=== PATIENT | male | born 1970 | race Caucasian/White ===

== ENCOUNTER 2022-06-02 00:07 | Inpatient (IN) | payer OTHER ==
--- NOTE | 2022-06-02 00:23 | ED ---
Chest Pain HPI - General Chief Complaint: Shortness of Breath Stated Complaint: Shortness of Breath Time Seen by Provider: 06/02/22 00:22 Source: patient, EMS, RN notes reviewed, old records reviewed Mode of arrival: EMS Limitations: no limitations - History of Present Illness Initial Comments: This is a 51-year-old male to the emergency department for evaluation of chest pain. patient states symptoms ongoing for 3 weeks progressively worsening. No fevers cough or congestion. No travel history. MD Complaint: chest pain -: week(s) Onset: during rest Pain Location: substernal, left chest Pain Radiation: LUE Severity: moderate Severity scale (1-10): 4 Quality: aching, heaviness Consistency: constant Improves With: nothing Anginal Symptoms: dyspnea Other Symptoms: palpitations Treatments Prior to Arrival: none - Related Data Previous Rx's Medication Instructions Recorded Aspirin 81 mg PO DAILY #90 tab 12/22/21 Atorvastatin [Lipitor] 80 mg PO HS #90 tab 12/22/21 Furosemide [Lasix] 40 mg PO DAILY #90 tab 12/22/21 Nitroglycerin Sl Tabs [Nitrostat] 0.4 mg SUBLINGUAL Q5M PRN #100 tab 12/22/21 Ticagrelor [Brilinta] 90 mg PO BID #180 tab 12/22/21 carvediloL [Coreg] 3.125 mg PO BID-W/MEALS #180 tab 12/22/21 lisinopriL [Zestril] 10 mg PO DAILY #90 tab 12/22/21 Allergies Allergy/AdvReac Type Severity Reaction Status Date / Time coconut Allergy Itching Verified 12/19/21 14:35 Review of Systems ROS Statement: Those systems with pertinent positive or pertinent negative responses have been documented in the HPI. ROS Other: All systems not noted in ROS Statement are negative. EKG Findings - EKG Comments: EKG Findings:: EKG sinus 84 NC 168 QRS 90 QTC 432 Past Medical History Past Medical History: Hypertension History of Any Multi-Drug Resistant Organisms: None Reported Past Surgical History: No Surgical Hx Reported Past Anesthesia/Blood Transfusion Reactions: Unable to Obtain Smoking Status: Current every day smoker - Past Family History Father Additional Family Medical History / Comment(s): Father is . He was a [place] vet, exsposed to agent orange. Mother Family Medical History: Cancer Additional Family Medical History / Comment(s): Mother of bladder cancer. General Exam Limitations: no limitations General appearance: alert, in no apparent distress, anxious Head exam: Present: atraumatic, normocephalic, normal inspection Eye exam: Present: normal appearance, PERRL, EOMI. Absent: scleral icterus, conjunctival injection, periorbital swelling ENT exam: Present: normal exam, mucous membranes moist Neck exam: Present: normal inspection. Absent: tenderness, meningismus, lymphadenopathy Respiratory exam: Present: normal lung sounds bilaterally. Absent: respiratory distress, wheezes, rales, rhonchi, stridor Cardiovascular Exam: Present: regular rate, normal rhythm, normal heart sounds. Absent: systolic murmur, diastolic murmur, rubs, gallop, clicks GI/Abdominal exam: Present: soft, normal bowel sounds. Absent: distended, tenderness, guarding, rebound, rigid Extremities exam: Present: normal inspection, full ROM, normal capillary refill. Absent: tenderness, pedal edema, joint swelling, calf tenderness Back exam: Present: normal inspection Neurological exam: Present: alert, oriented X3, CN II-XII intact Psychiatric exam: Present: normal affect, normal mood Skin exam: Present: warm, dry, intact, normal color. Absent: rash Course Vital Signs 06/02/22 06/02/22 00:09 02:39 Temperature 97.5 F L Pulse Rate 84 75 Respiratory 20 20 Rate Blood Pressure 140/85 135/66 O2 Sat by Pulse 98 100 Oximetry - Reevaluation(s) Reevaluation #1: 06/02/22 02:40 medical record is reviewed Reevaluation #2: 06/02/22 03:37 Patient still with chest pain here in the ER Reevaluation #3: 06/02/22 03:37 Patient informed results questions answered - Consultations Consultation #1: Spoke with sound who agrees to admit this patient Chest Pain MDM - MDM 51 male presenting with chest pain today history of high blood pressure, mild troponin leak. Elevated d-dimer CT negative for PE. Patient be admitted for cardiac observation Disposition Clinical Impression: Chest pain Disposition: [facility]ITT[facility] Condition: Undetermined Is patient prescribed a controlled substance at d/c from ED?: No Referrals: None,Stated [Primary Care Provider] - 1-2 days Time of Disposition: 03:15
[2022-06-02 00:34] LABS: Basophils # (A) 0.1 k/uL (0-0.2); Basophils % (A) 1 %; Eosinophils # (A) 0.2 k/uL (0-0.7); Eosinophils % (A) 1 %; HCT 42.6 % (39.0-53.0); HGB 14.5 gm/dL (13.0-17.5); Lymphocytes # (A) 3.7 k/uL (1.0-4.8); Lymphocytes % (A) 30 %; MCH 30.9 pg (25.0-35.0); Monocytes # (A) 0.6 k/uL (0-1.0); Monocytes % (A) 5 %; Neutrophils # (A) 7.2 k/uL (1.3-7.7); Neutrophils % (A) 59 %; Platelet Count 314 k/uL (150-450); RBC 4.69 m/uL (4.30-5.90); RDW 13.5 % (11.5-15.5); WBC 12.2 k/uL (3.8-10.6)
[2022-06-02 00:46] LABS: ALT 26 U/L (4-49); AST 26 U/L (17-59); African American GFR (CKD) >90 (>60 ml/min/1.73 sqM); Albumin 4.4 g/dL (3.5-5.0); Alkaline Phosphatase 131 U/L (38-126); Anion Gap 16 mmol/L; Blood Urea Nitrogen 10 mg/dL (9-20); Calcium 8.7 mg/dL (8.4-10.2); Carbon Dioxide 14 mmol/L (22-30); Chloride 99 mmol/L (98-107); Glucose 110 mg/dL (74-99); Magnesium 2.1 mg/dL (1.6-2.3); Non-African American GFR(CKD) >90 (>60 ml/min/1.73 sqM); Phosphorus 3.9 mg/dL (2.5-4.5); Potassium 3.8 mmol/L (3.5-5.1); Sodium 129 mmol/L (137-145); Total Bilirubin 0.2 mg/dL (0.2-1.3); Total Protein 7.5 g/dL (6.3-8.2)
--- NOTE | 2022-06-02 00:57 | XR ---
EXAMINATION TYPE: XR chest 2V DATE OF EXAM: 06/02/2022 COMPARISON: 12/20/2021 HISTORY: Weakness TECHNIQUE: FINDINGS: Heart and mediastinum are normal. Lungs are clear. The diaphragm is normal. Bony thorax is intact. There are chest leads. IMPRESSION: Normal chest. No adverse change.
[2022-06-02 00:58] LABS: INR 0.9 (<1.2); Partial Thromboplastin Time 29.2 sec (22.0-30.0); Prothrombin Time 9.8 sec (9.0-12.0)
[2022-06-02] MEDS ORDERED: SODIUM CHLORIDE 0.9% 1,000 ML IV STA (01:27)
--- NOTE | 2022-06-02 02:23 | CT ---
EXAMINATION TYPE: CT angio chest DATE OF EXAM: 06/02/2022 COMPARISON: 12/19/2021 HISTORY: CHEST PAIN/ELEVATED D DIMER CT DLP: 335.4 mGycm Automated exposure control for dose reduction was used. CONTRAST: Performed with IV Contrast, patient injected with mL of Isovue 370. Images obtained from the thoracic inlet to the diaphragm with the IV contrast. There are Three-D post processed images. The lungs are clear of consolidation. No pulmonary mass. There is no mediastinal adenopathy. There ar e no hilar masses. Thoracic aorta is intact. No aneurysm. There is normal contrast opacification of the pulmonary arteries. No filling defect. The thoracic spi ne is intact. No compression fracture. Sternum is intact. The upper abdominal soft tissues are intact . IMPRESSION: No evidence of pulmonary embolism. Negative exam. No suspicious pulmonary mass.
[2022-06-02] MEDS ORDERED: MORPHINE SULFATE 4 MG/ML SYRINGE IV PRN (03:35)
[2022-06-02] MEDS ORDERED: ONDANSETRON 4 MG/2 ML VIAL IVP PRN (03:35)
[2022-06-02] MEDS ORDERED: NALOXONE 0.4 MG/ML 1 ML VIAL IV PRN (03:35)
--- NOTE | 2022-06-02 09:09 | P.CRDCN ---
History of Present Illness Consult date: 06/02/22 Chief complaint: Shortness of breath and chest discomfort History of present illness: The patient is a very pleasant 51-year-old gentleman with a past medical history significant for CAD and prior stenting of the OM in December 2021, cardiomyopathy w ith last ejection fraction about 35-40%, hypertension, dyslipidemia, presented to the hospital because he was experiencing symptoms of shortness of breath as well as chest discomfort. The patient describes exertional dyspnea for the last few weeks with no orthopnea or PND. No change in the weight. No lower eczema his edema. Also he has been experiencing intermittent episodes of discomfort in between the shoulder somewhat similar to what he had before he underwent stenting of the LCx. He presented for further evaluation. When he was seen and evaluated this morning he seems to be euvolemic on examination. He has no JVD and he has clear breathing sounds bilaterally and no lower extremities edema and no abdominal distention. Currently he is asymptomatic in terms of any discomfort in the chest or discomfort in between the shoulders. He underwent further investigation including d-dimer came in to be abnormal of the chest showed no PE. He underwent a chest x-ray showed no abnormalities. NT proBNP came in to be about 1500. He is on dual antiplatelet therapy along with high intensity statin along with beta james and JOSÉ inhibitor. He is in process of having an echocardiogram. He is known that weeks ago the patient fell and had injury on the left face. He is not quite sure if he lost his consciousness or no around that episode. Past Medical History Past Medical History: Hypertension History of Any Multi-Drug Resistant Organisms: None Reported Past Surgical History: Heart Catheterization With Stent Past Anesthesia/Blood Transfusion Reactions: Unable to Obtain Date of Last Stent Placement:: 12/21/2021 Past Psychological History: No Psychological Hx Reported Additional Psychological History / Comment(s): Pt resides with one lady roommate. He drives. Smoking Status: Current every day smoker Past Alcohol Use History: Daily Additional Past Alcohol Use History / Comment(s): Pt started smoking in 1998 and states he now smokes about 10 cigarettes/day. Pt states he drinks 2-3 25-ounce beers a day. Past Drug Use History: None Reported - Past Family History Father Additional Family Medical History / Comment(s): Father is . He was a [place] vet, exsposed to agent orange. Mother Family Medical History: Cancer Additional Family Medical History / Comment(s): Mother of bladder cancer. Medications and Allergies Home Medications Medication Instructions Recorded Confirmed Type Aspirin 81 mg PO DAILY #90 tab 12/22/21 Rx Atorvastatin [Lipitor] 80 mg PO HS #90 tab 12/22/21 Rx Furosemide [Lasix] 40 mg PO DAILY #90 tab 12/22/21 Rx Nitroglycerin Sl Tabs [Nitrostat] 0.4 mg SUBLINGUAL Q5M PRN #100 tab 12/22/21 Rx Ticagrelor [Brilinta] 90 mg PO BID #180 tab 12/22/21 Rx carvediloL [Coreg] 3.125 mg PO BID-W/MEALS #180 tab 12/22/21 Rx lisinopriL [Zestril] 10 mg PO DAILY #90 tab 12/22/21 Rx Allergies Allergy/AdvReac Type Severity Reaction Status Date / Time coconut Allergy Itching Verified 12/19/21 14:35 Physical Exam Vitals: Vital Signs Temp Pulse Pulse Resp BP BP Pulse Ox 06/02/22 07:00 97.8 F 80 18 134/72 95 06/02/22 05:11 97.7 F 76 18 156/76 97 06/02/22 03:56 75 18 113/58 98 06/02/22 02:39 75 20 135/66 100 06/02/22 00:09 97.5 F L 84 20 140/85 98 Intake and Output 06/01/22 06/02/22 06/02/22 22:59 06:59 14:59 Other: # Voids 1 0 Weight 74.843 kg - Constitutional General appearance: no acute distress - Respiratory Respiratory: bilateral: CTA - Cardiovascular Rhythm: regular Heart sounds: normal: S1, S2 Results 06/02/22 00:16 06/02/22 00:16 Cardiac Enzymes 06/02/22 06/02/22 Range/Units 00:16 00:16 AST 26 (17-59) U/L Troponin I 0.028 (0.000-0.034) ng/mL Coagulation 06/02/22 Range/Units 00:16 PT 9.8 (9.0-12.0) sec APTT 29.2 (22.0-30.0) sec CBC 06/02/22 Range/Units 00:16 WBC 12.2 H (3.8-10.6) k/uL RBC 4.69 (4.30-5.90) m/uL Hgb 14.5 (13.0-17.5) gm/dL Hct 42.6 (39.0-53.0) % Plt Count 314 (150-450) k/uL Comprehensive Metabolic Panel 06/02/22 Range/Units 00:16 Sodium 129 L (137-145) mmol/L Potassium 3.8 (3.5-5.1) mmol/L Chloride 99 (98-107) mmol/L Carbon Dioxide 14 L (22-30) mmol/L BUN 10 (9-20) mg/dL Creatinine 0.92 (0.66-1.25) mg/dL Glucose 110 H (74-99) mg/dL Calcium 8.7 (8.4-10.2) mg/dL AST 26 (17-59) U/L ALT 26 (4-49) U/L Alkaline Phosphatase 131 H (38-126) U/L Total Protein 7.5 (6.3-8.2) g/dL Albumin 4.4 (3.5-5.0) g/dL Current Medications Generic Name Dose Route Start Last Admin Trade Name Freq PRN Reason Stop Dose Admin Aspirin 81 mg 06/02/22 09:00 Aspirin 81 Mg PO DAILY [facility] Atorvastatin Calcium 80 mg 06/02/22 21:00 Atorvastatin 80 Mg Tab PO HS [facility] Carvedilol 3.125 mg 06/02/22 17:30 Carvedilol 3.125 Mg Tab PO BID-W/MEALS [facility] Furosemide 40 mg 06/02/22 09:00 Furosemide 40 Mg Tab PO DAILY [facility] Lisinopril 10 mg 06/02/22 09:00 Lisinopril 10 Mg Tab PO DAILY [facility] Morphine Sulfate 4 mg 06/02/22 03:35 Morphine Sulfate 4 Mg/Ml Syringe IV Q4HR PRN Severe Pain (Scale 7 to 10) Naloxone HCl 0.2 mg 06/02/22 03:35 Naloxone 0.4 Mg/Ml 1 Ml Vial IV Q2M PRN Opioid Reversal Ondansetron HCl 4 mg 06/02/22 03:35 Ondansetron 4 Mg/2 Ml Vial IVP Q8HR PRN Nausea And Vomiting Ticagrelor 90 mg 06/02/22 09:00 Ticagrelor 90 Mg Tab PO BID DAYSI Intake and Output 06/01/22 06/02/22 06/02/22 22:59 06:59 14:59 Other: # Voids 1 0 Weight 74.843 kg 06/02/22 00:16 06/02/22 00:16 Assessment and Plan Assessment: Assessment Chest discomfort/discomfort in between the shoulders Shortness of breath with exertion consistent with NYHA class II Coronary artery disease and prior vascularization of the LCx/OM Cardiomyopathy with last EF of 35% Status post fall, rule out syncope. Plan Rule out acute coronary syndrome. Follow-up with the serial cardiac enzymes He is not in overt heart failure at this point. He is euvolemic on examination Rule out cardiac arrhythmia/sustained VT as an etiology for his episode when he fell and had injury on the face Follow-up with the echocardiogram Follow-up with the patient
[2022-06-02] MEDS: ASPIRIN 81 MG PO SCH (09:34)
[2022-06-02] MEDS: FUROSEMIDE 40 MG TAB PO SCH (09:34)
[2022-06-02] MEDS: lisinopriL 10 MG TAB PO SCH (09:34)
[2022-06-02] MEDS: TICAGRELOR 90 MG TAB PO SCH ×2 (09:34→20:34)
--- NOTE | 2022-06-02 11:29 | P.HPIM ---
History of Present Illness H&P Date: 06/02/22 Patient is a 51-year-old male with PMH of CAD post stent of the OM in December 2021, systolic CHF with EF 35-40%, hypertension, dyslipidemia that presents the ED or worsening shortness of breath and scapular pain. Patient reports shortness of breath that is progressively getting worse since his stenting in December. Currently he is unable to walk 200 feet without stopping to catch his breath. He denies a ny orthopnea or lower extremity swelling. He reports scapular pain that has been ongoing over the past week that is worse with exertion, similar to what he had before he underwent stenting in December. Patient also reports that he fell twice. The first time was 2 weeks ago and he hit his head, did not seek medical attention. He fell yesterday, this time he did not hit his head. He is unsure whether he had a syncopal episode or not. He denies any headache, nausea or vomiting, fever or chills, diaphoresis, chest pain, palpitations, changes in urination or bowel habits. No changes in appetite or weight. He denies any dizziness, numbness/weakness/tingling of the extremities. In the ED, his vital signs are stable. CBC showed leukocytosis of 12.2. Coagulation panel was negative. D-dimer was 12.95. CMP showed sodium 129, bicarb of 14, glucose of 110, alkaline phosphatase of 131. Troponin was 0.028, 0.034, 0.035 with EKG showing sinus rhythm and T-wave abnormalities. BNP was 1430. Chest x-ray was negative. CTA chest negative for PE. Patient is admitted for chest pain, rule out acute coronary syndrome with cardiology consultation. Review of systems is performed and is negative except above. General: non toxic, no distress, appears at stated age Derm: warm, dry Head: atraumatic, normocephalic, ecchymosis over the left orbital region Eyes: EOMI, no lid lag, anicteric sclera Mouth: no lip lesion, mucus membranes moist Cardiovascular: S1S2 reg, no murmur, positive posterior tibial pulse bilateral, Lungs: Decreased breath sounds bilateral, no rhonchi, no rales , no accessory muscle use Abdominal: soft, nontender to palpation, no guarding, no appreciable organomegaly Ext: no gross muscle atrophy, no edema, no contractures Neuro: CN II-XI grossly intact, no focal neuro deficits Psych: Alert, oriented, appropriate affect #Shortness of breath #Scapular pain #Elevated troponin with history of CAD post stent in December 2021 #Possible syncopal episode #Elevated d-dimer #Hyponatremia #Metabolic acidosis Chronic conditions: Systolic CHF with EF 35-40%, hypertension, dyslipidemia, smoker Patient presents with exertional shortness of breath. Chest x-ray was negative. He has no lower extremity swelling. Troponins are slowly trending with EKG showing T-wave abnormalities. Cardiology has been consulted and recommended echocardiogram. Restart ASA, Lipitor, Coreg and Brilinta. Patient will be started on a heparin drip and would benefit from a cardiac cath. Contine Telemetry monitoring to rule out cardiac cause of syncope. Patient be placed on fall precautions. Patient with elevated d-dimer, CT chest is ruled out PE. Patient was sodium of 129 and bicarb of 14. Possibly related to dehydration. Received 1 L bolus in the ED. Patient encouraged hydration by mouth. Repeat BMP tomorrow morning. DVT prophylaxis: Heparin drip Discussed with: Patient Anticipated discharge: 1-[address]: Home A total of 35 minutes was spent on the care of this complex patient more than 50% of the time was spent in counseling and care coordination. Patient is unable to name a decision maker. He would like to be no code but okay with intubation, vasopressors and antiarrhythmics. Past Medical History Past Medical History: Hypertension History of Any Multi-Drug Resistant Organisms: None Reported Past Surgical History: Heart Catheterization With Stent Past Anesthesia/Blood Transfusion Reactions: Unable to Obtain Date of Last Stent Placement:: 12/21/2021 Past Psychological History: No Psychological Hx Reported Additional Psychological History / Comment(s): Pt resides with one lady roommate. He drives. Smoking Status: Current every day smoker Past Alcohol Use History: Daily Additional Past Alcohol Use History / Comment(s): Pt started smoking in 1998 and states he now smokes about 10 cigarettes/day. Pt states he drinks 2-3 25-ounce beers a day. Past Drug Use History: None Reported - Past Family History Father Additional Family Medical History / Comment(s): Father is . He was a [place] vet, exsposed to agent orange. Mother Family Medical History: Cancer Additional Family Medical History / Comment(s): Mother of bladder cancer. Medications and Allergies Home Medications Medication Instructions Recorded Confirmed Type Aspirin 81 mg PO DAILY #90 tab 12/22/21 Rx Atorvastatin [Lipitor] 80 mg PO HS #90 tab 12/22/21 Rx Furosemide [Lasix] 40 mg PO DAILY #90 tab 12/22/21 Rx Nitroglycerin Sl Tabs [Nitrostat] 0.4 mg SUBLINGUAL Q5M PRN #100 tab 12/22/21 Rx Ticagrelor [Brilinta] 90 mg PO BID #180 tab 12/22/21 Rx carvediloL [Coreg] 3.125 mg PO BID-W/MEALS #180 tab 12/22/21 Rx lisinopriL [Zestril] 10 mg PO DAILY #90 tab 12/22/21 Rx Allergies Allergy/AdvReac Type Severity Reaction Status Date / Time coconut Allergy Itching Verified 12/19/21 14:35 Physical Exam Vitals: Vital Signs Temp Pulse Pulse Resp BP BP Pulse Ox 06/02/22 07:00 97.8 F 80 18 134/72 95 06/02/22 05:11 97.7 F 76 18 156/76 97 06/02/22 03:56 75 18 113/58 98 06/02/22 02:39 75 20 135/66 100 06/02/22 00:09 97.5 F L 84 20 140/85 98 Intake and Output 06/01/22 06/02/22 06/02/22 22:59 06:59 14:59 Other: # Voids 1 0 Weight 74.843 kg Results CBC & Chem 7: 06/02/22 00:16 06/02/22 00:16 Labs: Abnormal Lab Results - Last 24 Hours (Table) 06/02/22 06/02/22 06/02/22 Range/Units 00:16 00:16 00:16 WBC 12.2 H (3.8-10.6) k/uL D-Dimer 12.95 H (<0.60) mg/L FEU Sodium 129 L (137-145) mmol/L Carbon Dioxide 14 L (22-30) mmol/L Glucose 110 H (74-99) mg/dL Alkaline Phosphatase 131 H (38-126) U/L Thrombosis Risk Factor Assmnt - Choose All That Apply Each Factor Represents 1 point: Age 41-60 years, Obesity (BMI >25) Thrombosis Risk Factor Assessment Total Risk Factor Score: 2 Thrombosis Risk Factor Assessment Level: Low Risk
[2022-06-02] MEDS: HEPARIN SOD,PORK IN 0.45% NACL 25,000 UNIT in 0.45% NACL 1 250ML.BAG IV SCH (11:30)
[2022-06-02] MEDS: SPIRONOLACTONE 25 MG TAB PO SCH (14:48)
[2022-06-02] MEDS: carvediloL 3.125 MG TAB PO SCH (18:12)
[2022-06-02] MEDS: ATORVASTATIN 80 MG TAB PO SCH (20:33)
--- NOTE | 2022-06-02 21:00 | US ---
EXAMINATION TYPE: US venous doppler duplex LE DATE OF EXAM: 06/02/2022 7:23 PM COMPARISON: NONE CLINICAL HISTORY: elevated ddim. Elevated d dimer. No hx of DVT. Patient is currently on heparin. Jose n in feet. SIDE PERFORMED: Bilateral TECHNIQUE: The lower extremity deep venous system is examined utilizing real time linear array sonog ethan with graded compression, doppler sonography and color-flow sonography. VESSELS IMAGED: Common Femoral Vein Deep Femoral Vein Greater Saphenous Vein * Femoral Vein Popliteal Vein Small Saphenous Vein * Proximal Calf Veins (* superficial vessels) Right Leg: No evidence of DVT. Duplicate popliteal vein noted. Left Leg: No evidence of DVT. Duplicate popliteal vein noted. IMPRESSION: No evidence of deep vein thrombosis in both legs.
[2022-06-03] MEDS: carvediloL 3.125 MG TAB PO SCH (06:30)
[2022-06-03 08:20] LABS: African American GFR (CKD) >90 (>60 ml/min/1.73 sqM); Anion Gap 7 mmol/L; Blood Urea Nitrogen 11 mg/dL (9-20); Calcium 8.7 mg/dL (8.4-10.2); Carbon Dioxide 23 mmol/L (22-30); Chloride 100 mmol/L (98-107); Glucose 99 mg/dL (74-99); Non-African American GFR(CKD) >90 (>60 ml/min/1.73 sqM); Potassium 4.5 mmol/L (3.5-5.1); Sodium 130 mmol/L (137-145)
--- NOTE | 2022-06-03 08:20 | P.PN ---
Subjective Progress Note Date: 06/03/22 Principal diagnosis: Acute coronary syndrome The patient is a very pleasant 51-year-old gentleman with a past medical history significant for CAD and prior stenting of the OM in December 2021, cardiomyopathy with last ejection fraction about 35-40%, hypertension, dyslipidemia, presented to the hospital because he was experiencing symptoms of shortness of breath as well as chest discomfort. The patient describes exertional dyspnea for the last few weeks with no orthopnea or PND. No change in the weight. No lower eczema his edema. Also he has been experiencing intermittent episodes of discomfort in between the shoulder somewhat similar to what he had before he underwent [place] nting of the LCx. He presented for further evaluation. When he was seen and evaluated this morning he seems to be euvolemic on examination. He has no JVD and he has clear breathing sounds bilaterally and no lower extremities edema and no abdominal distention. Currently he is asymptomatic in terms of any discomfort in the chest or discomfort in between the shoulders. He underwent further investigation including d-dimer came in to be abnormal of the chest showed no PE. He underwent a chest x-ray showed no abnormalities. NT proBNP came in to be about 1500. He is on dual antiplatelet therapy along with high intensity statin along with beta james and JOSÉ inhibitor. He is in process of having an echocardiogram. He is known that weeks ago the patient fell and had injury on the left face. He is not quite sure if he lost his consciousness or no around that episode. June [id number] The patient was seen and examined this morning. He continues to be symptomatic in terms of chest discomfort with exertion. He did go to the bathroom and developed chest discomfort better when he was resting. He remains euvolemic on examination. The pressure continues to be elevated. I'm going to increase the dose of carvedilol to 6.25 mg by mouth twice a day. Continue dual antiplatelet therapy along with high intensity statin. An echo was performed and revealed impaired LV function was EF around 30% with overall global hypokinesia. I recommended proceeding with coronary angiogram tomorrow morning. Objective - Vital Signs Vital signs: Vital Signs Temp 98.1 F 06/03/22 02:34 Pulse 67 06/03/22 02:34 Resp 17 06/03/22 02:34 BP 147/77 06/03/22 02:34 Pulse Ox 98 06/03/22 02:34 FiO2 Intake & Output 06/02/22 06/03/22 06/03/22 18:59 06:59 18:59 Intake Total 540.173 Balance 540.173 Intake: Intake, IV Titration 60.173 Amount Heparin Sod,Pork in 0.45% 60.173 NaCl 25,000 unit In 0.45 % NaCl 1 250ml.bag @ 12 UNITS/KG/HR 8.981 mls/hr IV .Q24H DAYSI Rx#: [id number] Oral 480 Other: # Voids 2 1 - Constitutional General appearance: Present: no acute distress - Respiratory Respiratory: bilateral: CTA - Cardiovascular Rhythm: regular Heart sounds: normal: S1, S2 - Labs CBC & Chem 7: 06/02/22 00:16 06/02/22 00:16 Labs: Abnormal Lab Results - Last 24 Hours (Table) 06/02/22 06/02/22 06/03/22 Range/Units 09:36 17:00 00:48 APTT 37.0 H 49.0 H (22.0-30.0) sec Troponin I 0.035 H* (0.000-0.034) ng/mL Assessment and Plan Assessment: Assessment Acute coronary syndrome Shortness of breath with exertion consistent with NYHA class II Coronary artery disease and prior vascularization of the LCx/OM Cardiomyopathy with last EF of 35% Status post fall, rule out syncope. Plan Continue IV heparin Proceed was coronary angiogram tomorrow by Dr. Painter Increase the dose of carvedilol Follow-up with the patient Evaluated the patient for possible AICD for primary prevention if the EF did not recover
[2022-06-03] MEDS: ASPIRIN 81 MG PO SCH (08:43)
[2022-06-03] MEDS: lisinopriL 10 MG TAB PO SCH (08:43)
[2022-06-03] MEDS: FUROSEMIDE 40 MG TAB PO SCH (08:43)
[2022-06-03] MEDS: SPIRONOLACTONE 25 MG TAB PO SCH (08:43)
[2022-06-03] MEDS: TICAGRELOR 90 MG TAB PO SCH ×2 (08:43→20:45)
--- NOTE | 2022-06-03 11:20 | P.PN ---
Subjective Progress Note Date: 06/03/22 Patient is a 51-year-old male with PMH of CAD post stent of the OM in December 2021, systolic CHF with EF 35-40%, hypertension, dyslipidemia that presents the ED or worsening shortness of breath and scapular pain. Patient reports shortness of breath that is progressively getting worse since his stenting in December. Currently he is unable to walk 200 feet without stopping to catch his breath. He denies any orthopnea or lower extremity swelling. He reports scapular pain that has been ongoing over the past week that is worse with exertion, similar to what he had before he underwent stenting in December. Patient also reports that he fell twice. The first time was 2 weeks ago and he hit his head, did not seek medical attention. He fell yesterday, this time he did not hit his head. He is unsure whether he had a syncopal episode or not. He denies any headache, nausea or vomiting, fever or chills, diaphoresis, chest pain, palpitations, changes in urination or bowel habits. No changes in appetite or weight. He denies any dizziness, numbness/weakness/tingling of the extremities. In the ED, his vital signs are stable. CBC showed leukocytosis of 12.2. Coagulation panel was negative. D-dimer was 12.95. CMP showed sodium 129, bicarb of 14, glucose of 110, alkaline phosphatase of 131. Troponin was 0.028, 0.034, 0.035 with EKG showing sinus rhythm and T-wave abnormalities. BNP was 1430. Chest x-ray was negative. CTA chest negative for PE. Patient is admitted for chest pain, rule out acute coronary syndrome with cardiology consultation. Patient was seen and examined. No acute events overnight. He reports continue scapular pain. He reports pain in his bilateral lower extremities worsening with exertion. General: non toxic, no distress, appears at stated age Derm: warm, dry Head: atraumatic, normocephalic, ecchymosis over the left orbital region Eyes: EOMI, no lid lag, anicteric sclera Mouth: no lip lesion, mucus membranes moist Cardiovascular: S1S2 reg, no murmur, positive posterior tibial pulse bilateral, Lungs: Decreased breath sounds bilateral, no rhonchi, no rales , no accessory muscle use Ext: no gross muscle atrophy, no edema, no contractures Neuro: no focal neuro deficits Psych: Alert, oriented, appropriate affect #Systolic CHF with EF of 30% #Scapular pain #Elevated troponin with history of CAD post stent in December 2021 #Possible syncopal episode #Elevated d-dimer #Hyponatremia Chronic conditions: Systolic CHF with EF 35-40%, hypertension, dyslipidemia, smoker Patient presents with exertional shortness of breath. Chest x-ray was negative. He has no lower extremity swelling. Echocardiogram shows EF 30% with global hypokinesis. Continue Coreg, Lasix, Lisinopril and Aldactone. Patient would benefit from AICD. Cardiology on board. Troponins are slowly trending up with EKG showing T-wave abnormalities. Restart ASA, Lipitor, Coreg and Brilinta. Telemetry montoring. Patient will be started on a heparin drip with plans for cardiac cath tomorrow. Continue Telemetry monitoring to rule out cardiac cause of syncope. Patient be placed on fall precautions. Patient with elevated d-dimer, CT chest is ruled out PE. Venous duplex negative for DVT. Follow up arterial duplex of the lower extremities. Patient was sodium of 130. Possibly related to dehydration. Received 1 L bolus in the ED. Patient encouraged hydration by mouth. Repeat BMP tomorrow morning. DVT prophylaxis: Heparin drip Discussed with: Patient Anticipated discharge: 1-2 days Objective - Vital Signs Vital signs: Vital Signs Temp 98.1 F 06/03/22 02:34 Pulse 67 06/03/22 02:34 Resp 17 06/03/22 02:34 BP 147/77 06/03/22 02:34 Pulse Ox 98 06/03/22 02:34 FiO2 Intake & Output 06/02/22 06/03/22 06/03/22 18:59 06:59 18:59 Intake Total 540.173 Balance 540.173 Intake: Intake, IV Titration 60.173 Amount Heparin Sod,Pork in 0.45% 60.173 NaCl 25,000 unit In 0.45 % NaCl 1 250ml.bag @ 12 UNITS/KG/HR 8.981 mls/hr IV .Q24H DAYSI Rx#: [id number] Oral 480 Other: Voiding Method Toilet # Voids 2 1 - Labs CBC & Chem 7: 06/02/22 00:16 06/03/22 07:27 Labs: Abnormal Lab Results - Last 24 Hours (Table) 1006/03/22 06/03/22 Range/Units 17:00 00:48 07:27 APTT 37.0 H 49.0 H (22.0-30.0) sec Sodium 130 L (137-145) mmol/L 06/03/22 Range/Units 07:27 APTT 50.6 H (22.0-30.0) sec Sodium (137-145) mmol/L
[2022-06-03] MEDS: HEPARIN SOD,PORK IN 0.45% NACL 25,000 UNIT in 0.45% NACL 1 250ML.BAG IV SCH (12:13)
[2022-06-03] MEDS: carvediloL 6.25 MG TAB PO SCH (16:58)
[2022-06-03] MEDS: ATORVASTATIN 80 MG TAB PO SCH (20:45)
[2022-06-04] MEDS: carvediloL 6.25 MG TAB PO SCH ×2 (06:35→17:29)
[2022-06-04] MEDS ORDERED: ALPRAZolam 0.25 MG TAB PO PRN (07:00)
[2022-06-04] MEDS ORDERED: NITROGLYCERIN SL TABS 0.4 MG TAB SUBLINGUAL PRN (07:00)
[2022-06-04] MEDS ORDERED: ALPRAZolam 0.5 MG TAB PO PRN (07:00)
[2022-06-04] MEDS: FUROSEMIDE 40 MG TAB PO SCH (08:10)
[2022-06-04] MEDS: ASPIRIN 81 MG PO SCH (08:10)
[2022-06-04] MEDS: SPIRONOLACTONE 25 MG TAB PO SCH (08:10)
[2022-06-04] MEDS: lisinopriL 10 MG TAB PO SCH (08:10)
[2022-06-04] MEDS: SODIUM CHLORIDE 0.9% 1,000 ML in EMPTY BAG 1 BAG IV SCH ×2 (08:10→20:09)
[2022-06-04] MEDS: TICAGRELOR 90 MG TAB PO SCH ×2 (09:34→20:36)
--- NOTE | 2022-06-04 10:13 | CA ---
Transthoracic Echo Report Name: Bernardo Dennis Age: 51 Gender: M : 1970 Exam Date: 06/02/2022 12:34 Exam Location: [facility] Ht (in): 66 Wt (lb): 165 Ordering Physician: Jhonny Pulido MD Attending/Referring Phys: Eligibility Manager Stephanie Hoyt RDCS Procedure CPT: Indications: CP Cardiac Hx: Technical Quality: Technically difficult study Contrast 1: Lumason Total Dose (mL): 4 Contrast 2: Total Dose (mL): MEASUREMENTS (Male / Female) Normal Values 2D ECHO LV Diastolic Diameter PLAX 5.7 cm 4.2 - 5.9 / 3.9 - 5.3 cm LV Systolic Diameter PLAX 5.0 cm IVS Diastolic Thickness 1.3 cm 0.6 - 1.0 / 0.6 - 0.9 cm LVPW Diastolic Thickness 1.3 cm 0.6 - 1.0 / 0.6 - 0.9 cm LV Relative Wall Thickness 0.5 FINDINGS Left Ventricle Limited study, moderately reduced global left ventricular systolic function. Left ventricular ejection fraction is estimated at 30 %. Right Ventricle Right Atrium Left Atrium Mitral Valve Aortic Valve Tricuspid Valve Pulmonic Valve Pericardium No pericardial effusion. Aorta CONCLUSIONS Limited echocardiogram for ejection fraction and wall motion Impaired LV function was EF between 30-35%. Overall generalized hypokinesia Previewed by: Dr. Saurabh Zacarias MD (Electronically Signed) Final Date: 03 June 2022 08:06
[2022-06-04] MEDS ORDERED: VERAPAMIL 2.5 MG/ML 2 ML AMP ONE (12:38)
[2022-06-04] MEDS ORDERED: HEPARIN SODIUM 1,000 UN/ML (10ML VL) ONE (12:38)
[2022-06-04] MEDS: HEPARIN SOD,PORK IN 0.45% NACL 25,000 UNIT in 0.45% NACL 1 250ML.BAG IV SCH (12:39)
[2022-06-04] MEDS: MIDAZOLAM 2 MG/2 ML VIAL IV ONE ×2 (12:45→12:50)
[2022-06-04] MEDS ORDERED: fentaNYL (PF) 50 MCG/1 ML VIAL IV ONE (12:45)
[2022-06-04] MEDS ORDERED: LIDOCAINE 1% INJ 10MG/ML (30 ML VIAL-PF) SQ ONE (12:46)
[2022-06-04] MEDS ORDERED: IV FLUID CONTINUATION 1,000 ML IV ONE (12:49)
[2022-06-04] MEDS ORDERED: VERAPAMIL SYRINGE (5 MG/10 ML) INTRAARTER ONE (12:51)
[2022-06-04] MEDS ORDERED: HEPARIN SODIUM 1,000 UN/ML (10ML VL) IV ONE (12:56)
[2022-06-04] MEDS ORDERED: IOPAMIDOL-370 125ML BTL INJ ONE (13:25)
[2022-06-04] MEDS ORDERED: IOPAMIDOL-370 100ML BTL INJ ONE (13:43)
--- NOTE | 2022-06-04 13:58 | P.CARDCATH ---
Description of Procedure: PROCEDURES PERFORMED: Left heart catheterization, bilateral coronary angiography, IVUS left main INDICATION: Non-STEMI, chest pain with exertion HISTORY: Patient is pleasant 51-year-old male with history of CAD status post PCI of a OM3 12/21/2021 who has been having increasing dyspnea as well as chest pain with exertion. He additionally has had syncopal episodes. He was found to have minimally elevated troponins and therefore recommendation was for heart catheterization. There was some difficulty from the right radial approach with a short aorta and therefore left radial approach was recommended. CONSENT:I have discussed the risks, benefits and alternative therapies for the above-mentioned procedure and for both sedation/analgesia as well as necessary blood product administration, if indicated, as they pertain to this patient. The patient has indicated understanding and acceptance of the risks and procedures discussed. PROCEDURE: After the risks, benefits and alternatives of the above mentioned procedure explained in detail with the patient, informed consent was obtained. Patient was taken to the catheterization lab and prepped and draped in usual fashion. 1% lidocaine was used to anesthetize the left radial artery. A 6- [place] Islander sheath was placed in the left radial artery using modified Seldinger technique. Left coronary angiography was performed with a 5-[place] JL 3.5 catheter and right coronary angiography was performed with a 5-[place] Islander JR4 catheter in various views. There was ventricular sedation noted with engagement with a 5-[place] Islander FL 3.5 catheter. A 5-[place] Islander FR4 catheter was inserted into the left ventricle and pressure measurements were obtained. Given ventricularization and concern of left main stenosis, decision was made to perform IVUS given iFR/FFR not working. Therefore heparin was given and the left main was engaged with a FL 3 guide. A 0.014 BMW wire was advanced in the distal circumflex. IVUS of the left main was performed and was abnormal at 5.3mm2. The left radial sheath was removed and a TR band was placed with hemostasis achieved. The patient tolerated the procedure well. Patient was transported back to the post catheterization holding area in stable condition. Conscious Sedation: Patient was monitored under the direct supervision of vision of myself for conscious sedation using Versed and fentanyl for a total duration of 58 minutes HEMODYNAMICS: Aorta: 105/55 LV: 103/1, LVEDP 5 SELECTIVE CORONARY ARTERIOGRAPHY: LEFT MAIN: The left main is a large caliber vessel which bifurcates into the LAD and circumflex. There is 50-55% proximal left main stenosis. IVUS minimal luminal area of 5.3mm2. LEFT ANTERIOR DESCENDING CORONARY ARTERY: LAD is a large caliber vessel which stops short of the apex. There are mild luminal irregularities proximal LAD 20- 30% stenosis. LEFT CIRCUMFLEX CORONARY ARTERY: Left circumflex is a large caliber vessel with mild luminal irregularities of the circumflex proper. The circumflex gives off a PDA is the dominant vessel. OM1 is proximal and small caliber. 1 to as a inferior branch which is subtotally occluded and is very small caliber. 13 has a proximal stent with a 90% stenosis proximal to the stent and otherwise mild luminal irregularities. The superior portion of OM 3 is occluded from prior films. RIGHT CORONARY ARTERY: The right coronary artery is a small caliber vessel which gives off an acute marginal branch and has a mid 70% stenosis. FINAL IMPRESSION: 1. CAD as described above with 50-55% left main stenosis with minimal luminal area 5.3mm2, mild 20-30% LAD stenosis, mild luminal irregularities of a dominant circumflex, OM3 90% stenosis. 2. Low normal left sided filling pressures PLAN: 1. Aggressive risk factor modification per most recent ACC/AHA guidelines. 2. Evaluate for CABG.
--- NOTE | 2022-06-04 14:12 | P.PN ---
Subjective Progress Note Date: 06/04/22 Patient is a 51-year-old male with PMH of CAD post stent of the OM in December 2021, systolic CHF with EF 35-40%, hypertension, dyslipidemia that presents the ED or worsening shortness of breath and scapular pain. Patient reports shortness of breath that is progressively getting worse since his stenting in December. Currently he is unable to walk 200 feet without stopping to catch his breath. He denies any orthopnea or lower extremity swelling. He reports scapular pain that has been ongoing over the past week that is worse with exertion, similar to what he had before he underwent stenting in December. Patient also reports that he fell twice. The first time was 2 weeks ago and he hit his head, did not seek medical attention. He fell yesterday, this time he did not hit his head. He is unsure whether he had a syncopal episode or not. He denies any headache, nausea or vomiting, fever or chills, diaphoresis, chest pain, palpitations, changes in urination or bowel habits. No changes in appetite or weight. He denies any dizziness, numbness/weakness/tingling of the extremities. In the ED, his vital signs are stable. CBC showed leukocytosis of 12.2. Coagulation panel was negative. D-dimer was 12.95. CMP showed sodium 129, bicarb of 14, glucose of 110, alkaline phosphatase of 131. Troponin was 0.028, 0.034, 0.035 with EKG showing sinus rhythm and T-wave abnormalities. BNP was 1430. Chest x-ray was negative. CTA chest negative for PE. Patient is admitted for chest pain, rule out acute coronary syndrome with cardiology consultation. Patient was seen and examined. No acute events overnight. He reports continue scapular pain. He reports pain in his bilateral lower extremities worsening with exertion. General: non toxic, no distress, appears at stated age Derm: warm, dry Head: atraumatic, normocephalic, ecchymosis over the left orbital region Eyes: EOMI, no lid lag, anicteric sclera Mouth: no lip lesion, mucus membranes moist Cardiovascular: S1S2 reg, no murmur, positive posterior tibial pulse bilateral, Lungs: Decreased breath sounds bilateral, no rhonchi, no rales , no accessory muscle use Ext: no gross muscle atrophy, no edema, no contractures Neuro: no focal neuro deficits Psych: Alert, oriented, appropriate affect #Systolic CHF with EF of 30-35% #Scapular pain #Elevated troponin with history of CAD post stent in December 2021 #Possible syncopal episode #Elevated d-dimer #Hyponatremia Chronic conditions: Hypertension, dyslipidemia, smoker Patient presents with exertional shortness of breath. Chest x-ray was negative. He has no lower extremity swelling. Echocardiogram shows EF 30% with global hypokinesis. Continue Coreg, Lasix, Lisinopril and Aldactone. Patient would benefit from AICD. Cardiology on board. Troponins are slowly trending up with EKG showing T-wave abnormalities. Restart ASA, Lipitor, Coreg and Brilinta. Telemetry montoring. Patient currently on a heparin drip. Cardiac cath shows 50-55% left main, 20-30% LAD, 90% OM3 stenosis. Cardiothoracic surgery consulted for possible CABG. Continue Telemetry monitoring to rule out cardiac cause of syncope. Patient be placed on fall precautions. Patient with elevated d-dimer, CT chest is ruled out PE. Venous duplex negative for DVT. Follow up arterial duplex of the lower extremities. Patient was sodium of 130. Possibly related to dehydration. Received 1 L bolus in the ED. Patient encouraged hydration by mouth. DVT prophylaxis: Heparin drip Discussed with: Patient Anticipated discharge: Depending on clinical course. Objective - Vital Signs Vital signs: Vital Signs Temp 98.1 F 06/04/22 07:10 Pulse 62 06/04/22 08:00 Resp 18 06/04/22 08:00 BP 159/76 06/04/22 07:10 Pulse Ox 98 06/04/22 07:10 FiO2 Intake & Output 06/03/22 06/04/22 06/04/22 18:59 06:59 18:59 Intake Total 668.779 190.7 600 Balance 668.779 190.7 600 Intake: IV 600 Intake, IV Titration 188.779 190.7 Amount Heparin Sod,Pork in 0.45% 188.779 190.7 NaCl 25,000 unit In 0.45 % NaCl 1 250ml.bag @ 12 UNITS/KG/HR 8.981 mls/hr IV .Q24H DAYSI Rx#: [id number] Oral 480 Other: Voiding Method Toilet Toilet Toilet # Voids 1 1 - Labs CBC & Chem 7: 06/02/22 00:16 06/03/22 07:27 Labs: Abnormal Lab Results - Last 24 Hours (Table) 06/04/22 Range/Units 05:31 APTT 47.4 H (22.0-30.0) sec
--- NOTE | 2022-06-04 16:21 | P.GSCN ---
History of Present Illness Consult date: 06/04/22 Reason for Consult: CAD, recommendations for CABG Requesting physician: Saúl Mock History of present illness: This is a 51-year-old gentleman who does not follow with a primary care physician on an outpatient basis. He has a previous medical history of coronary artery disease with PCI in December 2021, hypertension, hyperlipidemia, cardiomyopathy, syncopal episode 2, current tobacco dependence, current daily EtOH use. Apparently this gentleman was admitted in December of this year with complaints of chest pain. His workup included heart catheterization where a drug-eluting stent was placed to the obtuse marginal branch of the circumflex coronary artery. He was placed on dual antiplatelet therapy. In addition he had a transthoracic echocardiogram completed demonstrating reduced left ventricular systolic function with EF 30-35%, mild concentric left ventricular hypertrophy,mild mitral regurgitation, and poorly visualized aortic valve with inability to rule out bicuspid aortic valve. Prior to discharge the patient had an episode of dizziness and diaphoresis. He was worked up by neurology with brain CT which was negative for any acute process, carotid Dopplers which were normal, and complete resolution of symptom. He was discharged and was instructed to follow-up with Dr. Mock in the office, however he failed to do so. He has been back to work as a cook. He continues to smoke and drink 6 beers per day. Over the last couple of weeks he states he has been increasingly tired, admits to mild pain between his shoulder blades with activity, and increased shortness of breath for the last couple of months. He also endorses 2 syncopal episodes in the last couple of weeks, the second being this past Saturday which prompted his visit to [facility] emergency room. In the emergency room an EKG was completed demonstrating sinus rhythm with T-wave abnormalities in the inferior and lateral leads. Chest x-ray revealed no acute process. Initial troponin was negative. CTA of the chest was completed showing no evidence of pulmonary embolism or any acute thoracic process. He was admitted for evaluation and treatment with consultation placed to cardiology. He underwent a limited echocardiogram which demonstrated decreased left ventricular systolic function with EF 30-35% with generalized hypokinesia. ProBNP was 1430. Today he had a heart catheterization which showed 50-55% left main stenosis with minimal luminal area 5.3 mm, mild 20-30% LAD stenosis, mild luminal irregularities of the dominant circumflex coronary artery, OM3 stenosis 90%, with acute marginal branch of the right coronary artery with 70% stenosis. Due to these findings, consultation was placed to cardiothoracic surgery for surgical revascularization recommendations. Review of Systems review of systems was completed and was negative except as noted - Constitutional Reports daytime sleepiness, Reports fatigue - Cardiovascular Reports chest pain, Reports lightheadedness, Reports shortness of breath, Reports syncope Past Medical History Past Medical History: Coronary Artery Disease (CAD), Heart Failure, Hyperlipidemia, Hypertension, Syncope History of Any Multi-Drug Resistant Organisms: None Reported Past Surgical History: Heart Catheterization With Stent, Orthopedic Surgery Additional Past Surgical History / Comment(s): hip surgery x2 Past Anesthesia/Blood Transfusion Reactions: No Reported Reaction Date of Last Stent Placement:: 12/21/2021 Past Psychological History: No Psychological Hx Reported Additional Psychological History / Comment(s): Pt resides with one lady roommate. He drives. Smoking Status: Current every day smoker Past Alcohol Use History: Daily Additional Past Alcohol Use History / Comment(s): Drinks 6 pk of beer daily Past Drug Use History: None Reported Additional History: smokes 1/2-1 pack of cigarettes daily x 22 years - Past Family History Father Additional Family Medical History / Comment(s): Father is . He was a [place] vet, exsposed to agent orange. Mother Family Medical History: Cancer Additional Family Medical History / Comment(s): Mother of bladder cancer. Medications and Allergies Home Medications Medication Instructions Recorded Confirmed Type Aspirin 81 mg PO DAILY #90 tab 12/22/21 06/02/22 Rx Ticagrelor [Brilinta] 90 mg PO BID #180 tab 12/22/21 06/02/22 Rx carvediloL [Coreg] 3.125 mg PO BID-W/MEALS #180 tab 12/22/21 06/02/22 Rx lisinopriL [Zestril] 10 mg PO DAILY #90 tab 12/22/21 06/02/22 Rx Nitroglycerin Sl Tabs [Nitrostat] 0.4 mg SL Q5M PRN 06/02/22 06/02/22 History Spironolactone [Aldactone] 25 mg PO DAILY 06/02/22 06/02/22 History Allergies Allergy/AdvReac Type Severity Reaction Status Date / Time coconut Allergy Itching Verified 06/11/22 06:27 Surgical - Exam Vital Signs Temp Pulse Resp BP Pulse Ox 97.5 F L 84 20 140/85 98 06/02/22 00:09 06/02/22 00:09 06/02/22 00:09 06/02/22 00:09 06/02/22 00:09 CONSTITUTIONAL: Awake and alert, appears comfortable, cooperative, well- developed, well-nourished, no pain, no acute distress EYES: Pupils equal, round, reactive to light, normal ocular movement ENT: Moist mucous membranes without oral lesions present; bruising present to left forehead/eye area NECK: No masses, no bruits, trachea midline RESPIRATORY: Lungs sounds diminished to auscultation bilaterally. Respirations even, nonlabored. Currently on room air with oxygen saturation 98%. Strong cough. CARDIOVASCULAR: S1, S2 present. Regular rate and rhythm. Palpable peripheral pulses bilaterally. No edema present. No calf pain or tenderness noted. No significant lower extremity varicosities noted. T band in place to left radial artery GASTROINTESTINAL: Abdomen soft, nontender, nondistended without masses or organomegaly noted. There is no rebound or guarding present. Active bowel sounds present 4 quadrants. GENITOURINARY: Deferred INTEGUMENTARY: Skin is warm and dry NEUROLOGIC: Cranial nerves II through XII intact, normal coordination, no obvious motor or sensory deficits, speech is normal MUSKULOSKELETAL: Able to move all extremities, strength equal bilaterally, normal posture PSYCHIATRIC: Alert and oriented to person place and time Results - Labs 06/14/22 05:31 06/14/22 05:31 Abnormal Lab Results - Last 24 Hours (Table) 06/04/22 Range/Units 05:31 APTT 47.4 H (22.0-30.0) sec - Imaging Chest x-ray: report reviewed, image reviewed CT scan - chest: report reviewed, image reviewed EKG: image reviewed Additional studies: heart catheterization results reviewed Assessment and Plan Assessment: 1. Coronary artery disease with PCI in December 2021, current heart cath reporting LM 50-55%, IVUS 5.3 mm2, OM3 90%, AM 70% 2. Cardiomyopathy, EF 30-35% 3. Hypertension 4. Hyperlipidemia, treated, cholesterol 208, LDL 136 5. Syncopal episode 2 6. Current tobacco dependence 7. Current daily EtOH use, 6 pack beer daily Plan: The patient was seen and examined at the bedside. Chart/diagnostics were reviewed. The case was discussed in detail with Dr. Hastings. The usual perioperative course of open heart surgery was discussed in detail with the patient, risks and benefits were reviewed, all questions were answered. The patient adamantly states that he cannot be off work for any significant amount of time as he will be homeless. He is very concerned with the driving restric tions after surgery as he states he does not have a ride and needs to be up to drive himself to and from work. He was counseled regarding complete smoking cessation and reduction or cessation of EtOH use. Dr. Hastings is willing to offer the patient open heart surgery next Saturday if the patient consents. Will discuss Brilinta management with cardiology as continuation of antiplatelet increases his risk of intraoperative and postoperative bleeding. We will order preoperative testing, once completed will calculate STS risk score and discuss with the patient. Continue to maximize medical therapy with aspirin, statin, beta james therapy. Medical management of other comorbidities per primary care, cardiology. Thank you Dr. Mock for this consult. More recommendations to follow. I have personally seen and examined the patient, performed the documentation and the assessment and plan as written. Number of minutes spent on the visit: 30. Allison Urrutia, NAIC The patient is a 51 year old male who presented to the hospital with chest pain. Workup revealed multi-vessel coronary artery disease. A coronary artery bypass was recommended. The risks, benefits, and alternatives to the procedure were discussed with the patient. All of his questions were answered. He is currently on Brilinta. Plan for CABG on 06/11/2022. I have personally seen and examined the patient, reviewed the documentation and the assessment and plan as written. 45 minutes spent on the visit. Romero Hastings M.D.
[2022-06-04] MEDS: ATORVASTATIN 80 MG TAB PO SCH (20:36)
[2022-06-05] MEDS: carvediloL 6.25 MG TAB PO SCH ×2 (06:39→17:36)
[2022-06-05] MEDS ORDERED: HEPARIN SODIUM,PORCINE 2,500 UNIT in SODIUM CHLORIDE 0.9% 250 ML IRRIGATION PRN (07:00)
[2022-06-05] MEDS ORDERED: HEPARIN SODIUM,PORCINE 10,000 UNIT in SODIUM CHLORIDE 0.9% 1,000 ML IRRIGATION PRN (07:00)
[2022-06-05 07:32] LABS: Basophils # (A) 0.1 k/uL (0-0.2); Basophils % (A) 1 %; Eosinophils # (A) 0.2 k/uL (0-0.7); Eosinophils % (A) 1 %; HCT 40.9 % (39.0-53.0); HGB 13.8 gm/dL (13.0-17.5); Lymphocytes % (A) 18 %; MCH 31.6 pg (25.0-35.0); MCHC 33.7 g/dL (31.0-37.0); MCV 93.8 fL (80.0-100.0); Mean Platelet Volume 6.9; Monocytes # (A) 0.7 k/uL (0-1.0); Monocytes % (A) 7 %; Neutrophils # (A) 8.2 k/uL (1.3-7.7); Neutrophils % (A) 72 %; Platelet Count 335 k/uL (150-450); RBC 4.36 m/uL (4.30-5.90); RDW 13.1 % (11.5-15.5); WBC 11.3 k/uL (3.8-10.6)
[2022-06-05 07:43] LABS: ALT 30 U/L (4-49); AST 28 U/L (17-59); African American GFR (CKD) >90 (>60 ml/min/1.73 sqM); Albumin 4.2 g/dL (3.5-5.0); Albumin/Globulin Ratio 1.4; Alkaline Phosphatase 134 U/L (38-126); Anion Gap 11 mmol/L; Blood Urea Nitrogen 18 mg/dL (9-20); Calcium 8.9 mg/dL (8.4-10.2); Carbon Dioxide 23 mmol/L (22-30); Chloride 98 mmol/L (98-107); Globulin 2.9 g/dL; Glucose 104 mg/dL (74-99); Non-African American GFR(CKD) 83 (>60 ml/min/1.73 sqM); Sodium 132 mmol/L (137-145); Total Bilirubin 0.4 mg/dL (0.2-1.3); Total Protein 7.1 g/dL (6.3-8.2)
[2022-06-05] MEDS: lisinopriL 10 MG TAB PO SCH (08:04)
[2022-06-05] MEDS: FUROSEMIDE 40 MG TAB PO SCH (08:04)
[2022-06-05] MEDS: THIAMINE 100 MG TAB PO SCH (08:04)
[2022-06-05] MEDS: SPIRONOLACTONE 25 MG TAB PO SCH (08:04)
[2022-06-05] MEDS: ASPIRIN 81 MG PO SCH (08:04)
[2022-06-05] MEDS: TICAGRELOR 90 MG TAB PO SCH ×2 (08:05→19:30)
[2022-06-05] MEDS: FOLIC ACID 1 MG TAB PO SCH (08:05)
--- NOTE | 2022-06-05 08:23 | P.PN ---
Subjective Progress Note Date: 06/05/22 Principal diagnosis: Coronary artery disease with PCI in December 2021, cardiomyopathy, hypertension, hyperlipidemia, syncopal episode 2, current tobacco dependence, severe COPD, current daily EtOH use, PAD The patient was seen and examined this morning at the bedside sitting up dri nking his coffee in no acute distress. He is a bit emotional. Again discussed open heart surgery, this morning the patient seems a bit more agreeable and states he doesn't want to and if this is what needs to be done then he's willing to consent. Preoperative testing was ordered yesterday, to be completed today. The patient denies any chest pain at this point, does state he has some shortness of breath but he states that his chronic. He was again counseled regarding smoking and EtOH cessation. He is currently on room air with oxygen saturation in the high 90s, only able to achieve 750 mL on his incentive spirometry. States he has been ambulatory in his room without difficulty. 5 m walk test was completed, 4.32 seconds, 4.97 seconds, 5.34 seconds. Objective - Vital Signs Vital signs: Vital Signs Temp 98.1 F 06/05/22 06:38 Pulse 69 06/05/22 06:38 Resp 16 06/05/22 06:38 BP 143/80 06/05/22 06:38 Pulse Ox 98 06/05/22 06:38 FiO2 Intake & Output 06/04/22 06/05/22 06/05/22 18:59 06:59 18:59 Intake Total 600 Balance 600 Intake: IV 600 Other: Voiding Method Toilet Toilet # Voids 3 2 - Exam CONSTITUTIONAL: Appears comfortable, cooperative, no acute distress, very emotional RESPIRATORY: Lungs sounds very diminished bilaterally. Respirations even, nonlabored. Currently on room air with oxygen saturation 98%. Able to achieve 750 mL on incentive spirometry. Strong cough. CARDIOVASCULAR: S1, S2 present. Regular rate and rhythm, sinus rhythm on telemetry. Palpable peripheral pulses bilaterally. No edema present. No calf pain or tenderness noted. GASTROINTESTINAL: Abdomen soft, nontender, nondistended. Active bowel sounds present 4 quadrants. Tolerating diet. GENITOURINARY: Continues to void INTEGUMENTARY: Skin is warm and dry. T band still in place to left wrist, com pletely deflated NEUROLOGIC: Cranial nerves II through XII intact MUSKULOSKELETAL: Able to move all extremities, strength equal bilaterally, gait normal PSYCHIATRIC: Alert and oriented to person place and time, appropriate affect, intact judgment and insight - Allied health notes Allied health notes reviewed: nursing - Labs CBC & Chem 7: 06/05/22 07:02 06/05/22 07:02 Labs: Abnormal Lab Results - Last 24 Hours (Table) 06/05/22 06/05/22 Range/Units 07:02 07:02 WBC 11.3 H (3.8-10.6) k/uL Neutrophils # 8.2 H (1.3-7.7) k/uL Sodium 132 L (137-145) mmol/L Glucose 104 H (74-99) mg/dL Alkaline Phosphatase 134 H (38-126) U/L - Imaging and Cardiology Vein mapping and MICHELLE results reviewed Assessment and Plan Assessment: 1. Coronary artery disease with PCI in December 2021, current heart cath reporting LM 50-55%, IVUS 5.3 mm2, OM3 90%, AM 70% 2. Cardiomyopathy, EF 30-35% 3. Hypertension 4. Hyperlipidemia, treated, cholesterol 208, LDL 136 5. PAD, MICHELLE on the right 0.55, MICHELLE on the left 0.47 6. Syncopal episode 2 7. Current tobacco dependence 8. Current daily EtOH use, 6 pack beer daily 9. Severe COPD, preoperative FEV1 45% of predicted, 1.64 L Plan: 1. Continue aspirin, statin, beta james therapy. Need to hold Brilinta for surgery, discussed with cardiology, okay to hold for 5 days preoperative 2. Pulmonology consult for preoperative recommendations 3. Encourage incentive spirometry use 4. Continue preoperative testing. Will calculate STS risk score and discuss with the patient 5. Smoking cessation counseling and education discussed with the patient 6. Reduction/cessation of EtOH use discussed with the patient. Thiamine/folic acid were ordered, if patient stays inpatient should be put on a CIWA scale 7. Pending any red flags from preoperative testing our plan will be for myocardial revascularization with left internal mammary artery, endoscopic vein harvest, ligation of left atrial appendage next 06/11/[address] Hastings 8. Medical management of other comorbidities per primary care, cardiology 9. More recommendations to follow
[2022-06-05] MEDS ORDERED: LORazepam 1 MG TAB PO PRN (10:01)
[2022-06-05] MEDS ORDERED: LORazepam 0.5 MG TAB PO PRN (10:01)
--- NOTE | 2022-06-05 11:33 | P.PN ---
Subjective Progress Note Date: 06/05/22 Pt has no new complaints today. Denies chest pain. Is amenable to getting heart surgery. Gen: awake, alert HEENT: normocephalic, atraumatic, good hearing acuity, moist mucous membranes Resp: good air exchange, breathing comfortably with no accessory muscle use, clear to auscultation bilaterally CVS: good distal perfusion x 4, regular rate and rhythm without murmurs GI: soft, NTTP, ND : no SPT, no CVAT, dougherty catheter not present MSK: no pitting edema, no clubbing Neuro: non-focal, moving all extremities Psych: cooperative, euthymic mood Assessment/plan: #Systolic CHF with EF of 30-35% #Scapular pain #Elevated troponin with history of CAD post stent in December 2021 #Possible syncopal episode #Elevated d-dimer #Hyponatremia Chronic conditions: Hypertension, dyslipidemia, smoker Patient presents with exertional shortness of breath. Chest x-ray was negative. He has no lower extremity swelling. Echocardiogram shows EF 30% with global hypokinesis. Continue Coreg, Lasix, Lisinopril and Aldactone. Patient would benefit from AICD. Cardiology on board. Troponins are slowly trending up with EKG showing T-wave abnormalities. Restart ASA, Lipitor, Coreg and Brilinta. Telemetry montoring. Patient currently on a heparin drip. Cardiac cath shows 50-55% left main, 20-30% LAD, 90% OM3 stenosis. Cardiothoracic surgery consulted for CABG, scheduled on 06/11. Continue Telemetry monitoring to rule out cardiac cause of syncope. Patient be placed on fall precautions. Patient with elevated d-dimer, CT chest is ruled out PE. Venous duplex negative for DVT. Follow up arterial duplex of the lower extremities. Patient was sodium of 130. Possibly related to dehydration. Received 1 L bolus in the ED. Patient encouraged hydration by mouth. DVT prophylaxis: Heparin drip Discussed with: Patient Anticipated discharge: Depending on clinical course. Objective - Vital Signs Vital signs: Vital Signs Temp 98.1 F 06/05/22 06:38 Pulse 69 06/05/22 08:00 Resp 16 06/05/22 08:00 BP 143/80 06/05/22 06:38 Pulse Ox 98 06/05/22 06:38 FiO2 Intake & Output 06/04/22 06/05/22 06/05/22 18:59 06:59 18:59 Intake Total 600 118 Balance 600 118 Intake: IV 600 Oral 118 Other: Voiding Method Toilet Toilet Toilet # Voids 3 2 - Labs CBC & Chem 7: 06/05/22 07:02 06/05/22 07:02 Labs: Abnormal Lab Results - Last 24 Hours (Table) 06/05/22 06/05/22 Range/Units 07:02 07:02 WBC 11.3 H (3.8-10.6) k/uL Neutrophils # 8.2 H (1.3-7.7) k/uL Sodium 132 L (137-145) mmol/L Glucose 104 H (74-99) mg/dL Alkaline Phosphatase 134 H (38-126) U/L
[2022-06-05] MEDS: HEPARIN SODIUM,PORCINE/PF 5,000 UNIT/0.5 ML SYRINGE SQ SCH ×2 (11:51→21:03)
[2022-06-05] MEDS: MULTIVITAMINS, THERA 1 EACH TAB PO SCH (11:51)
--- NOTE | 2022-06-05 12:18 | P.PN ---
Subjective This is a 51 year old male with a past medical history of hypertension, nicotine dependence, daily alcohol use, coronary artery disease with NSTEMI in 12/2021 S/p PCI proximal OM3, ischemic cardiomyopathy, dyslipidemia. He follows with Dr. Mock. We're consulted for chest pain. Patient presented to the hospital on 06/02/2022 with symptoms of shortness of breath and chest pain. Patient continued to have chest discomfort and recommend cardiac catheterization. Echocardiogram revealed EF 3035 percent. Patient underwent cardiac catheterization with Dr. Mock on 06/04/2022 which revealed coronary artery disease with 50-55% left main stenosis with minimal luminal area 5.3mm2, mild 20-30% LAD stenosis, mild luminal irregularities of a dominant circumflex, OM3 90% stenosis, normal left sided filling pressures. CT surgery was consulted for CABG evaluation. Patient seen and examined at bedside, sitting up on the edge of the bed, no acute distress. Patient is emotional with his diagnosis. He is unsure if he wants to undergo CABG. He would like to discuss further with his family. He denies any chest pain or shortness of breath. His vital signs are stable. Meds: Aspirin 81 mg daily, atorvastatin 80 mg nightly, carvedilol 6.25 mg twice a day, Lasix 40 mg daily, lisinopril 10 mg daily, spironolactone 25 mg daily, Brilinta 90 mg twice a day Labs: Sodium 132, potassium 5.0, BUN 18, serum creatinine 1.0, WBC 11.3, hemoglobin 13.8, platelets 335 GENERAL: in no acute distress. NECK: Supple without JVD LUNGS: Breath sounds diminished to auscultation bilaterally. Respiration equal and unlabored. No wheezes, rales or rhonchi. HEART: Regular rate and rhythm without murmurs, rubs or gallops. S1 and S2 heard. EXTREMITIES: Normal range of motion, no edema. No clubbing or cyanosis. Peripheral pulses intact. Right radial cath site clean dry 2+ pulses, no hematoma ASSESSMENT Chest pain, shortness of breath Status post cardiac catheterization on 06/04/2022 with left main 5055% stenosis, OM3 90% stenosis and acute marginal artery 70% Coronary artery disease s/p prior PCI to OM3 in 12/2021 Hypertension Dyslipidemia Ischemic cardiomyopathy EF 3035 percent Chronic tobacco use Daily alcohol use PLAN Discussed risks and benefits of surgery with the patient, he would like to further discuss with family CT surgery following Continue aspirin, statin, beta james, ACEI and spironolactone at this time Continue Brilinta at this time, discussed with Dr. Smith and Dr. Mock if patient agreeable to CABG, ok to hold Brilinta 5 days prior to surgery but recommend monitoring in the hospital until surgery Further recommendations based on clinical course Nurse Practitioner note has been reviewed, I agree with a documented findings and plan of care. Patient was seen and examined. Objective - Vital Signs Vital signs: Vital Signs Temp 98.1 F 06/05/22 06:38 Pulse 69 06/05/22 08:00 Resp 16 06/05/22 08:00 BP 143/80 06/05/22 06:38 Pulse Ox 98 06/05/22 06:38 FiO2 Intake & Output 06/04/22 06/05/22 06/05/22 18:59 06:59 18:59 Intake Total 600 118 Balance 600 118 Intake: IV 600 Oral 118 Other: Voiding Method Toilet Toilet Toilet # Voids 3 2 - Labs CBC & Chem 7: 06/05/22 07:02 06/05/22 07:02 Labs: Abnormal Lab Results - Last 24 Hours (Table) 06/05/22 06/05/22 Range/Units 07:02 07:02 WBC 11.3 H (3.8-10.6) k/uL Neutrophils # 8.2 H (1.3-7.7) k/uL Sodium 132 L (137-145) mmol/L Glucose 104 H (74-99) mg/dL Alkaline Phosphatase 134 H (38-126) U/L
--- NOTE | 2022-06-05 14:04 | P.CNPUL ---
History of Present Illness Consult date: 06/05/22 Reason for consult: dyspnea Chief complaint: preop pulm evaluation History of present illness: I was asked to evaluate this patient for a preoperative pulmonary clearance for coronary artery bypass surgery. The patient is known to have CAD and the patient has undergone PCI back in December 2021 and the patient has history of cardiomyopathy, hypertension hyperlipidemia and is a chronic smoker and alcohol drinker. The patient presented back in December 2021 with chest pain and the patient underwent cardiac catheterization and a drug-eluting stent was placed in the obtuse marginal branch of the circumflex coronary artery. Subsequently, the patient was discharged home on the was antiplatelet therapy. Echocardiogram showed reduced LV function with an ejection fraction of 30-35% and the patient had mild concentric LVH, mild mitral regurgitation. The patient was discharged home and over the past couple of weeks, he started having she is pain between his shoulder blades and increased shortness of breath. He had 2 episodes of syncope and for that reason he came back to the emergency department. CT angiogram of the chest was done and it showed no evidence of any pulmonary embolism. He was admitted and his echocardiogram demonstrated again elevated dysfunction with an ejection fraction of 30-35% and global hypokinesis. His proBNP level was 1430. His cardiac catheterization showed 50-55% left main stenosis with minimal luminal area of 5.3 mm mild 5-30% LAD stenosis and mild luminal irregularities involving the dominant circumflex artery, 90% restenosis an acute marginal branch of the right coronary artery showing 70% stenosis. Based on that, it was recommended for this patient to undergo bypass surgery. As mentioned, is a chronic smoker. Bedside spirometry was done and the patient was found to have an FEV1 of 1.64 which is 45% of predicted with some limited reversibility postbronchodilator and across bronchodilation FEV1 of 54% of predicted. He is currently on room air oxygen and his pulse ox is in order of 98%. His labs from today showing white cell count of 11.3 with hemoglobin 13.8 and a platelet count of around 35. Normal renal function with a creatinine of 1.04 and a sodium level of 132. The potassium level is at 5.0. Review of Systems Constitutional: Reports fatigue, Reports weakness Eyes: denies as per HPI, denies blurred vision, denies bulging eye, denies decreased vision, denies diplopia, denies discharge, denies dry eye, denies irritation, denies itching, denies pain, denies photophobia, denies loss of peripheral vision, denies loss of vision, denies tunnel vision/blind spots Ears: deny: decreased hearing, ear discharge, earache, tinnitus Ears, nose, mouth and throat: Reports as per HPI Breasts: absent: as per HPI, gynecomastia Cardiovascular: Reports chest pain, Reports decreased exercise tolerance, Reports dyspnea on exertion Respiratory: Reports dyspnea Gastrointestinal: Reports as per HPI Genitourinary: Reports as per HPI Musculoskeletal: Reports as per HPI Musculoskeletal: absent: ankle pain, ankle stiffness, ankle swelling Integumentary: Reports as per HPI Neurological: Reports as per HPI, Reports syncope Psychiatric: Reports as per HPI Endocrine: Reports as per HPI Hematologic/Lymphatic: Reports as per HPI Allergic/Immunologic: Reports as per HPI Past Medical History Past Medical History: Coronary Artery Disease (CAD), Heart Failure, COPD, Hyperlipidemia, Hypertension, Syncope History of Any Multi-Drug Resistant Organisms: None Reported Past Surgical History: Heart Catheterization With Stent, Orthopedic Surgery Additional Past Surgical History / Comment(s): hip surgery x2 Past Anesthesia/Blood Transfusion Reactions: No Reported Reaction Date of Last Stent Placement:: 12/21/2021 Past Psychological History: No Psychological Hx Reported Additional Psychological History / Comment(s): Pt resides with one lady roommate. He drives. Smoking Status: Current every day smoker Past Alcohol Use History: Daily Additional Past Alcohol Use History / Comment(s): Drinks 6 pk of beer daily Past Drug Use History: None Reported - Past Family History Father Additional Family Medical History / Comment(s): Father is . He was a [place] vet, exsposed to agent orange. Mother Family Medical History: Cancer Additional Family Medical History / Comment(s): Mother of bladder cancer. Medications and Allergies Home Medications Medication Instructions Recorded Confirmed Type Aspirin 81 mg PO DAILY #90 tab 12/22/21 06/02/22 Rx Ticagrelor [Brilinta] 90 mg PO BID #180 tab 12/22/21 06/02/22 Rx carvediloL [Coreg] 3.125 mg PO BID-W/MEALS #180 tab 12/22/21 06/02/22 Rx lisinopriL [Zestril] 10 mg PO DAILY #90 tab 12/22/21 06/02/22 Rx Nitroglycerin Sl Tabs [Nitrostat] 0.4 mg SL Q5M PRN 06/02/22 06/02/22 History Spironolactone [Aldactone] 25 mg PO DAILY 06/02/22 06/02/22 History Allergies Allergy/AdvReac Type Severity Reaction Status Date / Time coconut Allergy Itching Verified 06/02/22 13:04 Physical Exam Vitals: Vital Signs Temp Pulse Resp BP Pulse Ox 06/05/22 08:00 69 16 06/05/22 06:38 98.1 F 69 16 143/80 98 06/05/22 02:38 98.0 F 66 18 132/75 98 06/04/22 18:56 98.0 F 81 16 100/63 96 06/04/22 16:25 18 105/66 95 06/04/22 16:17 91 17 106/64 95 06/04/22 14:40 94 17 101/66 96 06/04/22 14:10 98.0 F 17 131/70 95 06/04/22 14:00 18 06/04/22 13:55 98.0 F 69 18 153/91 Intake and Output 06/04/22 06/05/22 06/05/22 22:59 06:59 14:59 Intake Total 118 Balance 118 Intake: Oral 118 Other: Voiding Method Toilet Toilet Toilet # Voids 1 2 CONSTITUTIONAL: Awake and alert, appears comfortable, cooperative, well- developed, well-nourished, no pain, no acute distress EYES: Pupils equal, round, reactive to light, normal ocular movement ENT: Moist mucous membranes without oral lesions present; bruising present to left forehead/eye area NECK: No masses, no bruits, trachea midline RESPIRATORY: Lungs sounds diminished to auscultation bilaterally. Respirations even, nonlabored. Currently on room air with oxygen saturation 98%. Strong cough. CARDIOVASCULAR: S1, S2 present. Regular rate and rhythm. Palpable peripheral pulses bilaterally. No edema present. No calf pain or tenderness noted. No significant lower extremity varicosities noted. T band in place to left radial artery GASTROINTESTINAL: Abdomen soft, nontender, nondistended without masses or organomegaly noted. There is no rebound or guarding present. Active bowel sounds present 4 quadrants. GENITOURINARY: Deferred INTEGUMENTARY: Skin is warm and dry NEUROLOGIC: Cranial nerves II through XII intact, normal coordination, no obvious motor or sensory deficits, speech is normal MUSKULOSKELETAL: Able to move all extremities, strength equal bilaterally, normal posture PSYCHIATRIC: Alert and oriented to person place and time Results - Laboratory Findings CBC and BMP: 06/05/22 07:02 06/05/22 07:02 PT/INR, D-dimer PT 9.8 sec (9.0-12.0) 06/02/22 00:16 INR 0.9 (<1.2) 06/02/22 00:16 D-Dimer 12.95 mg/L FEU (<0.60) H 06/02/22 00:16 Abnormal lab findings: Abnormal Labs 06/02/22 06/02/22 06/02/22 00:16 00:16 00:16 WBC 12.2 H Neutrophils # APTT D-Dimer 12.95 H Sodium 129 L Carbon Dioxide 14 L Glucose 110 H Alkaline Phosphatase 131 H Troponin I 06/02/22 06/02/22 06/03/22 09:36 17:00 00:48 WBC Neutrophils # APTT 37.0 H 49.0 H D-Dimer Sodium Carbon Dioxide Glucose Alkaline Phosphatase Troponin I 0.035 H* 06/03/22 06/03/22 06/04/22 07:27 07:27 05:31 WBC Neutrophils # APTT 50.6 H 47.4 H D-Dimer Sodium 130 L Carbon Dioxide Glucose Alkaline Phosphatase Troponin I 06/05/22 06/05/22 07:02 07:02 WBC 11.3 H Neutrophils # 8.2 H APTT D-Dimer Sodium 132 L Carbon Dioxide Glucose 104 H Alkaline Phosphatase 134 H Troponin I - Diagnostic Findings Chest x-ray: image reviewed CT scan - chest: image reviewed Assessment and Plan Plan: Symptomatic multivessel coronary artery disease. The patient was having angina, shortness of breath and 2 episodes of syncope on outpatient basis. The patient is being considered for coronary artery bypass surgery. The patient is post PCI back in December 2021 and his cardiac cardiac catheterization revealed left main lesion in the order of 50-55%, OM3 of 90% and acute marginal artery of 70% Ejection fraction of 30-35% COPD mild to moderate in severity with an FEV1 post-bronchodilation of 54% of predicted. He is a chronic smoker CHF with an ejection fraction of 3035%, ischemic cardiomyopathy Hypertension Hyperlipidemia, Smoker drinker almost six pack beer on a daily basis. Plan We'll give the patient Symbicort to be used as a maintenance 2 puffs twice a day in addition to albuterol rescue inhaler. He already has an incentive spirometer. He is using it regularly and is pulling more than 2000 and his incentive spirometer. I think the plan is to discharge this patient home to be readmitted again for outpatient coronary artery bypass surgery as the patient is currently taking normal platelet therapy including Plavix/Brillinta. Smoking cessation counseling. Alcohol cessation counseling. Cardiac medication per cardiology. No pulmonary contraindications for surgery. His COPD is not in acute exacerbation for now. He should be able to do well postop. CT angiogram shows no acute abnormalities. Chest x-rays also within normal limits. STS risk score to be calculated by the cardiothoracic team.
[2022-06-05 15:05] LABS: Appearance,Urine Clear (Clear); Bilirubin,Urine Negative (Negative); Blood,Urine Negative (Negative); Color,Urine Yellow; Glucose,Urine (UA) Negative (Negative); Ketones,Urine Negative (Negative); Leukocyte Esterase,Urine Negative (Negative); Nitrite,Urine Negative (Negative); Protein,Urine Negative (Negative); Specific Gravity,Urine 1.009 (1.001-1.035); Urobilinogen,Urine <2.0 mg/dL (<2.0)
[2022-06-05 15:30] LABS: Chol/HDL Ratio 4.05 Ratio; LDL Cholesterol,Calculated 102.6 mg/dL (0.0-131.0)
--- NOTE | 2022-06-05 16:55 | CA ---
Transthoracic Echo Report Name: Bernardo Dennis Age: 51 Gender: M : 1970 Exam Date: 06/05/2022 09:35 Exam Location: [facility] Ht (in): 66 Wt (lb): 156 Ordering Physician: Allison Urrutia Attending/Referring Phys: [id number], [employer] Stephanie Hoyt RDCS Procedure CPT: Indications: assess valves;?bicuspid AV Cardiac Hx: Technical Quality: Fair Contrast 1: Total Dose (mL): Contrast 2: Total Dose (mL): MEASUREMENTS (Male / Female) Normal Values 2D ECHO LV Diastolic Diameter PLAX 4.9 cm 4.2 - 5.9 / 3.9 - 5.3 cm LV Systolic Diameter PLAX 3.7 cm IVS Diastolic Thickness 1.5 cm 0.6 - 1.0 / 0.6 - 0.9 cm LVPW Diastolic Thickness 1.4 cm 0.6 - 1.0 / 0.6 - 0.9 cm LV Relative Wall Thickness 0.6 LVOT Diameter 2.2 cm M-MODE Aortic Root Diameter MM 3.0 cm LA Systolic Diameter MM 3.5 cm LA Ao Ratio MM 1.2 AV Cusp Separation MM 1.7 cm DOPPLER AV Peak Velocity 217.8 cm/s AV Peak Gradient 19.0 mmHg AV Mean Velocity 135.5 cm/s AV Mean Gradient 8.9 mmHg AV Velocity Time Integral 31.9 cm AI Peak Velocity 450.0 cm/s AI Peak Gradient 81.0 mmHg AI Pressure Half Time 496.4 ms LVOT Peak Velocity 157.7 cm/s LVOT Peak Gradient 9.9 mmHg LVOT Velocity Time Integral 22.4 cm LVOT Stroke Volume 88.7 cm??? LVOT Stroke Volume Index 49.3 ml/m??? LVOT Cardiac Index 3689.9 cm???/min???m??? AV Area Cont Eq vti 2.8 cm??? AV Area Cont Eq pk 2.9 cm??? MV Peak Velocity 138.0 cm/s MV Peak Gradient 7.6 mmHg MV Mean Velocity 66.1 cm/s MV Mean Gradient 2.1 mmHg MV Velocity Time Integral 24.6 cm MV Area PHT 2.6 cm??? Mitral E Point Velocity 50.1 cm/s Mitral A Point Velocity 113.3 cm/s Mitral E to A Ratio 0.4 MV Deceleration Time 289.2 ms FINDINGS Left Ventricle Moderately increased left ventricular wall thickness. No obvious regional wall motion abnormalities. Left ventricular ejection fraction is estimated at 55 %. Right Ventricle Normal right ventricular size and function. Right ventricular systolic pressure within normal limits. Right Atrium Normal right atrial size. Left Atrium Normal left atrial size. Mitral Valve Structurally normal mitral valve. Mild mitral annular calcification. Mitral valve thickened. Trace mitral regurgitation. Aortic Valve Trileaflet aortic valve. Aortic valve sclerosis. Mild aortic stenosis with a peak gradient of 19 mmHg and a mean gradient of 9 mmHg. Mild aortic regurgitation. Eccentric aortic regurgitation jet directed at the mitral valve. Tricuspid Valve Structurally normal tricuspid valve. Mild tricuspid regurgitation. Pulmonic Valve Trace pulmonic regurgitation. Pericardium No pericardial effusion. Aorta Normal size aortic root and proximal ascending aorta. CONCLUSIONS Normal LV systolic function Mild aortic stenosis and mild aortic regurgitation Previewed by: Dr. Timothy Smith MD (Electronically Signed) Final Date: 05 June 2022 16:55
[2022-06-05 17:46] LABS: Hepatitis A Antibody IgM Nonreactive (Nonreactive); Hepatitis B Core IgM Nonreactive (Nonreactive); Hepatitis B Surface Antigen Nonreactive (Nonreactive); Hepatitis C IgG Antibody Nonreactive (Nonreactive)
[2022-06-05] MEDS: SYMBICORT 160-4.5 MCG INHALER INHALATION SCH (19:58)
[2022-06-05] MEDS: ATORVASTATIN 80 MG TAB PO SCH (21:03)
[2022-06-06] MEDS: carvediloL 6.25 MG TAB PO SCH ×2 (06:34→18:21)
[2022-06-06] MEDS ORDERED: MD COMMUNICATION TO PHARMACY 1 EACH MISC PO PRN (06:52)
[2022-06-06] MEDS: SYMBICORT 160-4.5 MCG INHALER INHALATION SCH ×2 (07:04→20:28)
[2022-06-06] MEDS: THIAMINE 100 MG TAB PO SCH (08:01)
[2022-06-06] MEDS: lisinopriL 10 MG TAB PO SCH (08:01)
[2022-06-06] MEDS: ASPIRIN 81 MG PO SCH (08:01)
[2022-06-06] MEDS: FUROSEMIDE 40 MG TAB PO SCH (08:01)
[2022-06-06] MEDS: SPIRONOLACTONE 25 MG TAB PO SCH (08:01)
[2022-06-06] MEDS: FOLIC ACID 1 MG TAB PO SCH (08:01)
[2022-06-06] MEDS: MULTIVITAMINS, THERA 1 EACH TAB PO SCH (08:01)
[2022-06-06] MEDS: HEPARIN SODIUM,PORCINE/PF 5,000 UNIT/0.5 ML SYRINGE SQ SCH ×2 (08:02→19:52)
[2022-06-06] MEDS ORDERED: ACETAMINOPHEN TAB 325 MG TAB PO PRN (08:41)
--- NOTE | 2022-06-06 08:41 | P.PN ---
Subjective This is a 51 year old male with a past medical history of hypertension, nicotine dependence, daily alcohol use, coronary artery disease with NSTEMI in 12/2021 S/p PCI proximal OM3, ischemic cardiomyopathy, dyslipidemia. He follows with Dr. Mock. We're consulted for chest pain. Patient presented to the hospital on 06/02/2022 with symptoms of shortness of breath and chest pain. Patient continued to have chest discomfort and recommend cardiac catheterization. Echocardiogram revealed EF 3035 percent. Patient underwent cardiac catheterization with Dr. Mock on 06/04/2022 which revealed coronary artery disease with 50-55% left main stenosis with minimal luminal area 5.3mm2, mild 20-30% LAD stenosis, mild luminal irregularities of a dominant circumflex, OM3 90% stenosis, normal left sided filling pressures. CT surgery was consulted for CABG evaluation. 06/06 Patient seen and examined at bedside, no acute distress. Patient has agreed to go through with CABG surgery. He does have some social issues at home in terms of paying bills and transportation, social work has been consulted. He denies any chest pain or shortness of breath. He is hypertensive this morning BP 166/77 prior to morning medications. Limited Echo revealed EF 55%, no obvious regional wall motion abnormalities trace mitral regurgitation, mild aortic stenosis with a peak gradient of 19 mmHg, mean gradient of 9 mmHg, mild aortic regurgitation Meds: Aspirin 81 mg daily, atorvastatin 80 mg nightly, carvedilol 6.25 mg twice a day, Lasix 40 mg daily, lisinopril 10 mg daily, spironolactone 25 mg daily, Brilinta is on hold GENERAL: in no acute distress. NECK: Supple without JVD LUNGS: Breath sounds diminished to auscultation bilaterally. Respiration equal and unlabored. No wheezes, rales or rhonchi. HEART: Regular rate and rhythm without murmurs, rubs or gallops. S1 and S2 heard. EXTREMITIES: Normal range of motion, no edema. No clubbing or cyanosis. Peripheral pulses intact. Right radial cath site clean dry 2+ pulses, no hematoma ASSESSMENT Chest pain, shortness of breath Status post cardiac catheterization on 06/04/2022 with left main 5055% stenosis, OM3 90% stenosis and acute marginal artery 70% Coronary artery disease s/p prior PCI to OM3 in 12/2021 Hypertension Dyslipidemia Ischemic cardiomyopathy EF 3035 percent Chronic tobacco use Daily alcohol use PLAN Patient is in agreement to CABG surgery this morning CT surgery following Hold Brilinta, discussed with Dr. Smith and Dr. Mock with patient agreeable to CABG, ok to hold Brilinta 5 days prior to surgery but recommend monitoring in the hospital until surgery Continue aspirin, statin, beta james, ACEI and spironolactone at this time Patient is tentatively scheduled for CABG on 06/11/2022 Further recommendations based on clinical course Nurse Practitioner note has been reviewed, I agree with a documented findings and plan of care. Patient was seen and examined. Objective - Vital Signs Vital signs: Vital Signs Temp 98.3 F 06/06/22 06:33 Pulse 70 06/06/22 06:33 Resp 18 06/06/22 06:33 BP 166/77 06/06/22 06:33 Pulse Ox 100 06/06/22 06:33 FiO2 Intake & Output 06/05/22 06/06/22 06/06/22 18:59 06:59 18:59 Intake Total 118 1000 Output Total 200 Balance -82 1000 Intake: Oral 118 1000 Output: Urine 200 Other: Voiding Method Toilet Toilet # Voids 1 - Labs CBC & Chem 7: 06/05/22 07:02 06/05/22 07:02 Labs: Microbiology - Last 24 Hours (Table) 06/05/22 12:17 Nasal Screen MRSA/MSSA - Preliminary Nasal Swab
--- NOTE | 2022-06-06 08:41 | P.PN ---
Subjective Progress Note Date: 06/06/22 Principal diagnosis: Coronary artery disease with PCI in December 2021, cardiomyopathy, hypertension, hyperlipidemia, syncopal episode 2, current tobacco dependence, severe COPD, current daily EtOH use, PAD The patient was seen and examined this morning at the bedside sitting up in no acute distress. Denies current chest pain, does state he has some shortness of breath but he states that his chronic. Remains in sinus rhythm, blood pressure been hypertensive. He is currently on room air with oxygen saturation in the high 90s, able to achieve 1000 mL on his incentive spirometry. He continues to be counseled regarding smoking and EtOH cessation. States he has been ambulato ry in his room without difficulty. He understands the need to stay inpatient until surgery, is still quite worried regarding his ability to pay bills due to hospitalization, social work was consulted yesterday. Objective - Vital Signs Vital signs: Vital Signs Temp 98.3 F 06/06/22 06:33 Pulse 70 06/06/22 08:00 Resp 18 06/06/22 08:00 BP 166/77 06/06/22 06:33 Pulse Ox 100 06/06/22 06:33 FiO2 Intake & Output 06/05/22 06/06/22 06/06/22 18:59 06:59 18:59 Intake Total 118 1000 Output Total 200 Balance -82 1000 Intake: Oral 118 1000 Output: Urine 200 Other: Voiding Method Toilet Toilet Toilet # Voids 1 - Exam CONSTITUTIONAL: Appears comfortable, cooperative, no acute distress RESPIRATORY: Lungs sounds very diminished bilaterally. Respirations even, nonlabored. Currently on room air with oxygen saturation 100%. Able to achieve 1000 mL on incentive spirometry. Strong dry cough. CARDIOVASCULAR: S1, S2 present. Regular rate and rhythm, sinus rhythm on telemetry. Palpable peripheral pulses bilaterally. No edema present. No calf pain or tenderness noted. GASTROINTESTINAL: Abdomen soft, nontender, nondistended. Active bowel sounds present 4 quadrants. Tolerating diet. GENITOURINARY: Continues to void INTEGUMENTARY: Skin is warm and dry NEUROLOGIC: Cranial nerves II through XII intact MUSKULOSKELETAL: Able to move all extremities, strength equal bilaterally, gait normal PSYCHIATRIC: Alert and oriented to person place and time, appropriate affect, intact judgment and insight - Labs CBC & Chem 7: 06/05/22 07:02 06/05/22 07:02 Labs: Microbiology - Last 24 Hours (Table) 06/05/22 12:17 Nasal Screen MRSA/MSSA - Preliminary Nasal Swab Assessment and Plan Assessment: 1. Coronary artery disease with PCI in December 2021, current heart cath reporting LM 50-55%, IVUS 5.3 mm2, OM3 90%, AM 70% 2. Cardiomyopathy, EF 30-35% 3. Hypertension 4. Hyperlipidemia, treated, cholesterol 208, LDL 136 5. PAD, MICHELLE on the right 0.55, MICHELLE on the left 0.47 6. Syncopal episode 2 7. Current tobacco dependence 8. Current daily EtOH use, 6 pack beer daily 9. Severe COPD, preoperative FEV1 45% of predicted, 1.64 L Plan: 1. Continue aspirin, statin, beta james therapy. Need to hold Brilinta for surgery, discussed with cardiology, okay to hold for 5 days preoperative 2. Pulmonology consult for preoperative recommendations 3. Encourage incentive spirometry use 4. Smoking cessation counseling and education continually reinforced with the patient 5. Reduction/cessation of EtOH use discussed with the patient. Thiamine/folic acid were ordered, WA protocol, monitor for withdrawal symptoms 6. Our plan is for myocardial revascularization with left internal mammary artery, endoscopic vein harvest, ligation of left atrial appendage next 06/11/[address] Hastings 7. Discussed CODE STATUS with patient, needs to be full code for surgery and he is agreeable, order changed in the computer 8. Medical management of other comorbidities per primary care, cardiology 9. More recommendations to follow
--- NOTE | 2022-06-06 08:43 | US ---
EXAMINATION TYPE: US vein mapping BILAT DATE OF EXAM: 06/04/2022 6:14 PM COMPARISON: NONE CLINICAL HISTORY: preop cabg. preop cabg SIDE PERFORMED: Bilateral TECHNIQUE: Lower extremity saphenous vein is examined and measured utilizing real time linear array sonography. DUPLEX FINDINGS: Greater Saphenous: Color flow seen Measurements in mm: Right Greater Saphenous: Groin: 4.9 x 3.3 mm High Thigh: 2.6 x 2.0 mm Mid Thigh: 2.8 x 2.0 mm Above Knee: 2.5 x 1.6 mm Knee: 3.0 x 2.1 mm Below Knee: 2.8 x 1.9 mm Mid Calf: 2.7 x 1.9 mm At Ankle: 3.0 x 2.6 mm Left Greater Saphenous: Groin: 6.9 x 5.0 mm High Thigh: 5.6 x 3.7 mm Mid Thigh: 4.4 x 3.2 mm Above Knee: 4.5 x 3.3 mm Knee: 4.4 x 3.4 mm Below Knee: 2.4 x 2.4 mm Mid Calf: 2.7 x 2.1 mm At Ankle: 3.0 x 2.5 mm IMPRESSION: 1. Bilateral GSV measurements listed above. 2. Performing surgeon to determine viability as conduit.
--- NOTE | 2022-06-06 08:44 | US ---
EXAMINATION TYPE: Pre-Operative Non-Invasive Evaluation of the hand for Potential Radial Artery [place], Measurements only DATE OF EXAM: 06/06/2022 7:22 AM CLINICAL HISTORY: preop cabg. Pre-OP SIDE PERFORMED: Bilateral TECHNIQUE: Radial artery is measured utilizing real time linear array sonography. Dominant hand: Right Duplex Findings: Radial Artery: Color flow seen Measurements in mm, transverse view: Right Radial: Proximal: 4.0 x 3.8 mm Mid: 2.4 x 2.5 mm Distal: 2.7 x 3.0 mm Left Radial: Proximal: 3.3 x 3.8 mm Mid: 3.2 x 3.0 mm Distal: 2.8 x 2.9 mm IMPRESSION: 1. Bilateral Radial artery measurements listed above. 2. Performing surgeon to determine viability as conduit. CAROLINAD
--- NOTE | 2022-06-06 08:47 | US ---
EXAMINATION TYPE: US arterial LE multi level DATE OF EXAM: 06/02/2022 8:40 PM CLINICAL HISTORY: pain in legs. Pain in bilateral legs and feet, patient states it is worse on the le ft. Current smoker. Hx hypertension, hyperlipidemia, CAD, Myocardial infarction, rest pain. Cardiac s tent placed in December of 2021. Left brachial pressure deferred due to IV. Limitations of left calf and l eft thigh pressures due to movement. Doppler Waveforms: Right: Biphasic to monophasic Left: Biphasic to monophasic Pulse Volume Recording: Pressure Gradients: Ankle-Brachial Indices: Right: 0.55 Left: 0.47 Toe Brachial Indices: Right: Unable to perform due to equipment issue. Doppler waveform shown. Left: Unable to perform due to equipment issue. Doppler waveform shown. *Exam very limited. IMPRESSION: Suboptimal but abnormal study. At least moderate peripheral arterial disease bilaterally . Further workup and follow-up advised.
--- NOTE | 2022-06-06 11:26 | P.PN ---
Subjective Progress Note Date: 06/06/22 Pt has no new complaints today. Denies chest pain. Is amenable to getting heart surgery, scheduled on 06/11 Gen: awake, alert HEENT: normocephalic, atraumatic, good hearing acuity, moist mucous membranes Resp: good air exchange, breathing comfortably with no accessory muscle use, clear to auscultation bilaterally CVS: good distal perfusion x 4, regular rate and rhythm without murmurs GI: soft, NTTP, ND : no SPT, no CVAT, dougherty catheter not present MSK: no pitting edema, no clubbing Neuro: non-focal, moving all extremities Psych: cooperative, euthymic mood Assessment/plan: #Systolic CHF with EF of 30-35% #Scapular pain #Elevated troponin with history of CAD post stent in December 2021 #Possible syncopal episode #Elevated d-dimer #Hyponatremia Chronic conditions: Hypertension, dyslipidemia, smoker Patient presents with exertional shortness of breath. Chest x-ray was negative. He has no lower extremity swelling. Echocardiogram shows EF 30% with global hypokinesis. Continue Coreg, Lasix, Lisinopril and Aldactone. Patient would benefit from AICD. Cardiology on board. Troponins are slowly trending up with EKG showing T-wave abnormalities. Restart ASA, Lipitor, Coreg and Brilinta. Telemetry montoring. Patient currently on a heparin drip. Cardiac cath shows 50-55% left main, 20-30% LAD, 90% OM3 stenosis. Cardiothoracic surgery consulted for CABG, scheduled on 06/11. Continue Telemetry monitoring to rule out cardiac cause of syncope. Patient be placed on fall precautions. Patient with elevated d-dimer, CT chest is ruled out PE. Venous duplex negative for DVT. Follow up arterial duplex of the lower extremities. Patient was sodium of 130. Possibly related to dehydration. Received 1 L bolus in the ED. Patient encouraged hydration by mouth. DVT prophylaxis: Heparin drip Discussed with: Patient Anticipated discharge: Depending on clinical course. Objective - Vital Signs Vital signs: Vital Signs Temp 98.3 F 06/06/22 06:33 Pulse 70 06/06/22 08:00 Resp 18 06/06/22 08:00 BP 166/77 06/06/22 06:33 Pulse Ox 100 06/06/22 06:33 FiO2 Intake & Output 11/08/2606/06/22 06/06/22 18:59 06:59 18:59 Intake Total 118 1000 Output Total 200 Balance -82 1000 Intake: Oral 118 1000 Output: Urine 200 Other: Voiding Method Toilet Toilet Toilet # Voids 1 - Labs CBC & Chem 7: 06/05/22 07:02 06/05/22 07:02 Labs: Microbiology - Last 24 Hours (Table) 06/05/22 12:17 Nasal Screen MRSA/MSSA - Preliminary Nasal Swab
--- NOTE | 2022-06-06 12:43 | P.PN ---
Subjective Progress Note Date: 06/06/22 I was asked to evaluate this patient for a preoperative pulmonary clearance for coronary artery bypass surgery. The patient is known to have CAD and the patient has undergone PCI back in December 2021 and the patient has history of cardiomyopathy, hypertension hyperlipidemia and is a chronic smoker and alcohol drinker. The patient presented back in December 2021 with chest pain and the patient underwent cardiac catheterization and a drug-eluting stent was placed in the obtuse marginal branch of the circumflex coronary artery. Subsequently, the patient was discharged home on the was antiplatelet therapy. Echocardiogram showed reduced LV function with an ejection fraction of 30-35% and the patient had mild concentric LVH, mild mitral regurgitation. The patient was discharged home and over the past couple of weeks, he started having she is pain between his shoulder blades and increased shortness of breath. He had 2 episodes of syncope and for that reason he came back to the emergency department. CT angiogram of the chest was done and it showed no evidence of any pulmonary embolism. He was admitted and his echocardiogram demonstrated again elevated dysfunction with an ejection fraction of 30-35% and global hypokinesis. His proBNP level was 1430. His cardiac catheterization showed 50-55% left main stenosis with minimal luminal area of 5.3 mm mild 5-30% LAD stenosis and mild luminal irregularities involving the dominant circumflex artery, 90% restenosis an acute marginal branch of the right coronary artery showing 70% stenosis. Based on that, it was recommended for this patient to undergo bypass surgery. As mentioned, is a chronic smoker. Bedside spirometry was done and the patient was found to have an FEV1 of 1.64 which is 45% of predicted with some limited reversibility postbronchodilator and across bronchodilation FEV1 of 54% of predicted. He is currently on room air oxygen and his pulse ox is in order of 98%. His labs from today showing white cell count of 11.3 with hemoglobin 13.8 and a platelet count of around 35. Normal renal function with a creatinine of 1.04 and a sodium level of 132. The potassium level is at 5.0 2021, the patient is free of any chest pain. He was taken off the bed into and he decided to stay in the hospital in preparation for cardiac surgery. He has no specific complaints. Hemodynamically stable. No other issues otherwise. Using the incentive spirometer. Pulling more than 2000 on his I-S. Objective - Vital Signs Vital signs: Vital Signs Temp 98.3 F 06/06/22 06:33 Pulse 70 06/06/22 08:00 Resp 18 06/06/22 08:00 BP 166/77 06/06/22 06:33 Pulse Ox 100 06/06/22 06:33 FiO2 Intake & Output 06/05/22 06/06/22 06/06/22 18:59 06:59 18:59 Intake Total 118 1000 Output Total 200 Balance -82 1000 Intake: Oral 118 1000 Output: Urine 200 Other: Voiding Method Toilet Toilet Toilet # Voids 1 - Exam CONSTITUTIONAL: Awake and alert, appears comfortable, cooperative, well- developed, well-nourished, no pain, no acute distress EYES: Pupils equal, round, reactive to light, normal ocular movement ENT: Moist mucous membranes without oral lesions present; bruising present to left forehead/eye area NECK: No masses, no bruits, trachea midline RESPIRATORY: Lungs sounds diminished to auscultation bilaterally. Respirations even, nonlabored. Currently on room air with oxygen saturation 98%. Strong cough. CARDIOVASCULAR: S1, S2 present. Regular rate and rhythm. Palpable peripheral pulses bilaterally. No edema present. No calf pain or tenderness noted. No significant lower extremity varicosities noted. T band in place to left radial artery GASTROINTESTINAL: Abdomen soft, nontender, nondistended without masses or organomegaly noted. There is no rebound or guarding present. Active bowel sounds present 4 quadrants. GENITOURINARY: Deferred INTEGUMENTARY: Skin is warm and dry NEUROLOGIC: Cranial nerves II through XII intact, normal coordination, no obvious motor or sensory deficits, speech is normal MUSKULOSKELETAL: Able to move all extremities, strength equal bilaterally, normal posture PSYCHIATRIC: Alert and oriented to person place and time - Labs CBC & Chem 7: 06/05/22 07:02 06/05/22 07:02 Labs: Microbiology - Last 24 Hours (Table) 06/05/22 12:17 Nasal Screen MRSA/MSSA - Preliminary Nasal Swab Assessment and Plan Plan: Symptomatic multivessel coronary artery disease. The patient was having angina, shortness of breath and 2 episodes of syncope on outpatient basis. The patient is being considered for coronary artery bypass surgery. The patient is post PCI back in December 2021 and his cardiac cardiac catheterization revealed left main lesion in the order of 50-55%, OM3 of 90% and acute marginal artery of 70% Ejection fraction of 30-35% COPD mild to moderate in severity with an FEV1 post-bronchodilation of 54% of predicted. He is a chronic smoker CHF with an ejection fraction of 3035%, ischemic cardiomyopathy Hypertension Hyperlipidemia, Smoker drinker almost six pack beer on a daily basis. Plan Patient is currently taken off the Brillinta and the patient is awaiting surgery to be done on Saturday and this will involvement coronary artery bypass surgery. Continue Symbicort to be used as a maintenance 2 puffs twice a day in addition to albuterol rescue inhaler. He already has an incentive spirometer. He is using it regularly and is pulling more than 2000 and his incentive spirometer. . CT angiogram shows no acute abnormalities. Chest x-rays also within normal limits. STS risk score to be calculated by the cardiothoracic team.
[2022-06-06 14:29] LABS: HCT 50.1 % (39.6-50.0); HGB 16.9 g/dL (13.0-17.0); MCHC 33.7 g/dL (32.0-37.0); MCV 91.8 fL (80.0-97.0); Mean Platelet Volume 9.3 fL (9.5-12.2); NRBC Per 100 WBC 0 /100 WBCS (0.0-0.0); Platelet Count 245 X 10*3/uL (140-440); RBC 5.46 X 10*6/uL (4.40-5.60); RDW 13.8 % (11.5-14.5); WBC 7.24 X 10*3/uL (4.50-10.00)
[2022-06-06 14:53] LABS: African American GFR (CKD) 96.3 (60.0-200.0); BUN/Creat Ratio 14.95 Ratio (12.00-20.00); Blood Urea Nitrogen 15.4 mg/dL (9.0-27.0); Calcium 9.2 mg/dL (8.7-10.3); Carbon Dioxide 20.3 mmol/L (20.0-27.5); Non-African American GFR(CKD) 83.1 (60.0-200.0); Potassium 4.3 mmol/L (3.5-5.5)
[2022-06-06] MEDS: SODIUM CHLORIDE 0.9% 1,000 ML in EMPTY BAG 1 BAG IV SCH ×2 (19:48→19:49)
[2022-06-06] MEDS: ATORVASTATIN 80 MG TAB PO SCH (19:52)
[2022-06-07] MEDS: SODIUM CHLORIDE 0.9% 1,000 ML in EMPTY BAG 1 BAG IV SCH (04:52)
[2022-06-07] MEDS: carvediloL 6.25 MG TAB PO SCH ×2 (06:15→16:47)
[2022-06-07] MEDS: SYMBICORT 160-4.5 MCG INHALER INHALATION SCH ×2 (07:38→19:24)
--- NOTE | 2022-06-07 08:53 | P.PN ---
Subjective Progress Note Date: 06/07/22 Principal diagnosis: Coronary artery disease with PCI in December 2021, cardiomyopathy, hypertension, hyperlipidemia, syncopal episode 2, current tobacco dependence, severe COPD, current daily EtOH use, PAD The patient was seen and examined this morning at the bedside sitting up in no acute distress. Denies current chest pain, denies any increased shortness of breath. Remains in sinus rhythm, blood pressure been hypertensive. He is currently on room air with oxygen saturation in the high 90s, able to achieve just over 1000 mL on his incentive spirometry. He continues to be counseled regarding smoking and EtOH cessation. States he has been ambulatory in his room without difficulty, he took a shower yesterday. He understands the need to stay inpatient until surgery, is still quite worried regarding his ability to pay bills due to hospitalization, social work was consulted. Repeat full echo demonstrated normal left ventricular function with EF 55%, no regional wall motion abnormalities, trace MR, mild with peak/mean gradient 19/9 mmHg, mild AI, and mild TR. STS risk for mortality was calculated at 2% and this was discussed with patient. Objective - Vital Signs Vital signs: Vital Signs Temp 98.9 F 06/07/22 06:12 Pulse 62 06/07/22 06:12 Resp 18 06/07/22 06:12 BP 161/77 06/07/22 06:12 Pulse Ox 98 06/07/22 06:12 FiO2 21 06/06/22 20:28 Intake & Output 06/06/22 06/07/22 06/07/22 18:59 06:59 18:59 Intake Total 480 500 Balance 480 500 Intake: Oral 480 500 Other: Voiding Method Toilet Toilet # Voids 2 - Exam CONSTITUTIONAL: Appears comfortable, cooperative, no acute distress RESPIRATORY: Lungs sounds very diminished bilaterally. Respirations even, nonlabored. Currently on room air with oxygen saturation 100%. Able to achieve 1100 mL on incentive spirometry. Strong dry cough. CARDIOVASCULAR: S1, S2 present. Regular rate and rhythm, sinus rhythm on telemetry. Palpable peripheral pulses bilaterally. No edema present. No calf pain or tenderness noted. GASTROINTESTINAL: Abdomen soft, nontender, nondistended. Active bowel sounds present 4 quadrants. Tolerating diet. GENITOURINARY: Continues to void INTEGUMENTARY: Skin is warm and dry NEUROLOGIC: Cranial nerves II through XII intact MUSKULOSKELETAL: Able to move all extremities, strength equal bilaterally, gait normal PSYCHIATRIC: Alert and oriented to person place and time, appropriate affect, intact judgment and insight - Labs CBC & Chem 7: 06/06/22 08:45 06/06/22 08:45 Labs: Abnormal Lab Results - Last 24 Hours (Table) 06/06/22 06/06/22 Range/Units 08:45 08:45 Hct 50.1 H (39.6-50.0) % MPV 9.3 L (9.5-12.2) fL Sodium 129 L (135-145) mmol/L Chloride 95 L (96-109) mmol/L Glucose 255 H (70-110) mg/dL Microbiology - Last 24 Hours (Table) 06/05/22 12:17 Nasal Screen MRSA/MSSA - Final Nasal Swab Assessment and Plan Assessment: 1. Coronary artery disease with PCI in December 2021, current heart cath reporting LM 50-55%, IVUS 5.3 mm2, OM3 90%, AM 70% 2. Cardiomyopathy, EF 30-35%, repeat full echo demonstrates EF 55% 3. Hypertension 4. Hyperlipidemia, treated, cholesterol 167, LDL 103 5. PAD, MICHELLE on the right 0.55, MICHELLE on the left 0.47 6. Syncopal episode 2 7. Current tobacco dependence 8. Current daily EtOH use, 6 pack beer daily, no signs of withdrawal 9. Severe COPD, preoperative FEV1 45% of predicted, 1.64 L Plan: 1. Continue aspirin, statin, beta james therapy. Continue to hold Brilinta for surgery 2. Pulmonology consult for preoperative recommendations 3. Encourage incentive spirometry use 4. Smoking cessation counseling and education continually reinforced with the patient 5. Reduction/cessation of EtOH use discussed with the patient. Thiamine/folic acid were ordered, WA protocol, monitor for withdrawal symptoms 6. Our plan is for myocardial revascularization with left internal mammary artery, endoscopic vein harvest, ligation of left atrial appendage next 06/11/[address] Hastings 7. Medical management of other comorbidities per primary care, cardiology 8. More recommendations to follow
--- NOTE | 2022-06-07 08:59 | P.PN ---
Subjective This is a 51 year old male with a past medical history of hypertension, nicotine dependence, daily alcohol use, coronary artery disease with NSTEMI in 12/2021 S/p PCI proximal OM3, ischemic cardiomyopathy, dyslipidemia. He follows with Dr. Mock. We're consulted for chest pain. Patient presented to the hospital on 06/02/2022 with symptoms of shortness of breath and chest pain. Patient continued to have chest discomfort and recommend cardiac catheterization. Echocardiogram revealed EF 3035 percent. Patient underwent cardiac catheterization with Dr. Mock on 06/04/2022 which revealed coronary artery disease with 50-55% left main stenosis with minimal luminal area 5.3mm2, mild 20-30% LAD stenosis, mild luminal irregularities of a dominant circumflex, OM3 90% stenosis, normal left sided filling pressures. CT surgery was consulted for CABG evaluation. 06/07 Patient seen and examined at bedside, no acute distress. Patient has agreed to go through with CABG surgery. He denies any chest pain or shortness of breath. BP 136/72 HR 62 afebrile. 98% on room air. His maintaining sinus rhythm HR 60s- 70s, PVCs noted. Limited Echo revealed EF 55%, no obvious regional wall motion abnormalities trace mitral regurgitation, mild aortic stenosis with a peak gradient of 19 mmHg, mean gradient of 9 mmHg, mild aortic regurgitation Meds: Aspirin 81 mg daily, atorvastatin 80 mg nightly, carvedilol 6.25 mg twice a day, Lasix 40 mg daily, lisinopril 10 mg daily, spironolactone 25 mg daily, Brilinta is on hold GENERAL: in no acute distress. NECK: Supple without JVD LUNGS: Breath sounds diminished to auscultation bilaterally. Respiration equal and unlabored. No wheezes, rales or rhonchi. HEART: Regular rate and rhythm without murmurs, rubs or gallops. S1 and S2 heard. EXTREMITIES: Normal range of motion, no edema. No clubbing or cyanosis. Peripheral pulses intact. Right radial cath site clean dry 2+ pulses, no hematoma ASSESSMENT Chest pain, shortness of breath Status post cardiac catheterization on 06/04/2022 with left main 5055% stenosis, OM3 90% stenosis and acute marginal artery 70% Coronary artery disease s/p prior PCI to OM3 in 12/2021 Hypertension Dyslipidemia Ischemic cardiomyopathy EF 3035 percent Chronic tobacco use Daily alcohol use PLAN Patient is in agreement to CABG surgery this morning CT surgery following Hold Brilinta, discussed with Dr. Smith and Dr. Mock with patient agreeable to CABG, ok to hold Brilinta 5 days prior to surgery but recommend monitoring in the hospital until surgery Continue aspirin, statin, beta james, ACEI and spironolactone at this time Encourage incentive spirometry use Patient is tentatively scheduled for CABG on 06/11/2022 Further recommendations based on clinical course Nurse Practitioner note has been reviewed, I agree with a documented findings and plan of care. Patient was seen and examined. Objective - Vital Signs Vital signs: Vital Signs Temp 98.9 F 06/07/22 06:12 Pulse 62 06/07/22 06:12 Resp 18 06/07/22 06:12 BP 161/77 06/07/22 06:12 Pulse Ox 98 06/07/22 06:12 FiO2 21 06/06/22 20:28 Intake & Output 06/06/22 06/07/22 06/07/22 18:59 06:59 18:59 Intake Total 480 500 Balance 480 500 Intake: Oral 480 500 Other: Voiding Method Toilet Toilet # Voids 2 - Labs CBC & Chem 7: 06/06/22 08:45 06/06/22 08:45 Labs: Abnormal Lab Results - Last 24 Hours (Table) 06/06/22 06/06/22 Range/Units 08:45 08:45 Hct 50.1 H (39.6-50.0) % MPV 9.3 L (9.5-12.2) fL Sodium 129 L (135-145) mmol/L Chloride 95 L (96-109) mmol/L Glucose 255 H (70-110) mg/dL Microbiology - Last 24 Hours (Table) 06/05/22 12:17 Nasal Screen MRSA/MSSA - Final Nasal Swab
[2022-06-07] MEDS: ASPIRIN 81 MG PO SCH (09:43)
[2022-06-07] MEDS: HEPARIN SODIUM,PORCINE/PF 5,000 UNIT/0.5 ML SYRINGE SQ SCH ×2 (09:43→20:40)
[2022-06-07] MEDS: lisinopriL 10 MG TAB PO SCH (09:43)
[2022-06-07] MEDS: SPIRONOLACTONE 25 MG TAB PO SCH (09:43)
[2022-06-07] MEDS: MULTIVITAMINS, THERA 1 EACH TAB PO SCH (09:43)
[2022-06-07] MEDS: FUROSEMIDE 40 MG TAB PO SCH (09:43)
[2022-06-07] MEDS: FOLIC ACID 1 MG TAB PO SCH (09:43)
[2022-06-07] MEDS: THIAMINE 100 MG TAB PO SCH (09:43)
--- NOTE | 2022-06-07 10:53 | P.PN ---
Subjective Progress Note Date: 06/07/22 Pt has no new complaints today. Denies chest pain. Is amenable to getting heart surgery, scheduled on 06/11 Gen: awake, alert HEENT: normocephalic, atraumatic, good hearing acuity, moist mucous membranes Resp: good air exchange, breathing comfortably with no accessory muscle use, clear to auscultation bilaterally CVS: good distal perfusion x 4, regular rate and rhythm without murmurs GI: soft, NTTP, ND : no SPT, no CVAT, dougherty catheter not present MSK: no pitting edema, no clubbing Neuro: non-focal, moving all extremities Psych: cooperative, euthymic mood Assessment/plan: #Systolic CHF with EF of 30-35% #Scapular pain #Elevated troponin with history of CAD post stent in December 2021 #Possible syncopal episode #Elevated d-dimer #Hyponatremia Chronic conditions: Hypertension, dyslipidemia, smoker Patient presents with exertional shortness of breath. Chest x-ray was negative. He has no lower extremity swelling. Echocardiogram shows EF 30% with global hypokinesis. Continue Coreg, Lasix, Lisinopril and Aldactone. Patient would benefit from AICD. Cardiology on board. Troponins are slowly trending up with EKG showing T-wave abnormalities. Restart ASA, Lipitor, Coreg and Brilinta. Telemetry montoring. Patient currently on a heparin drip. Cardiac cath shows 50-55% left main, 20-30% LAD, 90% OM3 stenosis. Cardiothoracic surgery consulted for CABG, scheduled on 06/11. Continue Telemetry monitoring to rule out cardiac cause of syncope. Patient be placed on fall precautions. Patient with elevated d-dimer, CT chest is ruled out PE. Venous duplex negative for DVT. Follow up arterial duplex of the lower extremities. Patient was sodium of 130. Possibly related to dehydration. Received 1 L bolus in the ED. Patient encouraged hydration by mouth. DVT prophylaxis: Heparin drip Discussed with: Patient Anticipated discharge: Depending on clinical course. Objective - Vital Signs Vital signs: Vital Signs Temp 98.1 F 06/07/22 08:03 Pulse 62 06/07/22 08:03 Resp 16 06/07/22 08:03 BP 136/72 06/07/22 08:03 Pulse Ox 98 06/07/22 08:03 FiO2 21 06/06/22 20:28 Intake & Output 06/06/22 06/07/22 06/07/22 18:59 06:59 18:59 Intake Total 480 500 480 Balance 480 500 480 Intake: Oral 480 500 480 Other: Voiding Method Toilet Toilet # Voids 2 - Labs CBC & Chem 7: 06/06/22 08:45 06/06/22 08:45 Labs: Abnormal Lab Results - Last 24 Hours (Table) 06/06/22 06/06/22 Range/Units 08:45 08:45 Hct 50.1 H (39.6-50.0) % MPV 9.3 L (9.5-12.2) fL Sodium 129 L (135-145) mmol/L Chloride 95 L (96-109) mmol/L Glucose 255 H (70-110) mg/dL Microbiology - Last 24 Hours (Table) 06/05/22 12:17 Nasal Screen MRSA/MSSA - Final Nasal Swab
--- NOTE | 2022-06-07 14:22 | P.PN ---
Subjective Progress Note Date: 06/07/22 Principal diagnosis: Chest pain. I was asked to evaluate this patient for a preoperative pulmonary clearance for coronary artery bypass surgery. The patient is known to have CAD and the patient has undergone PCI back in December 2021 and the patient has history of cardiomyopathy, hypertension hyperlipidemia and is a chronic smoker and alcohol drinker. The patient presented back in December 2021 with chest pain and the patient underwent cardiac catheterization and a drug-eluting stent was placed in the obtuse marginal branch of the circumflex coronary artery. Subsequently, the pat ient was discharged home on the was antiplatelet therapy. Echocardiogram showed reduced LV function with an ejection fraction of 30-35% and the patient had mild concentric LVH, mild mitral regurgitation. The patient was discharged home and over the past couple of weeks, he started having she is pain between his shoulder blades and increased shortness of breath. He had 2 episodes of syncope and for that reason he came back to the emergency department. CT angiogram of the chest was done and it showed no evidence of any pulmonary embolism. He was admitted and his echocardiogram demonstrated again elevated dysfunction with an ejection fraction of 30-35% and global hypokinesis. His proBNP level was 1430. His cardiac catheterization showed 50-55% left main stenosis with minimal luminal area of 5.3 mm mild 5-30% LAD stenosis and mild luminal irregularities involving the dominant circumflex artery, 90% restenosis an acute marginal branch of the right coronary artery showing 70% stenosis. Based on that, it was recommended for this patient to undergo bypass surgery. As mentioned, is a chronic smoker. Bedside spirometry was done and the patient was found to have an FEV1 of 1.64 which is 45% of predicted with some limited reversibility postbronchodilator and across bronchodilation FEV1 of 54% of predicted. He is currently on room air oxygen and his pulse ox is in order of 98%. His labs from today showing white cell count of 11.3 with hemoglobin 13.8 and a platelet count of around 35. Normal renal function with a creatinine of 1.04 and a sodium level of 132. The potassium level is at 5.0 2021, the patient is free of any chest pain. He was taken off the bed int o and he decided to stay in the hospital in preparation for cardiac surgery. He has no specific complaints. Hemodynamically stable. No other issues otherwise. Using the incentive spirometer. Pulling more than 2000 on his I-S. Progress note dated 06/07/2022. The patient is seen in room 616. The patient is to have open heart surgery on June 11. The patient's on room air. He's not receiving any IV fluids. He was eating his breakfast. He denies any shortness of breath, diffic ulty breathing, coughing, wheezing, or phlegm production. No new labs today. Objective - Vital Signs Vital signs: Vital Signs Temp 98.7 F 06/07/22 13:35 Pulse 69 06/07/22 13:35 Resp 16 06/07/22 13:35 BP 125/71 06/07/22 13:35 Pulse Ox 98 06/07/22 13:35 FiO2 21 06/06/22 20:28 Intake & Output 06/06/22 06/07/22 06/07/22 18:59 06:59 18:59 Intake Total 480 500 480 Balance 480 500 480 Intake: Oral 480 500 480 Other: Voiding Method Toilet Toilet # Voids 2 - Exam No acute distress, oriented 3. Currently on room air. HEENT examination is grossly unremarkable. Neck supple. Full range of motion. No adenopathy thyromegaly or neck vein distention. Cardiovascular examination reveals regular rhythm rate. S1-S2 normal. No S3 or S4. No discernible murmur noted. Heart rate 69 bpm. Lungs reveal clear breath sounds. Breath sounds are equal bilaterally. No adventitious lung sounds including wheezes rhonchi or crackles. Abdomen soft bowel sounds are heard. No masses or tenderness. Extremities are intact. No cyanosis clubbing or edema. Skin is without rash or lesion. Neurologic examination is brief but nonfocal. - Labs CBC & Chem 7: 06/06/22 08:45 06/06/22 08:45 Labs: Abnormal Lab Results - Last 24 Hours (Table) 06/06/22 06/06/22 Range/Units 08:45 08:45 Hct 50.1 H (39.6-50.0) % MPV 9.3 L (9.5-12.2) fL Sodium 129 L (135-145) mmol/L Chloride 95 L (96-109) mmol/L Glucose 255 H (70-110) mg/dL Microbiology - Last 24 Hours (Table) 06/05/22 12:17 Nasal Screen MRSA/MSSA - Final Nasal Swab Assessment and Plan Assessment: Symptomatic multivessel coronary disease, with an anticipated bypass surgery on June 11. Moderate COPD, with an FEV1 that's 54% of predicted. History of chronic tobacco use. CHF, with an ejection fraction of 30-35%. History of hypertension. History of hyperlipidemia. Plan: Plan dated 06/07/2022. The patient is not receiving any IV fluids or supplemental oxygen. The plan is to do surgery on June 11. No additional recommendations are made. Labs, x- rays, and medications are reviewed. The patient's FEV1 percent is 54. He has moderately severe disease. We will continue to follow and make recommendations along the way. Time with Patient: Less than 30
[2022-06-07] MEDS: ATORVASTATIN 80 MG TAB PO SCH (20:40)
[2022-06-08] MEDS: carvediloL 6.25 MG TAB PO SCH ×2 (06:01→17:20)
[2022-06-08] MEDS: SYMBICORT 160-4.5 MCG INHALER INHALATION SCH ×2 (07:45→20:32)
[2022-06-08] MEDS: HEPARIN SODIUM,PORCINE/PF 5,000 UNIT/0.5 ML SYRINGE SQ SCH ×2 (08:22→20:47)
--- NOTE | 2022-06-08 09:02 | P.PN ---
Subjective Progress Note Date: 06/08/22 Principal diagnosis: Coronary artery disease with PCI in December 2021, cardiomyopathy, hypertension, hyperlipidemia, syncopal episode 2, current ongoing chronic tobacco dependence, severe COPD, current daily EtOH use, and PAD. Patient was seen and examined in follow-up today 06/08/2022 at his bedside on the cardiac observation unit. Currently he is sitting up to the bedside edge, denies any complaints of pain or shortness of breath at this time. He reports he has been up ambulating in the hallway without any difficulty. Oxygen saturations are 98% on room air and he is achieving 1500 mL on his incentive spirometry with encouragement. Reinforced preoperative teaching for myocardial revascularization surgery. Continue to discuss the importance of smoking and EtOH cessation. The patient is scheduled for myocardial revascularization surgery with left internal mammary artery, endoscopic vein harvest, possible left radial artery endoscopic harvest and ligation of left atrial appendage for next 06/11/[address] Romero Hastings. Objective - Vital Signs Vital signs: Vital Signs Temp 98.4 F 06/08/22 07:03 Pulse 69 06/08/22 07:03 Resp 16 06/08/22 07:03 BP 114/64 06/08/22 07:03 Pulse Ox 100 06/08/22 07:03 FiO2 21 06/06/22 20:28 Intake & Output 06/07/22 06/08/22 06/08/22 18:59 06:59 18:59 Intake Total 960 500 Balance 960 500 Intake: Oral 960 500 Other: Voiding Method Toilet # Voids 4 - Exam CONSTITUTIONAL: Appears comfortable, cooperative, no acute distress. RESPIRATORY: Lungs sounds diminished throughout bilaterally. Respirations are symmetrical and nonlabored. Currently on room air with oxygen saturation 98%. Able to achieve 1500 mL on incentive spirometry. Strong dry cough. CARDIOVASCULAR: S1, S2 present. Regular rate and rhythm, sinus rhythm on telemetry. Palpable peripheral pulses bilaterally. No edema present. No calf pain or tenderness noted. GASTROINTESTINAL: Abdomen soft, nontender, nondistended. Active bowel sounds present 4 quadrants. Tolerating diet. GENITOURINARY: Continues to void. INTEGUMENTARY: Skin is warm and dry. No clubbing or cyanosis is present. NEUROLOGIC: Cranial nerves II through XII intact. No focal deficits. MUSKULOSKELETAL: Able to move all extremities, strength equal bilaterally, gait normal. PSYCHIATRIC: Alert and oriented to person place and time, appropriate affect, intact judgment and insight. - Allied health notes Allied health notes reviewed: nursing - Labs CBC & Chem 7: 06/06/22 08:45 06/06/22 08:45 Assessment and Plan Assessment: 1. Coronary artery disease with PCI in December 2021, current heart cath reporting LM 50-55%, IVUS 5.3 mm2, OM3 90%, AM 70% 2. Cardiomyopathy, EF 30-35%, repeat full echo demonstrates EF 55% 3. Hypertension 4. Hyperlipidemia, treated, cholesterol 167, LDL 103 5. PAD, MICHELLE on the right 0.55, MICHELLE on the left 0.47 6. Syncopal episode 2 7. Current tobacco dependence 8. Current daily EtOH use, 6 pack beer daily, no signs of withdrawal 9. Severe COPD, preoperative FEV1 45% of predicted, 1.64 L Plan: 1. Continue aspirin, statin, and beta james. Continue to hold Brilinta for myocardial revascularization surgery. 2. Patient's preoperative FEV1 showed a predicted value of 54%. Pulmonology/critical care recommendations noted and appreciated. 3. Encourage incentive spirometry use 10 times every hour while awake. 4. Smoking cessation counseling and education continually reinforced with the patient. 5. Reduction/cessation of EtOH use discussed with the patient. Continue Thiamine/folic acid, CIWA protocol, monitor for withdrawal symptoms. 6. Patient is scheduled for myocardial revascularization with left internal mammary artery, endoscopic vein harvest, possible left radial artery endoscopic harvesting, ligation of left atrial appendage next 06/11/[address] Romero Hastings 7. Medical management of other comorbidities per primary care, cardiology. 8. An STS risk score has been calculated discussed with the patient. 9. More recommendations to follow based on patient's clinical course. Time with Patient: Greater than 30
--- NOTE | 2022-06-08 09:18 | P.PN ---
Subjective This is a 51 year old male with a past medical history of hypertension, nicotine dependence, daily alcohol use, coronary artery disease with NSTEMI in 12/2021 S/p PCI proximal OM3, ischemic cardiomyopathy, dyslipidemia. He follows with Dr. Mock. We're consulted for chest pain. Patient presented to the hospital on 06/02/2022 with symptoms of shortness of breath and chest pain. Patient continued to have chest discomfort and recommend cardiac catheterization. Echocardiogram revealed EF 3035 percent. Patient underwent cardiac catheterization with Dr. Mock on 06/04/2022 which revealed coronary artery disease with 50-55% left main stenosis with minimal luminal area 5.3mm2, mild 20-30% LAD stenosis, mild luminal irregularities of a dominant circumflex, OM3 90% stenosis, normal left sided filling pressures. CT surgery was consulted for CABG evaluation. 06/08 Patient seen and examined at bedside, no acute distress. Patient has agreed to go through with CABG surgery. He denies any chest pain or shortness of breath. He is ambulating the rooms with no difficulty, in better spirits this morning. BP 134/77, heart rate 69, afebrile, saturations 100% on room air. His maintaining sinus rhythm HR 60s-70s, occasional PVCs noted. Limited Echo revealed EF 55%, no obvious regional wall motion abnormalities trace mitral regurgitation, mild aortic stenosis with a peak gradient of 19 mmHg, mean gradient of 9 mmHg, mild aortic regurgitation Meds: Aspirin 81 mg daily, atorvastatin 80 mg nightly, carvedilol 6.25 mg twice a day, Lasix 40 mg daily, lisinopril 10 mg daily, spironolactone 25 mg daily GENERAL: in no acute distress. NECK: Supple without JVD LUNGS: Breath sounds clear to auscultation bilaterally. Respiration equal and unlabored. No wheezes, rales or rhonchi. HEART: Regular rate and rhythm without murmurs, rubs or gallops. S1 and S2 heard. EXTREMITIES: Normal range of motion, no edema. No clubbing or cyanosis. Pe ripheral pulses intact. Right radial cath site clean dry 2+ pulses, no hematoma ASSESSMENT Chest pain, shortness of breath Status post cardiac catheterization on 06/04/2022 with left main 5055% st enosis, OM3 90% stenosis and acute marginal artery 70% Coronary artery disease s/p prior PCI to OM3 in 12/2021 Hypertension Dyslipidemia Ischemic cardiomyopathy EF 3035 percent Chronic tobacco use Daily alcohol use PLAN CT surgery following Brilinta continues to be on hold, discussed with Dr. Smith and Dr. Mock with patient agreeable to CABG, ok to hold Brilinta 5 days prior to surgery but r ecommend monitoring in the hospital until surgery Continue aspirin, statin, beta james, ACEI and spironolactone at this time Encourage incentive spirometry use Patient is tentatively scheduled for CABG on 06/11/2022 We will continue to follow patient and make recommendations accordingly Nurse Practitioner note has been reviewed, I agree with a documented findings and plan of care. Patient was seen and examined. Objective - Vital Signs Vital signs: Vital Signs Temp 98.4 F 06/08/22 07:03 Pulse 69 06/08/22 07:03 Resp 16 06/08/22 07:03 BP 114/64 06/08/22 07:03 Pulse Ox 100 06/08/22 07:03 FiO2 21 06/06/22 20:28 Intake & Output 06/07/22 06/08/22 06/08/22 18:59 06:59 18:59 Intake Total 960 500 300 Balance 960 500 300 Intake: Oral 960 500 300 Other: Voiding Method Toilet # Voids 4 - Labs CBC & Chem 7: 06/06/22 08:45 06/06/22 08:45
[2022-06-08] MEDS: ASPIRIN 81 MG PO SCH (10:38)
[2022-06-08] MEDS: FOLIC ACID 1 MG TAB PO SCH (10:39)
[2022-06-08] MEDS: FUROSEMIDE 40 MG TAB PO SCH (10:40)
[2022-06-08] MEDS: lisinopriL 10 MG TAB PO SCH (10:41)
[2022-06-08] MEDS: MULTIVITAMINS, THERA 1 EACH TAB PO SCH (10:41)
[2022-06-08] MEDS: SPIRONOLACTONE 25 MG TAB PO SCH (10:43)
[2022-06-08] MEDS: THIAMINE 100 MG TAB PO SCH (10:43)
--- NOTE | 2022-06-08 10:45 | P.PN ---
Subjective Progress Note Date: 06/08/22 Pt has no new complaints today. Denies chest pain. Is amenable to getting heart surgery, scheduled on 06/11 Gen: awake, alert HEENT: normocephalic, atraumatic, good hearing acuity, moist mucous membranes Resp: good air exchange, breathing comfortably with no accessory muscle use, clear to auscultation bilaterally CVS: good distal perfusion x 4, regular rate and rhythm without murmurs GI: soft, NTTP, ND : no SPT, no CVAT, dougherty catheter not present MSK: no pitting edema, no clubbing Neuro: non-focal, moving all extremities Psych: cooperative, euthymic mood Assessment/plan: #Systolic CHF with EF of 30-35% #Scapular pain #Elevated troponin with history of CAD post stent in December 2021 #Possible syncopal episode #Elevated d-dimer #Hyponatremia Chronic conditions: Hypertension, dyslipidemia, smoker Patient presents with exertional shortness of breath. Chest x-ray was negative. He has no lower extremity swelling. Echocardiogram shows EF 30% with global hypokinesis. Continue Coreg, Lasix, Lisinopril and Aldactone. Patient would benefit from AICD. Cardiology on board. Troponins are slowly trending up with EKG showing T-wave abnormalities. Restart ASA, Lipitor, Coreg and Brilinta. Telemetry montoring. Patient currently on a heparin drip. Cardiac cath shows 50-55% left main, 20-30% LAD, 90% OM3 stenosis. Cardiothoracic surgery consulted for CABG, scheduled on 06/11. Continue Telemetry monitoring to rule out cardiac cause of syncope. Patient be placed on fall precautions. Patient with elevated d-dimer, CT chest is ruled out PE. Venous duplex negative for DVT. Follow up arterial duplex of the lower extremities. Patient was sodium of 130. Possibly related to dehydration. Received 1 L bolus in the ED. Patient encouraged hydration by mouth. DVT prophylaxis: Heparin drip Discussed with: Patient Anticipated discharge: Depending on clinical course. Objective - Vital Signs Vital signs: Vital Signs Temp 98.4 F 06/08/22 07:03 Pulse 67 06/08/22 10:35 Resp 16 06/08/22 07:03 BP 146/80 06/08/22 10:35 Pulse Ox 100 06/08/22 07:03 FiO2 21 06/06/22 20:28 Intake & Output 06/07/22 06/08/22 06/08/22 18:59 06:59 18:59 Intake Total 960 500 300 Balance 960 500 300 Intake: Oral 960 500 300 Other: Voiding Method Toilet # Voids 4 - Labs CBC & Chem 7: 06/06/22 08:45 06/06/22 08:45
--- NOTE | 2022-06-08 12:25 | P.PN ---
Subjective Progress Note Date: 06/08/22 Principal diagnosis: Chest pain. I was asked to evaluate this patient for a preoperative pulmonary clearance for coronary artery bypass surgery. The patient is known to have CAD and the patient has undergone PCI back in December 2021 and the patient has history of cardiomyopathy, hypertension hyperlipidemia and is a chronic smoker and alcohol drinker. The patient presented back in December 2021 with chest pain and the patient underwent cardiac catheterization and a drug-eluting stent was placed in the obtuse marginal branch of the circumflex coronary artery. Subsequently, the pat ient was discharged home on the was antiplatelet therapy. Echocardiogram showed reduced LV function with an ejection fraction of 30-35% and the patient had mild concentric LVH, mild mitral regurgitation. The patient was discharged home and over the past couple of weeks, he started having she is pain between his shoulder blades and increased shortness of breath. He had 2 episodes of syncope and for that reason he came back to the emergency department. CT angiogram of the chest was done and it showed no evidence of any pulmonary embolism. He was admitted and his echocardiogram demonstrated again elevated dysfunction with an ejection fraction of 30-35% and global hypokinesis. His proBNP level was 1430. His cardiac catheterization showed 50-55% left main stenosis with minimal luminal area of 5.3 mm mild 5-30% LAD stenosis and mild luminal irregularities involving the dominant circumflex artery, 90% restenosis an acute marginal branch of the right coronary artery showing 70% stenosis. Based on that, it was recommended for this patient to undergo bypass surgery. As mentioned, is a chronic smoker. Bedside spirometry was done and the patient was found to have an FEV1 of 1.64 which is 45% of predicted with some limited reversibility postbronchodilator and across bronchodilation FEV1 of 54% of predicted. He is currently on room air oxygen and his pulse ox is in order of 98%. His labs from today showing white cell count of 11.3 with hemoglobin 13.8 and a platelet count of around 35. Normal renal function with a creatinine of 1.04 and a sodium level of 132. The potassium level is at 5.0 2021, the patient is free of any chest pain. He was taken off the bed int o and he decided to stay in the hospital in preparation for cardiac surgery. He has no specific complaints. Hemodynamically stable. No other issues otherwise. Using the incentive spirometer. Pulling more than 2000 on his I-S. Progress note dated 06/07/2022. The patient is seen in room 616. The patient is to have open heart surgery on June 11. The patient's on room air. He's not receiving any IV fluids. He was eating his breakfast. He denies any shortness of breath, diffic ulty breathing, coughing, wheezing, or phlegm production. No new labs today. Progress note dated 06/08/2022. 51-year-old male seen in room 616. The patient is having open heart surgery, on June 11. Currently, the patient has no complaints. He denies any chest pain or chest discomfort. Denies any palpitations or fluttering in the chest. He also denies any shortness of breath, cough, wheezing, or phlegm production. He is currently on room air. He's not receiving any IV fluids. No new laboratory data today. Objective - Vital Signs Vital signs: Vital Signs Temp 97.6 F 06/08/22 12:05 Pulse 70 06/08/22 12:05 Resp 16 06/08/22 12:05 BP 177/66 06/08/22 12:05 Pulse Ox 100 06/08/22 12:05 FiO2 21 06/06/22 20:28 Intake & Output 06/07/22 06/08/22 06/08/22 18:59 06:59 18:59 Intake Total 960 500 300 Balance 960 500 300 Intake: Oral 960 500 300 Other: Voiding Method Toilet # Voids 4 - Exam No acute distress, oriented 3. Currently on room air. Saturations are 100%. HEENT examination is grossly unremarkable. Neck supple. Full range of motion. No adenopathy thyromegaly or neck vein dis tention. Cardiovascular examination reveals regular rhythm rate. S1-S2 normal. No S3 or S4. No discernible murmur noted. Heart rate 70 bpm. Lungs reveal clear breath sounds. Breath sounds are equal bilaterally. No adventitious lung sounds including wheezes rhonchi or crackles. Abdomen soft bowel sounds are heard. No masses or tenderness. Extremities are intact. No cyanosis clubbing or edema. Skin is without rash or lesion. Neurologic examination is brief but nonfocal. - Labs CBC & Chem 7: 06/06/22 08:45 06/06/22 08:45 Assessment and Plan Assessment: Symptomatic multivessel coronary disease, with an anticipated bypass surgery on June 11. Moderate COPD, with an FEV1 that's 54% of predicted. History of chronic tobacco use. CHF, with an ejection fraction of 30-35%. History of hypertension. History of hyperlipidemia. Plan: Plan dated 06/07/2022. The patient is not receiving any IV fluids or supplemental oxygen. The plan is to do surgery on June 11. No additional recommendations are made. Labs, x- rays, and medications are reviewed. The patient's FEV1 percent is 54. He has moderately severe disease. We will continue to follow and make recommendations along the way. Plan dated 06/08/2022. Currently, the patient's resting comfortably. He has no complaints, either related to the cardiac: The pulmonary system. The patient's on room air. He has not had any recent labs. He is not receiving any IV fluids. Surgery is apparently planned for June 11. We will continue to follow and make recommendations along the way. Prognosis is thought to be generally good. Time with Patient: Less than 30
[2022-06-08] MEDS: ATORVASTATIN 80 MG TAB PO SCH (20:47)
[2022-06-09] MEDS: FUROSEMIDE 40 MG TAB PO SCH (09:32)
[2022-06-09] MEDS: lisinopriL 10 MG TAB PO SCH (09:32)
[2022-06-09] MEDS: ASPIRIN 81 MG PO SCH (09:32)
[2022-06-09] MEDS: SPIRONOLACTONE 25 MG TAB PO SCH (09:32)
[2022-06-09] MEDS: THIAMINE 100 MG TAB PO SCH (09:32)
[2022-06-09] MEDS: FOLIC ACID 1 MG TAB PO SCH (09:32)
[2022-06-09] MEDS: MULTIVITAMINS, THERA 1 EACH TAB PO SCH (09:32)
[2022-06-09] MEDS: SYMBICORT 160-4.5 MCG INHALER INHALATION SCH ×2 (09:34→19:41)
[2022-06-09] MEDS: HEPARIN SODIUM,PORCINE/PF 5,000 UNIT/0.5 ML SYRINGE SQ SCH ×2 (09:35→20:27)
--- NOTE | 2022-06-09 10:40 | P.PN ---
Subjective Progress Note Date: 06/09/22 Principal diagnosis: Coronary artery disease with PCI in December 2021, cardiomyopathy, hypertension, hyperlipidemia, syncopal episode 2, current ongoing chronic tobacco dependence, severe COPD, current daily EtOH use, and PAD. The patient was seen and examined in follow-up today 06/09/2022 at his bedside on the cardiac observation unit 6 N. He is sitting up to the bedside edge, eating his breakfast, is awake, alert, oriented 3 and is in no acute apparent distress. Denies any complaints of shortness of breath at this time or any chest pain/chest pressure, although he reports he had a short episode of chest pressure yesterday after coming back from a walk in the hallway and it resolved with rest after a few minutes. Oxygen saturations are 99% on room air and he is achieving 2000 mL on his incentive spirometry with encouragement. He is scheduled for myocardial revascularization surgery on 06/11/2022 to be performed by Dr. Hastings with left internal mammary artery, endoscopic vein harvest, possible left radial endoscopic harvest, ligation of left atrial appen dage and intraoperative transesophageal echocardiogram. Preoperative teaching for the surgery has been reinforced with the patient. Objective - Vital Signs Vital signs: Vital Signs Temp 98 F 06/09/22 08:00 Pulse 67 06/09/22 08:00 Resp 18 06/09/22 08:00 BP 164/74 06/09/22 08:00 Pulse Ox 100 06/09/22 08:00 FiO2 21 06/08/22 20:33 Intake & Output 06/08/22 06/09/22 06/09/22 18:59 06:59 18:59 Intake Total 300 240 Balance 300 240 Intake: Oral 300 240 Other: Voiding Method Toilet # Voids 3 0 - Exam CONSTITUTIONAL: Appears comfortable, cooperative, no acute distress. RESPIRATORY: Lungs sounds diminished throughout bilaterally. Respirations are symmetrical and nonlabored. Currently on room air with oxygen saturation 99%. Able to achieve 2000 mL on incentive spirometry. Strong dry cough. CARDIOVASCULAR: S1, S2 present. Regular rate and rhythm, sinus rhythm on telemetry. Palpable peripheral pulses bilaterally. No edema present. No calf pain or tenderness noted. GASTROINTESTINAL: Abdomen soft, nontender, nondistended. Active bowel sounds present 4 quadrants. Tolerating diet. GENITOURINARY: Continues to void. INTEGUMENTARY: Skin is warm and dry. No clubbing or cyanosis is present. NEUROLOGIC: Cranial nerves II through XII intact. No focal deficits. MUSKULOSKELETAL: Able to move all extremities, strength equal bilaterally, gait normal. PSYCHIATRIC: Alert and oriented to person place and time, appropriate affect, intact judgment and insight. - Allied health notes Allied health notes reviewed: nursing - Labs CBC & Chem 7: 06/06/22 08:45 06/06/22 08:45 Assessment and Plan Assessment: 1. Coronary artery disease with PCI in December 2021, current heart cath reporting LM 50-55%, IVUS 5.3 mm2, OM3 90%, AM 70% 2. Cardiomyopathy, EF 30-35%, repeat full echo demonstrates EF 55% 3. Hypertension 4. Hyperlipidemia, treated, cholesterol 167, LDL 103 5. PAD, MICHELLE on the right 0.55, MICHELLE on the left 0.47 6. Syncopal episode 2 7. Current tobacco dependence 8. Current daily EtOH use, 6 pack beer daily, no signs of withdrawal 9. Severe COPD, preoperative FEV1 45% of predicted, 1.64 L Plan: 1. Continue aspirin, statin, and beta james. Continue to hold Brilinta for myocardial revascularization surgery. 2. Patient's preoperative FEV1 showed a predicted value of 45%. Pulmonology/critical care recommendations noted and appreciated. 3. Encourage incentive spirometry use 10 times every hour while awake. 4. Smoking cessation counseling and education continually reinforced with the patient. 5. Reduction/cessation of EtOH use discussed with the patient. Continue Thiamine/folic acid, CIWA protocol, monitor for withdrawal symptoms. 6. Patient is scheduled for myocardial revascularization with left internal ma mmary artery, endoscopic vein harvest, possible left radial artery endoscopic harvesting, ligation of left atrial appendage next 06/11/[address] Romero Hastings 7. Medical management of other comorbidities per primary care, cardiology. 8. An STS risk score has been calculated discussed with the patient. 9. He will be nothing by mouth after midnight on 06/11/2022 in preparation for his myocardial revascularization surgery. 10. More recommendations to follow based on patient's clinical course. Time with Patient: Greater than 30
[2022-06-09] MEDS: carvediloL 6.25 MG TAB PO SCH ×2 (10:49→17:24)
--- NOTE | 2022-06-09 11:07 | P.PN ---
Subjective Progress Note Date: 06/09/22 This is a 51 year old male with a past medical history of hypertension, nicotine dependence, daily alcohol use, coronary artery disease with NSTEMI in 12/2021 S/p PCI proximal OM3, ischemic cardiomyopathy, dyslipidemia. He follows with Dr. Mock. We're consulted for chest pain. Patient presented to the hospital on 06/02/2022 with symptoms of shortness of breath and chest pain. Patient continued to have chest discomfort and recommend cardiac catheterization. Echocardiogram revealed EF 3035 percent. Patient underwent cardiac catheterization with Dr. Mock on 06/04/2022 which revealed coronary artery disease with 50-55% left main stenosis with minimal luminal area 5.3mm2, mild 20-30% LAD stenosis, mild luminal irregularities of a dominant circumflex, OM3 90% stenosis, normal left sided filling pressures. CT surgery was consulted for CABG evaluation. Limited echocardiogram revealed EF of 55%, no obvious regional wall motion abnormalities, trace MR, mild left ear with a peak gradient of 19 mmHg and a mean gradient of 9 mmHg and mild aortic regurgitation. 06/09/2022 Patient was seen and examined sitting up at the side of the bed. He just returned from a walk around the unit. He denies any shortness of breath but does seem to be a bit winded to me. He is scheduled to undergo coronary artery bypass grafting surgery on June 11. Blood pressure has been elevated. He is currently on aspirin 81 mg daily, atorvastatin 80 mg daily at bedtime, carvedilol 6.25 mg by mouth twice a day, a 640 mg daily, Aldactone 25 mg daily and lisinopril 10 mg by mouth daily. He is maintaining sinus mechanism with heart rate in the 60s to 70s with occasional PVCs. He denies any chest discomfort, palpitations, dizziness or lightheadedness. Objective - Vital Signs Vital signs: Vital Signs Temp 98 F 06/09/22 08:00 Pulse 67 06/09/22 08:00 Resp 18 06/09/22 08:00 BP 164/74 06/09/22 08:00 Pulse Ox 100 06/09/22 08:00 FiO2 21 06/08/22 20:33 Intake & Output 06/08/22 06/09/22 06/09/22 18:59 06:59 18:59 Intake Total 300 240 Balance 300 240 Intake: Oral 300 240 Other: Voiding Method Toilet # Voids 3 0 - Exam GENERAL: in no acute distress. NECK: Supple without JVD LUNGS: Breath sounds clear to auscultation bilaterally. Respiration equal and unlabored. No wheezes, rales or rhonchi. HEART: Regular rate and rhythm without murmurs, rubs or gallops. S1 and S2 heard. EXTREMITIES: Normal range of motion, no edema. No clubbing or cyanosis. Peripheral pulses intact. Right radial cath site clean dry 2+ pulses, no h ematoma - Labs CBC & Chem 7: 06/06/22 08:45 06/06/22 08:45 Assessment and Plan Assessment: Chest pain, shortness of breath Status post cardiac catheterization on 06/04/2022 with left main 5055% stenosis, OM3 90% stenosis and acute marginal artery 70% scheduled to undergo CABG on Saturday Coronary artery disease s/p prior PCI to OM3 in 12/2021 Hypertension Dyslipidemia Ischemic cardiomyopathy EF 3035 percent Chronic tobacco use Daily alcohol use Plan: CT surgery following Brilinta continues to be on hold, monitoring in the hospital until surgery We will increase lisinopril for better blood pressure control Encourage incentive spirometry use and ambulation Patient is tentatively scheduled for CABG on 06/11/2022 We will continue to follow patient and make recommendations accordingly [employer] note has been reviewed, I agree with a documented findings and plan of care. Patient was seen and examined.
--- NOTE | 2022-06-09 12:41 | PN ---
PROGRESS NOTE DATE OF SERVICE: 06/09/2022 This is a Pulmonary/Critical Care Progress Note SUBJECTIVE: A 51-year-old male, seen in room 616. The patient is going to have bypass surgery on June 11. He is on room air. No IV fluids. He has been walking up and down the hallway. OBJECTIVE: VITAL SIGNS: Current vital signs are stable and include blood pressure 120/70, heart rate of 79, respiratory rate of 18, temperature is 98.6, and saturations on room air 96%. GENERAL: Appears in no acute distress. No respiratory distress. No audible wheezing. No chest pain. HEENT: Grossly unremarkable. NECK: Supple. CARDIOVASCULAR: Reveals regular rhythm and rate. S1, S2 normal. No S3, S4, or murmur. LUNGS: Reveal mostly clear breath sounds. Minimal scattered rhonchi. No wheezes or crackles. Breath sounds equal. ABDOMEN: Soft. Bowel sounds are heard. EXTREMITIES. Intact. No cyanosis, clubbing, or edema. SKIN: Without rash. NEUROLOGIC: Brief, but nonfocal. Labs, x-rays, medications, could not be reviewed. ASSESSMENT: 1. Coronary artery disease with anticipated bypass grafting on June 11. 2. History of chronic obstructive pulmonary disease from previous tobacco use. PLAN: The patient appears to be doing relatively well. We will continue to follow. Bypass surgery planned on June 11. Prognosis is thought to be generally good. MMODL / IJN: [id number] /
[2022-06-09] MEDS: ATORVASTATIN 80 MG TAB PO SCH (20:27)
[2022-06-09] MEDS ORDERED: lisinopriL 10 MG TAB PO SCH (21:00)
[2022-06-10] MEDS: carvediloL 6.25 MG TAB PO SCH ×2 (06:45→18:14)
[2022-06-10] MEDS: SYMBICORT 160-4.5 MCG INHALER INHALATION SCH ×2 (06:58→19:01)
[2022-06-10] MEDS ORDERED: MD COMMUNICATION TO PHARMACY 1 EACH MISC PO ONE ×4 (07:30)
--- NOTE | 2022-06-10 08:04 | P.PN ---
Subjective Progress Note Date: 06/10/22 Principal diagnosis: Coronary artery disease with PCI in December 2021, ischemic cardiomyopathy with an ejection fraction of 30-35%, hypertension, hyperlipidemia, syncopal episode 2, current ongoing chronic tobacco dependence, severe COPD with a preoperative FEV1 showing a predictive value of 45%, current daily EtOH use, and PAD. The patient was seen and examined this morning 06/10/2022 at his bedside on the cardiac observation unit. Denies any complaints of pain or shortness of breath at this time, although he is a little teary-eyed this morning as he is nervous about the surgery tomorrow morning. His questions were answered and preoperative teaching has been reinforced with the patient. He reports he has been up ambulating in the hallway already this morning and denies any further complaints of chest pain/chest pressure or shortness of breath. He remains hemodynamically stable and is currently on no inotropic or pressor support. Oxygen saturation are 97% on room air and he is achieving 2500 mL on his incentive spirometry with encouragement. Remote telemetry showing normal sinus rhythm heart rate 64 BPM. He will be nothing by mouth after midnight. He kera nues on aspirin, statin and beta james for maximized medical therapy. Objective - Vital Signs Vital signs: Vital Signs Temp 98.4 F 06/10/22 06:47 Pulse 69 06/10/22 06:47 Resp 19 06/10/22 06:47 BP 133/74 06/10/22 06:47 Pulse Ox 97 06/10/22 06:47 FiO2 21 06/08/22 20:33 Intake & Output 06/09/22 06/10/22 06/10/22 19:59 06:59 18:59 Intake Total Balance Intake: Oral Other: Voiding Method # Voids - Exam CONSTITUTIONAL: Appears comfortable, cooperative, no acute distress. RESPIRATORY: Lungs sounds diminished throughout bilaterally. Respirations are symmetrical and nonlabored. Currently on room air with oxygen saturation 97%. Able to achieve 2500 mL on incentive spirometry. Strong dry cough. CARDIOVASCULAR: S1, S2 present. Regular rate and rhythm, sinus rhythm on telemetry with a heart rate of 64 BPM. Palpable peripheral pulses bilaterally. No edema present. No calf pain or tenderness noted. GASTROINTESTINAL: Abdomen soft, nontender, nondistended. Active bowel sounds present 4 quadrants. Tolerating diet. GENITOURINARY: Continues to void. INTEGUMENTARY: Skin is warm and dry. No clubbing or cyanosis is present. NEUROLOGIC: Cranial nerves II through XII intact. No focal deficits. MUSKULOSKELETAL: Able to move all extremities, strength equal bilaterally, gait normal. PSYCHIATRIC: Alert and oriented to person place and time, appropriate affect, intact judgment and insight. - Allied health notes Allied health notes reviewed: nursing - Labs CBC & Chem 7: 06/06/22 08:45 06/06/22 08:45 Assessment and Plan Assessment: 1. Coronary artery disease with PCI in December 2021, current heart cath reporting LM 50-55%, IVUS 5.3 mm2, OM3 90%, AM 70% 2. Cardiomyopathy, EF 30-35%, repeat full echo demonstrates EF 55% 3. Hypertension 4. Hyperlipidemia, treated, cholesterol 167, LDL 103 5. PAD, MICHELLE on the right 0.55, MICHELLE on the left 0.47 6. Syncopal episode 2 7. Current tobacco dependence 8. Current daily EtOH use, 6 pack beer daily, no signs of withdrawal 9. Severe COPD, preoperative FEV1 45% of predicted, 1.64 L Plan: 1. Continue aspirin, statin, and beta james. Continue to hold Brilinta for myocardial revascularization surgery. 2. Patient's preoperative FEV1 showed a predicted value of 45%. Pulmo nology/critical care recommendations noted and appreciated. 3. Encourage incentive spirometry use 10 times every hour while awake. 4. Smoking cessation counseling and education continually reinforced with the patient. 5. Reduction/cessation of EtOH use discussed with the patient. Continue Thiami ne/folic acid, CIWA protocol, monitor for withdrawal symptoms. 6. Patient is scheduled for myocardial revascularization with left internal mammary artery, endoscopic vein harvest, possible left radial artery endoscopic harvesting, ligation of left atrial appendage next 06/11/[address] Angel Hastings 7. Medical management of other comorbidities per primary care, cardiology. 8. An STS risk score has been calculated discussed with the patient. 9. He will be nothing by mouth after midnight 06/11/2022 in preparation for his myocardial revascularization surgery. 10. Preoperative shower this evening and tomorrow morning before surgery. 11. Preoperative teaching reinforced with the patient. 12. More recommendations to follow based on patient's clinical course. Time with Patient: Greater than 30
[2022-06-10 08:19] LABS: INR 0.9 (<1.2); Partial Thromboplastin Time 29.5 sec (22.0-30.0); Prothrombin Time 10.1 sec (9.0-12.0)
[2022-06-10] MEDS: THIAMINE 100 MG TAB PO SCH (09:31)
[2022-06-10] MEDS: MUPIROCIN 2% OINT 22 GM TUBE NASAL SCH ×2 (09:31→20:17)
[2022-06-10] MEDS: FUROSEMIDE 40 MG TAB PO SCH (09:31)
[2022-06-10] MEDS: SPIRONOLACTONE 25 MG TAB PO SCH (09:31)
[2022-06-10] MEDS: MULTIVITAMINS, THERA 1 EACH TAB PO SCH (09:31)
[2022-06-10] MEDS: ASPIRIN 81 MG PO SCH (09:31)
[2022-06-10] MEDS: FOLIC ACID 1 MG TAB PO SCH (09:31)
[2022-06-10] MEDS: HEPARIN SODIUM,PORCINE/PF 5,000 UNIT/0.5 ML SYRINGE SQ SCH ×2 (09:32→20:17)
--- NOTE | 2022-06-10 10:51 | P.PN ---
Subjective Progress Note Date: 06/10/22 This is a 51 year old male with a past medical history of hypertension, nicotine dependence, daily alcohol use, coronary artery disease with NSTEMI in 12/2021 S/p PCI proximal OM3, ischemic cardiomyopathy, dyslipidemia. He follows with Dr. Mock. We're consulted for chest pain. Patient presented to the hospital on 06/02/2022 with symptoms of shortness of breath and chest pain. Patient continued to have chest discomfort and recommend cardiac catheterization. Echocardiogram revealed EF 3035 percent. Patient underwent cardiac catheterization with Dr. Mock on 06/04/2022 which revealed coronary artery disease with 50-55% left main stenosis with minimal luminal area 5.3mm2, mild 20-30% LAD stenosis, mild luminal irregularities of a dominant circumflex, OM3 90% stenosis, normal left sided filling pressures. CT surgery was consulted for CABG evaluation. Limited echocardiogram revealed EF of 55%, no obvious regional wall motion abnormalities, trace MR, mild left ear with a peak gradient of 19 mmHg and a mean gradient of 9 mmHg and mild aortic regurgitation. 06/09/2022 Patient was seen and examined sitting up at the side of the bed. He just returned from a walk around the unit. He denies any shortness of breath but does seem to be a bit winded to me. He is scheduled to undergo coronary artery bypass grafting surgery on June 11. Blood pressure has been elevated. He is currently on aspirin 81 mg daily, atorvastatin 80 mg daily at bedtime, carvedilol 6.25 mg by mouth twice a day, a 640 mg daily, Aldactone 25 mg daily and lisinopril 10 mg by mouth daily. He is maintaining sinus mechanism with heart rate in the 60s to 70s with occasional PVCs. He denies any chest discomfort, palpitations, dizziness or lightheadedness. 06/10/2022 Patient was seen and examined sitting up side of the bed. He is overall feeling well. He denies any shortness of breath or chest discomfort. His ambulating without difficulties. Blood pressure is better controlled however his JOSÉ inhibitor has some placed on hold by CT surgery preoperatively. He is scheduled to undergo coronary artery bypass grafting surgery tomorrow. Objective - Vital Signs Vital signs: Vital Signs Temp 98.4 F 06/10/22 06:47 Pulse 69 06/10/22 06:47 Resp 19 06/10/22 06:47 BP 133/74 06/10/22 06:47 Pulse Ox 97 06/10/22 06:47 FiO2 21 06/08/22 20:33 Intake & Output 06/09/22 06/10/22 06/10/22 19:59 06:59 18:59 Intake Total Balance Intake: Oral Other: Voiding Method # Voids - Exam GENERAL: in no acute distress. NECK: Supple without JVD LUNGS: Breath sounds clear to auscultation bilaterally. Respiration equal and unlabored. No wheezes, rales or rhonchi. HEART: Regular rate and rhythm without murmurs, rubs or gallops. S1 and S2 heard. EXTREMITIES: Normal range of motion, no edema. No clubbing or cyanosis. Peripheral pulses intact. - Labs CBC & Chem 7: 06/06/22 08:45 06/06/22 08:45 Assessment and Plan Assessment: Chest pain, shortness of breath Status post cardiac catheterization on 06/04/2022 with left main 5055% stenosis, OM3 90% stenosis and acute marginal artery 70% scheduled to undergo CABG on Saturday Coronary artery disease s/p prior PCI to OM3 in 12/2021 Hypertension Dyslipidemia Ischemic cardiomyopathy EF 3035 percent Chronic tobacco use Daily alcohol use Plan: CT surgery following Brilinta continues to be on hold, monitoring in the hospital until surgery Monitor blood pressure with further recommendations to be made based on the trend Encourage incentive spirometry use and ambulation Patient is scheduled for CABG on 06/11/2022 We will continue to follow patient and make recommendations accordingly [employer] note has been reviewed, I agree with a documented findings and plan of care. Patient was seen and examined.
[2022-06-10 11:17] LABS: Basophils # (A) 0.11 X 10*3/uL (0.00-0.10); Basophils % (A) 0.9 %; Eosinophils # (A) 0.08 X 10*3/uL (0.04-0.35); Eosinophils % (A) 0.7 %; HCT 40.8 % (39.6-50.0); HGB 13.3 g/dL (13.0-17.0); Immature Grans, Automated 0.5 %; Lymphocytes # (A) 3.17 X 10*3/uL (0.90-5.00); Lymphocytes % (A) 26.9 %; MCH 29.9 pg (27.0-32.0); MCHC 32.6 g/dL (32.0-37.0); MCV 91.7 fL (80.0-97.0); Mean Platelet Volume 9.5 fL (9.5-12.2); Monocytes # (A) 1.15 X 10*3/uL (0.20-1.00); Monocytes % (A) 9.8 %; NRBC Per 100 WBC 0 /100 WBCS (0.0-0.0); Neutrophils # (A) 7.21 X 10*3/uL (1.80-7.70); Neutrophils % (A) 61.2 %; Platelet Count 412 X 10*3/uL (140-440); RBC 4.45 X 10*6/uL (4.40-5.60); RDW 13.5 % (11.5-14.5); WBC 11.78 X 10*3/uL (4.50-10.00)
--- NOTE | 2022-06-10 11:23 | P.PN ---
Subjective Progress Note Date: 06/10/22 Pt has no new complaints today. Denies chest pain. Is amenable to getting heart surgery, scheduled on 06/11 Gen: awake, alert HEENT: normocephalic, atraumatic, good hearing acuity, moist mucous membranes Resp: good air exchange, breathing comfortably with no accessory muscle use, clear to auscultation bilaterally CVS: good distal perfusion x 4, regular rate and rhythm without murmurs GI: soft, NTTP, ND : no SPT, no CVAT, dougherty catheter not present MSK: no pitting edema, no clubbing Neuro: non-focal, moving all extremities Psych: cooperative, euthymic mood Assessment/plan: #Systolic CHF with EF of 30-35% #Scapular pain #Elevated troponin with history of CAD post stent in December 2021 #Possible syncopal episode #Elevated d-dimer #Hyponatremia Chronic conditions: Hypertension, dyslipidemia, smoker Patient presents with exertional shortness of breath. Chest x-ray was negative. He has no lower extremity swelling. Echocardiogram shows EF 30% with global hypokinesis. Continue Coreg, Lasix, Lisinopril and Aldactone. Patient would benefit from AICD. Cardiology on board. Troponins are slowly trending up with EKG showing T-wave abnormalities. Restart ASA, Lipitor, Coreg and Brilinta. Telemetry montoring. Patient currently on a heparin drip. Cardiac cath shows 50-55% left main, 20-30% LAD, 90% OM3 stenosis. Cardiothoracic surgery consulted for CABG, scheduled on 06/11. Continue Telemetry monitoring to rule out cardiac cause of syncope. Patient be placed on fall precautions. Patient with elevated d-dimer, CT chest is ruled out PE. Venous duplex negative for DVT. Follow up arterial duplex of the lower extremities. Patient was sodium of 130. Possibly related to dehydration. Received 1 L bolus in the ED. Patient encouraged hydration by mouth. DVT prophylaxis: Heparin drip Discussed with: Patient Anticipated discharge: Depending on clinical course. Objective - Vital Signs Vital signs: Vital Signs Temp 98.4 F 06/10/22 06:47 Pulse 69 06/10/22 06:47 Resp 19 06/10/22 06:47 BP 133/74 06/10/22 06:47 Pulse Ox 97 06/10/22 06:47 FiO2 21 11/04/22 20:33 Intake & Output 06/09/22 06/10/22 06/10/22 19:59 06:59 18:59 Intake Total Balance Intake: Oral Other: Voiding Method # Voids - Labs CBC & Chem 7: 06/10/22 07:52 06/06/22 08:45 Labs: Abnormal Lab Results - Last 24 Hours (Table) 06/10/22 Range/Units 07:52 WBC 11.78 H (4.50-10.00) X 10*3/uL Immature Gran # 0.06 H (0.00-0.04) X 10*3/uL Monocytes # 1.15 H (0.20-1.00) X 10*3/uL Basophils # 0.11 H (0.00-0.10) X 10*3/uL
--- NOTE | 2022-06-10 11:34 | P.PN ---
Subjective Progress Note Date: 06/10/22 Principal diagnosis: Chest pain. I was asked to evaluate this patient for a preoperative pulmonary clearance for coronary artery bypass surgery. The patient is known to have CAD and the patient has undergone PCI back in December 2021 and the patient has history of cardiomyopathy, hypertension hyperlipidemia and is a chronic smoker and alcohol drinker. The patient presented back in December 2021 with chest pain and the patient underwent cardiac catheterization and a drug-eluting stent was placed in the obtuse marginal branch of the circumflex coronary artery. Subsequently, the pat ient was discharged home on the was antiplatelet therapy. Echocardiogram showed reduced LV function with an ejection fraction of 30-35% and the patient had mild concentric LVH, mild mitral regurgitation. The patient was discharged home and over the past couple of weeks, he started having she is pain between his shoulder blades and increased shortness of breath. He had 2 episodes of syncope and for that reason he came back to the emergency department. CT angiogram of the chest was done and it showed no evidence of any pulmonary embolism. He was admitted and his echocardiogram demonstrated again elevated dysfunction with an ejection fraction of 30-35% and global hypokinesis. His proBNP level was 1430. His cardiac catheterization showed 50-55% left main stenosis with minimal luminal area of 5.3 mm mild 5-30% LAD stenosis and mild luminal irregularities involving the dominant circumflex artery, 90% restenosis an acute marginal branch of the right coronary artery showing 70% stenosis. Based on that, it was recommended for this patient to undergo bypass surgery. As mentioned, is a chronic smoker. Bedside spirometry was done and the patient was found to have an FEV1 of 1.64 which is 45% of predicted with some limited reversibility postbronchodilator and across bronchodilation FEV1 of 54% of predicted. He is currently on room air oxygen and his pulse ox is in order of 98%. His labs from today showing white cell count of 11.3 with hemoglobin 13.8 and a platelet count of around 35. Normal renal function with a creatinine of 1.04 and a sodium level of 132. The potassium level is at 5.0 2021, the patient is free of any chest pain. He was taken off the bed int o and he decided to stay in the hospital in preparation for cardiac surgery. He has no specific complaints. Hemodynamically stable. No other issues otherwise. Using the incentive spirometer. Pulling more than 2000 on his I-S. Progress note dated 06/07/2022. The patient is seen in room 616. The patient is to have open heart surgery on June 11. The patient's on room air. He's not receiving any IV fluids. He was eating his breakfast. He denies any shortness of breath, diffic ulty breathing, coughing, wheezing, or phlegm production. No new labs today. Progress note dated 06/08/2022. 51-year-old male seen in room 616. The patient is having open heart surgery, on June 11. Currently, the patient has no complaints. He denies any chest pain or chest discomfort. Denies any palpitations or fluttering in the chest. He also denies any shortness of breath, cough, wheezing, or phlegm production. He is currently on room air. He's not receiving any IV fluids. No new laboratory data today. Progress note dated 06/10/2022. The patient is scheduled to have open heart surgery tomorrow. He is resting comfortably in room 616. The patient is not receiving any IV fluids, or supplemental oxygen. His FEV1 is 1.64 L which is 45% of predicted. White count 11.8, hemoglobin 13.3, hematocrit 40.8, and platelet count normal. PT, INR, and PTT are normal. Sodium 129, potassium 4.3, chlorides 95, CO2 20, BUN 15 and creatinine 1. The rest of the labs look pretty normal. No chest x-ray as yet. Objective - Vital Signs Vital signs: Vital Signs Temp 98.4 F 06/10/22 06:47 Pulse 69 06/10/22 06:47 Resp 19 06/10/22 06:47 BP 133/74 06/10/22 06:47 Pulse Ox 97 06/10/22 06:47 FiO2 21 06/08/22 20:33 Intake & Output 06/09/22 06/10/22 06/10/22 19:59 06:59 18:59 Intake Total Balance Intake: Oral Other: Voiding Method # Voids - Exam No acute distress, oriented 3. Currently on room air. Saturations are 98 %. HEENT examination is grossly unremarkable. Neck supple. Full range of motion. No adenopathy thyromegaly or neck vein distention. Cardiovascular examination reveals regular rhythm rate. S1-S2 normal. No S3 or S4. No discernible murmur noted. Heart rate 69 bpm. Lungs reveal clear breath sounds. Breath sounds are equal bilaterally. No adventitious lung sounds including wheezes rhonchi or crackles. Abdomen soft bowel sounds are heard. No masses or tenderness. Extremities are intact. No cyanosis clubbing or edema. Skin is without rash or lesion. Neurologic examination is brief but nonfocal. - Labs CBC & Chem 7: 06/10/22 07:52 06/06/22 08:45 Labs: Abnormal Lab Results - Last 24 Hours (Table) 06/10/22 Range/Units 07:52 WBC 11.78 H (4.50-10.00) X 10*3/uL Immature Gran # 0.06 H (0.00-0.04) X 10*3/uL Monocytes # 1.15 H (0.20-1.00) X 10*3/uL Basophils # 0.11 H (0.00-0.10) X 10*3/uL Assessment and Plan Assessment: Symptomatic multivessel coronary disease, with an anticipated bypass surgery on June 11. Moderate COPD, with an FEV1 that's 54% of predicted, post-bronchodialator. History of chronic tobacco use. CHF, with an ejection fraction of 30-35%. History of hypertension. History of hyperlipidemia. Plan: Plan dated 06/07/2022. The patient is not receiving any IV fluids or supplemental oxygen. The plan is to do surgery on June 11. No additional recommendations are made. Labs, x- rays, and medications are reviewed. The patient's FEV1 percent is 54. He has moderately severe disease. We will continue to follow and make recommendations along the way. Plan dated 06/08/2022. Currently, the patient's resting comfortably. He has no complaints, either related to the cardiac: The pulmonary system. The patient's on room air. He has not had any recent labs. He is not receiving any IV fluids. Surgery is apparently planned for June 11. We will continue to follow and make recommendations along the way. Prognosis is thought to be generally good. Plan dated 06/10/2022. I did explain to the patient again, what our role will be in the process, including getting him off the ventilator as soon as possible, and then following him, during his hospitalization, to make sure his lungs remain healthy. In that regard, recommend deep breathing, coughing, clearing of secretions. Also, we didn't find him about the importance of incentive spirometry. Labs, x-rays, medications are reviewed. Time with Patient: Less than 30
[2022-06-10 11:49] LABS: African American GFR (CKD) 113.4 (60.0-200.0); Albumin 4.5 g/dL (3.8-4.9); Albumin/Globulin Ratio 1.55 (1.60-3.17); Anion Gap 10.7 mmol/L (10.00-18.00); BUN/Creat Ratio 18.56 Ratio (12.00-20.00); Blood Urea Nitrogen 16.7 mg/dL (9.0-27.0); Calcium 9.8 mg/dL (8.7-10.3); Carbon Dioxide 23.3 mmol/L (20.0-27.5); Globulin 2.9 g/dL (1.6-3.3); Non-African American GFR(CKD) 97.9 (60.0-200.0); Total Bilirubin 0.3 mg/dL (0.30-1.20); Total Protein 7.4 g/dL (6.2-8.2)
[2022-06-10] MEDS ORDERED: LACTATED RINGERS 1,000 ML IV SCH (19:47)
[2022-06-10] MEDS: ATORVASTATIN 80 MG TAB PO SCH (20:16)
[2022-06-11] MEDS ORDERED: PROTAMINE SULFATE 250 MG in EMPTY BAG 1 BAG IV ONE (05:00)
[2022-06-11] MEDS ORDERED: MAGNESIUM SULFATE 16.24 MEQ in EMPTY SYRINGE 1 SYR IV ONE (05:00)
[2022-06-11] MEDS ORDERED: NITROGLYCERIN-D5W PMX 50 MG in DEXTROSE/WATER 1 250ML.BAG IV SCH ×2 (05:00→16:03)
[2022-06-11] MEDS ORDERED: MANNITOL 25% 12.5 GM/50 ML VIAL IV ONE ×2 (05:00)
[2022-06-11] MEDS ORDERED: ASPIRIN 325 MG TAB PO ONE (05:00)
[2022-06-11] MEDS ORDERED: ATORVASTATIN 10 MG TAB PO ONE (05:00)
[2022-06-11] MEDS ORDERED: ALBUMIN HUMAN 5% 500 ML in EMPTY BAG 1 BAG IVPB ONE ×6 (05:00)
[2022-06-11] MEDS ORDERED: CHLORHEXIDINE GLUCONATE 15 ML CUP MUCOUS MEM ONE (05:00)
[2022-06-11] MEDS ORDERED: METOPROLOL TARTRATE 12.5 MG TAB PO ONE (05:00)
[2022-06-11] MEDS ORDERED: DILTIAZEM 125 MG in SODIUM CHLORIDE 0.9% 100 ML IV SCH (05:00)
[2022-06-11] MEDS ORDERED: PHENYLEPHRINE 40 MG in SODIUM CHLORIDE 0.9% 250 ML IV ONE (05:00)
[2022-06-11] MEDS ORDERED: NITROGLYCERIN-D5W PMX 25 MG/250 ML BTL IV ONE (05:00)
[2022-06-11] MEDS ORDERED: SODIUM BICARB 8.4% 50 ML SYR (1 MEQ/ML) IV ONE (05:00)
[2022-06-11] MEDS ORDERED: MIDAZOLAM 2 MG/2 ML VIAL IV PRN (05:00)
[2022-06-11] MEDS ORDERED: CALCIUM CHLORIDE 100 MG/ML 10 ML SYRINGE IVP ONE (05:00)
[2022-06-11] MEDS ORDERED: CLEVIDIPINE BUTYRATE 25 MG in EMPTY BAG 1 BAG IV SCH ×2 (05:00→16:03)
[2022-06-11] MEDS ORDERED: NOREPINEPHRINE 4 MG in SODIUM CHLORIDE 0.9% 250 ML IV SCH (05:00)
[2022-06-11] MEDS ORDERED: PROTAMINE SULFATE 10 MG/ML 25 ML VIAL IV ONE ×2 (05:00→08:20)
[2022-06-11] MEDS ORDERED: TRANEXAMIC ACID 2,000 MG in SODIUM CHLORIDE 0.9% 80 ML IV ONE (05:00)
[2022-06-11] MEDS ORDERED: HEPARIN SODIUM 1,000 UN/ML (10ML VL) IV ONE (05:00)
[2022-06-11] MEDS ORDERED: ALBUMIN HUMAN 25% 50 ML in EMPTY BAG 1 BAG IVPB ONE (05:00)
[2022-06-11 05:51] LABS: Glucose,Whole Blood 103 mg/dL (70-110)
[2022-06-11] MEDS ORDERED: INSULIN REGULAR 100 UNIT in SODIUM CHLORIDE 0.9% 100 ML IV SCH ×2 (06:00→16:15)
[2022-06-11] MEDS ORDERED: ELECTROLYTE-A SOLUTION 1,000 ML with POTASSIUM CHLORIDE 40 MEQ, MAGNESIUM SULFATE 16 ME... IV SCH ×5 (06:00)
[2022-06-11] MEDS ORDERED: ELECTROLYTE-A SOLUTION 1,000 ML with POTASSIUM CHLORIDE 100 MEQ, MAGNESIUM SULFATE 16 M... IV SCH ×5 (06:00)
[2022-06-11] MEDS ORDERED: PHENYLEPHRINE 10 MG/ML VIAL IV ONE (06:00)
[2022-06-11] MEDS ORDERED: ELECTROLYTE-R (PH 7.4) 1,000 ML IV.SOLN IV ONE (08:20)
[2022-06-11] MEDS ORDERED: TRANEXAMIC ACID IN NACL,ISO-OS 1,000 MG/100 ML BAG ONE (08:20)
[2022-06-11] MEDS ORDERED: METOPROLOL TARTRATE 5 MG/5 ML VIAL IVP ONE (08:20)
[2022-06-11] MEDS ORDERED: SUCCINYLCHOLINE CHLORIDE 200 MG/10 ML VIAL IV ONE (08:20)
[2022-06-11] MEDS ORDERED: CALCIUM CHLORIDE 100 MG/ML 10 ML SYRINGE ONE (08:20)
[2022-06-11] MEDS ORDERED: MAGNESIUM SULFATE 4 MEQ/ML 10ML VIAL ONE (08:20)
[2022-06-11] MEDS ORDERED: MIDAZOLAM HCL 10 MG/10 ML VIAL ONE (08:20)
[2022-06-11] MEDS ORDERED: VECURONIUM 10 MG VIAL IV ONE (08:20)
[2022-06-11] MEDS ORDERED: ONDANSETRON 4 MG/2 ML VIAL ONE (08:20)
[2022-06-11] MEDS ORDERED: fentaNYL (PF) 50 MCG/ML 50 ML VIAL ONE (08:20)
[2022-06-11] MEDS ORDERED: PHENYLEPHRINE-0.9% NACL SYG 1,000 MCG/10 ML SYRINGE ONE (08:20)
[2022-06-11] MEDS ORDERED: PROPOFOL 10 MG/ML 20 ML VIAL IV ONE (08:20)
[2022-06-11] MEDS ORDERED: LIDOCAINE 2% SYG (PF) 100 MG/5 ML ONE (08:20)
[2022-06-11] MEDS ORDERED: ePHEDrine 50 MG/ML 1 ML VIAL ONE (08:20)
[2022-06-11] MEDS ORDERED: SODIUM CHLORIDE 0.9% IRRIG 1,000 ML BTL IRRIGATION ONE (08:20)
[2022-06-11 09:52] LABS: ABG Base Excess -0.3 mmol/L; ABG Glucose Whole Blood 92 mg/dL (75-99); ABG HCO3 24 mmol/L (21-25); ABG Hematocrit 35 % (34.0-46.0); ABG Ionized Calcium 4.7 mg/dL (4.5-5.3); ABG Oxygen Saturation 99.9 % (94-97); ABG PCO2 39 mmHg (35-45); ABG PH 7.41 (7.35-7.45); ABG Potassium Whole Blood 5.4 mmol/L (3.4-4.5); ABG TCO2 26 mmol/L (19-24)
[2022-06-11] MEDS: HEPARIN SODIUM,PORCINE 5,000 UNIT in SODIUM CHLORIDE 0.9% 500 ML 500 ML IV ONE ×2 (10:37→10:46)
[2022-06-11] MEDS: PAPAVERINE 360 MG in SODIUM CHLORIDE 0.9% 90 ML IV ONE ×2 (10:37→10:46)
[2022-06-11] MEDS: ceFAZolin 1,000 MG in SODIUM CHLORIDE 0.9% IRRIGATIO 1,000 ML IRRIGATION ONE ×2 (10:47→14:40)
[2022-06-11 11:19] LABS: ABG Base Excess 0.2 mmol/L; ABG Glucose Whole Blood 112 mg/dL (75-99); ABG HCO3 24 mmol/L (21-25); ABG Hematocrit 34 % (34.0-46.0); ABG Ionized Calcium 4.6 mg/dL (4.5-5.3); ABG Lactic Acid Whole Blood 1.5 mmol/L (0.5-1.6); ABG PCO2 35 mmHg (35-45); ABG PH 7.44 (7.35-7.45); ABG Potassium Whole Blood 4.8 mmol/L (3.4-4.5); ABG Sodium Whole Blood 132 mmol/L (135-146); ABG TCO2 25 mmol/L (19-24)
[2022-06-11 12:01] LABS: ABG Base Excess -2.1 mmol/L; ABG Glucose Whole Blood 110 mg/dL (75-99); ABG HCO3 23 mmol/L (21-25); ABG Hematocrit 25 % (34.0-46.0); ABG PCO2 38 mmHg (35-45); ABG PH 7.39 (7.35-7.45); ABG Potassium Whole Blood 4.5 mmol/L (3.4-4.5); ABG Sodium Whole Blood 128 mmol/L (135-146); ABG TCO2 24 mmol/L (19-24)
[2022-06-11 12:37] LABS: ABG Base Excess -0.1 mmol/L; ABG Glucose Whole Blood 116 mg/dL (75-99); ABG HCO3 25 mmol/L (21-25); ABG Hematocrit 26 % (34.0-46.0); ABG Ionized Calcium 4.2 mg/dL (4.5-5.3); ABG Lactic Acid Whole Blood 1.6 mmol/L (0.5-1.6); ABG Oxygen Saturation 99.9 % (94-97); ABG PCO2 39 mmHg (35-45); ABG PO2 301 mmHg (83-108); ABG Potassium Whole Blood 5.6 mmol/L (3.4-4.5); ABG Sodium Whole Blood 130 mmol/L (135-146); ABG TCO2 26 mmol/L (19-24)
[2022-06-11 13:04] LABS: ABG Base Excess -0.1 mmol/L; ABG Glucose Whole Blood 117 mg/dL (75-99); ABG HCO3 25 mmol/L (21-25); ABG Hematocrit 26 % (34.0-46.0); ABG Ionized Calcium 4.3 mg/dL (4.5-5.3); ABG Lactic Acid Whole Blood 1.6 mmol/L (0.5-1.6); ABG Oxygen Saturation 99.7 % (94-97); ABG PCO2 40 mmHg (35-45); ABG PO2 282 mmHg (83-108); ABG Potassium Whole Blood 5.8 mmol/L (3.4-4.5); ABG Sodium Whole Blood 132 mmol/L (135-146); ABG TCO2 26 mmol/L (19-24)
[2022-06-11 13:42] LABS: ABG Base Excess -1.3 mmol/L; ABG Glucose Whole Blood 128 mg/dL (75-99); ABG HCO3 24 mmol/L (21-25); ABG Hematocrit 26 % (34.0-46.0); ABG Ionized Calcium 4.3 mg/dL (4.5-5.3); ABG Oxygen Saturation 99.8 % (94-97); ABG PCO2 43 mmHg (35-45); ABG PH 7.36 (7.35-7.45); ABG PO2 347 mmHg (83-108); ABG Potassium Whole Blood 5.5 mmol/L (3.4-4.5); ABG Sodium Whole Blood 133 mmol/L (135-146); ABG TCO2 26 mmol/L (19-24)
[2022-06-11 14:01] LABS: ABG Base Excess -2.6 mmol/L; ABG Glucose Whole Blood 138 mg/dL (75-99); ABG HCO3 23 mmol/L (21-25); ABG Ionized Calcium 4.3 mg/dL (4.5-5.3); ABG Oxygen Saturation 99.8 % (94-97); ABG PCO2 46 mmHg (35-45); ABG PH 7.32 (7.35-7.45); ABG PO2 327 mmHg (83-108); ABG Potassium Whole Blood 5.5 mmol/L (3.4-4.5); ABG Sodium Whole Blood 133 mmol/L (135-146); ABG TCO2 25 mmol/L (19-24)
[2022-06-11 15:04] LABS: ABG Base Excess -1.8 mmol/L; ABG Glucose Whole Blood 103 mg/dL (75-99); ABG HCO3 23 mmol/L (21-25); ABG Hematocrit 26 % (34.0-46.0); ABG Ionized Calcium 4.5 mg/dL (4.5-5.3); ABG Lactic Acid Whole Blood 1.9 mmol/L (0.5-1.6); ABG Oxygen Saturation 99.9 % (94-97); ABG PCO2 38 mmHg (35-45); ABG PH 7.39 (7.35-7.45); ABG Potassium Whole Blood 4.7 mmol/L (3.4-4.5); ABG Sodium Whole Blood 134 mmol/L (135-146); ABG TCO2 24 mmol/L (19-24)
[2022-06-11] MEDS: FOLIC ACID 1 MG TAB PO SCH (15:04)
[2022-06-11] MEDS: carvediloL 6.25 MG TAB PO SCH (15:04)
[2022-06-11] MEDS: SYMBICORT 160-4.5 MCG INHALER INHALATION SCH (15:04)
[2022-06-11] MEDS: ASPIRIN 81 MG PO SCH (15:04)
[2022-06-11] MEDS: HEPARIN SODIUM,PORCINE/PF 5,000 UNIT/0.5 ML SYRINGE SQ SCH ×3 (15:05→23:52)
[2022-06-11] MEDS: MULTIVITAMINS, THERA 1 EACH TAB PO SCH (15:05)
[2022-06-11] MEDS: THIAMINE 100 MG TAB PO SCH (15:05)
[2022-06-11] MEDS: SPIRONOLACTONE 25 MG TAB PO SCH (15:05)
[2022-06-11] MEDS: MUPIROCIN 2% OINT 22 GM TUBE NASAL SCH ×2 (15:05→21:02)
[2022-06-11] MEDS: FUROSEMIDE 40 MG TAB PO SCH (15:05)
[2022-06-11 15:18] LABS: ABG Lactic Acid Whole Blood 1.4 mmol/L (0.5-1.6); ABG PO2 >420 mmHg (83-108); ABG Sodium Whole Blood 132 mmol/L (135-146)
[2022-06-11 15:19] LABS: ABG PO2 >420 mmHg (83-108)
[2022-06-11 15:19] LABS: ABG PO2 >420 mmHg (83-108)
[2022-06-11 15:20] LABS: ABG Lactic Acid Whole Blood 1.5 mmol/L (0.5-1.6)
[2022-06-11 15:21] LABS: ABG Lactic Acid Whole Blood 2.1 mmol/L (0.5-1.6)
[2022-06-11 15:22] LABS: ABG Hematocrit 24 % (34.0-46.0); ABG Lactic Acid Whole Blood 2.9 mmol/L (0.5-1.6)
[2022-06-11 15:23] LABS: ABG PO2 >420 mmHg (83-108)
[2022-06-11] MEDS ORDERED: Potassium Replacement Protocol 1 EACH MISC MISCELLANE PRN (16:03)
[2022-06-11] MEDS ORDERED: IPRATROPIUM-ALBUTEROL 3 ML NEB INHALATION PRN (16:03)
[2022-06-11] MEDS ORDERED: ONDANSETRON 4 MG/2 ML VIAL IVP PRN (16:03)
[2022-06-11] MEDS ORDERED: AMIODARONE 360 MG in DEXTROSE 5% IN WATER 200 ML IV PRN ×2 (16:03)
[2022-06-11] MEDS ORDERED: CALCIUM GLUCONATE IN NACL 2 GM in SALINE 1 100ML.BAG IVPB PRN (16:03)
[2022-06-11] MEDS ORDERED: Phosphorus Replacement Protoco 1 EACH MISC MISCELLANE PRN (16:03)
[2022-06-11] MEDS ORDERED: AMIODARONE 450 MG in DEXTROSE 5% IN WATER 250 ML IV PRN ×2 (16:03)
[2022-06-11] MEDS ORDERED: Magnesium Replacement Protocol 1 EACH MISC MISCELLANE PRN (16:03)
[2022-06-11] MEDS ORDERED: ALBUMIN HUMAN 5% 250 ML in EMPTY BAG 1 BAG IVPB PRN (16:03)
[2022-06-11] MEDS ORDERED: METOCLOPRAMIDE 5 MG/ML 2 ML VIAL IVP PRN (16:03)
[2022-06-11] MEDS ORDERED: DEXMEDETOMIDINE/0.9% NACL(PMX) 400 MCG in EMPTY BAG 1 BAG IV SCH (16:03)
[2022-06-11] MEDS ORDERED: DEXTROSE 5% IN WATER 100 ML with AMIODARONE 150 MG IV PRN (16:03)
[2022-06-11] MEDS ORDERED: DEXTROSE 50% SYRINGE 50 ML IVP PRN ×2 (16:03)
[2022-06-11 16:14] LABS: Glucose,Whole Blood 107 mg/dL (70-110)
[2022-06-11] MEDS: LACTATED RINGERS 1,000 ML IV SCH (16:26)
[2022-06-11 16:35] LABS: Basophils % (A) 1 %; Eosinophils # (A) 0.1 k/uL (0-0.7); Eosinophils % (A) 1 %; HCT 26.5 % (39.0-53.0); Lymphocytes # (A) 1.4 k/uL (1.0-4.8); Lymphocytes % (A) 15 %; MCH 30.7 pg (25.0-35.0); MCHC 33.2 g/dL (31.0-37.0); MCV 92.6 fL (80.0-100.0); Mean Platelet Volume 8.1; Monocytes # (A) 0.5 k/uL (0-1.0); Monocytes % (A) 5 %; Neutrophils # (A) 7.2 k/uL (1.3-7.7); Neutrophils % (A) 78 %; Platelet Count 177 k/uL (150-450); RBC 2.87 m/uL (4.30-5.90); RDW 13.2 % (11.5-15.5); WBC 9.2 k/uL (3.8-10.6)
--- NOTE | 2022-06-11 16:35 | P.PN ---
Subjective Progress Note Date: 06/11/22 Patient is a 51-year-old male with PMH of CAD post stent of the OM in December 2021, systolic CHF with EF 35-40%, hypertension, dyslipidemia that presents the ED or worsening shortness of breath and scapular pain. Patient reports shortness of breath that is progressively getting worse since his stenting in December. Currently he is unable to walk 200 feet without stopping to catch his breath. He denies any orthopnea or lower extremity swelling. He reports scapular pain that has been ongoing over the past week that is worse with exertion, similar to what he had before he underwent stenting in December. Patient also reports that he fell twice. The first time was 2 weeks ago and he hit his head, did not seek medical attention. He fell yesterday, this time he did not hit his head. He is unsure whether he had a syncopal episode or not. He denies any headache, nausea or vomiting, fever or chills, diaphoresis, chest pain, palpitations, changes in urination or bowel habits. No changes in appetite or weight. He denies any dizziness, numbness/weakness/tingling of the extremities. In the ED, his vital signs are stable. CBC showed leukocytosis of 12.2. Coagulation panel was negative. D-dimer was 12.95. CMP showed sodium 129, bicarb of 14, glucose of 110, alkaline phosphatase of 131. Troponin was 0.028, 0.034, 0.035 with EKG showing sinus rhythm and T-wave abnormalities. BNP was 1430. Chest x-ray was negative. CTA chest negative for PE. Patient is admitted for chest pain, rule out acute coronary syndrome with cardiology consultation. Troponins were slowly trending up with EKG showing T-wave abnormalities. Patient was placed on a heparin drip. Cardiac cath showed 50-55% left main, 20-30% LAD, 90% OM3 stenosis. Cardiothoracic surgery consulted for CABG. Plans were arranged for CABG on 06/11/2022. Patient was seen and examined post CABG. Currently on Nitroglycerin drip. Intubated. General: Intubated Derm: warm, dry Head: atraumatic, normocephalic Eyes: no lid lag, anicteric sclera Mouth: no lip lesion, mucus membranes moist Cardiovascular: S1S2 reg, no murmur, mediastinal chest tube intact Lungs: No accessory muscle use, right and left chest tube intact Ext: no gross muscle atrophy, no edema, no contractures Neuro: Unable to determine Psych: Unable to determine #Systolic CHF with EF of 30-35% #Scapular pain #Elevated troponin with history of CAD post stent in December 2021 #Possible syncopal episode #Elevated D-dimer #PAD #Hyponatremia Chronic conditions: Hypertension, dyslipidemia, smoker Patient presents with exertional shortness of breath. Chest x-ray was negative. He has no lower extremity swelling. Echocardiogram shows EF 30% with global hypokinesis. Continue Coreg, Lasix, Lisinopril and Aldactone. Patient would benefit from AICD. Cardiology on board. Troponins are slowly trending up with EKG showing T-wave abnormalities. Restart ASA, Lipitor, Coreg and Brilinta. Telemetry montoring. Cardiac cath shows 50-55% left main, 20-30% LAD, 90% OM3 stenosis. Plans for CABG today. Continue Telemetry monitoring to rule out cardiac cause of syncope. Patient be placed on fall precautions. Patient with elevated d-dimer, CT chest is ruled out PE. Venous duplex negative for DVT. Moderate PAD on arterial duplex. Patient needs Vascular surgery outpatient. Patient was sodium of 128. Possibly related to dehydration. Objective - Vital Signs Vital signs: Vital Signs Temp 98.3 F 06/11/22 06:39 Pulse 74 06/11/22 06:39 Resp 16 06/11/22 02:20 BP 153/76 06/11/22 05:57 Pulse Ox 100 06/11/22 02:20 FiO2 21 06/08/22 20:33 Intake & Output 06/10/22 06/11/22 06/11/22 18:59 06:59 18:59 Intake Total 960 Output Total 0 Balance 960 Intake: Oral 960 Output: Emesis 0 Other: Voiding Method Toilet # Voids 2 - Labs CBC & Chem 7: 06/10/22 07:52 06/10/22 07:52 Labs: Abnormal Lab Results - Last 24 Hours (Table) 06/10/22 06/10/22 06/10/22 Range/Units 07:52 07:52 07:52 WBC 11.78 H (4.50-10.00) X 10*3/uL Immature Gran # 0.06 H (0.00-0.04) X 10*3/uL Monocytes # 1.15 H (0.20-1.00) X 10*3/uL Basophils # 0.11 H (0.00-0.10) X 10*3/uL Sodium 128 L (135-145) mmol/L Chloride 94 L (96-109) mmol/L Alkaline Phosphatase 140 H (41-126) U/L Albumin/Globulin Ratio 1.55 L (1.60-3.17) g/dL Crossmatch See Detail
--- NOTE | 2022-06-11 16:37 | XR ---
EXAMINATION TYPE: XR chest 1V portable DATE OF EXAM: 06/11/2022 CLINICAL HISTORY: Difficulty breathing progress study. Post open cardiac service TECHNIQUE: Single AP portable upright view of the chest is obtained. COMPARISON: Chest x-ray and CT chest from June 02, 2022 FINDINGS: New overlying sternal wires along with mediastinal clips and left atrial appendage clip ar e present. There is new right Internal jugular [place]-Howard catheter terminates at the level of the pulm onary outflow tract. Endotracheal tube terminates at superior aortic knob level. Nasogastric tube pro jects below diaphragm. There are 2 mediastinal drainage catheters and left-sided chest tube noted. Cardiomegaly with mild central vascular congestion and left-sided linear atelectasis and/or edema. Ri ght lung remains clear. No pneumothorax seen bilaterally. Osseous structures are intact. IMPRESSION: 1. There are new Tubes and lines that are satisfactory in position as detailed above. 2. There is is cardiomegaly with central vascular congestion and left mid lung scattered linear atele ctasis noted. No left-sided pneumothorax with chest tube in place.
[2022-06-11 16:41] LABS: HGB 8.8 gm/dL (13.0-17.5)
[2022-06-11 16:44] LABS: INR 1.1 (<1.2); Partial Thromboplastin Time 39.9 sec (22.0-30.0); Prothrombin Time 11.8 sec (9.0-12.0)
[2022-06-11 16:48] LABS: ABG Base Excess -0.7 mmol/L; ABG HCO3 25 mmol/L (21-25); ABG PCO2 42 mmHg (35-45); ABG PH 7.38 (7.35-7.45); ABG PO2 277 mmHg (83-108); ABG TCO2 26 mmol/L (19-24)
[2022-06-11 16:49] LABS: Allen Test Performed? no
[2022-06-11 16:54] LABS: ALT 21 U/L (4-49); AST 46 U/L (17-59); African American GFR (CKD) >90 (>60 ml/min/1.73 sqM); Albumin 2.5 g/dL (3.5-5.0); Alkaline Phosphatase 56 U/L (38-126); Anion Gap 2 mmol/L; Blood Urea Nitrogen 14 mg/dL (9-20); Calcium 7.6 mg/dL (8.4-10.2); Carbon Dioxide 22 mmol/L (22-30); Chloride 108 mmol/L (98-107); Glucose 94 mg/dL (74-99); Magnesium 2.5 mg/dL (1.6-2.3); Non-African American GFR(CKD) >90 (>60 ml/min/1.73 sqM); Potassium 4.9 mmol/L (3.5-5.1); Sodium 132 mmol/L (137-145); Total Bilirubin 0.6 mg/dL (0.2-1.3); Total Protein 4.1 g/dL (6.3-8.2)
[2022-06-11 17:12] LABS: Glucose,Whole Blood 125 mg/dL (70-110)
[2022-06-11] MEDS: ACETAMINOPHEN IV (For NPO) 1,000 MG in EMPTY BAG 1 BAG IVPB SCH ×2 (18:06→23:52)
[2022-06-11 18:15] LABS: Glucose,Whole Blood 135 mg/dL (70-110)
[2022-06-11 18:27] LABS: Basophils % (A) 0 %; Eosinophils # (A) 0.1 k/uL (0-0.7); Eosinophils % (A) 1 %; HCT 28.2 % (39.0-53.0); HGB 9.6 gm/dL (13.0-17.5); Lymphocytes # (A) 1.4 k/uL (1.0-4.8); Lymphocytes % (A) 12 %; MCH 31.8 pg (25.0-35.0); MCHC 34.1 g/dL (31.0-37.0); MCV 93.2 fL (80.0-100.0); Mean Platelet Volume 7.2; Monocytes # (A) 0.5 k/uL (0-1.0); Monocytes % (A) 4 %; Neutrophils # (A) 9.4 k/uL (1.3-7.7); Neutrophils % (A) 82 %; Platelet Count 194 k/uL (150-450); RBC 3.03 m/uL (4.30-5.90); RDW 12.9 % (11.5-15.5); WBC 11.4 k/uL (3.8-10.6)
[2022-06-11 19:12] LABS: Glucose,Whole Blood 136 mg/dL (70-110)
[2022-06-11] MEDS: IPRATROPIUM-ALBUTEROL 3 ML NEB INHALATION SCH ×2 (19:41→19:42)
[2022-06-11 19:52] LABS: Glucose,Whole Blood 134 mg/dL (70-110)
[2022-06-11 20:44] LABS: Glucose,Whole Blood 131 mg/dL (70-110)
[2022-06-11 20:46] LABS: ABG Base Excess -0.7 mmol/L; ABG HCO3 24 mmol/L (21-25); ABG Oxygen Saturation 99.9 % (94-97); ABG PCO2 41 mmHg (35-45); ABG PH 7.38 (7.35-7.45); ABG PO2 196 mmHg (83-108); ABG TCO2 26 mmol/L (19-24)
[2022-06-11 20:49] LABS: Allen Test Performed? No
[2022-06-11 20:54] LABS: Basophils # (A) 0.1 k/uL (0-0.2); Basophils % (A) 1 %; Eosinophils % (A) 0 %; HCT 27.3 % (39.0-53.0); HGB 9.3 gm/dL (13.0-17.5); Lymphocytes # (A) 1.1 k/uL (1.0-4.8); Lymphocytes % (A) 11 %; MCH 31.9 pg (25.0-35.0); MCHC 34.2 g/dL (31.0-37.0); MCV 93.2 fL (80.0-100.0); Mean Platelet Volume 8.5; Monocytes # (A) 0.5 k/uL (0-1.0); Monocytes % (A) 5 %; Neutrophils % (A) 83 %; Platelet Count 194 k/uL (150-450); RBC 2.93 m/uL (4.30-5.90); RDW 12.8 % (11.5-15.5); WBC 10.8 k/uL (3.8-10.6)
[2022-06-11 21:48] LABS: Glucose,Whole Blood 122 mg/dL (70-110)
[2022-06-11 23:02] LABS: Glucose,Whole Blood 119 mg/dL (70-110)
[2022-06-11] MEDS: KETOROLAC 15 MG/ML 1 ML VIAL IVP SCH (23:51)
[2022-06-12] LABS: Glucose,Whole Blood 121 mg/dL (70-110)
[2022-06-12 00:57] LABS: Glucose,Whole Blood 117 mg/dL (70-110)
[2022-06-12 01:48] LABS: Glucose,Whole Blood 115 mg/dL (70-110)
[2022-06-12] MEDS ORDERED: HYDROcodone/APAP 5-325MG 1 EACH TAB PO PRN (02:51)
[2022-06-12 02:55] LABS: Glucose,Whole Blood 112 mg/dL (70-110)
[2022-06-12 04:00] LABS: Glucose,Whole Blood 110 mg/dL (70-110)
[2022-06-12] MEDS: HYDROcodone/APAP 5-325MG 1 EACH TAB PO PRN ×4 (04:01→20:16)
[2022-06-12 04:52] LABS: Basophils % (A) 0 %; Eosinophils % (A) 0 %; HCT 26.5 % (39.0-53.0); HGB 8.9 gm/dL (13.0-17.5); Lymphocytes # (A) 1.3 k/uL (1.0-4.8); Lymphocytes % (A) 15 %; MCH 31.6 pg (25.0-35.0); MCHC 33.7 g/dL (31.0-37.0); MCV 93.7 fL (80.0-100.0); Mean Platelet Volume 8.4; Monocytes # (A) 0.4 k/uL (0-1.0); Monocytes % (A) 4 %; Neutrophils % (A) 80 %; Platelet Count 189 k/uL (150-450); RBC 2.82 m/uL (4.30-5.90); RDW 12.8 % (11.5-15.5); WBC 8.8 k/uL (3.8-10.6)
[2022-06-12 05:16] LABS: Ionized Calcium 4.9 mg/dL (4.5-5.3)
[2022-06-12 05:28] LABS: ALT 22 U/L (4-49); AST 57 U/L (17-59); African American GFR (CKD) >90 (>60 ml/min/1.73 sqM); Albumin 2.7 g/dL (3.5-5.0); Alkaline Phosphatase 62 U/L (38-126); Anion Gap 2 mmol/L; Blood Urea Nitrogen 13 mg/dL (9-20); Calcium 7.6 mg/dL (8.4-10.2); Carbon Dioxide 25 mmol/L (22-30); Chloride 106 mmol/L (98-107); Glucose 105 mg/dL (74-99); Magnesium 2.2 mg/dL (1.6-2.3); Non-African American GFR(CKD) >90 (>60 ml/min/1.73 sqM); Potassium 4.9 mmol/L (3.5-5.1); Sodium 133 mmol/L (137-145); Total Bilirubin 0.4 mg/dL (0.2-1.3); Total Protein 4.5 g/dL (6.3-8.2)
[2022-06-12 06:12] LABS: Glucose,Whole Blood 115 mg/dL (70-110)
[2022-06-12] MEDS: KETOROLAC 15 MG/ML 1 ML VIAL IVP SCH ×4 (06:16→23:59)
[2022-06-12 06:53] LABS: Glucose,Whole Blood 110 mg/dL (70-110)
--- NOTE | 2022-06-12 07:50 | XR ---
EXAMINATION TYPE: XR chest 1V portable DATE OF EXAM: 06/12/2022 COMPARISON: 06/11/2020 HISTORY: Postop TECHNIQUE: Single frontal view of the chest is obtained. FINDINGS: Bilateral infiltrate and pleural effusion diffuse interstitial pattern. ET and NG tube hav e been removed. Mediastinal drain and chest tubes remain. No sizable pneumothorax. Heart remains enla rged. IMPRESSION: 1. Diffuse pleural-parenchymal changes correlate for CHF. 2. Postsurgical changes
[2022-06-12] MEDS: IPRATROPIUM-ALBUTEROL 3 ML NEB INHALATION SCH ×4 (08:16→20:22)
[2022-06-12] MEDS: ASPIRIN 325 MG TAB PO SCH (08:23)
[2022-06-12] MEDS: CLOPIDOGREL 75 MG TAB PO SCH (08:23)
[2022-06-12] MEDS: PANTOPRAZOLE 40 MG/10 ML VIAL IVP SCH (08:24)
[2022-06-12] MEDS: ATORVASTATIN 40 MG TAB PO SCH (08:24)
[2022-06-12] MEDS: HEPARIN SODIUM,PORCINE/PF 5,000 UNIT/0.5 ML SYRINGE SQ SCH ×3 (08:24→23:59)
[2022-06-12] MEDS: MUPIROCIN 2% OINT 22 GM TUBE NASAL SCH ×2 (08:25→20:20)
[2022-06-12 08:43] LABS: Glucose,Whole Blood 110 mg/dL (70-110)
--- NOTE | 2022-06-12 08:47 | P.PN ---
Subjective HISTORY OF PRESENTING ILLNESS Progress Note Date: 06/10/22 This is a 51 year old male with a past medical history of hypertension, nicotine dependence, daily alcohol use, coronary artery disease with NSTEMI in 12/2021 S/p PCI proximal OM3, ischemic cardiomyopathy, dyslipidemia. He follows with Dr. Mock. We're consulted for chest pain. Patient presented to the hospital on 06/02/2022 with symptoms of shortness of breath and chest pain. Pat ient continued to have chest discomfort and recommend cardiac catheterization. Echocardiogram revealed EF 3035 percent. Patient underwent cardiac catheterization with Dr. Mock on 06/04/2022 which revealed coronary artery disease with 50-55% left main stenosis with minimal luminal area 5.3mm2, mild 20-30% LAD stenosis, mild luminal irregularities of a dominant circumflex, OM3 90% stenosis, normal left sided filling pressures. CT surgery was consulted for CABG evaluation. Limited echocardiogram revealed EF of 55%, no obvious regional wall motion abnormalities, trace MR, mild left ear with a peak gradient of 19 mmHg and a mean gradient of 9 mmHg and mild aortic regurgitation. 06/09/2022 Patient was seen and examined sitting up at the side of the bed. He just returned from a walk around the unit. He denies any shortness of breath but does seem to be a bit winded to me. He is scheduled to undergo coronary artery bypass grafting surgery on June 11. Blood pressure has been elevated. He is currently on aspirin 81 mg daily, atorvastatin 80 mg daily at bedtime, carvedilol 6.25 mg by mouth twice a day, a 640 mg daily, Aldactone 25 mg daily and lisinopril 10 mg by mouth daily. He is maintaining sinus mechanism with heart rate in the 60s to 70s with occasional PVCs. He denies any chest discomfort, palpitations, dizziness or lightheadedness. 06/10/2022 Patient was seen and examined sitting up side of the bed. He is overall feeling well. He denies any shortness of breath or chest discomfort. His ambulating without difficulties. Blood pressure is better controlled however his JOSÉ inhibitor has some placed on hold by CT surgery preoperatively. He is scheduled to undergo coronary artery bypass grafting surgery tomorrow. 06/11 Patient seen and examined. Patient underwent bypass yesterday and has been doing well. Off of any pressors. Still has chest tubes in place. Admits to mild discomfort around the incision however no chest pain or pressure. No sh ortness of breath. PHYSICAL EXAMINATION Vital signs reviewed. CONSTITUTIONAL: No apparent distress. HEENT: Head is normocephalic. Pupils are equal, round. Sclerae anicteric. Mucous membranes of the mouth are moist. No JVD. No carotid bruit. CHEST EXAMINATION: Lungs are clear to auscultation. No chest wall tenderness is noted on palpation or with deep breathing. HEART EXAMINATION: Regular rate and rhythm. S1, S2 heard. No murmurs, gallops or rub. ABDOMEN: Soft, nontender. Positive bowel sounds. EXTREMITIES: 2+ peripheral pulses, no lower extremity edema and no calf tenderness. NEUROLOGIC EXAMINATION: Patient is awake, alert and oriented x3. Assessment CAD s/p CABG 06/11 Coronary artery disease s/p prior PCI to OM3 in 12/2021 Hypertension Dyslipidemia Ischemic cardiomyopathy EF 3035 percent Chronic tobacco use Daily alcohol use Chest pain, shortness of breath Plan: Appears to be recovering well from surgery. Continue aspirin, Plavix, metoprolol. Attempt to add heart failure regimen if blood pressure allows. Continue supportive care. Further recommendations to follow. Objective - Vital Signs Vital signs: Vital Signs Temp 99.5 F 06/11/22 19:00 Pulse 90 06/12/22 06:30 Resp 16 06/12/22 07:00 BP 109/50 06/11/22 23:00 Pulse Ox 99 06/12/22 07:00 FiO2 100 06/11/22 20:00 Intake & Output 06/11/22 06/12/22 06/12/22 18:59 06:59 18:59 Intake Total 819.655 7952.434 59 Output Total 4205 1206 95 Balance -3789.899 941.434 -36 Weight 74.843 kg 79.1 kg Intake: IV 102 1239 59 ACETAMINOPHEN IV (For NPO 100 ) 1,000 mg In Empty Bag 1 bag @ 400 mls/hr IVPB Q6HR [facility] Rx#:[id number] Albumin Human 5% 250 ml 250 In Empty Bag 1 bag @ 250 mls/hr IVPB Q1HR PRN Rx#: [id number] CO/CI 190 Lactated Ringers 1,000 ml 350 @ 20 mls/hr IV .Q24H [facility] Rx#:[id number] Pressure bags 99 9 ceFAZolin 2 gm In Sodium 250 50 Chloride 0.9% 50 ml @ 100 mls/hr IVPB Q8H [facility] Rx#: [id number] Intake, IV Titration 313.101 128.434 Amount ACETAMINOPHEN IV (For NPO 100 ) 1,000 mg In Empty Bag 1 bag @ 400 mls/hr IVPB Q6HR [facility] Rx#:[id number] Clevidipine Butyrate 25 10.667 13.101 mg In Empty Bag 1 bag @ 1 MG/HR 2 mls/hr IV .Q24H [facility] Rx#:[id number] Dexmedetomidine/0.9% NaCl 3.368 37.639 (Pmx) 400 mcg In Empty Bag 1 bag @ Titrate IV . Q0M [facility] Rx#:[id number] Insulin Regular 100 unit 9.578 In Sodium Chloride 0.9% 100 ml @ Per Protocol IV .Q0M [facility] Rx#:[id number] Lactated Ringers 1,000 ml 100 50 @ 20 mls/hr IV .Q24H [facility] Rx#:[id number] Nitroglycerin-D5w Pmx 50 3.0 1.5 mg In Dextrose/Water 1 250ml.bag @ 5 MCG/MIN 1.5 mls/hr IV .Q24H [facility] Rx#: [id number] ceFAZolin 2 gm In Sodium 50 Chloride 0.9% 50 ml @ 100 mls/hr IVPB Q8H [facility] Rx#: [id number] propofoL 1,000 mg In 46.066 16.616 Empty Bag 1 bag @ Titrate IV .Q0M [facility] Rx#: [id number] Oral 780 Output: Chest Tube Drainage 195 366 70 Lt pleural 75 86 0 Mediastinal 120 280 70 Urine 2010 840 25 Estimated Blood Loss 1999 Other: Voiding Method Indwelling Catheter Indwelling Catheter ABP, PAP, CO, CI - Last Documented Arterial Blood Pressure 128/36 Pulmonary Artery Pressure 21/2 Cardiac Output 6.2 Cardiac Index 3.4 - Labs CBC & Chem 7: 06/12/22 04:35 06/12/22 04:35 Labs: Abnormal Lab Results - Last 24 Hours (Table) 06/10/22 06/11/22 06/11/22 Range/Units 07:52 09:57 11:23 WBC (3.8-10.6) k/uL RBC (4.30-5.90) m/uL Hgb (13.0-17.5) gm/dL Hct (39.0-53.0) % Neutrophils # (1.3-7.7) k/uL APTT (22.0-30.0) sec ABG pH (7.35-7.45) ABG pCO2 (35-45) mmHg ABG pO2 >420 H >420 H (83-108) mmHg ABG Total CO2 26 H 25 H (19-24) mmol/L ABG O2 Saturation 99.9 H 100.0 H (94-97) % ABG Hematocrit (34.0-46.0) % ABG Sodium 132 L 132 L (135-146) mmol/L ABG Potassium 5.4 H 4.8 H (3.4-4.5) mmol/L ABG Ionized Calcium (4.5-5.3) mg/dL ABG Glucose 112 H (75-99) mg/dL ABG Lactic Acid (0.5-1.6) mmol/L Hemoglobin 11.5 L 11.2 L (13.0-17.5) gm/dL Sodium (137-145) mmol/L Chloride (98-107) mmol/L Glucose (74-99) mg/dL POC Glucose (mg/dL) (70-110) mg/dL Calcium (8.4-10.2) mg/dL Magnesium (1.6-2.3) mg/dL Total Protein (6.3-8.2) g/dL Albumin (3.5-5.0) g/dL Arterial Blood Potassium 5.4 H 4.8 H (3.4-4.5) mmol/L Arterial Blood Glucose 112 H (75-99) mg/dL Crossmatch See Detail 06/11/22 06/11/22 06/11/22 Range/Units 12:00 12:36 13:03 WBC (3.8-10.6) k/uL RBC (4.30-5.90) m/uL Hgb (13.0-17.5) gm/dL Hct (39.0-53.0) % Neutrophils # (1.3-7.7) k/uL APTT (22.0-30.0) sec ABG pH (7.35-7.45) ABG pCO2 (35-45) mmHg ABG pO2 >420 H 301 H 282 H (83-108) mmHg ABG Total CO2 26 H 26 H (19-24) mmol/L ABG O2 Saturation 100.0 H 99.9 H 99.7 H (94-97) % ABG Hematocrit 25 L 26 L 26 L (34.0-46.0) % ABG Sodium 128 L 130 L 132 L (135-146) mmol/L ABG Potassium 5.6 H 5.8 H (3.4-4.5) mmol/L ABG Ionized Calcium 4.0 L 4.2 L 4.3 L (4.5-5.3) mg/dL ABG Glucose 110 H 116 H 117 H (75-99) mg/dL ABG Lactic Acid (0.5-1.6) mmol/L Hemoglobin 8.2 L 8.5 L 8.5 L (13.0-17.5) gm/dL Sodium (137-145) mmol/L Chloride (98-107) mmol/L Glucose (74-99) mg/dL POC Glucose (mg/dL) (70-110) mg/dL Calcium (8.4-10.2) mg/dL Magnesium (1.6-2.3) mg/dL Total Protein (6.3-8.2) g/dL Albumin (3.5-5.0) g/dL Arterial Blood Potassium 5.6 H 5.8 H (3.4-4.5) mmol/L Arterial Blood Glucose 110 H 116 H 117 H (75-99) mg/dL Crossmatch 06/11/22 06/11/22 06/11/22 Range/Units 14:01 15:03 16:14 WBC (3.8-10.6) k/uL RBC 2.87 L (4.30-5.90) m/uL Hgb 8.8 L D (13.0-17.5) gm/dL Hct 26.5 L (39.0-53.0) % Neutrophils # (1.3-7.7) k/uL APTT (22.0-30.0) sec ABG pH 7.32 L (7.35-7.45) ABG pCO2 46 H (35-45) mmHg ABG pO2 327 H >420 H (83-108) mmHg ABG Total CO2 25 H (19-24) mmol/L ABG O2 Saturation 99.8 H 99.9 H (94-97) % ABG Hematocrit 24 L 26 L (34.0-46.0) % ABG Sodium 133 L 134 L (135-146) mmol/L ABG Potassium 5.5 H 4.7 H (3.4-4.5) mmol/L ABG Ionized Calcium 4.3 L (4.5-5.3) mg/dL ABG Glucose 138 H 103 H (75-99) mg/dL ABG Lactic Acid 2.9 H* 1.9 H (0.5-1.6) mmol/L Hemoglobin 7.8 L 8.5 L (13.0-17.5) gm/dL Sodium (137-145) mmol/L Chloride (98-107) mmol/L Glucose (74-99) mg/dL POC Glucose (mg/dL) (70-110) mg/dL Calcium (8.4-10.2) mg/dL Magnesium (1.6-2.3) mg/dL Total Protein (6.3-8.2) g/dL Albumin (3.5-5.0) g/dL Arterial Blood Potassium 5.5 H 4.7 H (3.4-4.5) mmol/L Arterial Blood Glucose 138 H 103 H (75-99) mg/dL Crossmatch 06/11/22 06/11/22 06/11/22 Range/Units 16:14 16:14 16:47 WBC (3.8-10.6) k/uL RBC (4.30-5.90) m/uL Hgb (13.0-17.5) gm/dL Hct (39.0-53.0) % Neutrophils # (1.3-7.7) k/uL APTT 39.9 H (22.0-30.0) sec ABG pH (7.35-7.45) ABG pCO2 (35-45) mmHg ABG pO2 277 H (83-108) mmHg ABG Total CO2 26 H (19-24) mmol/L ABG O2 Saturation 100.0 H (94-97) % ABG Hematocrit (34.0-46.0) % ABG Sodium (135-146) mmol/L ABG Potassium (3.4-4.5) mmol/L ABG Ionized Calcium (4.5-5.3) mg/dL ABG Glucose (75-99) mg/dL ABG Lactic Acid (0.5-1.6) mmol/L Hemoglobin (13.0-17.5) gm/dL Sodium 132 L (137-145) mmol/L Chloride 108 H (98-107) mmol/L Glucose (74-99) mg/dL POC Glucose (mg/dL) (70-110) mg/dL Calcium 7.6 L (8.4-10.2) mg/dL Magnesium 2.5 H (1.6-2.3) mg/dL Total Protein 4.1 L (6.3-8.2) g/dL Albumin 2.5 L (3.5-5.0) g/dL Arterial Blood Potassium (3.4-4.5) mmol/L Arterial Blood Glucose (75-99) mg/dL Crossmatch 06/11/22 06/11/22 06/11/22 Range/Units 17:09 18:12 18:15 WBC 11.4 H (3.8-10.6) k/uL RBC 3.03 L (4.30-5.90) m/uL Hgb 9.6 L (13.0-17.5) gm/dL Hct 28.2 L (39.0-53.0) % Neutrophils # 9.4 H (1.3-7.7) k/uL APTT (22.0-30.0) sec ABG pH (7.35-7.45) ABG pCO2 (35-45) mmHg ABG pO2 (83-108) mmHg ABG Total CO2 (19-24) mmol/L ABG O2 Saturation (94-97) % ABG Hematocrit (34.0-46.0) % ABG Sodium (135-146) mmol/L ABG Potassium (3.4-4.5) mmol/L ABG Ionized Calcium (4.5-5.3) mg/dL ABG Glucose (75-99) mg/dL ABG Lactic Acid (0.5-1.6) mmol/L Hemoglobin (13.0-17.5) gm/dL Sodium (137-145) mmol/L Chloride (98-107) mmol/L Glucose (74-99) mg/dL POC Glucose (mg/dL) 125 H 135 H (70-110) mg/dL Calcium (8.4-10.2) mg/dL Magnesium (1.6-2.3) mg/dL Total Protein (6.3-8.2) g/dL Albumin (3.5-5.0) g/dL Arterial Blood Potassium (3.4-4.5) mmol/L Arterial Blood Glucose (75-99) mg/dL Crossmatch 06/11/22 06/11/22 06/11/22 Range/Units 19:11 19:50 20:43 WBC (3.8-10.6) k/uL RBC (4.30-5.90) m/uL Hgb (13.0-17.5) gm/dL Hct (39.0-53.0) % Neutrophils # (1.3-7.7) k/uL APTT (22.0-30.0) sec ABG pH (7.35-7.45) ABG pCO2 (35-45) mmHg ABG pO2 (83-108) mmHg ABG Total CO2 (19-24) mmol/L ABG O2 Saturation (94-97) % ABG Hematocrit (34.0-46.0) % ABG Sodium (135-146) mmol/L ABG Potassium (3.4-4.5) mmol/L ABG Ionized Calcium (4.5-5.3) mg/dL ABG Glucose (75-99) mg/dL ABG Lactic Acid (0.5-1.6) mmol/L Hemoglobin (13.0-17.5) gm/dL Sodium (137-145) mmol/L Chloride (98-107) mmol/L Glucose (74-99) mg/dL POC Glucose (mg/dL) 136 H 134 H 131 H (70-110) mg/dL Calcium (8.4-10.2) mg/dL Magnesium (1.6-2.3) mg/dL Total Protein (6.3-8.2) g/dL Albumin (3.5-5.0) g/dL Arterial Blood Potassium (3.4-4.5) mmol/L Arterial Blood Glucose (75-99) mg/dL Crossmatch 06/11/22 06/11/2206/11/22 Range/Units 20:44 20:45 21:46 WBC 10.8 H (3.8-10.6) k/uL RBC 2.93 L (4.30-5.90) m/uL Hgb 9.3 L (13.0-17.5) gm/dL Hct 27.3 L (39.0-53.0) % Neutrophils # 9.0 H (1.3-7.7) k/uL APTT (22.0-30.0) sec ABG pH (7.35-7.45) ABG pCO2 (35-45) mmHg ABG pO2 196 H (83-108) mmHg ABG Total CO2 26 H (19-24) mmol/L ABG O2 Saturation 99.9 H (94-97) % ABG Hematocrit (34.0-46.0) % ABG Sodium (135-146) mmol/L ABG Potassium (3.4-4.5) mmol/L ABG Ionized Calcium (4.5-5.3) mg/dL ABG Glucose (75-99) mg/dL ABG Lactic Acid (0.5-1.6) mmol/L Hemoglobin (13.0-17.5) gm/dL Sodium (137-145) mmol/L Chloride (98-107) mmol/L Glucose (74-99) mg/dL POC Glucose (mg/dL) 122 H (70-110) mg/dL Calcium (8.4-10.2) mg/dL Magnesium (1.6-2.3) mg/dL Total Protein (6.3-8.2) g/dL Albumin (3.5-5.0) g/dL Arterial Blood Potassium (3.4-4.5) mmol/L Arterial Blood Glucose (75-99) mg/dL Crossmatch 06/11/22 06/11/22 06/12/22 Range/Units 23:00 23:59 00:55 WBC (3.8-10.6) k/uL RBC (4.30-5.90) m/uL Hgb (13.0-17.5) gm/dL Hct (39.0-53.0) % Neutrophils # (1.3-7.7) k/uL APTT (22.0-30.0) sec ABG pH (7.35-7.45) ABG pCO2 (35-45) mmHg ABG pO2 (83-108) mmHg ABG Total CO2 (19-24) mmol/L ABG O2 Saturation (94-97) % ABG Hematocrit (34.0-46.0) % ABG Sodium (135-146) mmol/L ABG Potassium (3.4-4.5) mmol/L ABG Ionized Calcium (4.5-5.3) mg/dL ABG Glucose (75-99) mg/dL ABG Lactic Acid (0.5-1.6) mmol/L Hemoglobin (13.0-17.5) gm/dL Sodium (137-145) mmol/L Chloride (98-107) mmol/L Glucose (74-99) mg/dL POC Glucose (mg/dL) 119 H 121 H 117 H (70-110) mg/dL Calcium (8.4-10.2) mg/dL Magnesium (1.6-2.3) mg/dL Total Protein (6.3-8.2) g/dL Albumin (3.5-5.0) g/dL Arterial Blood Potassium (3.4-4.5) mmol/L Arterial Blood Glucose (75-99) mg/dL Crossmatch 06/12/22 06/12/22 06/12/22 Range/Units 01:46 02:54 04:35 WBC (3.8-10.6) k/uL RBC 2.82 L (4.30-5.90) m/uL Hgb 8.9 L (13.0-17.5) gm/dL Hct 26.5 L (39.0-53.0) % Neutrophils # (1.3-7.7) k/uL APTT (22.0-30.0) sec ABG pH (7.35-7.45) ABG pCO2 (35-45) mmHg ABG pO2 (83-108) mmHg ABG Total CO2 (19-24) mmol/L ABG O2 Saturation (94-97) % ABG Hematocrit (34.0-46.0) % ABG Sodium (135-146) mmol/L ABG Potassium (3.4-4.5) mmol/L ABG Ionized Calcium (4.5-5.3) mg/dL ABG Glucose (75-99) mg/dL ABG Lactic Acid (0.5-1.6) mmol/L Hemoglobin (13.0-17.5) gm/dL Sodium (137-145) mmol/L Chloride (98-107) mmol/L Glucose (74-99) mg/dL POC Glucose (mg/dL) 115 H 112 H (70-110) mg/dL Calcium (8.4-10.2) mg/dL Magnesium (1.6-2.3) mg/dL Total Protein (6.3-8.2) g/dL Albumin (3.5-5.0) g/dL Arterial Blood Potassium (3.4-4.5) mmol/L Arterial Blood Glucose (75-99) mg/dL Crossmatch 06/12/22 06/12/22 Range/Units 04:35 06:11 WBC (3.8-10.6) k/uL RBC (4.30-5.90) m/uL Hgb (13.0-17.5) gm/dL Hct (39.0-53.0) % Neutrophils # (1.3-7.7) k/uL APTT (22.0-30.0) sec ABG pH (7.35-7.45) ABG pCO2 (35-45) mmHg ABG pO2 (83-108) mmHg ABG Total CO2 (19-24) mmol/L ABG O2 Saturation (94-97) % ABG Hematocrit (34.0-46.0) % ABG Sodium (135-146) mmol/L ABG Potassium (3.4-4.5) mmol/L ABG Ionized Calcium (4.5-5.3) mg/dL ABG Glucose (75-99) mg/dL ABG Lactic Acid (0.5-1.6) mmol/L Hemoglobin (13.0-17.5) gm/dL Sodium 133 L (137-145) mmol/L Chloride (98-107) mmol/L Glucose 105 H (74-99) mg/dL POC Glucose (mg/dL) 115 H (70-110) mg/dL Calcium 7.6 L (8.4-10.2) mg/dL Magnesium (1.6-2.3) mg/dL Total Protein 4.5 L (6.3-8.2) g/dL Albumin 2.7 L (3.5-5.0) g/dL Arterial Blood Potassium (3.4-4.5) mmol/L Arterial Blood Glucose (75-99) mg/dL Crossmatch
--- NOTE | 2022-06-12 08:58 | P.PN ---
Subjective Progress Note Date: 06/12/22 Principal diagnosis: Coronary artery disease with PCI in December 2021, ischemic cardiomyopathy with an ejection fraction of 30-35%, hypertension, hyperlipidemia, syncopal episode 2, current ongoing chronic tobacco dependence, severe COPD with a preoperative FEV1 showing a predictive value of 45%, current daily EtOH use, and peripheral arterial disease with ABIs to his right lower extremity 0.55 and to his left lower extremity 0.47. POD #1 coronary artery bypass grafting 3 with left internal mammary artery to the diagonal coronary artery, a reverse greater saphenous vein graft to the obtuse marginal coronary artery and a reverse greater saphenous vein graft to the posterior descending coronary artery. Endoscopic vein harvest of the right lower extremity. Ligation of the left atrial appendage using a 35 mm Atriclip and an intraoperative transesophageal echocardiogram performed by anesthesia. Postoperative acute blood loss anemia, expected given hemodilution and card iopulmonary bypass. The patient was seen and examined in follow-up today 06/12/2022 at his bedside in the intensive care unit. Currently sitting up to the bedside chair, as awake, alert, oriented 3 and is in no acute apparent distress. He was successfully extubated at 8:54 PM last evening, is currently on 2 L nasal cannula with oxygen saturations 95%. He is achieving 1000 mL on his incentive spirometry with encouragement. He remains hemodynamically stable and is currently on no inotropic pressor support. Right IJ Cordis and [place]-Howard catheter remain in place with current hemodynamic showing a cardiac output of 6.2, cardiac index 3.4, PA pressures 23 over 3 and a CVP of 2 mmHg. Currently rates his pain 1-2 out of 10 on the pain scale with just sitting there and with taking a deep breath or coughing he rates his pain 6 out of 10 on the pain scale 2 his chest tube insertion sites. Denies any complaints of shortness of breath at this time. Mediastinal and left pleural chest tubes remain in place to low continuous wall suction -20 cm H2O. No air leak is present. Draining thin serosanguineous drainage with mediastinal chest tubes draining 151 L output in the last 8 hours and 470 mL output since surgery, left pleural chest tube drained 65 mL output in the last 8 hours and 170 mL output since surgery. Bedside telemetry showing normal sinus rhythm heart rate 97 BPM. Laboratory results this morning show a WBC count of 8.8, hemoglobin 8.9, hematocrit 26.5, platelets 189, sodium 133, potassium 4.9, chloride 106, CO2 25, BUN 31, creatinine 0.91, glucose 105, calcium 7.6, ionized calcium 4.9 and magnesium 2.2. Objective - Vital Signs Vital signs: Vital Signs Temp 99.5 F 06/11/22 19:00 Pulse 90 06/12/22 06:30 Resp 16 06/12/22 07:00 BP 109/50 06/11/22 23:00 Pulse Ox 99 06/12/22 07:00 FiO2 100 06/11/22 20:00 Intake & Output 06/11/22 06/12/22 06/12/22 18:59 06:59 18:59 Intake Total 281.213 3921.434 59 Output Total 4205 1206 95 Balance -3789.899 941.434 -36 Weight 74.843 kg 79.1 kg Intake: IV 102 1239 59 ACETAMINOPHEN IV (For NPO 100 ) 1,000 mg In Empty Bag 1 bag @ 400 mls/hr IVPB Q6HR [facility] Rx#:[id number] Albumin Human 5% 250 ml 250 In Empty Bag 1 bag @ 250 mls/hr IVPB Q1HR PRN Rx#: [id number] CO/CI 190 Lactated Ringers 1,000 ml 350 @ 20 mls/hr IV .Q24H [facility] Rx#:[id number] Pressure bags 99 9 ceFAZolin 2 gm In Sodium 250 50 Chloride 0.9% 50 ml @ 100 mls/hr IVPB Q8H [facility] Rx#: [id number] Intake, IV Titration 313.101 128.434 Amount ACETAMINOPHEN IV (For NPO 100 ) 1,000 mg In Empty Bag 1 bag @ 400 mls/hr IVPB Q6HR [facility] Rx#:[id number] Clevidipine Butyrate 25 10.667 13.101 mg In Empty Bag 1 bag @ 1 MG/HR 2 mls/hr IV .Q24H [facility] Rx#:[id number] Dexmedetomidine/0.9% NaCl 3.368 37.639 (Pmx) 400 mcg In Empty Bag 1 bag @ Titrate IV . Q0M [facility] Rx#:[id number] Insulin Regular 100 unit 9.578 In Sodium Chloride 0.9% 100 ml @ Per Protocol IV .Q0M [facility] Rx#:[id number] Lactated Ringers 1,000 ml 100 50 @ 20 mls/hr IV .Q24H [facility] Rx#:[id number] Nitroglycerin-D5w Pmx 50 3.0 1.5 mg In Dextrose/Water 1 250ml.bag @ 5 MCG/MIN 1.5 mls/hr IV .Q24H [facility] Rx#: [id number] ceFAZolin 2 gm In Sodium 50 Chloride 0.9% 50 ml @ 100 mls/hr IVPB Q8H [facility] Rx#: [id number] propofoL 1,000 mg In 46.066 16.616 Empty Bag 1 bag @ Titrate IV .Q0M [facility] Rx#: [id number] Oral 780 Output: Chest Tube Drainage 195 366 70 Lt pleural 75 86 0 Mediastinal 120 280 70 Urine 2010 840 25 Estimated Blood Loss 1999 Other: Voiding Method Indwelling Catheter Indwelling Catheter ABP, PAP, CO, CI - Last Documented Arterial Blood Pressure 128/36 Pulmonary Artery Pressure 21/2 Cardiac Output 6.2 Cardiac Index 3.4 - Exam CONSTITUTIONAL: Sitting up to the bedside chair in the intensive care unit, appears comfortable, cooperative, no apparent acute distress. HEENT: Neck is supple, no JVD, no lymphadenopathy. Right IJ Cordis and [place]- Howard catheter in place and functioning. RESPIRATORY: Lungs sounds essentially clear throughout, diminished to his bilateral bases. Respirations are symmetrical and nonlabored. Currently on 2 L nasal cannula with oxygen saturations 95%. Able to achieve 1000 mL on his incentive spirometry. Strong cough. CARDIOVASCULAR: Regular rhythm and rate. S1 and S2 present, negative for S3, gallop or murmur. Sternum is stable. Palpable peripheral pulses bilaterally. No calf pain or tenderness noted. Heart hugger in place with patient demonstrating appropriate use. Knee-high MARIAN hose and sequential compression devices in place to his bilateral lower extremities. GASTROINTESTINAL: Abdomen soft, nontender, nondistended. Hypoactive bowel sounds present 4 quadrants. Tolerating diet. Passing flatus. No guarding or rigidity. GENITOURINARY: Luz present draining clear, yellow urine. Urine output 550 mL in the last 8 hours. INTEGUMENTARY: Skin is warm and dry with no evidence of clubbing or cyanosis. Midline sternal incision clean dry and well approximated, covered with dry intact dressing. Right lower extremity EVH sites well approximated without redness or drainage. NEUROLOGIC: Cranial nerves II through XII intact. No focal deficits. MUSKULOSKELETAL: Able to move all extremities, strength equal bilaterally, generalized weakness. PSYCHIATRIC: Alert and oriented to person place and time, appropriate affect, intact judgment and insight. INVASIVE LINES AND TUBES: Mediastinal/left pleural chest tubes present and connected to low continuous wall suction, no air leaks present. Mediastinal tube with 150 mL of thin serosanguineous drainage overnight, 470 mL output since surgery. Left pleural chest tube with 65 mL of thin serosanguineous drainage overnight, 170 mL output in the last 24 hours. Atrial and ventricular epicardial pacemaker wires present, connected to generator, VVI backup rate 50 bpm. Right internal jugular [place]/Cordis, right radial arterial line present. Last CO 6.2, CI 3.4, PA 23 over 3 and CVP 2 mmHg. - Allied health notes Allied health notes reviewed: nursing - Labs CBC & Chem 7: 06/12/22 04:35 06/12/22 04:35 Labs: Abnormal Lab Results - Last 24 Hours (Table) 06/10/22 06/11/22 06/11/22 Range/Units 07:52 09:57 11:23 WBC (3.8-10.6) k/uL RBC (4.30-5.90) m/uL Hgb (13.0-17.5) gm/dL Hct (39.0-53.0) % Neutrophils # (1.3-7.7) k/uL APTT (22.0-30.0) sec ABG pH (7.35-7.45) ABG pCO2 (35-45) mmHg ABG pO2 >420 H >420 H (83-108) mmHg ABG Total CO2 26 H 25 H (19-24) mmol/L ABG O2 Saturation 99.9 H 100.0 H (94-97) % ABG Hematocrit (34.0-46.0) % ABG Sodium 132 L 132 L (135-146) mmol/L ABG Potassium 5.4 H 4.8 H (3.4-4.5) mmol/L ABG Ionized Calcium (4.5-5.3) mg/dL ABG Glucose 112 H (75-99) mg/dL ABG Lactic Acid (0.5-1.6) mmol/L Hemoglobin 11.5 L 11.2 L (13.0-17.5) gm/dL Sodium (137-145) mmol/L Chloride (98-107) mmol/L Glucose (74-99) mg/dL POC Glucose (mg/dL) (70-110) mg/dL Calcium (8.4-10.2) mg/dL Magnesium (1.6-2.3) mg/dL Total Protein (6.3-8.2) g/dL Albumin (3.5-5.0) g/dL Arterial Blood Potassium 5.4 H 4.8 H (3.4-4.5) mmol/L Arterial Blood Glucose 112 H (75-99) mg/dL Crossmatch See Detail 06/11/22 06/11/22 06/11/22 Range/Units 12:00 12:36 13:03 WBC (3.8-10.6) k/uL RBC (4.30-5.90) m/uL Hgb (13.0-17.5) gm/dL Hct (39.0-53.0) % Neutrophils # (1.3-7.7) k/uL APTT (22.0-30.0) sec ABG pH (7.35-7.45) ABG pCO2 (35-45) mmHg ABG pO2 >420 H 301 H 282 H (83-108) mmHg ABG Total CO2 26 H 26 H (19-24) mmol/L ABG O2 Saturation 100.0 H 99.9 H 99.7 H (94-97) % ABG Hematocrit 25 L 26 L 26 L (34.0-46.0) % ABG Sodium 128 L 130 L 132 L (135-146) mmol/L ABG Potassium 5.6 H 5.8 H (3.4-4.5) mmol/L ABG Ionized Calcium 4.0 L 4.2 L 4.3 L (4.5-5.3) mg/dL ABG Glucose 110 H 116 H 117 H (75-99) mg/dL ABG Lactic Acid (0.5-1.6) mmol/L Hemoglobin 8.2 L 8.5 L 8.5 L (13.0-17.5) gm/dL Sodium (137-145) mmol/L Chloride (98-107) mmol/L Glucose (74-99) mg/dL POC Glucose (mg/dL) (70-110) mg/dL Calcium (8.4-10.2) mg/dL Magnesium (1.6-2.3) mg/dL Total Protein (6.3-8.2) g/dL Albumin (3.5-5.0) g/dL Arterial Blood Potassium 5.6 H 5.8 H (3.4-4.5) mmol/L Arterial Blood Glucose 110 H 116 H 117 H (75-99) mg/dL Crossmatch 06/11/22 06/11/22 06/11/22 Range/Units 14:01 15:03 16:14 WBC (3.8-10.6) k/uL RBC 2.87 L (4.30-5.90) m/uL Hgb 8.8 L D (13.0-17.5) gm/dL Hct 26.5 L (39.0-53.0) % Neutrophils # (1.3-7.7) k/uL APTT (22.0-30.0) sec ABG pH 7.32 L (7.35-7.45) ABG pCO2 46 H (35-45) mmHg ABG pO2 327 H >420 H (83-108) mmHg ABG Total CO2 25 H (19-24) mmol/L ABG O2 Saturation 99.8 H 99.9 H (94-97) % ABG Hematocrit 24 L 26 L (34.0-46.0) % ABG Sodium 133 L 134 L (135-146) mmol/L ABG Potassium 5.5 H 4.7 H (3.4-4.5) mmol/L ABG Ionized Calcium 4.3 L (4.5-5.3) mg/dL ABG Glucose 138 H 103 H (75-99) mg/dL ABG Lactic Acid 2.9 H* 1.9 H (0.5-1.6) mmol/L Hemoglobin 7.8 L 8.5 L (13.0-17.5) gm/dL Sodium (137-145) mmol/L Chloride (98-107) mmol/L Glucose (74-99) mg/dL POC Glucose (mg/dL) (70-110) mg/dL Calcium (8.4-10.2) mg/dL Magnesium (1.6-2.3) mg/dL Total Protein (6.3-8.2) g/dL Albumin (3.5-5.0) g/dL Arterial Blood Potassium 5.5 H 4.7 H (3.4-4.5) mmol/L Arterial Blood Glucose 138 H 103 H (75-99) mg/dL Crossmatch 06/11/22 06/11/22 06/11/22 Range/Units 16:14 16:14 16:47 WBC (3.8-10.6) k/uL RBC (4.30-5.90) m/uL Hgb (13.0-17.5) gm/dL Hct (39.0-53.0) % Neutrophils # (1.3-7.7) k/uL APTT 39.9 H (22.0-30.0) sec ABG pH (7.35-7.45) ABG pCO2 (35-45) mmHg ABG pO2 277 H (83-108) mmHg ABG Total CO2 26 H (19-24) mmol/L ABG O2 Saturation 100.0 H (94-97) % ABG Hematocrit (34.0-46.0) % ABG Sodium (135-146) mmol/L ABG Potassium (3.4-4.5) mmol/L ABG Ionized Calcium (4.5-5.3) mg/dL ABG Glucose (75-99) mg/dL ABG Lactic Acid (0.5-1.6) mmol/L Hemoglobin (13.0-17.5) gm/dL Sodium 132 L (137-145) mmol/L Chloride 108 H (98-107) mmol/L Glucose (74-99) mg/dL POC Glucose (mg/dL) (70-110) mg/dL Calcium 7.6 L (8.4-10.2) mg/dL Magnesium 2.5 H (1.6-2.3) mg/dL Total Protein 4.1 L (6.3-8.2) g/dL Albumin 2.5 L (3.5-5.0) g/dL Arterial Blood Potassium (3.4-4.5) mmol/L Arterial Blood Glucose (75-99) mg/dL Crossmatch 06/11/22 06/11/22 06/11/22 Range/Units 17:09 18:12 18:15 WBC 11.4 H (3.8-10.6) k/uL RBC 3.03 L (4.30-5.90) m/uL Hgb 9.6 L (13.0-17.5) gm/dL Hct 28.2 L (39.0-53.0) % Neutrophils # 9.4 H (1.3-7.7) k/uL APTT (22.0-30.0) sec ABG pH (7.35-7.45) ABG pCO2 (35-45) mmHg ABG pO2 (83-108) mmHg ABG Total CO2 (19-24) mmol/L ABG O2 Saturation (94-97) % ABG Hematocrit (34.0-46.0) % ABG Sodium (135-146) mmol/L ABG Potassium (3.4-4.5) mmol/L ABG Ionized Calcium (4.5-5.3) mg/dL ABG Glucose (75-99) mg/dL ABG Lactic Acid (0.5-1.6) mmol/L Hemoglobin (13.0-17.5) gm/dL Sodium (137-145) mmol/L Chloride (98-107) mmol/L Glucose (74-99) mg/dL POC Glucose (mg/dL) 125 H 135 H (70-110) mg/dL Calcium (8.4-10.2) mg/dL Magnesium (1.6-2.3) mg/dL Total Protein (6.3-8.2) g/dL Albumin (3.5-5.0) g/dL Arterial Blood Potassium (3.4-4.5) mmol/L Arterial Blood Glucose (75-99) mg/dL Crossmatch 06/11/22 06/11/22 06/11/22 Range/Units 19:11 19:50 20:43 WBC (3.8-10.6) k/uL RBC (4.30-5.90) m/uL Hgb (13.0-17.5) gm/dL Hct (39.0-53.0) % Neutrophils # (1.3-7.7) k/uL APTT (22.0-30.0) sec ABG pH (7.35-7.45) ABG pCO2 (35-45) mmHg ABG pO2 (83-108) mmHg ABG Total CO2 (19-24) mmol/L ABG O2 Saturation (94-97) % ABG Hematocrit (34.0-46.0) % ABG Sodium (135-146) mmol/L ABG Potassium (3.4-4.5) mmol/L ABG Ionized Calcium (4.5-5.3) mg/dL ABG Glucose (75-99) mg/dL ABG Lactic Acid (0.5-1.6) mmol/L Hemoglobin (13.0-17.5) gm/dL Sodium (137-145) mmol/L Chloride (98-107) mmol/L Glucose (74-99) mg/dL POC Glucose (mg/dL) 136 H 134 H 131 H (70-110) mg/dL Calcium (8.4-10.2) mg/dL Magnesium (1.6-2.3) mg/dL Total Protein (6.3-8.2) g/dL Albumin (3.5-5.0) g/dL Arterial Blood Potassium (3.4-4.5) mmol/L Arterial Blood Glucose (75-99) mg/dL Crossmatch 06/11/22 06/11/22 06/11/22 Range/Units 20:44 20:45 21:46 WBC 10.8 H (3.8-10.6) k/uL RBC 2.93 L (4.30-5.90) m/uL Hgb 9.3 L (13.0-17.5) gm/dL Hct 27.3 L (39.0-53.0) % Neutrophils # 9.0 H (1.3-7.7) k/uL APTT (22.0-30.0) sec ABG pH (7.35-7.45) ABG pCO2 (35-45) mmHg ABG pO2 196 H (83-108) mmHg ABG Total CO2 26 H (19-24) mmol/L ABG O2 Saturation 99.9 H (94-97) % ABG Hematocrit (34.0-46.0) % ABG Sodium (135-146) mmol/L ABG Potassium (3.4-4.5) mmol/L ABG Ionized Calcium (4.5-5.3) mg/dL ABG Glucose (75-99) mg/dL ABG Lactic Acid (0.5-1.6) mmol/L Hemoglobin (13.0-17.5) gm/dL Sodium (137-145) mmol/L Chloride (98-107) mmol/L Glucose (74-99) mg/dL POC Glucose (mg/dL) 122 H (70-110) mg/dL Calcium (8.4-10.2) mg/dL Magnesium (1.6-2.3) mg/dL Total Protein (6.3-8.2) g/dL Albumin (3.5-5.0) g/dL Arterial Blood Potassium (3.4-4.5) mmol/L Arterial Blood Glucose (75-99) mg/dL Crossmatch 06/11/22 06/11/22 06/12/22 Range/Units 23:00 23:59 00:55 WBC (3.8-10.6) k/uL RBC (4.30-5.90) m/uL Hgb (13.0-17.5) gm/dL Hct (39.0-53.0) % Neutrophils # (1.3-7.7) k/uL APTT (22.0-30.0) sec ABG pH (7.35-7.45) ABG pCO2 (35-45) mmHg ABG pO2 (83-108) mmHg ABG Total CO2 (19-24) mmol/L ABG O2 Saturation (94-97) % ABG Hematocrit (34.0-46.0) % ABG Sodium (135-146) mmol/L ABG Potassium (3.4-4.5) mmol/L ABG Ionized Calcium (4.5-5.3) mg/dL ABG Glucose (75-99) mg/dL ABG Lactic Acid (0.5-1.6) mmol/L Hemoglobin (13.0-17.5) gm/dL Sodium (137-145) mmol/L Chloride (98-107) mmol/L Glucose (74-99) mg/dL POC Glucose (mg/dL) 119 H 121 H 117 H (70-110) mg/dL Calcium (8.4-10.2) mg/dL Magnesium (1.6-2.3) mg/dL Total Protein (6.3-8.2) g/dL Albumin (3.5-5.0) g/dL Arterial Blood Potassium (3.4-4.5) mmol/L Arterial Blood Glucose (75-99) mg/dL Crossmatch 06/12/22 06/12/22 06/12/22 Range/Units 01:46 02:54 04:35 WBC (3.8-10.6) k/uL RBC 2.82 L (4.30-5.90) m/uL Hgb 8.9 L (13.0-17.5) gm/dL Hct 26.5 L (39.0-53.0) % Neutrophils # (1.3-7.7) k/uL APTT (22.0-30.0) sec ABG pH (7.35-7.45) ABG pCO2 (35-45) mmHg ABG pO2 (83-108) mmHg ABG Total CO2 (19-24) mmol/L ABG O2 Saturation (94-97) % ABG Hematocrit (34.0-46.0) % ABG Sodium (135-146) mmol/L ABG Potassium (3.4-4.5) mmol/L ABG Ionized Calcium (4.5-5.3) mg/dL ABG Glucose (75-99) mg/dL ABG Lactic Acid (0.5-1.6) mmol/L Hemoglobin (13.0-17.5) gm/dL Sodium (137-145) mmol/L Chloride (98-107) mmol/L Glucose (74-99) mg/dL POC Glucose (mg/dL) 115 H 112 H (70-110) mg/dL Calcium (8.4-10.2) mg/dL Magnesium (1.6-2.3) mg/dL Total Protein (6.3-8.2) g/dL Albumin (3.5-5.0) g/dL Arterial Blood Potassium (3.4-4.5) mmol/L Arterial Blood Glucose (75-99) mg/dL Crossmatch 06/12/22 06/12/22 Range/Units 04:35 06:11 WBC (3.8-10.6) k/uL RBC (4.30-5.90) m/uL Hgb (13.0-17.5) gm/dL Hct (39.0-53.0) % Neutrophils # (1.3-7.7) k/uL APTT (22.0-30.0) sec ABG pH (7.35-7.45) ABG pCO2 (35-45) mmHg ABG pO2 (83-108) mmHg ABG Total CO2 (19-24) mmol/L ABG O2 Saturation (94-97) % ABG Hematocrit (34.0-46.0) % ABG Sodium (135-146) mmol/L ABG Potassium (3.4-4.5) mmol/L ABG Ionized Calcium (4.5-5.3) mg/dL ABG Glucose (75-99) mg/dL ABG Lactic Acid (0.5-1.6) mmol/L Hemoglobin (13.0-17.5) gm/dL Sodium 133 L (137-145) mmol/L Chloride (98-107) mmol/L Glucose 105 H (74-99) mg/dL POC Glucose (mg/dL) 115 H (70-110) mg/dL Calcium 7.6 L (8.4-10.2) mg/dL Magnesium (1.6-2.3) mg/dL Total Protein 4.5 L (6.3-8.2) g/dL Albumin 2.7 L (3.5-5.0) g/dL Arterial Blood Potassium (3.4-4.5) mmol/L Arterial Blood Glucose (75-99) mg/dL Crossmatch - Imaging and Cardiology Chest x-ray: report reviewed, image reviewed Assessment and Plan Assessment: 1. Coronary artery disease with PCI in December 2021, current heart cath reporting LM 50-55%, IVUS 5.3 mm2, OM3 90%, AM 70%, status post three-vessel coronary artery bypass grafting surgery 2. Cardiomyopathy, EF 30-35%, repeat full echo demonstrates EF 55% 3. Hypertension 4. Hyperlipidemia, treated, cholesterol 167, LDL 103 5. PAD, MICHELLE on the right 0.55, MICHELLE on the left 0.47 6. Syncopal episode 2 7. Current tobacco dependence 8. Current daily EtOH use, 6 pack beer daily, no signs of withdrawal 9. Severe COPD, preoperative FEV1 45% of predicted, 1.64 L Plan: 1. Continue to maximize medical therapy with aspirin, statin, Plavix, and beta james. Will increase metoprolol tartrate 25 mg by mouth twice a day. 2. Wean O2 as tolerated. Encourage incentive spirometry use 10 times every hour while awake. Bronchodilators per pulmonology/critical care medicine. 3. Increase activity, ambulate as tolerated. PT/OT/cardiac rehab consulted. 4. Will monitor daily labs and chest x-rays. Electrolyte replacement per protocol. 5. GI/DVT prophylaxis. 6. Insulin management per internal medicine, patient is a nondiabetic with a preoperative hemoglobin A1c of 6.0%. 7. Pain control with current medication regimen. Toradol has been ordered for additional pain control. 8. Discontinue [place]. Connect Cordis to continuous CVP monitoring. 9. Continue mediastinal and left pleural chest tubes for another [address] to low continuous wall suction -20 cm H2O. 10. Continue Luz catheter for another 24 hours for strict accurate intake and output. Daily weights 11. Continue CIWA, continue to monitor signs for alcohol withdrawal. 12. Discontinue nitroglycerin drip. 13. Keep atrial and ventricular epicardial pacemaker wires in place and connected to bedside backup pacemaker generator on a VVI 50. 14. The importance of risk modification including smoking cessation abdomen reinforced with the patient. 15. More recommendations to follow based on patient's clinical course.
[2022-06-12] MEDS ORDERED: METOPROLOL TARTRATE 12.5 MG TAB PO SCH (09:00)
[2022-06-12] MEDS ORDERED: METOPROLOL TARTRATE 25 MG TAB PO SCH (09:00)
[2022-06-12] MEDS ORDERED: bisacodyL 10 MG SUPP RECTAL PRN (09:00)
[2022-06-12] MEDS ORDERED: MAGNESIUM HYDROXIDE 2,400 MG/10 ML CUP PO PRN (09:00)
[2022-06-12] MEDS: THIAMINE 100 MG TAB PO SCH (09:29)
[2022-06-12] MEDS: FOLIC ACID 1 MG TAB PO SCH (09:29)
[2022-06-12] MEDS: MULTIVITAMINS, THERA 1 EACH TAB PO SCH (09:29)
--- NOTE | 2022-06-12 10:30 | OP ---
OPERATIVE REPORT PREOPERATIVE DIAGNOSIS: Coronary artery disease. POSTOPERATIVE DIAGNOSIS: Coronary artery disease. PROCEDURES PERFORMED: 1. Coronary artery bypass grafting x3 vessels (left internal mammary artery to diagonal artery, saphenous vein graft to obtuse marginal artery 1, saphenous vein graft to posterior descending artery). 2. Endoscopic harvest, right greater saphenous vein. 3. Ligation of left atrial appendage using 35 mm Atriclip. 4. Epiaortic ultrasound. 5. Transesophageal echocardiogram. ASSISTANTS: 1. SHUN Brennan. 2. ROXY Acuna. ANESTHESIA: General. SPECIMEN: None. COMPLICATION: None. INDICATIONS FOR PROCEDURE: The patient is a 51-year-old male with a past medical history significant for coronary artery disease, status post coronary artery stent, congestive heart failure, hyperlipidemia, hypertension, syncope, and current daily alcohol and tobacco use, who originally presented in December of this year with chest pain. Cardiac catheterization was performed and a drug-eluting stent was placed in the obtuse marginal artery branch of the circumflex artery. He was placed on dual antiplatelet therapy. Unfortunately, he continues to smoke and drink daily. For the past several weeks, he has reported worsening fatigue and pain between the shoulder blades along with shortness of breath. He presented to the emergency department last week after a syncopal episode, where he was found to have an abnormal EKG. Cardiac catheterization revealed multivessel coronary artery disease including a left main coronary artery lesion. His ejection fraction at that time was about 30%. A coronary artery bypass was recommended. The risks, benefits, and alternatives of the procedure were discussed with the patient. All of his questions were answered. Consent was obtained. FINDINGS: The left internal mammary artery was a good conduit with brisk flow. The saphenous vein was a good conduit. Of note, the left radial artery was used as his cardiac catheterization access site. The LAD was diminutive and I did not feel it was a good target for bypass. The diagonal artery measured 1.3 mm. It contained diffuse disease. The OM1 was small in diameter and measured 1.3 mm. The posterior descending artery measured 1.5 mm and was the terminal branch of the circumflex artery. DESCRIPTION OF PROCEDURE: The patient was taken to the operating room and placed supine on the operating table. After the induction of general anesthesia, he was prepped and draped in the usual sterile fashion. Preoperative transesophageal echocardiogram confirmed an ejection fraction of about 30% with hypokinesis involving the inferior and septal regions. There was mild aortic insufficiency and mild mitral regurgitation. A median sternotomy was performed. The left internal mammary artery was harvested in the standard fashion taking care to clip all branches. Intravenous heparin was administered. The vessel was transected distally revealing brisk flow. Simultaneously, greater saphenous vein was harvested from the right lower extremity using endoscopic technique. All branches were tied. Both the mammary artery and saphenous vein were good conduits. A pericardial cradle was created. The ascending aorta was palpated. It felt somewhat thickened, but there was no obvious calcific plaque. An epiaortic ultrasound was then performed on the ascending aorta. Again, no calcific plaque was identified, but there was circumferential atheromatous disease. Of note, CT scan of the chest was performed and reviewed prior to surgery, which confirmed no significant calcific disease on the ascending aorta itself. An arterial cannula was placed in the distal ascending aorta. A venous cannula was placed through the right atrial appendage directed into the IVC. Both antegrade and retrograde catheters were placed as well. The patient was then placed on cardiopulmonary bypass with good decompression of the heart. The aortic cross-clamp was applied. Cold blood potassium cardioplegia was delivered in both antegrade and retrograde fashion to achieve arrest of the heart. Of note, cardioplegia was delivered every 15 to 20 minutes while the patient remained under crossclamp. I began by identifying the left atrial appendage. A 35-mm AtriClip was placed across its base to ensure ligation. Next, attention was turned to the inferior wall. The posterior descending artery was identified and dissected free. This appeared to be the terminal branch of the circumflex artery. A small arteriotomy was created. This vessel accepted a 1.0 mm probe. Using saphenous vein in reverse fashion, an end-to-side anastomosis was created. This was performed using a running 7-0 Prolene suture. The graft was hemostatic and had great flow. Next, attention was turned to the lateral wall. The patient had multiple obtuse marginal artery branches, but all were small. The OM1 was small in diameter, but I felt it was amenable for bypass. The OM2 and OM3 were not bypassable. A small arteriotomy was created in the OM 1. This vessel accepted a 1.0 mm probe. Using saphenous vein in a reverse fashion, an end-to-side anastomosis was created. This was performed using a running 7-0 Prolene suture. The graft was hemostatic and had great flow. Finally, attention was turned to the anterior wall. Both the diagonal artery and left anterior descending were identified. The LAD was extremely small in diameter and did not appear to reach the apex of the heart. The diagonal artery was a much better and dominant target and appeared to backfill the LAD. For this reason, I chose to bypass the diagonal artery. A small arteriotomy was created in the diagonal artery. It accepted a 1.0 mm probe. Using the left internal mammary artery, an end-to- side anastomosis was created. This was performed using a running 8-0 Prolene suture. The graft was hemostatic. The mammary pedicle was then tacked down to the anterior surface of the heart. Attention was then turned to the proximal anastomoses. These were both performed in an end-to- side fashion using running 6-0 Prolene suture. Of note, there was atheromatous disease noted at the proximal anastomotic site of the obtuse marginal artery graft. This was reinforced and tacked down using a running 5-0 Prolene suture. 1 L of warm blood was delivered in retrograde fashion. Both lidocaine and magnesium were administered as well. The aortic crossclamp was removed. The vein graft was de-aired in the standard fashion. Distal anastomoses were inspected and appeared to be hemostatic. Temporary atrial and ventricular pacing wires were placed and brought through the skin. The patient was then weaned off cardiopulmonary bypass. He without difficulty. Followup transesophageal echocardiogram confirmed improvement in the left ventricular ejection fraction, especially in the inferior and septal regions. There was no change in valvular pathology. Protamine was administered. There were no adverse reactions. The remaining cannulas were removed. The mediastinum was copiously irrigated with warm saline solution. Again, all surgical sites were inspected and appeared to be hemostatic. Soft tissues were reapproximated over the ascending aorta as well as over the apex of the heart. Chest tubes were placed in both the left pleural space and the mediastinum. These were both secured to the skin using sutures. Due to the patient's lifestyle, I elected to reapproximate the sternum using a combination of [place] cables and titanium plates. In total, 3 [place] cables, two X plates, and a V plate were utilized. A combination of 16 mm, 14 mm, and 12 mm screws were used as well. At the completion of closure, the sternum was well aligned. The remainder of the wound was closed in layers. A sterile dressing was applied. The patient appeared to tolerate the procedure well. There were no immediate complications. He returned to the ICU in critical, but stable condition. He did not receive any intraoperative blood products. SEGUNDO / AILYN: [id number] / MTDD
[2022-06-12 10:43] VITALS: BMI 28.1
[2022-06-12 11:38] LABS: Glucose,Whole Blood 121 mg/dL (70-110)
--- NOTE | 2022-06-12 11:39 | P.PN ---
Subjective Progress Note Date: 06/12/22 Patient is a 51-year-old male with PMH of CAD post stent of the OM in December 2021, systolic CHF with EF 35-40%, hypertension, dyslipidemia that presents the ED or worsening shortness of breath and scapular pain. Patient reports shortness of breath that is progressively getting worse since his stenting in December. Currently he is unable to walk 200 feet without stopping to catch his breath. He denies any orthopnea or lower extremity swelling. He reports scapular pain that has been ongoing over the past week that is worse with exertion, similar to what he had before he underwent stenting in December. Patient also reports that he fell twice. The first time was 2 weeks ago and he hit his head, did not seek medical attention. He fell yesterday, this time he did not hit his head. He is unsure whether he had a syncopal episode or not. He denies any headache, nausea or vomiting, fever or chills, diaphoresis, chest pain, palpitations, changes in urination or bowel habits. No changes in appetite or weight. He denies any dizziness, numbness/weakness/tingling of the extremities. In the ED, his vital signs are stable. CBC showed leukocytosis of 12.2. Coagulation panel was negative. D-dimer was 12.95. CMP showed sodium 129, bicarb of 14, glucose of 110, alkaline phosphatase of 131. Troponin was 0.028, 0.034, 0.035 with EKG showing sinus rhythm and T-wave abnormalities. BNP was 1430. Chest x-ray was negative. CTA chest negative for PE. Patient is admitted for chest pain, rule out acute coronary syndrome with cardiology consultation. Troponins were slowly trending up with EKG showing T-wave abnormalities. Patient was placed on a heparin drip. Cardiac cath showed 50-55% left main, 20-30% LAD, 90% OM3 stenosis. Cardiothoracic surgery consulted for CABG. Plans were arranged for CABG on 06/11/2022. Patient was seen and examined. POD 1 after CABG. CABG x 3 L. internal mammary to diagonal, saphenous to obtuse marginal, saphenous to posterior descending. Extubated last night successfully. He reports generalized chest pain at the site of incision. Nitroglycerin drip discontinued. General: No acute distress Derm: warm, dry Head: atraumatic, normocephalic Eyes: no lid lag, anicteric sclera Mouth: no lip lesion, mucus membranes moist Cardiovascular: S1S2 reg, no murmur, mediastinal chest tube intact Lungs: Clear to auscultation bilaterally. No accessory muscle use, right and left chest tube intact Ext: no gross muscle atrophy, no edema, no contractures Neuro: no focal deficits Psych: alert and oriented x 3 #Acute blood loss anemia #Elevated troponin with history of CAD post stent in December 2021 #Systolic CHF with EF of 30-35% #Possible syncopal episode #Elevated D-dimer #PAD #Hyponatremia Chronic conditions: Hypertension, dyslipidemia, smoker Hemoglobin 8.9. Expected result of surgery. Transfuse if Hg < 7. Daily CBC. Troponins are slowly trending up with EKG showing T-wave abnormalities. Continue ASA, Lipitor, Coreg and Brilinta. Telemetry montoring. Cardiac cath shows 50-55% left main, 20-30% LAD, 90% OM3 stenosis. s/p CABG x 3 L. internal mammary to diagonal, saphenous to obtuse marginal, saphenous to posterior descending on 06/11. Patient presents with exertional shortness of breath. Chest x-ray was negative. He has no lower extremity swelling. Echocardiogram shows EF 30% with global hypokinesis. Continue Coreg, Lasix, Lisinopril and Aldactone. Patient would benefit from AICD. Cardiology on board. Continue Telemetry monitoring to rule out cardiac cause of syncope. Patient be placed on fall precautions. Patient with elevated d-dimer, CT chest is ruled out PE. Venous duplex negative for DVT. Moderate PAD on arterial duplex. Patient needs Vascular surgery outpatient. Patient was sodium of 133. Possibly related to dehydration. Objective - Vital Signs Vital signs: Vital Signs Temp 99.0 F 06/12/22 08:00 Pulse 80 06/12/22 11:00 Resp 19 06/12/22 11:00 BP 109/50 06/11/22 23:00 Pulse Ox 99 06/12/22 11:00 FiO2 100 06/11/22 20:00 Intake & Output 06/11/22 06/12/22 06/12/22 18:59 06:59 18:59 Intake Total 426.211 7321.434 310 Output Total 4205 1206 310 Balance -3789.899 941.434 0 Weight 74.843 kg 79.1 kg 79.1 kg Intake: IV 102 1239 190 ACETAMINOPHEN IV (For NPO 100 ) 1,000 mg In Empty Bag 1 bag @ 400 mls/hr IVPB Q6HR [facility] Rx#:[id number] Albumin Human 5% 250 ml 250 In Empty Bag 1 bag @ 250 mls/hr IVPB Q1HR PRN Rx#: [id number] CO/CI 190 Lactated Ringers 1,000 ml 350 60 @ 20 mls/hr IV .Q24H [facility] Rx#:[id number] Pressure bags 99 30 ceFAZolin 2 gm In Sodium 250 100 Chloride 0.9% 50 ml @ 100 mls/hr IVPB Q8H [facility] Rx#: [id number] Intake, IV Titration 313.101 128.434 Amount ACETAMINOPHEN IV (For NPO 100 ) 1,000 mg In Empty Bag 1 bag @ 400 mls/hr IVPB Q6HR [facility] Rx#:[id number] Clevidipine Butyrate 25 10.667 13.101 mg In Empty Bag 1 bag @ 1 MG/HR 2 mls/hr IV .Q24H [facility] Rx#:[id number] Dexmedetomidine/0.9% NaCl 3.368 37.639 (Pmx) 400 mcg In Empty Bag 1 bag @ Titrate IV . Q0M [facility] Rx#:[id number] Insulin Regular 100 unit 9.578 In Sodium Chloride 0.9% 100 ml @ Per Protocol IV .Q0M [facility] Rx#:[id number] Lactated Ringers 1,000 ml 100 50 @ 20 mls/hr IV .Q24H [facility] Rx#:[id number] Nitroglycerin-D5w Pmx 50 3.0 1.5 mg In Dextrose/Water 1 250ml.bag @ 5 MCG/MIN 1.5 mls/hr IV .Q24H [facility] Rx#: [id number] ceFAZolin 2 gm In Sodium 50 Chloride 0.9% 50 ml @ 100 mls/hr IVPB Q8H [facility] Rx#: [id number] propofoL 1,000 mg In 46.066 16.616 Empty Bag 1 bag @ Titrate IV .Q0M [facility] Rx#: [id number] Oral 780 120 Output: Chest Tube Drainage 195 366 190 Lt pleural 75 86 50 Mediastinal 120 280 140 Urine 2010 840 120 Estimated Blood Loss 1999 Other: Voiding Method Indwelling Catheter Indwelling Catheter ABP, PAP, CO, CI - Last Documented Arterial Blood Pressure 105/41 Pulmonary Artery Pressure 23/7 Cardiac Output 6.2 Cardiac Index 3.4 - Labs CBC & Chem 7: 06/12/22 04:35 06/12/22 04:35 Labs: Abnormal Lab Results - Last 24 Hours (Table) 06/10/22 06/11/22 06/11/22 Range/Units 07:52 09:57 11:23 WBC (3.8-10.6) k/uL RBC (4.30-5.90) m/uL Hgb (13.0-17.5) gm/dL Hct (39.0-53.0) % Neutrophils # (1.3-7.7) k/uL APTT (22.0-30.0) sec ABG pH (7.35-7.45) ABG pCO2 (35-45) mmHg ABG pO2 >420 H >420 H (83-108) mmHg ABG Total CO2 26 H 25 H (19-24) mmol/L ABG O2 Saturation 99.9 H 100.0 H (94-97) % ABG Hematocrit (34.0-46.0) % ABG Sodium 132 L 132 L (135-146) mmol/L ABG Potassium 5.4 H 4.8 H (3.4-4.5) mmol/L ABG Ionized Calcium (4.5-5.3) mg/dL ABG Glucose 112 H (75-99) mg/dL ABG Lactic Acid (0.5-1.6) mmol/L Hemoglobin 11.5 L 11.2 L (13.0-17.5) gm/dL Sodium (137-145) mmol/L Chloride (98-107) mmol/L Glucose (74-99) mg/dL POC Glucose (mg/dL) (70-110) mg/dL Calcium (8.4-10.2) mg/dL Magnesium (1.6-2.3) mg/dL Total Protein (6.3-8.2) g/dL Albumin (3.5-5.0) g/dL Arterial Blood Potassium 5.4 H 4.8 H (3.4-4.5) mmol/L Arterial Blood Glucose 112 H (75-99) mg/dL Crossmatch See Detail 06/11/22 06/11/22 06/11/22 Range/Units 12:00 12:36 13:03 WBC (3.8-10.6) k/uL RBC (4.30-5.90) m/uL Hgb (13.0-17.5) gm/dL Hct (39.0-53.0) % Neutrophils # (1.3-7.7) k/uL APTT (22.0-30.0) sec ABG pH (7.35-7.45) ABG pCO2 (35-45) mmHg ABG pO2 >420 H 301 H 282 H (83-108) mmHg ABG Total CO2 26 H 26 H (19-24) mmol/L ABG O2 Saturation 100.0 H 99.9 H 99.7 H (94-97) % ABG Hematocrit 25 L 26 L 26 L (34.0-46.0) % ABG Sodium 128 L 130 L 132 L (135-146) mmol/L ABG Potassium 5.6 H 5.8 H (3.4-4.5) mmol/L ABG Ionized Calcium 4.0 L 4.2 L 4.3 L (4.5-5.3) mg/dL ABG Glucose 110 H 116 H 117 H (75-99) mg/dL ABG Lactic Acid (0.5-1.6) mmol/L Hemoglobin 8.2 L 8.5 L 8.5 L (13.0-17.5) gm/dL Sodium (137-145) mmol/L Chloride (98-107) mmol/L Glucose (74-99) mg/dL POC Glucose (mg/dL) (70-110) mg/dL Calcium (8.4-10.2) mg/dL Magnesium (1.6-2.3) mg/dL Total Protein (6.3-8.2) g/dL Albumin (3.5-5.0) g/dL Arterial Blood Potassium 5.6 H 5.8 H (3.4-4.5) mmol/L Arterial Blood Glucose 110 H 116 H 117 H (75-99) mg/dL Crossmatch 06/11/22 06/11/22 06/11/22 Range/Units 14:01 15:03 16:14 WBC (3.8-10.6) k/uL RBC 2.87 L (4.30-5.90) m/uL Hgb 8.8 L D (13.0-17.5) gm/dL Hct 26.5 L (39.0-53.0) % Neutrophils # (1.3-7.7) k/uL APTT (22.0-30.0) sec ABG pH 7.32 L (7.35-7.45) ABG pCO2 46 H (35-45) mmHg ABG pO2 327 H >420 H (83-108) mmHg ABG Total CO2 25 H (19-24) mmol/L ABG O2 Saturation 99.8 H 99.9 H (94-97) % ABG Hematocrit 24 L 26 L (34.0-46.0) % ABG Sodium 133 L 134 L (135-146) mmol/L ABG Potassium 5.5 H 4.7 H (3.4-4.5) mmol/L ABG Ionized Calcium 4.3 L (4.5-5.3) mg/dL ABG Glucose 138 H 103 H (75-99) mg/dL ABG Lactic Acid 2.9 H* 1.9 H (0.5-1.6) mmol/L Hemoglobin 7.8 L 8.5 L (13.0-17.5) gm/dL Sodium (137-145) mmol/L Chloride (98-107) mmol/L Glucose (74-99) mg/dL POC Glucose (mg/dL) (70-110) mg/dL Calcium (8.4-10.2) mg/dL Magnesium (1.6-2.3) mg/dL Total Protein (6.3-8.2) g/dL Albumin (3.5-5.0) g/dL Arterial Blood Potassium 5.5 H 4.7 H (3.4-4.5) mmol/L Arterial Blood Glucose 138 H 103 H (75-99) mg/dL Crossmatch 06/11/22 06/11/22 06/11/22 Range/Units 16:14 16:14 16:47 WBC (3.8-10.6) k/uL RBC (4.30-5.90) m/uL Hgb (13.0-17.5) gm/dL Hct (39.0-53.0) % Neutrophils # (1.3-7.7) k/uL APTT 39.9 H (22.0-30.0) sec ABG pH (7.35-7.45) ABG pCO2 (35-45) mmHg ABG pO2 277 H (83-108) mmHg ABG Total CO2 26 H (19-24) mmol/L ABG O2 Saturation 100.0 H (94-97) % ABG Hematocrit (34.0-46.0) % ABG Sodium (135-146) mmol/L ABG Potassium (3.4-4.5) mmol/L ABG Ionized Calcium (4.5-5.3) mg/dL ABG Glucose (75-99) mg/dL ABG Lactic Acid (0.5-1.6) mmol/L Hemoglobin (13.0-17.5) gm/dL Sodium 132 L (137-145) mmol/L Chloride 108 H (98-107) mmol/L Glucose (74-99) mg/dL POC Glucose (mg/dL) (70-110) mg/dL Calcium 7.6 L (8.4-10.2) mg/dL Magnesium 2.5 H (1.6-2.3) mg/dL Total Protein 4.1 L (6.3-8.2) g/dL Albumin 2.5 L (3.5-5.0) g/dL Arterial Blood Potassium (3.4-4.5) mmol/L Arterial Blood Glucose (75-99) mg/dL Crossmatch 06/11/22 06/11/22 06/11/22 Range/Units 17:09 18:12 18:15 WBC 11.4 H (3.8-10.6) k/uL RBC 3.03 L (4.30-5.90) m/uL Hgb 9.6 L (13.0-17.5) gm/dL Hct 28.2 L (39.0-53.0) % Neutrophils # 9.4 H (1.3-7.7) k/uL APTT (22.0-30.0) sec ABG pH (7.35-7.45) ABG pCO2 (35-45) mmHg ABG pO2 (83-108) mmHg ABG Total CO2 (19-24) mmol/L ABG O2 Saturation (94-97) % ABG Hematocrit (34.0-46.0) % ABG Sodium (135-146) mmol/L ABG Potassium (3.4-4.5) mmol/L ABG Ionized Calcium (4.5-5.3) mg/dL ABG Glucose (75-99) mg/dL ABG Lactic Acid (0.5-1.6) mmol/L Hemoglobin (13.0-17.5) gm/dL Sodium (137-145) mmol/L Chloride (98-107) mmol/L Glucose (74-99) mg/dL POC Glucose (mg/dL) 125 H 135 H (70-110) mg/dL Calcium (8.4-10.2) mg/dL Magnesium (1.6-2.3) mg/dL Total Protein (6.3-8.2) g/dL Albumin (3.5-5.0) g/dL Arterial Blood Potassium (3.4-4.5) mmol/L Arterial Blood Glucose (75-99) mg/dL Crossmatch 06/11/22 06/11/22 06/11/22 Range/Units 19:11 19:50 20:43 WBC (3.8-10.6) k/uL RBC (4.30-5.90) m/uL Hgb (13.0-17.5) gm/dL Hct (39.0-53.0) % Neutrophils # (1.3-7.7) k/uL APTT (22.0-30.0) sec ABG pH (7.35-7.45) ABG pCO2 (35-45) mmHg ABG pO2 (83-108) mmHg ABG Total CO2 (19-24) mmol/L ABG O2 Saturation (94-97) % ABG Hematocrit (34.0-46.0) % ABG Sodium (135-146) mmol/L ABG Potassium (3.4-4.5) mmol/L ABG Ionized Calcium (4.5-5.3) mg/dL ABG Glucose (75-99) mg/dL ABG Lactic Acid (0.5-1.6) mmol/L Hemoglobin (13.0-17.5) gm/dL Sodium (137-145) mmol/L Chloride (98-107) mmol/L Glucose (74-99) mg/dL POC Glucose (mg/dL) 136 H 134 H 131 H (70-110) mg/dL Calcium (8.4-10.2) mg/dL Magnesium (1.6-2.3) mg/dL Total Protein (6.3-8.2) g/dL Albumin (3.5-5.0) g/dL Arterial Blood Potassium (3.4-4.5) mmol/L Arterial Blood Glucose (75-99) mg/dL Crossmatch 06/11/22 06/11/22 06/11/22 Range/Units 20:44 20:45 21:46 WBC 10.8 H (3.8-10.6) k/uL RBC 2.93 L (4.30-5.90) m/uL Hgb 9.3 L (13.0-17.5) gm/dL Hct 27.3 L (39.0-53.0) % Neutrophils # 9.0 H (1.3-7.7) k/uL APTT (22.0-30.0) sec ABG pH (7.35-7.45) ABG pCO2 (35-45) mmHg ABG pO2 196 H (83-108) mmHg ABG Total CO2 26 H (19-24) mmol/L ABG O2 Saturation 99.9 H (94-97) % ABG Hematocrit (34.0-46.0) % ABG Sodium (135-146) mmol/L ABG Potassium (3.4-4.5) mmol/L ABG Ionized Calcium (4.5-5.3) mg/dL ABG Glucose (75-99) mg/dL ABG Lactic Acid (0.5-1.6) mmol/L Hemoglobin (13.0-17.5) gm/dL Sodium (137-145) mmol/L Chloride (98-107) mmol/L Glucose (74-99) mg/dL POC Glucose (mg/dL) 122 H (70-110) mg/dL Calcium (8.4-10.2) mg/dL Magnesium (1.6-2.3) mg/dL Total Protein (6.3-8.2) g/dL Albumin (3.5-5.0) g/dL Arterial Blood Potassium (3.4-4.5) mmol/L Arterial Blood Glucose (75-99) mg/dL Crossmatch 06/11/22 06/11/22 06/12/22 Range/Units 23:00 23:59 00:55 WBC (3.8-10.6) k/uL RBC (4.30-5.90) m/uL Hgb (13.0-17.5) gm/dL Hct (39.0-53.0) % Neutrophils # (1.3-7.7) k/uL APTT (22.0-30.0) sec ABG pH (7.35-7.45) ABG pCO2 (35-45) mmHg ABG pO2 (83-108) mmHg ABG Total CO2 (19-24) mmol/L ABG O2 Saturation (94-97) % ABG Hematocrit (34.0-46.0) % ABG Sodium (135-146) mmol/L ABG Potassium (3.4-4.5) mmol/L ABG Ionized Calcium (4.5-5.3) mg/dL ABG Glucose (75-99) mg/dL ABG Lactic Acid (0.5-1.6) mmol/L Hemoglobin (13.0-17.5) gm/dL Sodium (137-145) mmol/L Chloride (98-107) mmol/L Glucose (74-99) mg/dL POC Glucose (mg/dL) 119 H 121 H 117 H (70-110) mg/dL Calcium (8.4-10.2) mg/dL Magnesium (1.6-2.3) mg/dL Total Protein (6.3-8.2) g/dL Albumin (3.5-5.0) g/dL Arterial Blood Potassium (3.4-4.5) mmol/L Arterial Blood Glucose (75-99) mg/dL Crossmatch 06/12/22 06/12/22 06/12/22 Range/Units 01:46 02:54 04:35 WBC (3.8-10.6) k/uL RBC 2.82 L (4.30-5.90) m/uL Hgb 8.9 L (13.0-17.5) gm/dL Hct 26.5 L (39.0-53.0) % Neutrophils # (1.3-7.7) k/uL APTT (22.0-30.0) sec ABG pH (7.35-7.45) ABG pCO2 (35-45) mmHg ABG pO2 (83-108) mmHg ABG Total CO2 (19-24) mmol/L ABG O2 Saturation (94-97) % ABG Hematocrit (34.0-46.0) % ABG Sodium (135-146) mmol/L ABG Potassium (3.4-4.5) mmol/L ABG Ionized Calcium (4.5-5.3) mg/dL ABG Glucose (75-99) mg/dL ABG Lactic Acid (0.5-1.6) mmol/L Hemoglobin (13.0-17.5) gm/dL Sodium (137-145) mmol/L Chloride (98-107) mmol/L Glucose (74-99) mg/dL POC Glucose (mg/dL) 115 H 112 H (70-110) mg/dL Calcium (8.4-10.2) mg/dL Magnesium (1.6-2.3) mg/dL Total Protein (6.3-8.2) g/dL Albumin (3.5-5.0) g/dL Arterial Blood Potassium (3.4-4.5) mmol/L Arterial Blood Glucose (75-99) mg/dL Crossmatch 06/12/22 06/12/22 Range/Units 04:35 06:11 WBC (3.8-10.6) k/uL RBC (4.30-5.90) m/uL Hgb (13.0-17.5) gm/dL Hct (39.0-53.0) % Neutrophils # (1.3-7.7) k/uL APTT (22.0-30.0) sec ABG pH (7.35-7.45) ABG pCO2 (35-45) mmHg ABG pO2 (83-108) mmHg ABG Total CO2 (19-24) mmol/L ABG O2 Saturation (94-97) % ABG Hematocrit (34.0-46.0) % ABG Sodium (135-146) mmol/L ABG Potassium (3.4-4.5) mmol/L ABG Ionized Calcium (4.5-5.3) mg/dL ABG Glucose (75-99) mg/dL ABG Lactic Acid (0.5-1.6) mmol/L Hemoglobin (13.0-17.5) gm/dL Sodium 133 L (137-145) mmol/L Chloride (98-107) mmol/L Glucose 105 H (74-99) mg/dL POC Glucose (mg/dL) 115 H (70-110) mg/dL Calcium 7.6 L (8.4-10.2) mg/dL Magnesium (1.6-2.3) mg/dL Total Protein 4.5 L (6.3-8.2) g/dL Albumin 2.7 L (3.5-5.0) g/dL Arterial Blood Potassium (3.4-4.5) mmol/L Arterial Blood Glucose (75-99) mg/dL Crossmatch
[2022-06-12] MEDS ORDERED: DEXTROSE 50% SYRINGE 50 ML IVP PRN ×2 (13:16)
--- NOTE | 2022-06-12 13:47 | P.PN ---
Subjective Progress Note Date: 06/12/22 Principal diagnosis: Status post CABG 3 postoperative day #1 Patient is now status post CABG 3 with left internal mammary artery to the diagonal coronary artery, a reverse greater saphenous vein graft to the obtuse marginal coronary artery and a reverse greater saphenous vein graft to the posterior descending coronary artery. Endoscopic vein harvest of the right lower extremity. Ligation of the left atrial appendage using a 35 mm Atriclip and an intraoperative transesophageal echocardiogram performed by anesthesia. Patient was on mechanical ventilation last night, he arrived rather related to the ICU, I manage his ventilator settings overnight, and shortly after I was made aware of the patient, reviewed his postoperative chest x-ray at home, I was updated on his blood gases, his ventilator settings were adjusted, and shortly after the patient was extubated uneventfully. Patient was extubated at 8:54 PM last evening. Presently on 2 L nasal cannula, O2 sats is 95%. He is hemodynamically stable, not requiring any inotropes or any pressors. Continues to have mediastinal and left pleural chest tube, on low continuous wall suction, no air leak noted. Chest x-ray showed minimal bibasilar atelectasis. His cardiac index today is 3.4. PA pressures 23/3 and his cardiac output is 6.2. Labs are basically unremarkable, hemoglobin is 8.9 otherwise labs are un remarkable. Objective - Vital Signs Vital signs: Vital Signs Temp 98.4 F 06/12/22 12:00 Pulse 92 06/12/22 13:00 Resp 20 06/12/22 13:00 BP 107/59 06/12/22 13:00 Pulse Ox 94 L 06/12/22 13:00 FiO2 100 06/11/22 20:00 Intake & Output 06/11/22 06/12/22 06/12/22 18:59 06:59 18:59 Intake Total 503.852 4766.434 388 Output Total 4205 1206 450 Balance -3789.899 941.434 -62 Weight 74.843 kg 79.1 kg 79.1 kg Intake: IV 102 1239 268 ACETAMINOPHEN IV (For NPO 100 ) 1,000 mg In Empty Bag 1 bag @ 400 mls/hr IVPB Q6HR [facility] Rx#:[id number] Albumin Human 5% 250 ml 250 In Empty Bag 1 bag @ 250 mls/hr IVPB Q1HR PRN Rx#: [id number] CO/CI 190 Lactated Ringers 1,000 ml 350 120 @ 20 mls/hr IV .Q24H [facility] Rx#:[id number] Pressure bags 99 48 ceFAZolin 2 gm In Sodium 250 100 Chloride 0.9% 50 ml @ 100 mls/hr IVPB Q8H [facility] Rx#: [id number] Intake, IV Titration 313.101 128.434 Amount ACETAMINOPHEN IV (For NPO 100 ) 1,000 mg In Empty Bag 1 bag @ 400 mls/hr IVPB Q6HR [facility] Rx#:[id number] Clevidipine Butyrate 25 10.667 13.101 mg In Empty Bag 1 bag @ 1 MG/HR 2 mls/hr IV .Q24H [facility] Rx#:[id number] Dexmedetomidine/0.9% NaCl 3.368 37.639 (Pmx) 400 mcg In Empty Bag 1 bag @ Titrate IV . Q0M [facility] Rx#:[id number] Insulin Regular 100 unit 9.578 In Sodium Chloride 0.9% 100 ml @ Per Protocol IV .Q0M [facility] Rx#:[id number] Lactated Ringers 1,000 ml 100 50 @ 20 mls/hr IV .Q24H [facility] Rx#:[id number] Nitroglycerin-D5w Pmx 50 3.0 1.5 mg In Dextrose/Water 1 250ml.bag @ 5 MCG/MIN 1.5 mls/hr IV .Q24H [facility] Rx#: [id number] ceFAZolin 2 gm In Sodium 50 Chloride 0.9% 50 ml @ 100 mls/hr IVPB Q8H [facility] Rx#: [id number] propofoL 1,000 mg In 46.066 16.616 Empty Bag 1 bag @ Titrate IV .Q0M [facility] Rx#: [id number] Oral 780 120 Output: Chest Tube Drainage 195 366 250 Lt pleural 75 86 70 Mediastinal 120 280 180 Urine 2010 840 200 Estimated Blood Loss 1999 Other: Voiding Method Indwelling Catheter Indwelling Catheter Indwelling Catheter ABP, PAP, CO, CI - Last Documented Arterial Blood Pressure 105/41 Pulmonary Artery Pressure 23/7 Cardiac Output 6.2 Cardiac Index 3.4 - Exam Physical Exam: Revealed 51-year-old white male in no distress, sitting at a bedside recliner. On 2 L nasal cannula. Head: Atraumatic, normocephalic. HEENT:[Neck is supple.] [No neck masses.] [No thyromegaly.] [No JVD.] Chest: [Clear throughout, no crackles, no rhonchi, no wheezes.] Mediastinal and pleural chest tubes were noted. Cardiac Exam: [Normal S1 and S2, no S3 gallop, no murmur.] Positive pericardial rub. Abdomen: [Soft, nontender, no megaly, no rebound, no guarding, normal bowel sounds.] Extremities: [No clubbing, no edema, no cyanosis.] Neurological Exam: [No focal neurologic deficit.] Alert oriented 3. Psychiatric: Normal mood affect and normal mental status examination. Skin: No rashes. - Labs CBC & Chem 7: 06/12/22 04:35 06/12/22 04:35 Labs: Abnormal Lab Results - Last 24 Hours (Table) 06/10/22 06/11/22 06/11/22 Range/Units 07:52 09:57 11:23 WBC (3.8-10.6) k/uL RBC (4.30-5.90) m/uL Hgb (13.0-17.5) gm/dL Hct (39.0-53.0) % Neutrophils # (1.3-7.7) k/uL APTT (22.0-30.0) sec ABG pH (7.35-7.45) ABG pCO2 (35-45) mmHg ABG pO2 >420 H >420 H (83-108) mmHg ABG Total CO2 26 H 25 H (19-24) mmol/L ABG O2 Saturation 99.9 H 100.0 H (94-97) % ABG Hematocrit (34.0-46.0) % ABG Sodium 132 L 132 L (135-146) mmol/L ABG Potassium 5.4 H 4.8 H (3.4-4.5) mmol/L ABG Ionized Calcium (4.5-5.3) mg/dL ABG Glucose 112 H (75-99) mg/dL ABG Lactic Acid (0.5-1.6) mmol/L Hemoglobin 11.5 L 11.2 L (13.0-17.5) gm/dL Sodium (137-145) mmol/L Chloride (98-107) mmol/L Glucose (74-99) mg/dL POC Glucose (mg/dL) (70-110) mg/dL Calcium (8.4-10.2) mg/dL Magnesium (1.6-2.3) mg/dL Total Protein (6.3-8.2) g/dL Albumin (3.5-5.0) g/dL Arterial Blood Potassium 5.4 H 4.8 H (3.4-4.5) mmol/L Arterial Blood Glucose 112 H (75-99) mg/dL Crossmatch See Detail 06/11/22 06/11/22 06/11/22 Range/Units 12:00 12:36 13:03 WBC (3.8-10.6) k/uL RBC (4.30-5.90) m/uL Hgb (13.0-17.5) gm/dL Hct (39.0-53.0) % Neutrophils # (1.3-7.7) k/uL APTT (22.0-30.0) sec ABG pH (7.35-7.45) ABG pCO2 (35-45) mmHg ABG pO2 >420 H 301 H 282 H (83-108) mmHg ABG Total CO2 26 H 26 H (19-24) mmol/L ABG O2 Saturation 100.0 H 99.9 H 99.7 H (94-97) % ABG Hematocrit 25 L 26 L 26 L (34.0-46.0) % ABG Sodium 128 L 130 L 132 L (135-146) mmol/L ABG Potassium 5.6 H 5.8 H (3.4-4.5) mmol/L ABG Ionized Calcium 4.0 L 4.2 L 4.3 L (4.5-5.3) mg/dL ABG Glucose 110 H 116 H 117 H (75-99) mg/dL ABG Lactic Acid (0.5-1.6) mmol/L Hemoglobin 8.2 L 8.5 L 8.5 L (13.0-17.5) gm/dL Sodium (137-145) mmol/L Chloride (98-107) mmol/L Glucose (74-99) mg/dL POC Glucose (mg/dL) (70-110) mg/dL Calcium (8.4-10.2) mg/dL Magnesium (1.6-2.3) mg/dL Total Protein (6.3-8.2) g/dL Albumin (3.5-5.0) g/dL Arterial Blood Potassium 5.6 H 5.8 H (3.4-4.5) mmol/L Arterial Blood Glucose 110 H 116 H 117 H (75-99) mg/dL Crossmatch 06/11/22 06/11/22 06/11/22 Range/Units 14:01 15:03 16:14 WBC (3.8-10.6) k/uL RBC 2.87 L (4.30-5.90) m/uL Hgb 8.8 L D (13.0-17.5) gm/dL Hct 26.5 L (39.0-53.0) % Neutrophils # (1.3-7.7) k/uL APTT (22.0-30.0) sec ABG pH 7.32 L (7.35-7.45) ABG pCO2 46 H (35-45) mmHg ABG pO2 327 H >420 H (83-108) mmHg ABG Total CO2 25 H (19-24) mmol/L ABG O2 Saturation 99.8 H 99.9 H (94-97) % ABG Hematocrit 24 L 26 L (34.0-46.0) % ABG Sodium 133 L 134 L (135-146) mmol/L ABG Potassium 5.5 H 4.7 H (3.4-4.5) mmol/L ABG Ionized Calcium 4.3 L (4.5-5.3) mg/dL ABG Glucose 138 H 103 H (75-99) mg/dL ABG Lactic Acid 2.9 H* 1.9 H (0.5-1.6) mmol/L Hemoglobin 7.8 L 8.5 L (13.0-17.5) gm/dL Sodium (137-145) mmol/L Chloride (98-107) mmol/L Glucose (74-99) mg/dL POC Glucose (mg/dL) (70-110) mg/dL Calcium (8.4-10.2) mg/dL Magnesium (1.6-2.3) mg/dL Total Protein (6.3-8.2) g/dL Albumin (3.5-5.0) g/dL Arterial Blood Potassium 5.5 H 4.7 H (3.4-4.5) mmol/L Arterial Blood Glucose 138 H 103 H (75-99) mg/dL Crossmatch 06/11/22 06/11/22 06/11/22 Range/Units 16:14 16:14 16:47 WBC (3.8-10.6) k/uL RBC (4.30-5.90) m/uL Hgb (13.0-17.5) gm/dL Hct (39.0-53.0) % Neutrophils # (1.3-7.7) k/uL APTT 39.9 H (22.0-30.0) sec ABG pH (7.35-7.45) ABG pCO2 (35-45) mmHg ABG pO2 277 H (83-108) mmHg ABG Total CO2 26 H (19-24) mmol/L ABG O2 Saturation 100.0 H (94-97) % ABG Hematocrit (34.0-46.0) % ABG Sodium (135-146) mmol/L ABG Potassium (3.4-4.5) mmol/L ABG Ionized Calcium (4.5-5.3) mg/dL ABG Glucose (75-99) mg/dL ABG Lactic Acid (0.5-1.6) mmol/L Hemoglobin (13.0-17.5) gm/dL Sodium 132 L (137-145) mmol/L Chloride 108 H (98-107) mmol/L Glucose (74-99) mg/dL POC Glucose (mg/dL) (70-110) mg/dL Calcium 7.6 L (8.4-10.2) mg/dL Magnesium 2.5 H (1.6-2.3) mg/dL Total Protein 4.1 L (6.3-8.2) g/dL Albumin 2.5 L (3.5-5.0) g/dL Arterial Blood Potassium (3.4-4.5) mmol/L Arterial Blood Glucose (75-99) mg/dL Crossmatch 06/11/22 06/11/22 06/11/22 Range/Units 17:09 18:12 18:15 WBC 11.4 H (3.8-10.6) k/uL RBC 3.03 L (4.30-5.90) m/uL Hgb 9.6 L (13.0-17.5) gm/dL Hct 28.2 L (39.0-53.0) % Neutrophils # 9.4 H (1.3-7.7) k/uL APTT (22.0-30.0) sec ABG pH (7.35-7.45) ABG pCO2 (35-45) mmHg ABG pO2 (83-108) mmHg ABG Total CO2 (19-24) mmol/L ABG O2 Saturation (94-97) % ABG Hematocrit (34.0-46.0) % ABG Sodium (135-146) mmol/L ABG Potassium (3.4-4.5) mmol/L ABG Ionized Calcium (4.5-5.3) mg/dL ABG Glucose (75-99) mg/dL ABG Lactic Acid (0.5-1.6) mmol/L Hemoglobin (13.0-17.5) gm/dL Sodium (137-145) mmol/L Chloride (98-107) mmol/L Glucose (74-99) mg/dL POC Glucose (mg/dL) 125 H 135 H (70-110) mg/dL Calcium (8.4-10.2) mg/dL Magnesium (1.6-2.3) mg/dL Total Protein (6.3-8.2) g/dL Albumin (3.5-5.0) g/dL Arterial Blood Potassium (3.4-4.5) mmol/L Arterial Blood Glucose (75-99) mg/dL Crossmatch 06/11/22 06/11/22 06/11/22 Range/Units 19:11 19:50 20:43 WBC (3.8-10.6) k/uL RBC (4.30-5.90) m/uL Hgb (13.0-17.5) gm/dL Hct (39.0-53.0) % Neutrophils # (1.3-7.7) k/uL APTT (22.0-30.0) sec ABG pH (7.35-7.45) ABG pCO2 (35-45) mmHg ABG pO2 (83-108) mmHg ABG Total CO2 (19-24) mmol/L ABG O2 Saturation (94-97) % ABG Hematocrit (34.0-46.0) % ABG Sodium (135-146) mmol/L ABG Potassium (3.4-4.5) mmol/L ABG Ionized Calcium (4.5-5.3) mg/dL ABG Glucose (75-99) mg/dL ABG Lactic Acid (0.5-1.6) mmol/L Hemoglobin (13.0-17.5) gm/dL Sodium (137-145) mmol/L Chloride (98-107) mmol/L Glucose (74-99) mg/dL POC Glucose (mg/dL) 136 H 134 H 131 H (70-110) mg/dL Calcium (8.4-10.2) mg/dL Magnesium (1.6-2.3) mg/dL Total Protein (6.3-8.2) g/dL Albumin (3.5-5.0) g/dL Arterial Blood Potassium (3.4-4.5) mmol/L Arterial Blood Glucose (75-99) mg/dL Crossmatch 06/11/22 06/11/22 06/11/22 Range/Units 20:44 20:45 21:46 WBC 10.8 H (3.8-10.6) k/uL RBC 2.93 L (4.30-5.90) m/uL Hgb 9.3 L (13.0-17.5) gm/dL Hct 27.3 L (39.0-53.0) % Neutrophils # 9.0 H (1.3-7.7) k/uL APTT (22.0-30.0) sec ABG pH (7.35-7.45) ABG pCO2 (35-45) mmHg ABG pO2 196 H (83-108) mmHg ABG Total CO2 26 H (19-24) mmol/L ABG O2 Saturation 99.9 H (94-97) % ABG Hematocrit (34.0-46.0) % ABG Sodium (135-146) mmol/L ABG Potassium (3.4-4.5) mmol/L ABG Ionized Calcium (4.5-5.3) mg/dL ABG Glucose (75-99) mg/dL ABG Lactic Acid (0.5-1.6) mmol/L Hemoglobin (13.0-17.5) gm/dL Sodium (137-145) mmol/L Chloride (98-107) mmol/L Glucose (74-99) mg/dL POC Glucose (mg/dL) 122 H (70-110) mg/dL Calcium (8.4-10.2) mg/dL Magnesium (1.6-2.3) mg/dL Total Protein (6.3-8.2) g/dL Albumin (3.5-5.0) g/dL Arterial Blood Potassium (3.4-4.5) mmol/L Arterial Blood Glucose (75-99) mg/dL Crossmatch 06/11/22 06/11/22 06/12/22 Range/Units 23:00 23:59 00:55 WBC (3.8-10.6) k/uL RBC (4.30-5.90) m/uL Hgb (13.0-17.5) gm/dL Hct (39.0-53.0) % Neutrophils # (1.3-7.7) k/uL APTT (22.0-30.0) sec ABG pH (7.35-7.45) ABG pCO2 (35-45) mmHg ABG pO2 (83-108) mmHg ABG Total CO2 (19-24) mmol/L ABG O2 Saturation (94-97) % ABG Hematocrit (34.0-46.0) % ABG Sodium (135-146) mmol/L ABG Potassium (3.4-4.5) mmol/L ABG Ionized Calcium (4.5-5.3) mg/dL ABG Glucose (75-99) mg/dL ABG Lactic Acid (0.5-1.6) mmol/L Hemoglobin (13.0-17.5) gm/dL Sodium (137-145) mmol/L Chloride (98-107) mmol/L Glucose (74-99) mg/dL POC Glucose (mg/dL) 119 H 121 H 117 H (70-110) mg/dL Calcium (8.4-10.2) mg/dL Magnesium (1.6-2.3) mg/dL Total Protein (6.3-8.2) g/dL Albumin (3.5-5.0) g/dL Arterial Blood Potassium (3.4-4.5) mmol/L Arterial Blood Glucose (75-99) mg/dL Crossmatch 06/12/22 06/12/22 06/12/22 Range/Units 01:46 02:54 04:35 WBC (3.8-10.6) k/uL RBC 2.82 L (4.30-5.90) m/uL Hgb 8.9 L (13.0-17.5) gm/dL Hct 26.5 L (39.0-53.0) % Neutrophils # (1.3-7.7) k/uL APTT (22.0-30.0) sec ABG pH (7.35-7.45) ABG pCO2 (35-45) mmHg ABG pO2 (83-108) mmHg ABG Total CO2 (19-24) mmol/L ABG O2 Saturation (94-97) % ABG Hematocrit (34.0-46.0) % ABG Sodium (135-146) mmol/L ABG Potassium (3.4-4.5) mmol/L ABG Ionized Calcium (4.5-5.3) mg/dL ABG Glucose (75-99) mg/dL ABG Lactic Acid (0.5-1.6) mmol/L Hemoglobin (13.0-17.5) gm/dL Sodium (137-145) mmol/L Chloride (98-107) mmol/L Glucose (74-99) mg/dL POC Glucose (mg/dL) 115 H 112 H (70-110) mg/dL Calcium (8.4-10.2) mg/dL Magnesium (1.6-2.3) mg/dL Total Protein (6.3-8.2) g/dL Albumin (3.5-5.0) g/dL Arterial Blood Potassium (3.4-4.5) mmol/L Arterial Blood Glucose (75-99) mg/dL Crossmatch 06/12/22 06/12/22 06/12/22 Range/Units 04:35 06:11 11:36 WBC (3.8-10.6) k/uL RBC (4.30-5.90) m/uL Hgb (13.0-17.5) gm/dL Hct (39.0-53.0) % Neutrophils # (1.3-7.7) k/uL APTT (22.0-30.0) sec ABG pH (7.35-7.45) ABG pCO2 (35-45) mmHg ABG pO2 (83-108) mmHg ABG Total CO2 (19-24) mmol/L ABG O2 Saturation (94-97) % ABG Hematocrit (34.0-46.0) % ABG Sodium (135-146) mmol/L ABG Potassium (3.4-4.5) mmol/L ABG Ionized Calcium (4.5-5.3) mg/dL ABG Glucose (75-99) mg/dL ABG Lactic Acid (0.5-1.6) mmol/L Hemoglobin (13.0-17.5) gm/dL Sodium 133 L (137-145) mmol/L Chloride (98-107) mmol/L Glucose 105 H (74-99) mg/dL POC Glucose (mg/dL) 115 H 121 H (70-110) mg/dL Calcium 7.6 L (8.4-10.2) mg/dL Magnesium (1.6-2.3) mg/dL Total Protein 4.5 L (6.3-8.2) g/dL Albumin 2.7 L (3.5-5.0) g/dL Arterial Blood Potassium (3.4-4.5) mmol/L Arterial Blood Glucose (75-99) mg/dL Crossmatch Assessment and Plan Assessment: Impression: Status post CABG, postoperative day #1 Severe cardiomyopathy and LV dysfunction with ejection fraction of 30-35% Dyslipidemia History of syncope Tobacco dependence syndrome Severe COPD FEV1 of 45% Postoperative atelectasis, expected Recommendation: Continue supportive care measures Continue aspirin statins and Plavix and beta blockers Continue oxygen and titrate accordingly Continue incentive spirometry GI and DVT prophylaxis Insulin for diabetes Pain control measures Discontinue unnecessary catheters and lines Continue mediastinal and left pleural chest tubes for the next 24 hours Continue CIWA protocol We will continue to monitor in the ICU. Will follow. Early ambulation. Time with Patient: Less than 30
[2022-06-12] MEDS: METOPROLOL TARTRATE 25 MG TAB PO SCH ×3 (15:56→23:58)
[2022-06-12 16:51] LABS: Glucose,Whole Blood 83 mg/dL (70-110)
[2022-06-12] MEDS: INSULIN ASPART (NovoLOG) 100 UNIT/ML VIAL SQ SCH ×2 (17:21→20:20)
[2022-06-12] MEDS: LACTATED RINGERS 1,000 ML IV SCH (17:21)
[2022-06-12 20:09] LABS: Glucose,Whole Blood 141 mg/dL (70-110)
[2022-06-12] MEDS: SENNOSIDES-DOCUSATE SODIUM 1 EACH TAB PO SCH (20:15)
[2022-06-13] MEDS: HYDROcodone/APAP 5-325MG 1 EACH TAB PO PRN ×4 (01:18→20:36)
[2022-06-13 06:26] LABS: Glucose,Whole Blood 105 mg/dL (70-110)
[2022-06-13] MEDS: INSULIN ASPART (NovoLOG) 100 UNIT/ML VIAL SQ SCH ×4 (06:26→20:37)
[2022-06-13] MEDS: KETOROLAC 15 MG/ML 1 ML VIAL IVP SCH (06:31)
[2022-06-13 07:01] LABS: Basophils % (A) 1 %; Eosinophils % (A) 0 %; HGB 8.8 gm/dL (13.0-17.5); Lymphocytes # (A) 0.6 k/uL (1.0-4.8); Lymphocytes % (A) 10 %; MCH 31.9 pg (25.0-35.0); MCHC 33.7 g/dL (31.0-37.0); MCV 94.7 fL (80.0-100.0); Mean Platelet Volume 8.3; Monocytes # (A) 0.4 k/uL (0-1.0); Monocytes % (A) 6 %; Neutrophils # (A) 5.1 k/uL (1.3-7.7); Neutrophils % (A) 81 %; Platelet Count 194 k/uL (150-450); RBC 2.75 m/uL (4.30-5.90); WBC 6.2 k/uL (3.8-10.6)
[2022-06-13 07:39] LABS: Albumin 3.3 g/dL (3.5-5.0); Calcium 8.2 mg/dL (8.4-10.2); Potassium 4.3 mmol/L (3.5-5.1); Total Bilirubin 0.4 mg/dL (0.2-1.3); Total Protein 5.4 g/dL (6.3-8.2)
[2022-06-13] MEDS: IPRATROPIUM-ALBUTEROL 3 ML NEB INHALATION SCH ×4 (07:56→20:56)
--- NOTE | 2022-06-13 08:05 | P.PN ---
Subjective HISTORY OF PRESENTING ILLNESS Progress Note Date: 06/10/22 This is a 51 year old male with a past medical history of hypertension, nicotine dependence, daily alcohol use, coronary artery disease with NSTEMI in 12/2021 S/p PCI proximal OM3, ischemic cardiomyopathy, dyslipidemia. He follows with Dr. Mock. We're consulted for chest pain. Patient presented to the hospital on 06/02/2022 with symptoms of shortness of breath and chest pain. Smooth delta continued to have chest discomfort and recommend cardiac catheterization. Echocardiogram revealed EF 3035 percent. Patient underwent cardiac catheterization with Dr. Mock on 06/04/2022 which revealed coronary artery disease with 50-55% left main stenosis with minimal luminal area 5.3mm2, mild 20-30% LAD stenosis, mild luminal irregularities of a dominant circumflex, OM3 90% stenosis, normal left sided filling pressures. CT surgery was consulted for CABG evaluation. Limited echocardiogram revealed EF of 55%, no obvious regional wall motion abnormalities, trace MR, mild left ear with a peak gradient of 19 mmHg and a mean gradient of 9 mmHg and mild aortic regurgitation. 06/09/2022 Patient was seen and examined sitting up at the side of the bed. He just returned from a walk around the unit. He denies any shortness of breath but does seem to be a bit winded to me. He is scheduled to undergo coronary artery bypass grafting surgery on June 11. Blood pressure has been elevated. He is currently on aspirin 81 mg daily, atorvastatin 80 mg daily at bedtime, carvedilol 6.25 mg by mouth twice a day, a 640 mg daily, Aldactone 25 mg daily and lisinopril 10 mg by mouth daily. He is maintaining sinus mechanism with heart rate in the 60s to 70s with occasional PVCs. He denies any chest discomfort, palpitations, dizziness or lightheadedness. 06/10/2022 Patient was seen and examined sitting up side of the bed. He is overall feeling well. He denies any shortness of breath or chest discomfort. His ambulating without difficulties. Blood pressure is better controlled however his JOSÉ inhibitor has some placed on hold by CT surgery preoperatively. He is scheduled to undergo coronary artery bypass grafting surgery tomorrow. 06/12 Patient seen and examined. Patient underwent bypass yesterday and has been doing well. Off of any pressors. Still has chest tubes in place. Admits to mild discomfort around the incision however no chest pain or pressure. No s hortness of breath. 06/13 Patient seen and examined. Patient admits he was able to walk the halls however feels like he may have overdone it. Denies any chest pain or pressure. Denies any lightheadedness. Has been eating someone and is off of any vasopressors. Blood pressures minimally higher and has been tolerating metoprolol well. PHYSICAL EXAMINATION Vital signs reviewed. CONSTITUTIONAL: No apparent distress. HEENT: Head is normocephalic. Pupils are equal, round. Sclerae anicteric. Mucous membranes of the mouth are moist. No JVD. No carotid bruit. CHEST EXAMINATION: Lungs are clear to auscultation. No chest wall tenderness is noted on palpation or with deep breathing. HEART EXAMINATION: Regular rate and rhythm. S1, S2 heard. No murmurs, gallops or rub. ABDOMEN: Soft, nontender. Positive bowel sounds. EXTREMITIES: 2+ peripheral pulses, no lower extremity edema and no calf tend erness. NEUROLOGIC EXAMINATION: Patient is awake, alert and oriented x3. Assessment CAD s/p CABG 06/11 Coronary artery disease s/p prior PCI to OM3 in 12/2021 Hypertension Dyslipidemia Ischemic cardiomyopathy EF 3035 percent Chronic tobacco use Daily alcohol use Chest pain, shortness of breath Plan: Continue aspirin, Plavix, metoprolol. Attempt to optimize heart failure regimen as able and we will add losartan 12.5 mg daily. Continue with supportive care Appears to be progressing well. Objective - Vital Signs Vital signs: Vital Signs Temp 98.3 F 06/13/22 04:00 Pulse 92 06/13/22 07:56 Resp 06/13/22 07:00 BP 143/68 06/13/22 07:00 Pulse Ox 92 L 06/13/22 07:59 FiO2 21 06/13/22 07:59 Intake & Output 06/12/22 06/13/22 06/13/22 18:59 06:59 18:59 Intake Total 943 399 Output Total 820 490 Balance 123 -91 Weight 79.1 kg 80.3 kg Intake: IV 383 299 Lactated Ringers 1,000 ml 220 260 @ 20 mls/hr IV .Q24H [facility] Rx#:[id number] Pressure bags 63 39 ceFAZolin 2 gm In Sodium 100 Chloride 0.9% 50 ml @ 100 mls/hr IVPB Q8H [facility] Rx#: [id number] Oral 560 100 Output: Chest Tube Drainage 360 60 Lt pleural 90 10 Mediastinal 270 50 Urine 460 430 Emesis 0 Other: Voiding Method Indwelling Catheter Indwelling Catheter ABP, PAP, CO, CI - Last Documented Arterial Blood Pressure 105/41 Pulmonary Artery Pressure 23/7 Cardiac Output 6.2 Cardiac Index 3.4 - Labs CBC & Chem 7: 06/13/22 06:35 06/13/22 06:35 Labs: Abnormal Lab Results - Last 24 Hours (Table) 06/11/22 06/12/22 06/12/22 Range/Units 13:41 11:36 20:08 RBC (4.30-5.90) m/uL Hgb (13.0-17.5) gm/dL Hct (39.0-53.0) % Lymphocytes # (1.0-4.8) k/uL ABG pO2 347 H (83-108) mmHg ABG Total CO2 26 H (19-24) mmol/L ABG O2 Saturation 99.8 H (94-97) % ABG Hematocrit 26 L (34.0-46.0) % ABG Sodium 133 L (135-146) mmol/L ABG Potassium 5.5 H (3.4-4.5) mmol/L ABG Ionized Calcium 4.3 L (4.5-5.3) mg/dL ABG Glucose 128 H (75-99) mg/dL ABG Lactic Acid 2.1 H (0.5-1.6) mmol/L Hemoglobin 8.4 L (13.0-17.5) gm/dL Sodium (137-145) mmol/L POC Glucose (mg/dL) 121 H 141 H (70-110) mg/dL Calcium (8.4-10.2) mg/dL AST (17-59) U/L Total Protein (6.3-8.2) g/dL Albumin (3.5-5.0) g/dL Arterial Blood Potassium 5.5 H (3.4-4.5) mmol/L Arterial Blood Glucose 128 H (75-99) mg/dL 06/13/22 06/13/22 Range/Units 06:35 06:35 RBC 2.75 L (4.30-5.90) m/uL Hgb 8.8 L (13.0-17.5) gm/dL Hct 26.0 L (39.0-53.0) % Lymphocytes # 0.6 L (1.0-4.8) k/uL ABG pO2 (83-108) mmHg ABG Total CO2 (19-24) mmol/L ABG O2 Saturation (94-97) % ABG Hematocrit (34.0-46.0) % ABG Sodium (135-146) mmol/L ABG Potassium (3.4-4.5) mmol/L ABG Ionized Calcium (4.5-5.3) mg/dL ABG Glucose (75-99) mg/dL ABG Lactic Acid (0.5-1.6) mmol/L Hemoglobin (13.0-17.5) gm/dL Sodium 134 L (137-145) mmol/L POC Glucose (mg/dL) (70-110) mg/dL Calcium 8.2 L (8.4-10.2) mg/dL AST 61 H (17-59) U/L Total Protein 5.4 L (6.3-8.2) g/dL Albumin 3.3 L (3.5-5.0) g/dL Arterial Blood Potassium (3.4-4.5) mmol/L Arterial Blood Glucose (75-99) mg/dL
[2022-06-13] MEDS ORDERED: FUROSEMIDE 10 MG/ML 2 ML VIAL IV ONE (08:36)
--- NOTE | 2022-06-13 08:39 | XR ---
EXAMINATION TYPE: XR chest 1V portable DATE OF EXAM: 06/13/2022 COMPARISON: 06/12/2022 HISTORY: Postop TECHNIQUE: Single frontal view of the chest is obtained. FINDINGS: Bilateral infiltrate and pleural effusion diffuse interstitial pattern. Mediastinal drain and chest tubes remain. No sizable pneumothorax. Heart remains enlarged. Heart size stable. Postsurg ical changes noted. IMPRESSION: Stable postsurgical changes with bilateral infiltrate and small effusion correlate for C HF.
--- NOTE | 2022-06-13 08:41 | P.PN ---
Subjective Progress Note Date: 06/13/22 Principal diagnosis: Coronary artery disease with PCI in December 2021, cardiomyopathy, hypertension, hyperlipidemia, syncopal episode 2, current tobacco dependence, severe COPD, current daily EtOH use, PAD POD #2 coronary artery bypass grafting x 3 vessels, left internal mammary artery to the diagonal artery, reverse saphenous vein graft to the obtuse marginal artery, reverse postoperative endoscopic harvesting right greater saphenous vein, ligation of the left atrial appendage using a 35 mm clip, epi-aortic ultrasound, intraoperative transesophageal echocardiogram. Postoperative acute blood loss anemia, expected given hemodilution and cardiopulmonary bypass The patient was seen and examined sitting up in a recliner in the intensive care unit in no acute distress. States pain is controlled on current medication regimen, denies shortness of breath. He is currently on room air with oxygen saturation in the low to mid 90s, it only able to pull 750 mL on his incentive spirometry. Patient states he has been ambulatory in the hallway without difficulty. No new complaints. Right internal jugular Cordis, mediastinal/left pleural chest tubes all remain. No other new concerns. Objective - Vital Signs Vital signs: Vital Signs Temp 98.3 F 06/13/22 04:00 Pulse 92 06/13/22 07:56 Resp 21 06/13/22 07:00 BP 143/68 06/13/22 07:00 Pulse Ox 92 L 06/13/22 07:59 FiO2 21 06/13/22 07:59 Intake & Output 06/12/22 06/13/22 06/13/22 18:59 06:59 18:59 Intake Total 943 399 Output Total 820 490 Balance 123 -91 Weight 79.1 kg 80.3 kg Intake: IV 383 299 Lactated Ringers 1,000 ml 220 260 @ 20 mls/hr IV .Q24H [facility] Rx#:[id number] Pressure bags 63 39 ceFAZolin 2 gm In Sodium 100 Chloride 0.9% 50 ml @ 100 mls/hr IVPB Q8H [facility] Rx#: [id number] Oral 560 100 Output: Chest Tube Drainage 360 60 Lt pleural 90 10 Mediastinal 270 50 Urine 460 430 Emesis 0 Other: Voiding Method Indwelling Catheter Indwelling Catheter ABP, PAP, CO, CI - Last Documented Arterial Blood Pressure 105/41 Pulmonary Artery Pressure 23/7 Cardiac Output 6.2 Cardiac Index 3.4 - Exam CONSTITUTIONAL: Appears comfortable, cooperative, no acute distress RESPIRATORY: Lungs sounds diminished bilaterally. Respirations even, nonlabored. Currently on room air with oxygen saturation 93%. Able to achieve 750 mL on incentive spirometry. Strong cough. CARDIOVASCULAR: S1, S2 present. Regular rate and rhythm, sinus rhythm on telemetry. Sternum stable. Palpable peripheral pulses bilaterally. No edema present. No calf pain or tenderness noted. Heart hugger in place with patient demonstrating appropriate use. Antiembolism stockings, SCDs present. GASTROINTESTINAL: Abdomen soft, nontender, nondistended. Active bowel sounds present 4 quadrants. Tolerating diet. Positive belching, denies flatus GENITOURINARY: Luz present draining clear, yellow urine. Output overnight 25-50 mL per hour, 750 mL in the last 24 hours INTEGUMENTARY: Skin is warm and dry with evidence of good perfusion. Anterior chest incision well approximated and covered with dry intact dressing. Right lower extremity EVH site well approximated without redness or drainage. NEUROLOGIC: Cranial nerves II through XII intact MUSKULOSKELETAL: Able to move all extremities, strength equal bilaterally, gait normal PSYCHIATRIC: Alert and oriented to person place and time, appropriate affect, intact judgment and insight INVASIVE LINES AND TUBES: Mediastinal/left pleural chest tubes present and connected to wall suction, no air leaks present. Mediastinal tube with 20 mL serosanguineous drainage overnight, 300 mL in the last 24 hours. Left pleural chest tube with 10 mL serosanguineous drainage overnight, 90 mL in the last 24 hours. A/V epicardial pacemaker wires present, grounded. Right internal jugular Cordis present - Allied health notes Allied health notes reviewed: nursing - Labs CBC & Chem 7: 06/13/22 06:35 06/13/22 06:35 Labs: Abnormal Lab Results - Last 24 Hours (Table) 06/11/22 06/12/22 06/12/22 Range/Units 13:41 11:36 20:08 RBC (4.30-5.90) m/uL Hgb (13.0-17.5) gm/dL Hct (39.0-53.0) % Lymphocytes # (1.0-4.8) k/uL ABG pO2 347 H (83-108) mmHg ABG Total CO2 26 H (19-24) mmol/L ABG O2 Saturation 99.8 H (94-97) % ABG Hematocrit 26 L (34.0-46.0) % ABG Sodium 133 L (135-146) mmol/L ABG Potassium 5.5 H (3.4-4.5) mmol/L ABG Ionized Calcium 4.3 L (4.5-5.3) mg/dL ABG Glucose 128 H (75-99) mg/dL ABG Lactic Acid 2.1 H (0.5-1.6) mmol/L Hemoglobin 8.4 L (13.0-17.5) gm/dL Sodium (137-145) mmol/L POC Glucose (mg/dL) 121 H 141 H (70-110) mg/dL Calcium (8.4-10.2) mg/dL AST (17-59) U/L Total Protein (6.3-8.2) g/dL Albumin (3.5-5.0) g/dL Arterial Blood Potassium 5.5 H (3.4-4.5) mmol/L Arterial Blood Glucose 128 H (75-99) mg/dL 06/13/22 06/13/22 Range/Units 06:35 06:35 RBC 2.75 L (4.30-5.90) m/uL Hgb 8.8 L (13.0-17.5) gm/dL Hct 26.0 L (39.0-53.0) % Lymphocytes # 0.6 L (1.0-4.8) k/uL ABG pO2 (83-108) mmHg ABG Total CO2 (19-24) mmol/L ABG O2 Saturation (94-97) % ABG Hematocrit (34.0-46.0) % ABG Sodium (135-146) mmol/L ABG Potassium (3.4-4.5) mmol/L ABG Ionized Calcium (4.5-5.3) mg/dL ABG Glucose (75-99) mg/dL ABG Lactic Acid (0.5-1.6) mmol/L Hemoglobin (13.0-17.5) gm/dL Sodium 134 L (137-145) mmol/L POC Glucose (mg/dL) (70-110) mg/dL Calcium 8.2 L (8.4-10.2) mg/dL AST 61 H (17-59) U/L Total Protein 5.4 L (6.3-8.2) g/dL Albumin 3.3 L (3.5-5.0) g/dL Arterial Blood Potassium (3.4-4.5) mmol/L Arterial Blood Glucose (75-99) mg/dL - Imaging and Cardiology Chest x-ray: image reviewed Assessment and Plan Assessment: 1. Coronary artery disease with PCI in December 2021, current heart cath reporting LM 50-55%, IVUS 5.3 mm2, OM3 90%, AM 70%, status post three-vessel CABG 2. Cardiomyopathy, EF 30-35%, repeat full echo demonstrates EF 55% 3. Hypertension 4. Hyperlipidemia, treated, cholesterol 167, LDL 103 5. PAD, MICHELLE on the right 0.55, MICHELLE on the left 0.47 6. Syncopal episode 2 7. Current tobacco dependence 8. Current daily EtOH use, 6 pack beer daily, no signs of withdrawal 9. Severe COPD, preoperative FEV1 45% of predicted, 1.64 L 10. Postoperative acute blood loss anemia Plan: 1. Continue to maximize medical therapy with aspirin, statin, Plavix, beta james therapy. Will increase beta james therapy as tolerated, increased to 50 mg twice daily today 2. Encourage incentive spirometry use 10 times every hour while awake. Bronchodilators per pulmonology 3. Increase activity, ambulate as tolerated. PT/OT/cardiac rehab following 4. Smoking cessation counseling and education continually reinforced with the patient 5. Reduction/cessation of EtOH use discussed with the patient. Continue thiamine/folic acid, CIWA protocol, monitor for withdrawal symptoms 6. Will monitor daily labs and x-rays. Electrolyte replacement per protocol. Will give 20 mg IV push Lasix today 7. Pain control with current medication regimen, will discontinue Toradol after chest tubes pulled 8. Insulin management per primary care service. Patient is not diabetic, hemoglobin A1c 6% 9. Discontinue Cordis 10. Discontinue Luz catheter. May bladder scan and straight cath for greater than 300 mL residual 11. Will discontinue mediastinal and left pleural chest tubes 12. Will place transfer orders for 3 [facility] cardiac stepdown unit. May transfer when bed available 13. Will repeat echocardiogram tomorrow to evaluate left ventricular systolic function, possible need for LifeVest 14. More recommendations to follow
[2022-06-13] MEDS: HEPARIN SODIUM,PORCINE/PF 5,000 UNIT/0.5 ML SYRINGE SQ SCH ×2 (08:45→16:45)
[2022-06-13] MEDS: ASPIRIN 325 MG TAB PO SCH (09:02)
[2022-06-13] MEDS: CLOPIDOGREL 75 MG TAB PO SCH (09:02)
[2022-06-13] MEDS: ATORVASTATIN 40 MG TAB PO SCH (09:02)
[2022-06-13] MEDS: MULTIVITAMINS, THERA 1 EACH TAB PO SCH (09:02)
[2022-06-13] MEDS: THIAMINE 100 MG TAB PO SCH (09:02)
[2022-06-13] MEDS: METOPROLOL TARTRATE 50 MG TAB PO SCH ×2 (09:02→20:35)
[2022-06-13] MEDS: FOLIC ACID 1 MG TAB PO SCH (09:02)
[2022-06-13] MEDS: PANTOPRAZOLE 40 MG/10 ML VIAL IVP SCH (09:03)
[2022-06-13] MEDS ORDERED: ACETAMINOPHEN TAB 325 MG TAB PO PRN (09:39)
[2022-06-13 11:45] LABS: Glucose,Whole Blood 96 mg/dL (70-110)
--- NOTE | 2022-06-13 11:46 | P.PN ---
Subjective Progress Note Date: 06/13/22 Patient is a 51-year-old male with PMH of CAD post stent of the OM in December 2021, systolic CHF with EF 35-40%, hypertension, dyslipidemia that presents the ED or worsening shortness of breath and scapular pain. Patient reports shortness of breath that is progressively getting worse since his stenting in December. Currently he is unable to walk 200 feet without stopping to catch his breath. He denies any orthopnea or lower extremity swelling. He reports scapular pain that has been ongoing over the past week that is worse with exertion, similar to what he had before he underwent stenting in December. Patient also reports that he fell twice. The first time was 2 weeks ago and he hit his head, did not seek medical attention. He fell yesterday, this time he did not hit his head. He is unsure whether he had a syncopal episode or not. He denies any headache, nausea or vomiting, fever or chills, diaphoresis, chest pain, palpitations, changes in urination or bowel habits. No changes in appetite or weight. He denies any dizziness, numbness/weakness/tingling of the extremities. In the ED, his vital signs are stable. CBC showed leukocytosis of 12.2. Coagulation panel was negative. D-dimer was 12.95. CMP showed sodium 129, bicarb of 14, glucose of 110, alkaline phosphatase of 131. Troponin was 0.028, 0.034, 0.035 with EKG showing sinus rhythm and T-wave abnormalities. BNP was 1430. Chest x-ray was negative. CTA chest negative for PE. Patient is admitted for chest pain, rule out acute coronary syndrome with cardiology consultation. Troponins were slowly trending up with EKG showing T-wave abnormalities. Patient was placed on a heparin drip. Cardiac cath showed 50-55% left main, 20-30% LAD, 90% OM3 stenosis. Cardiothoracic surgery consulted for CABG. Plans were arranged for CABG on 06/11/2022. Patient was seen and examined. POD 2 after CABG. CABG x 3 L. internal mammary to diagonal, saphenous to obtuse marginal, saphenous to posterior descending. Extubated last night successfully. He reports generalized chest pain at the site of incision. Chest and mediastinal tubes discontinued. Right internal jugular cordis discontinued. Luz catheter discontinued. General: No acute distress Derm: warm, dry Head: atraumatic, normocephalic Eyes: no lid lag, anicteric sclera Mouth: no lip lesion, mucus membranes moist Cardiovascular: S1S2 reg, no murmur, surgical dressing is clean/dry and intact Lungs: Clear to auscultation bilaterally. No accessory muscle use. Ext: no gross muscle atrophy, no edema, no contractures Neuro: no focal deficits Psych: alert and oriented x 3 #Acute blood loss anemia #Elevated troponin with history of CAD post stent in December 2021 #Systolic CHF with EF of 30-35% #Possible syncopal episode #Elevated D-dimer #PAD #Hyponatremia Chronic conditions: Hypertension, dyslipidemia, smoker Hemoglobin 8.8. Expected result of surgery. Transfuse if Hg < 7. Daily CBC. Troponins are slowly trending up with EKG showing T-wave abnormalities. Continue ASA, Lipitor, Coreg and Brilinta. Telemetry montoring. Cardiac cath shows 50-55% left main, 20-30% LAD, 90% OM3 stenosis. s/p CABG x 3 L. internal mammary to diagonal, saphenous to obtuse marginal, saphenous to posterior descending on 06/11. Patient presents with exertional shortness of breath. Chest x-ray was negative. He has no lower extremity swelling. Echocardiogram shows EF 30% with global hypokinesis. Continue Metoprolol. Losartan to be added by Cardiology. Echocardiogram planned for tomorrow to determine benefits of AICD. Continue Telemetry monitoring. Patient be placed on fall precautions. Patient with elevated d-dimer, CT chest is ruled out PE. Venous duplex negative for DVT. Moderate PAD on arterial duplex. Patient needs Vascular surgery outpatient. Patient was sodium of 134. Possibly related to dehydration. Objective - Vital Signs Vital signs: Vital Signs Temp 98.1 F 06/13/22 08:00 Pulse 75 06/13/22 11:35 Resp 20 06/13/22 09:00 BP 132/66 06/13/22 09:00 Pulse Ox 95 06/13/22 09:00 FiO2 21 06/13/22 07:59 Intake & Output 06/12/22 06/13/22 06/13/22 18:59 06:59 18:59 Intake Total 943 399 286 Output Total 820 490 80 Balance 123 -91 206 Weight 79.1 kg 80.3 kg Intake: IV 383 299 46 Lactated Ringers 1,000 ml 220 260 40 @ 20 mls/hr IV .Q24H [facility] Rx#:[id number] Pressure bags 63 39 6 ceFAZolin 2 gm In Sodium 100 Chloride 0.9% 50 ml @ 100 mls/hr IVPB Q8H [facility] Rx#: [id number] Oral 560 100 240 Output: Chest Tube Drainage 360 60 Lt pleural 90 10 Mediastinal 270 50 Urine 460 430 80 Emesis 0 Other: Voiding Method Indwelling Catheter Indwelling Catheter Indwelling Catheter ABP, PAP, CO, CI - Last Documented Arterial Blood Pressure 105/41 Pulmonary Artery Pressure 23/7 Cardiac Output 6.2 Cardiac Index 3.4 - Labs CBC & Chem 7: 06/13/22 06:35 06/13/22 06:35 Labs: Abnormal Lab Results - Last 24 Hours (Table) 06/11/22 06/12/22 06/13/22 Range/Units 13:41 20:08 06:35 RBC 2.75 L (4.30-5.90) m/uL Hgb 8.8 L (13.0-17.5) gm/dL Hct 26.0 L (39.0-53.0) % Lymphocytes # 0.6 L (1.0-4.8) k/uL ABG pO2 347 H (83-108) mmHg ABG Total CO2 26 H (19-24) mmol/L ABG O2 Saturation 99.8 H (94-97) % ABG Hematocrit 26 L (34.0-46.0) % ABG Sodium 133 L (135-146) mmol/L ABG Potassium 5.5 H (3.4-4.5) mmol/L ABG Ionized Calcium 4.3 L (4.5-5.3) mg/dL ABG Glucose 128 H (75-99) mg/dL ABG Lactic Acid 2.1 H (0.5-1.6) mmol/L Hemoglobin 8.4 L (13.0-17.5) gm/dL Sodium (137-145) mmol/L POC Glucose (mg/dL) 141 H (70-110) mg/dL Calcium (8.4-10.2) mg/dL AST (17-59) U/L Total Protein (6.3-8.2) g/dL Albumin (3.5-5.0) g/dL Arterial Blood Potassium 5.5 H (3.4-4.5) mmol/L Arterial Blood Glucose 128 H (75-99) mg/dL 06/13/22 Range/Units 06:35 RBC (4.30-5.90) m/uL Hgb (13.0-17.5) gm/dL Hct (39.0-53.0) % Lymphocytes # (1.0-4.8) k/uL ABG pO2 (83-108) mmHg ABG Total CO2 (19-24) mmol/L ABG O2 Saturation (94-97) % ABG Hematocrit (34.0-46.0) % ABG Sodium (135-146) mmol/L ABG Potassium (3.4-4.5) mmol/L ABG Ionized Calcium (4.5-5.3) mg/dL ABG Glucose (75-99) mg/dL ABG Lactic Acid (0.5-1.6) mmol/L Hemoglobin (13.0-17.5) gm/dL Sodium 134 L (137-145) mmol/L POC Glucose (mg/dL) (70-110) mg/dL Calcium 8.2 L (8.4-10.2) mg/dL AST 61 H (17-59) U/L Total Protein 5.4 L (6.3-8.2) g/dL Albumin 3.3 L (3.5-5.0) g/dL Arterial Blood Potassium (3.4-4.5) mmol/L Arterial Blood Glucose (75-99) mg/dL
--- NOTE | 2022-06-13 13:18 | P.PN ---
Subjective Progress Note Date: 06/13/22 Principal diagnosis: Status post CABG 3 postoperative day #2 Patient is now status post CABG 3 with left internal mammary artery to the diagonal coronary artery, a reverse greater saphenous vein graft to the obtuse marginal coronary artery and a reverse greater saphenous vein graft to the posterior descending coronary artery. Endoscopic vein harvest of the right lower extremity. Ligation of the left atrial appendage using a 35 mm Atriclip and an intraoperative transesophageal echocardiogram performed by anesthesia. Patient was on mechanical ventilation last night, he arrived rather related to the ICU, I manage his ventilator settings overnight, and shortly after I was made aware of the patient, reviewed his postoperative chest x-ray at home, I was updated on his blood gases, his ventilator settings were adjusted, and shortly after the patient was extubated uneventfully. Patient was extubated at 8:54 PM last evening. Presently on 2 L nasal cannula, O2 sats is 95%. He is hemodynamically stable, not requiring any inotropes or any pressors. Continues to have mediastinal and left pleural chest tube, on low continuous wall suction, no air leak noted. Chest x-ray showed minimal bibasilar atelectasis. His cardiac index today is 3.4. PA pressures 23/3 and his cardiac output is 6.2. Labs are basically unremarkable, hemoglobin is 8.9 otherwise labs are un remarkable. Reevaluated today on 06/13/22, she is now postoperative day #2coronary artery bypass grafting x 3 vessels, left internal mammary artery to the diagonal artery, reverse saphenous vein graft to the obtuse marginal artery, reverse postoperative endoscopic harvesting right greater saphenous vein, ligation of the left atrial appendage using a 35 mm clip, epi-aortic ultrasound, intraoperative transesophageal echocardiogram. Patient is doing well, remains marginal with his incentive spirometry. Pulling only 750 ML, patient has been assisted to ambulate in the hallway. Continues to have multiple lines and catheters, some of them will be removed today. Overall clinically the patient i s doing better than expected. Chest x-ray showed minimal basilar atelectasis. Expected. WBC count is 6.2 hemoglobin is 8.8, electrolytes are normal renal profile is normal. Creatinine is 1.24 Objective - Vital Signs Vital signs: Vital Signs Temp 98.2 F 06/13/22 12:00 Pulse 77 06/13/22 12:00 Resp 20 06/13/22 12:00 BP 105/56 06/13/22 12:00 Pulse Ox 95 06/13/22 12:00 FiO2 21 06/13/22 07:59 Intake & Output 06/12/22 06/13/22 06/13/22 18:59 06:59 18:59 Intake Total 943 399 526 Output Total 820 490 480 Balance 123 -91 46 Weight 79.1 kg 80.3 kg Intake: IV 383 299 46 Lactated Ringers 1,000 ml 220 260 40 @ 20 mls/hr IV .Q24H [facility] Rx#:[id number] Pressure bags 63 39 6 ceFAZolin 2 gm In Sodium 100 Chloride 0.9% 50 ml @ 100 mls/hr IVPB Q8H [facility] Rx#: [id number] Oral 560 100 480 Output: Chest Tube Drainage 360 60 Lt pleural 90 10 Mediastinal 270 50 Urine 460 430 480 Emesis 0 Other: Voiding Method Indwelling Catheter Indwelling Catheter Indwelling Catheter # Voids 1 # Bowel Movements 1 ABP, PAP, CO, CI - Last Documented Arterial Blood Pressure 105/41 Pulmonary Artery Pressure 23/7 Cardiac Output 6.2 Cardiac Index 3.4 - Exam Physical Exam: Revealed 51-year-old white male in no distress, on room air. Head: Atraumatic, normocephalic. HEENT:[Neck is supple.] [No neck masses.] [No thyromegaly.] [No JVD.] Chest: [Clear throughout, no crackles, no rhonchi, no wheezes.] Mediastinal and pleural chest tubes were noted. Cardiac Exam: [Normal S1 and S2, no S3 gallop, no murmur.] Positive pericardial rub. Abdomen: [Soft, nontender, no megaly, no rebound, no guarding, normal bowel sounds.] Extremities: [No clubbing, no edema, no cyanosis.] Neurological Exam: [No focal neurologic deficit.] Alert oriented 3. Psychiatric: Normal mood affect and normal mental status examination. Skin: No rashes. - Labs CBC & Chem 7: 06/13/22 06:35 06/13/22 06:35 Labs: Abnormal Lab Results - Last 24 Hours (Table) 06/11/22 06/12/22 06/13/22 Range/Units 13:41 20:08 06:35 RBC 2.75 L (4.30-5.90) m/uL Hgb 8.8 L (13.0-17.5) gm/dL Hct 26.0 L (39.0-53.0) % Lymphocytes # 0.6 L (1.0-4.8) k/uL ABG pO2 347 H (83-108) mmHg ABG Total CO2 26 H (19-24) mmol/L ABG O2 Saturation 99.8 H (94-97) % ABG Hematocrit 26 L (34.0-46.0) % ABG Sodium 133 L (135-146) mmol/L ABG Potassium 5.5 H (3.4-4.5) mmol/L ABG Ionized Calcium 4.3 L (4.5-5.3) mg/dL ABG Glucose 128 H (75-99) mg/dL ABG Lactic Acid 2.1 H (0.5-1.6) mmol/L Hemoglobin 8.4 L (13.0-17.5) gm/dL Sodium (137-145) mmol/L POC Glucose (mg/dL) 141 H (70-110) mg/dL Calcium (8.4-10.2) mg/dL AST (17-59) U/L Total Protein (6.3-8.2) g/dL Albumin (3.5-5.0) g/dL Arterial Blood Potassium 5.5 H (3.4-4.5) mmol/L Arterial Blood Glucose 128 H (75-99) mg/dL 06/13/22 Range/Units 06:35 RBC (4.30-5.90) m/uL Hgb (13.0-17.5) gm/dL Hct (39.0-53.0) % Lymphocytes # (1.0-4.8) k/uL ABG pO2 (83-108) mmHg ABG Total CO2 (19-24) mmol/L ABG O2 Saturation (94-97) % ABG Hematocrit (34.0-46.0) % ABG Sodium (135-146) mmol/L ABG Potassium (3.4-4.5) mmol/L ABG Ionized Calcium (4.5-5.3) mg/dL ABG Glucose (75-99) mg/dL ABG Lactic Acid (0.5-1.6) mmol/L Hemoglobin (13.0-17.5) gm/dL Sodium 134 L (137-145) mmol/L POC Glucose (mg/dL) (70-110) mg/dL Calcium 8.2 L (8.4-10.2) mg/dL AST 61 H (17-59) U/L Total Protein 5.4 L (6.3-8.2) g/dL Albumin 3.3 L (3.5-5.0) g/dL Arterial Blood Potassium (3.4-4.5) mmol/L Arterial Blood Glucose (75-99) mg/dL Assessment and Plan Assessment: Impression: Status post CABG, postoperative day #2 Severe cardiomyopathy and LV dysfunction with ejection fraction of 30-35% Dyslipidemia History of syncope Tobacco dependence syndrome Severe COPD FEV1 of 45% Postoperative atelectasis, expected Recommendation: Continue supportive care measures Continue aspirin statins and Plavix and beta blockers Continue incentive spirometry, encourage to use more frequently, and continue ambulation. GI and DVT prophylaxis Insulin for diabetes Pain control measures Continue CIWA protocol We will continue to monitor in the ICU. Will follow. Time with Patient: Less than 30
[2022-06-13 16:44] LABS: Glucose,Whole Blood 74 mg/dL (70-110)
[2022-06-13 20:03] LABS: Glucose,Whole Blood 116 mg/dL (70-110)
[2022-06-13] MEDS: SENNOSIDES-DOCUSATE SODIUM 1 EACH TAB PO SCH (20:35)
[2022-06-14] MEDS: HEPARIN SODIUM,PORCINE/PF 5,000 UNIT/0.5 ML SYRINGE SQ SCH ×4 (00:59→23:59)
[2022-06-14] MEDS: HYDROcodone/APAP 5-325MG 1 EACH TAB PO PRN (05:26)
[2022-06-14 05:47] LABS: Basophils % (A) 0 %; Eosinophils % (A) 1 %; HGB 9.6 gm/dL (13.0-17.5); Lymphocytes # (A) 1.1 k/uL (1.0-4.8); Lymphocytes % (A) 16 %; MCH 31.3 pg (25.0-35.0); MCHC 33.1 g/dL (31.0-37.0); MCV 94.5 fL (80.0-100.0); Mean Platelet Volume 7.9; Monocytes # (A) 0.4 k/uL (0-1.0); Monocytes % (A) 6 %; Neutrophils # (A) 5.2 k/uL (1.3-7.7); Neutrophils % (A) 75 %; Platelet Count 225 k/uL (150-450); RBC 3.07 m/uL (4.30-5.90); RDW 13.5 % (11.5-15.5)
[2022-06-14 06:05] LABS: ALT 25 U/L (4-49); African American GFR (CKD) >90 (>60 ml/min/1.73 sqM); Albumin 3.4 g/dL (3.5-5.0); Anion Gap 7 mmol/L; Blood Urea Nitrogen 17 mg/dL (9-20); Calcium 8.2 mg/dL (8.4-10.2); Carbon Dioxide 20 mmol/L (22-30); Chloride 107 mmol/L (98-107); Glucose 102 mg/dL (74-99); Non-African American GFR(CKD) >90 (>60 ml/min/1.73 sqM); Sodium 134 mmol/L (137-145); Total Bilirubin 0.3 mg/dL (0.2-1.3); Total Protein 5.8 g/dL (6.3-8.2)
[2022-06-14 06:29] LABS: AST 70 U/L (17-59); Alkaline Phosphatase 91 U/L (38-126); Potassium 4.1 mmol/L (3.5-5.1)
[2022-06-14 07:00] LABS: Glucose,Whole Blood 105 mg/dL (70-110)
[2022-06-14] MEDS ORDERED: HYDROcodone/APAP 5-325MG 1 EACH TAB PO PRN (07:08)
[2022-06-14] MEDS ORDERED: SENNOSIDES-DOCUSATE SODIUM 1 EACH TAB PO PRN (07:24)
--- NOTE | 2022-06-14 07:38 | P.PN ---
Subjective Progress Note Date: 06/14/22 Principal diagnosis: Coronary artery disease with PCI in December 2021, cardiomyopathy, hypertension, hyperlipidemia, syncopal episode 2, current tobacco dependence, severe COPD, current daily EtOH use, PAD POD #3 coronary artery bypass grafting x 3 vessels, left internal mammary artery to the diagonal artery, reverse saphenous vein graft to the obtuse marginal artery, reverse postoperative endoscopic harvesting right greater saphenous vein, ligation of the left atrial appendage using a 35 mm clip, epi-aortic ultrasound, intraoperative transesophageal echocardiogram. Postoperative acute blood loss anemia, expected given hemodilution and cardiopulmonary bypass The patient was seen and examined sitting up in a recliner in the intensive care unit in no acute distress. States his pain has increased since discontinuation Toradol yesterday, denies shortness of breath. He is currently on room air with oxygen saturation in the high 90s, it only able to pull 750 mL on his incentive spirometry. Patient has been ambulatory in the hallway without difficulty. Transfer orders progesterone 3 S. cardiac stepdown unit, no beds available. No other new concerns. Objective - Vital Signs Vital signs: Vital Signs Temp 98.5 F 06/14/22 04:00 Pulse 90 06/14/22 04:00 Resp 11 L 06/14/22 04:00 BP 116/67 06/14/22 04:00 Pulse Ox 98 06/14/22 04:00 FiO2 21 06/13/22 07:59 Intake & Output 06/13/22 06/14/22 06/14/22 18:59 06:59 18:59 Intake Total 766 750 Output Total 880 850 Balance -114 -100 Intake: IV 46 Lactated Ringers 1,000 ml 40 @ 20 mls/hr IV .Q24H [facility] Rx#:[id number] Pressure bags 6 Oral 720 750 Output: Urine 880 850 Other: Voiding Method Indwelling Catheter Urinal # Voids 1 # Bowel Movements 1 1 ABP, PAP, CO, CI - Last Documented Arterial Blood Pressure 105/41 Pulmonary Artery Pressure 23/7 Cardiac Output 6.2 Cardiac Index 3.4 - Exam CONSTITUTIONAL: Appears comfortable, cooperative, no acute distress RESPIRATORY: Lungs sounds diminished bilaterally. Respirations even, nonlabored. Currently on room air with oxygen saturation 98%. Able to achieve 750 mL on incentive spirometry. Strong cough. CARDIOVASCULAR: S1, S2 present. Regular rate and rhythm, sinus rhythm on telemetry. Sternum stable. Palpable peripheral pulses bilaterally. Trace right lower extremity edema present. No calf pain or tenderness noted. Heart hugger in place with patient demonstrating appropriate use. Antiembolism s tockings, SCDs present. GASTROINTESTINAL: Abdomen soft, nontender, nondistended. Active bowel sounds present 4 quadrants. Tolerating diet. Positive bowel movement GENITOURINARY: Luz discontinued yesterday, patient continues to void. Output 1380+ mL in the last 24 hours INTEGUMENTARY: Skin is warm and dry with evidence of good perfusion. Anterior chest incision well approximated and covered with dry intact dressing. Right lower extremity EVH site well approximated without redness or drainage. NEUROLOGIC: Cranial nerves II through XII intact MUSKULOSKELETAL: Able to move all extremities, strength equal bilaterally, gait normal PSYCHIATRIC: Alert and oriented to person place and time, appropriate affect, intact judgment and insight INVASIVE LINES AND TUBES: A/V epicardial pacemaker wires present, grounded. - Allied health notes Allied health notes reviewed: nursing - Labs CBC & Chem 7: 06/14/22 05:31 06/14/22 05:31 Labs: Abnormal Lab Results - Last 24 Hours (Table) 06/13/22 06/13/22 06/14/22 Range/Units 06:35 20:02 05:31 RBC 3.07 L (4.30-5.90) m/uL Hgb 9.6 L (13.0-17.5) gm/dL Hct 29.0 L (39.0-53.0) % Sodium 134 L (137-145) mmol/L Carbon Dioxide (22-30) mmol/L Glucose (74-99) mg/dL POC Glucose (mg/dL) 116 H (70-110) mg/dL Calcium 8.2 L (8.4-10.2) mg/dL AST 61 H (17-59) U/L Total Protein 5.4 L (6.3-8.2) g/dL Albumin 3.3 L (3.5-5.0) g/dL 06/14/22 Range/Units 05:31 RBC (4.30-5.90) m/uL Hgb (13.0-17.5) gm/dL Hct (39.0-53.0) % Sodium 134 L (137-145) mmol/L Carbon Dioxide 20 L (22-30) mmol/L Glucose 102 H (74-99) mg/dL POC Glucose (mg/dL) (70-110) mg/dL Calcium 8.2 L (8.4-10.2) mg/dL AST 70 H (17-59) U/L Total Protein 5.8 L (6.3-8.2) g/dL Albumin 3.4 L (3.5-5.0) g/dL - Imaging and Cardiology Chest x-ray: image reviewed Assessment and Plan Assessment: 1. Coronary artery disease with PCI in December 2021, current heart cath reporting LM 50-55%, IVUS 5.3 mm2, OM3 90%, AM 70%, status post three-vessel CABG 2. Cardiomyopathy, EF 30-35%, repeat full echo demonstrates EF 55% 3. Hypertension 4. Hyperlipidemia, treated, cholesterol 167, LDL 103 5. PAD, MICHELLE on the right 0.55, MICHELLE on the left 0.47 6. Syncopal episode 2 7. Current tobacco dependence 8. Current daily EtOH use, 6 pack beer daily, no signs of withdrawal 9. Severe COPD, preoperative FEV1 45% of predicted, 1.64 L 10. Postoperative acute blood loss anemia Plan: 1. Continue to maximize medical therapy with aspirin, statin, Plavix, beta james therapy. Will increase beta james therapy as tolerated. Losartan added for afterload reduction 2. Encourage incentive spirometry use 10 times every hour while awake. Bronchodilators per pulmonology 3. Increase activity, ambulate as tolerated. PT/OT/cardiac rehab following 4. Smoking cessation counseling and education continually reinforced with the patient 5. Reduction/cessation of EtOH use discussed with the patient. Continue thiamine/folic acid, CIWA protocol, monitor for withdrawal symptoms 6. Will monitor daily labs and x-rays. Electrolyte replacement per protocol. No lasix today 7. Pain control with current medication regimen 8. Insulin management per primary care service. Patient is not diabetic, hemoglobin A1c 6% 9. Will repeat echocardiogram today to evaluate left ventricular systolic function, possible need for LifeVest 10. Will discontinue epicardial pacemaker placed today. Patient to remain on bedrest for 1 hour post-wire removal 11. Transfer orders placed for 3 S. cardiac stepdown unit yesterday, may transfer when bed available 12. Discharge planning in progress. Anticipate discharge to home with home care in the next 24-48 hours 13. More recommendations to follow
[2022-06-14] MEDS: IPRATROPIUM-ALBUTEROL 3 ML NEB INHALATION SCH ×4 (07:52→19:13)
--- NOTE | 2022-06-14 07:54 | P.PN ---
Subjective HISTORY OF PRESENTING ILLNESS Progress Note Date: 06/10/22 This is a 51 year old male with a past medical history of hypertension, nicotine dependence, daily alcohol use, coronary artery disease with NSTEMI in 12/2021 S/p PCI proximal OM3, ischemic cardiomyopathy, dyslipidemia. He follows with Dr. Mock. We're consulted for chest pain. Patient presented to the hospital on 06/02/2022 with symptoms of shortness of breath and chest pain. Smooth delta continued to have chest discomfort and recommend cardiac catheterization. Echocardiogram revealed EF 3035 percent. Patient underwent cardiac catheterization with Dr. Mock on 06/04/2022 which revealed coronary artery disease with 50-55% left main stenosis with minimal luminal area 5.3mm2, mild 20-30% LAD stenosis, mild luminal irregularities of a dominant circumflex, OM3 90% stenosis, normal left sided filling pressures. CT surgery was consulted for CABG evaluation. Limited echocardiogram revealed EF of 55%, no obvious regional wall motion abnormalities, trace MR, mild left ear with a peak gradient of 19 mmHg and a mean gradient of 9 mmHg and mild aortic regurgitation. 06/09/2022 Patient was seen and examined sitting up at the side of the bed. He just returned from a walk around the unit. He denies any shortness of breath but does seem to be a bit winded to me. He is scheduled to undergo coronary artery bypass grafting surgery on June 11. Blood pressure has been elevated. He is currently on aspirin 81 mg daily, atorvastatin 80 mg daily at bedtime, carvedilol 6.25 mg by mouth twice a day, a 640 mg daily, Aldactone 25 mg daily and lisinopril 10 mg by mouth daily. He is maintaining sinus mechanism with heart rate in the 60s to 70s with occasional PVCs. He denies any chest discomfort, palpitations, dizziness or lightheadedness. 06/10/2022 Patient was seen and examined sitting up side of the bed. He is overall feeling well. He denies any shortness of breath or chest discomfort. His ambulating without difficulties. Blood pressure is better controlled however his JOSÉ inhibitor has some placed on hold by CT surgery preoperatively. He is scheduled to undergo coronary artery bypass grafting surgery tomorrow. 06/12 Patient seen and examined. Patient underwent bypass yesterday and has been doing well. Off of any pressors. Still has chest tubes in place. Admits to mild discomfort around the incision however no chest pain or pressure. No s hortness of breath. 06/13 Patient seen and examined. Patient admits he was able to walk the halls however feels like he may have overdone it. Denies any chest pain or pressure. Denies any lightheadedness. Has been eating someone and is off of any vasopressors. Blood pressures minimally higher and has been tolerating metoprolol well. 06/14 Patient seen and examined. Patient still having some mild discomfort around the incision however fairly well controlled. Denies any shortness breath. Does have trace lower extremity edema. Receive Lasix yesterday with good urine output. He was started on losartan 12.5 mg daily today. PHYSICAL EXAMINATION Vital signs reviewed. CONSTITUTIONAL: No apparent distress. HEENT: Head is normocephalic. Pupils are equal, round. Sclerae anicteric. Mucous membranes of the mouth are moist. No JVD. No carotid bruit. CHEST EXAMINATION: Lungs are clear to auscultation. No chest wall tenderness is noted on palpation or with deep breathing. HEART EXAMINATION: Regular rate and rhythm. S1, S2 heard. No murmurs, gallops or rub. ABDOMEN: Soft, nontender. Positive bowel sounds. EXTREMITIES: 2+ peripheral pulses, no lower extremity edema and no calf tendern ess. NEUROLOGIC EXAMINATION: Patient is awake, alert and oriented x3. Assessment CAD s/p CABG 06/11 Coronary artery disease s/p prior PCI to OM3 in 12/2021 Hypertension Dyslipidemia Ischemic cardiomyopathy EF 3035 percent Chronic tobacco use Daily alcohol use Chest pain, shortness of breath Chronic systolic heart failure Plan: Continue aspirin, Plavix, metoprolol. Attempt to optimize heart failure regimen as able and uptitrate losartan 12.5 as able. Monitor volume status and diurese as needed Continue with supportive care Appears to be progressing well. Objective - Vital Signs Vital signs: Vital Signs Temp 98.5 F 06/14/22 04:00 Pulse 90 06/14/22 04:00 Resp 11 L 06/14/22 04:00 BP 116/67 06/14/22 04:00 Pulse Ox 98 06/14/22 04:00 FiO2 21 06/13/22 07:59 Intake & Output 06/13/22 06/14/22 06/14/22 18:59 06:59 18:59 Intake Total 766 750 Output Total 880 850 Balance -114 -100 Intake: IV 46 Lactated Ringers 1,000 ml 40 @ 20 mls/hr IV .Q24H [facility] Rx#:[id number] Pressure bags 6 Oral 720 750 Output: Urine 880 850 Other: Voiding Method Indwelling Catheter Urinal # Voids 1 # Bowel Movements 1 1 ABP, PAP, CO, CI - Last Documented Arterial Blood Pressure 105/41 Pulmonary Artery Pressure 23/7 Cardiac Output 6.2 Cardiac Index 3.4 - Labs CBC & Chem 7: 06/14/22 05:31 06/14/22 05:31 Labs: Abnormal Lab Results - Last 24 Hours (Table) 06/13/22 06/14/22 06/14/22 Range/Units 20:02 05:31 05:31 RBC 3.07 L (4.30-5.90) m/uL Hgb 9.6 L (13.0-17.5) gm/dL Hct 29.0 L (39.0-53.0) % Sodium 134 L (137-145) mmol/L Carbon Dioxide 20 L (22-30) mmol/L Glucose 102 H (74-99) mg/dL POC Glucose (mg/dL) 116 H (70-110) mg/dL Calcium 8.2 L (8.4-10.2) mg/dL AST 70 H (17-59) U/L Total Protein 5.8 L (6.3-8.2) g/dL Albumin 3.4 L (3.5-5.0) g/dL
--- NOTE | 2022-06-14 08:15 | XR ---
EXAMINATION TYPE: XR chest 2V DATE OF EXAM: 06/14/2022 COMPARISON: 06/13/2022 TECHNIQUE: PA and lateral views submitted. HISTORY: Post cardiac surgery FINDINGS: Right-sided chest tube is been removed. No sizable pneumothorax. Cardiomegaly and postsurgical change s seen with bilateral infiltrate and pleural effusion. Coarsened interstitium. IMPRESSION: 1. Chest tube removal with no sizable pneumothorax. 2. Bilateral infiltrate and pleural effusion correlate for mild CHF.
[2022-06-14] MEDS: INSULIN ASPART (NovoLOG) 100 UNIT/ML VIAL SQ SCH ×4 (09:16→20:31)
[2022-06-14] MEDS: FOLIC ACID 1 MG TAB PO SCH (09:22)
[2022-06-14] MEDS: CLOPIDOGREL 75 MG TAB PO SCH (09:22)
[2022-06-14] MEDS: ASPIRIN 325 MG TAB PO SCH (09:22)
[2022-06-14] MEDS: ATORVASTATIN 40 MG TAB PO SCH (09:22)
[2022-06-14] MEDS: THIAMINE 100 MG TAB PO SCH (09:22)
[2022-06-14] MEDS: MULTIVITAMINS, THERA 1 EACH TAB PO SCH (09:22)
[2022-06-14] MEDS: PANTOPRAZOLE 40 MG TABLET PO SCH (09:22)
[2022-06-14] MEDS: METOPROLOL TARTRATE 50 MG TAB PO SCH ×2 (09:22→20:23)
[2022-06-14] MEDS: KETOROLAC 15 MG/ML 1 ML VIAL IVP SCH ×3 (09:23→17:55)
--- NOTE | 2022-06-14 11:24 | P.PN ---
Subjective Progress Note Date: 06/14/22 Patient is a 51-year-old male with PMH of CAD post stent of the OM in December 2021, systolic CHF with EF 35-40%, hypertension, dyslipidemia that presents the ED or worsening shortness of breath and scapular pain. Patient reports shortness of breath that is progressively getting worse since his stenting in December. Currently he is unable to walk 200 feet without stopping to catch his breath. He denies any orthopnea or lower extremity swelling. He reports scapular pain that has been ongoing over the past week that is worse with exertion, similar to what he had before he underwent stenting in December. Patient also reports that he fell twice. The first time was 2 weeks ago and he hit his head, did not seek medical attention. He fell yesterday, this time he did not hit his head. He is unsure whether he had a syncopal episode or not. He denies any headache, nausea or vomiting, fever or chills, diaphoresis, chest pain, palpitations, changes in urination or bowel habits. No changes in appetite or weight. He denies any dizziness, numbness/weakness/tingling of the extremities. In the ED, his vital signs are stable. CBC showed leukocytosis of 12.2. Coagulation panel was negative. D-dimer was 12.95. CMP showed sodium 129, bicarb of 14, glucose of 110, alkaline phosphatase of 131. Troponin was 0.028, 0.034, 0.035 with EKG showing sinus rhythm and T-wave abnormalities. BNP was 1430. Chest x-ray was negative. CTA chest negative for PE. Patient is admitted for chest pain, rule out acute coronary syndrome with cardiology consultation. Troponins were slowly trending up with EKG showing T-wave abnormalities. Patient was placed on a heparin drip. Cardiac cath showed 50-55% left main, 20-30% LAD, 90% OM3 stenosis. Cardiothoracic surgery consulted for CABG. Plans were arranged for CABG on 06/11/2022. Patient was seen and examined. POD 3 after CABG. CABG x 3 L. internal mammary to diagonal, saphenous to obtuse marginal, saphenous to posterior descending. Extubated last night successfully. He reports generalized chest pain at the site of incision. Chest and mediastinal tubes discontinued, Right internal jugular cordis discontinued, Luz catheter discontinued on 06/13. Epicardial pacemaker discontinued 06/14. General: No acute distress Derm: warm, dry Head: atraumatic, normocephalic Eyes: no lid lag, anicteric sclera Mouth: no lip lesion, mucus membranes moist Cardiovascular: S1S2 reg, no murmur, surgical scar without erythema or discharge Lungs: Clear to auscultation bilaterally. No accessory muscle use. Ext: no gross muscle atrophy, no edema, no contractures Neuro: no focal deficits Psych: alert and oriented x 3 #Acute blood loss anemia #Elevated troponin with history of CAD post stent in December 2021 #Systolic CHF with EF of 30-35% #Possible syncopal episode #Elevated D-dimer #PAD #Hyponatremia Chronic conditions: Hypertension, dyslipidemia, smoker Hemoglobin 9.6. Expected result of surgery. Improving. Transfuse if Hg < 7. Daily CBC. Troponins are slowly trending up with EKG showing T-wave abnormalities. Continue ASA, Lipitor, Metoprolol and Plavix. Telemetry montoring. Cardiac cath shows 50- 55% left main, 20-30% LAD, 90% OM3 stenosis. s/p CABG x 3 L. internal mammary to diagonal, saphenous to obtuse marginal, saphenous to posterior descending on 06/11. Patient presents with exertional shortness of breath. Chest x-ray was negative. He has no lower extremity swelling. Echocardiogram shows EF 30% with global hypokinesis. Continue Metoprolol, Losartan. Echocardiogram planned for today to determine benefits of AICD. Continue Telemetry monitoring. Patient be placed on fall precautions. Patient with elevated d-dimer, CT chest is ruled out PE. Venous duplex negative for DVT. Moderate PAD on arterial duplex. Patient needs Vascular surgery outpatient. Patient was sodium of 134. Possibly related to dehydration. Objective - Vital Signs Vital signs: Vital Signs Temp 98.7 F 06/14/22 08:00 Pulse 89 06/14/22 08:03 Resp 18 06/14/22 08:00 BP 144/62 06/14/22 08:00 Pulse Ox 96 06/14/22 08:00 FiO2 21 06/13/22 07:59 Intake & Output 06/13/22 06/14/22 06/14/22 18:59 06:59 18:59 Intake Total 766 750 Output Total 880 850 Balance -114 -100 Intake: IV 46 Lactated Ringers 1,000 ml 40 @ 20 mls/hr IV .Q24H [facility] Rx#:[id number] Pressure bags 6 Oral 720 750 Output: Urine 880 850 Other: Voiding Method Indwelling Catheter Urinal Urinal # Voids 1 # Bowel Movements 1 1 ABP, PAP, CO, CI - Last Documented Arterial Blood Pressure 105/41 Pulmonary Artery Pressure 23/7 Cardiac Output 6.2 Cardiac Index 3.4 - Labs CBC & Chem 7: 06/14/22 05:31 06/14/22 05:31 Labs: Abnormal Lab Results - Last 24 Hours (Table) 06/13/22 06/14/22 06/14/22 Range/Units 20:02 05:31 05:31 RBC 3.07 L (4.30-5.90) m/uL Hgb 9.6 L (13.0-17.5) gm/dL Hct 29.0 L (39.0-53.0) % Sodium 134 L (137-145) mmol/L Carbon Dioxide 20 L (22-30) mmol/L Glucose 102 H (74-99) mg/dL POC Glucose (mg/dL) 116 H (70-110) mg/dL Calcium 8.2 L (8.4-10.2) mg/dL AST 70 H (17-59) U/L Total Protein 5.8 L (6.3-8.2) g/dL Albumin 3.4 L (3.5-5.0) g/dL
[2022-06-14 11:49] LABS: Glucose,Whole Blood 110 mg/dL (70-110)
--- NOTE | 2022-06-14 11:57 | CA ---
Transthoracic Echo Report Name: Bernardo Dennis Age: 51 Gender: M : 1970 Exam Date: 06/14/2022 08:17 Exam Location: [facility] Ht (in): 66 Wt (lb): 177 Ordering Physician: Allison Urrutia Attending/Referring Phys: [id number], Reann Client Consultant Radha Pelaez, RDCS Procedure CPT: Indications: Assess LV Function Cardiac Hx: Limited study Technical Quality: Contrast 1: Total Dose (mL): Contrast 2: Total Dose (mL): MEASUREMENTS (Male / Female) Normal Values 2D ECHO LV Diastolic Volume MOD 4C 154.4 cm??? LV Systolic Volume MOD 4C 90.3 cm??? LV Ejection Fraction MOD 4C 41.5 % LV Diastolic Length 4C 10.1 cm LV Systolic Length 4C 9.3 cm LV Diastolic Volume MOD 2C 134.6 cm??? LV Systolic Volume MOD 2C 78.5 cm??? LV Ejection Fraction MOD 2C 41.6 % LV Diastolic Length 2C 9.5 cm LV Systolic Length 2C 8.6 cm FINDINGS Left Ventricle Left ventricular ejection fraction is estimated at 40-45 %. Right Ventricle Right Atrium Left Atrium Mitral Valve Aortic Valve Mild aortic regurgitation. Tricuspid Valve Pulmonic Valve Pericardium Normal pericardium. No pericardial effusion. Aorta CONCLUSIONS Limited echo The LV systolic function appeared to be mildly impaired with EF between 40-45% Previewed by: Dr. Saurabh Zacarias MD (Electronically Signed) Final Date: 14 June 2022 11:57
--- NOTE | 2022-06-14 12:14 | P.PN ---
Subjective Progress Note Date: 06/14/22 Principal diagnosis: Status post CABG 3 postoperative day #3 Patient is now status post CABG 3 with left internal mammary artery to the diagonal coronary artery, a reverse greater saphenous vein graft to the obtuse marginal coronary artery and a reverse greater saphenous vein graft to the posterior descending coronary artery. Endoscopic vein harvest of the right lower extremity. Ligation of the left atrial appendage using a 35 mm Atriclip and an intraoperative transesophageal echocardiogram performed by anesthesia. Patient was on mechanical ventilation last night, he arrived rather related to the ICU, I manage his ventilator settings overnight, and shortly after I was made aware of the patient, reviewed his postoperative chest x-ray at home, I was updated on his blood gases, his ventilator settings were adjusted, and shortly after the patient was extubated uneventfully. Patient was extubated at 8:54 PM last evening. Presently on 2 L nasal cannula, O2 sats is 95%. He is hemodynamically stable, not requiring any inotropes or any pressors. Continues to have mediastinal and left pleural chest tube, on low continuous wall suction, no air leak noted. Chest x-ray showed minimal bibasilar atelectasis. His cardiac index today is 3.4. PA pressures 23/3 and his cardiac output is 6.2. Labs are basically unremarkable, hemoglobin is 8.9 otherwise labs are un remarkable. Reevaluated today on 06/13/22, postoperative day #2coronary artery bypass grafting x 3 vessels, left internal mammary artery to the diagonal artery, reverse saphenous vein graft to the obtuse marginal artery, reverse postoperative endoscopic harvesting right greater saphenous vein, ligation of the left atrial appendage using a 35 mm clip, epi-aortic ultrasound, intraoperative transesophageal echocardiogram. Patient is doing well, remains marginal with his incentive spirometry. Pulling only 750 ML, patient has been assisted to ambulate in the hallway. Continues to have multiple lines and catheters, some of them will be removed today. Overall clinically the patient is doing better than expected. Chest x-ray showed minimal basilar atelectasis. Expected. WBC count is 6.2 hemoglobin is 8.8, electrolytes are normal renal profile is normal. Creatinine is 1.24 Reevaluated today on 06/14/22,postoperative day #3coronary artery bypass grafting x 3 vessels, left internal mammary artery to the diagonal artery, reverse saphenous vein graft to the obtuse marginal artery, reverse postoperative endoscopic harvesting right greater saphenous vein, ligation of the left atrial appendage using a 35 mm clip, epi-aortic ultrasound, intraoperative transesophageal echocardiogram patient continues to do well. On room air,,Not in any distress. His incentive this artery is getting a bit better, patient is pulling anywhere between 750 up to 900 ml He is able to ambulate in the hallway with assistance. And the plan is to transfer the patient today from ICU to cardiac stepdown. His chest tubes and IJ cordis have been removed. Overall the patient is doing better than expected. Chest x-ray showed minimal atelectasis, CBC is relatively normal hemoglobin 9.6 electrolytes are normal renal profile is normal Objective - Vital Signs Vital signs: Vital Signs Temp 98.7 F 06/14/22 08:00 Pulse 79 06/14/22 11:27 Resp 18 06/14/22 08:00 BP 144/62 06/14/22 08:00 Pulse Ox 96 06/14/22 08:00 FiO2 21 06/13/22 07:59 Intake & Output 06/13/22 06/14/22 06/14/22 18:59 06:59 18:59 Intake Total 766 750 Output Total 880 850 Balance -114 -100 Intake: IV 46 Lactated Ringers 1,000 ml 40 @ 20 mls/hr IV .Q24H [facility] Rx#:[id number] Pressure bags 6 Oral 720 750 Output: Urine 880 850 Other: Voiding Method Indwelling Catheter Urinal Urinal # Voids 1 # Bowel Movements 1 1 ABP, PAP, CO, CI - Last Documented Arterial Blood Pressure 105/41 Pulmonary Artery Pressure 23/7 Cardiac Output 6.2 Cardiac Index 3.4 - Exam Physical Exam: Revealed 51-year-old white male in no distress, on room air. Head: Atraumatic, normocephalic. HEENT:[Neck is supple.] [No neck masses.] [No thyromegaly.] [No JVD.] Chest: [Clear throughout, no crackles, no rhonchi, no wheezes.] Cardiac Exam: [Normal S1 and S2, no S3 gallop, no murmur.] Positive pericardial rub. Abdomen: [Soft, nontender, no megaly, no rebound, no guarding, normal bowel sounds.] Extremities: [No clubbing, no edema, no cyanosis.] Neurological Exam: [No focal neurologic deficit.] Alert oriented 3. Psychiatric: Normal mood affect and normal mental status examination. Skin: No rashes. - Labs CBC & Chem 7: 06/14/22 05:31 06/14/22 05:31 Labs: Abnormal Lab Results - Last 24 Hours (Table) 06/13/22 06/14/22 06/14/22 Range/Units 20:02 05:31 05:31 RBC 3.07 L (4.30-5.90) m/uL Hgb 9.6 L (13.0-17.5) gm/dL Hct 29.0 L (39.0-53.0) % Sodium 134 L (137-145) mmol/L Carbon Dioxide 20 L (22-30) mmol/L Glucose 102 H (74-99) mg/dL POC Glucose (mg/dL) 116 H (70-110) mg/dL Calcium 8.2 L (8.4-10.2) mg/dL AST 70 H (17-59) U/L Total Protein 5.8 L (6.3-8.2) g/dL Albumin 3.4 L (3.5-5.0) g/dL Assessment and Plan Assessment: Impression: Status post CABG, postoperative day #3 Severe cardiomyopathy and LV dysfunction with ejection fraction of 30-35% Dyslipidemia History of syncope Tobacco dependence syndrome Severe COPD FEV1 of 45% Postoperative atelectasis, expected Recommendation: Agree with transfer to a stepdown unit bed Continue supportive care measures Continue aspirin statins and Plavix and beta blockers Continue incentive spirometry Continue to ambulate GI and DVT prophylaxis Continue CIWA protocol Possible discharge planning in the next 24 hours Will follow. Time with Patient: Less than 30
[2022-06-14] MEDS: LOSARTAN 25 MG TAB PO SCH (12:39)
[2022-06-14 16:36] LABS: Glucose,Whole Blood 68 mg/dL (70-110)
[2022-06-14] MEDS: ACETAMINOPHEN TAB 500 MG TAB PO PRN (16:54)
[2022-06-14 17:01] LABS: Glucose,Whole Blood 138 mg/dL (70-110)
[2022-06-14] MEDS ORDERED: ALBUTEROL HFA INHALER INHALATION PRN (19:22)
[2022-06-14 20:28] LABS: Glucose,Whole Blood 140 mg/dL (70-110)
[2022-06-14] MEDS: ALBUTEROL HFA INHALER INHALATION SCH (21:43)
[2022-06-15] MEDS: KETOROLAC 15 MG/ML 1 ML VIAL IVP SCH ×5 (00:07→23:38)
[2022-06-15 06:25] LABS: Glucose,Whole Blood 134 mg/dL (70-110)
[2022-06-15] MEDS: INSULIN ASPART (NovoLOG) 100 UNIT/ML VIAL SQ SCH ×4 (06:39→20:38)
[2022-06-15] MEDS: PANTOPRAZOLE 40 MG TABLET PO SCH (06:39)
[2022-06-15 07:01] LABS: HCT 25.2 % (39.0-53.0); HGB 8.5 gm/dL (13.0-17.5); MCH 31.5 pg (25.0-35.0); MCHC 33.8 g/dL (31.0-37.0); MCV 93.1 fL (80.0-100.0); Mean Platelet Volume 7.4; Platelet Count 211 k/uL (150-450); WBC 4.4 k/uL (3.8-10.6)
[2022-06-15 07:13] LABS: African American GFR (CKD) >90 (>60 ml/min/1.73 sqM); Anion Gap 7 mmol/L; Blood Urea Nitrogen 17 mg/dL (9-20); Calcium 7.6 mg/dL (8.4-10.2); Carbon Dioxide 20 mmol/L (22-30); Chloride 106 mmol/L (98-107); Glucose 106 mg/dL (74-99); Non-African American GFR(CKD) >90 (>60 ml/min/1.73 sqM); Potassium 3.8 mmol/L (3.5-5.1); Sodium 133 mmol/L (137-145)
--- NOTE | 2022-06-15 07:29 | XR ---
EXAMINATION TYPE: XR chest 1V portable DATE OF EXAM: 06/15/2022 CLINICAL HISTORY: Post open cardiac surgery progress study. TECHNIQUE: Single AP portable upright view of the chest is obtained. COMPARISON: Chest x-ray from one day earlier and older studies. FINDINGS: Overlying sternal wires and mediastinal clips along with left atrial appendage clip are al l redemonstrated. Persistent cardiomegaly with small bilateral pleural effusions and bibasilar opacities favoring atele ctasis. No pneumothorax is seen bilaterally. Osseous structures are intact. IMPRESSION: Cardiomegaly with small bilateral pleural effusions and bibasilar atelectasis. No signifi cant change from one day earlier.
--- NOTE | 2022-06-15 08:17 | P.PN ---
Subjective Progress Note Date: 06/15/22 Principal diagnosis: Coronary artery disease with PCI in December 2021, cardiomyopathy, hypertension, hyperlipidemia, syncopal episode 2, current tobacco dependence, severe COPD, current daily EtOH use, PAD POD #4 coronary artery bypass grafting x 3 vessels, left internal mammary artery to the diagonal artery, reverse saphenous vein graft to the obtuse marginal artery, reverse postoperative endoscopic harvesting right greater saphenous vein, ligation of the left atrial appendage using a 35 mm clip, epi-aortic ultrasound, intraoperative transesophageal echocardiogram. Postoperative acute blood loss anemia, expected given hemodilution and cardiopulmonary bypass Acute covid infection The patient was seen and examined sitting up in a recliner in the intensive care unit in no acute distress. States his pain is controlled, denies shortness of breath. His only complaint is continuous coughing, he did have an episode yesterday after showering of chills accompanied by fever 100.9F. Cultures were ordered and sent, rapid Covid test was ordered and sent and resulted as p ositive. Currently he's afebrile with no more episodes of chills. Remains on room air with oxygen saturation in the high 90s, able to pull 1000 mL on his incentive spirometry. Patient has been ambulatory without difficulty. Transfer orders placed for 3 S. cardiac stepdown unit, no beds available. Patient is not anxious to go home with Covid as he does not want to infect his roommates. No other new concerns. Objective - Vital Signs Vital signs: Vital Signs Temp 98.1 F 06/15/22 04:00 Pulse 87 06/15/22 04:00 Resp 25 H 06/15/22 04:00 BP 138/55 06/15/22 04:00 Pulse Ox 98 06/15/22 04:00 FiO2 21 06/13/22 07:59 Intake & Output 06/14/22 06/15/22 06/15/22 18:59 06:59 18:59 Intake Total 600 240 Output Total 400 600 Balance 200 -360 Weight 79.2 kg 79.3 kg Intake: Oral 600 240 Output: Urine 400 600 Other: Voiding Method Urinal Urinal # Voids 0 1 ABP, PAP, CO, CI - Last Documented Arterial Blood Pressure 105/41 Pulmonary Artery Pressure 23/7 Cardiac Output 6.2 Cardiac Index 3.4 - Exam CONSTITUTIONAL: Appears comfortable, cooperative, no acute distress RESPIRATORY: Lungs sounds diminished bilaterally. Respirations even, nonlabored. Currently on room air with oxygen saturation 98%. Able to achieve 1000 mL on incentive spirometry. Strong cough. CARDIOVASCULAR: S1, S2 present. Regular rate and rhythm, sinus rhythm on telemetry. Sternum stable. Palpable peripheral pulses bilaterally. No edema present. No calf pain or tenderness noted. Heart hugger in place with patient demonstrating appropriate use. Antiembolism stockings, SCDs present. GASTROINTESTINAL: Abdomen soft, nontender, nondistended. Active bowel sounds present 4 quadrants. Tolerating diet. Positive bowel movement GENITOURINARY: Patient continues to void. Output 1000+ mL in the last 24 hours INTEGUMENTARY: Skin is warm and dry with evidence of good perfusion. Anterior chest incision well approximated. Right lower extremity EVH site well approximated without redness or drainage. NEUROLOGIC: Cranial nerves II through XII intact MUSKULOSKELETAL: Able to move all extremities, strength equal bilaterally, gait normal PSYCHIATRIC: Alert and oriented to person place and time, appropriate affect, intact judgment and insight - Allied health notes Allied health notes reviewed: nursing - Labs CBC & Chem 7: 06/15/22 06:40 06/15/22 06:40 Labs: Abnormal Lab Results - Last 24 Hours (Table) 06/14/22 06/14/22 06/14/22 Range/Units 16:34 16:59 17:39 RBC (4.30-5.90) m/uL Hgb (13.0-17.5) gm/dL Hct (39.0-53.0) % Sodium (137-145) mmol/L Carbon Dioxide (22-30) mmol/L Glucose (74-99) mg/dL POC Glucose (mg/dL) 68 L 138 H (70-110) mg/dL Calcium (8.4-10.2) mg/dL Coronavirus (PCR) Detected A (Not Detectd) 06/14/22 06/15/22 06/15/22 Range/Units 20:27 06:23 06:40 RBC 2.70 L (4.30-5.90) m/uL Hgb 8.5 L (13.0-17.5) gm/dL Hct 25.2 L (39.0-53.0) % Sodium (137-145) mmol/L Carbon Dioxide (22-30) mmol/L Glucose (74-99) mg/dL POC Glucose (mg/dL) 140 H 134 H (70-110) mg/dL Calcium (8.4-10.2) mg/dL Coronavirus (PCR) (Not Detectd) 06/15/22 Range/Units 06:40 RBC (4.30-5.90) m/uL Hgb (13.0-17.5) gm/dL Hct (39.0-53.0) % Sodium 133 L (137-145) mmol/L Carbon Dioxide 20 L (22-30) mmol/L Glucose 106 H (74-99) mg/dL POC Glucose (mg/dL) (70-110) mg/dL Calcium 7.6 L (8.4-10.2) mg/dL Coronavirus (PCR) (Not Detectd) Microbiology - Last 24 Hours (Table) 06/14/22 17:58 Urine Culture - Preliminary Urine,Voided - Imaging and Cardiology Chest x-ray: report reviewed, image reviewed Assessment and Plan Assessment: 1. Coronary artery disease with PCI in December 2021, current heart cath reporting LM 50-55%, IVUS 5.3 mm2, OM3 90%, AM 70%, status post three-vessel CABG 2. Cardiomyopathy, EF 30-35%, repeat echo demonstrates EF 40-45% 3. Hypertension 4. Hyperlipidemia, treated, cholesterol 167, LDL 103 5. PAD, MICHELLE on the right 0.55, MICHELLE on the left 0.47 6. Syncopal episode 2 7. Current tobacco dependence 8. Current daily EtOH use, 6 pack beer daily, no signs of withdrawal 9. Severe COPD, preoperative FEV1 45% of predicted, 1.64 L 10. Postoperative acute blood loss anemia 11. Acute covid infection Plan: 1. Continue to maximize medical therapy with aspirin, statin, Plavix, beta james, losartan 2. Encourage incentive spirometry use 10 times every hour while awake. Bronchodilators per pulmonology. Mucinex added for cough 3. Increase activity, ambulate as tolerated. PT/OT/cardiac rehab following 4. Smoking cessation counseling and education continually reinforced with the patient 5. Reduction/cessation of EtOH use discussed with the patient. Continue thiamine/folic acid 6. Will monitor daily labs and x-rays. Electrolyte replacement per protocol 7. Pain control with current medication regimen 8. Insulin management per primary care service. Patient is not diabetic, hemoglobin A1c 6% 9. Repeat echocardiogram completed yesterday, EF improved to 40-45%, no need for LifeVest 10. Transfer orders placed for 3 S. cardiac stepdown unit, may transfer when bed available 11. Discharge planning in progress. Anticipate discharge to home with home care soon 12. More recommendations to follow
[2022-06-15] MEDS: ALBUTEROL HFA INHALER INHALATION SCH ×4 (08:20→19:17)
[2022-06-15] MEDS: guaiFENesin-DM 600/30MG 1 EACH TAB.ER.12H PO SCH ×2 (08:33→21:03)
[2022-06-15] MEDS: ASPIRIN 325 MG TAB PO SCH (08:44)
[2022-06-15] MEDS: METOPROLOL TARTRATE 50 MG TAB PO SCH ×2 (08:45→21:02)
[2022-06-15] MEDS: MULTIVITAMINS, THERA 1 EACH TAB PO SCH (08:45)
[2022-06-15] MEDS: CLOPIDOGREL 75 MG TAB PO SCH (08:45)
[2022-06-15] MEDS: BENZOCAINE/MENTHOL LOZENG 1 EACH LOZENGE MUCOUS MEM PRN ×4 (08:45→21:02)
[2022-06-15] MEDS: FOLIC ACID 1 MG TAB PO SCH (08:45)
[2022-06-15] MEDS: HEPARIN SODIUM,PORCINE/PF 5,000 UNIT/0.5 ML SYRINGE SQ SCH ×3 (08:45→23:38)
[2022-06-15] MEDS: THIAMINE 100 MG TAB PO SCH (08:46)
[2022-06-15] MEDS: ATORVASTATIN 40 MG TAB PO SCH (08:46)
--- NOTE | 2022-06-15 09:19 | P.PN ---
Subjective HISTORY OF PRESENTING ILLNESS Progress Note Date: 06/10/22 This is a 51 year old male with a past medical history of hypertension, nicotine dependence, daily alcohol use, coronary artery disease with NSTEMI in 12/2021 S/p PCI proximal OM3, ischemic cardiomyopathy, dyslipidemia. He follows with Dr. Mock. We're consulted for chest pain. Patient presented to the hospital on 06/02/2022 with symptoms of shortness of breath and chest pain. Smooth delta continued to have chest discomfort and recommend cardiac catheterization. Echocardiogram revealed EF 3035 percent. Patient underwent cardiac catheterization with Dr. Mock on 06/04/2022 which revealed coronary artery disease with 50-55% left main stenosis with minimal luminal area 5.3mm2, mild 20-30% LAD stenosis, mild luminal irregularities of a dominant circumflex, OM3 90% stenosis, normal left sided filling pressures. CT surgery was consulted for CABG evaluation. Limited echocardiogram revealed EF of 55%, no obvious regional wall motion abnormalities, trace MR, mild left ear with a peak gradient of 19 mmHg and a mean gradient of 9 mmHg and mild aortic regurgitation. 06/09/2022 Patient was seen and examined sitting up at the side of the bed. He just returned from a walk around the unit. He denies any shortness of breath but does seem to be a bit winded to me. He is scheduled to undergo coronary artery bypass grafting surgery on June 11. Blood pressure has been elevated. He is currently on aspirin 81 mg daily, atorvastatin 80 mg daily at bedtime, carvedilol 6.25 mg by mouth twice a day, a 640 mg daily, Aldactone 25 mg daily and lisinopril 10 mg by mouth daily. He is maintaining sinus mechanism with heart rate in the 60s to 70s with occasional PVCs. He denies any chest discomfort, palpitations, dizziness or lightheadedness. 06/10/2022 Patient was seen and examined sitting up side of the bed. He is overall feeling well. He denies any shortness of breath or chest discomfort. His ambulating without difficulties. Blood pressure is better controlled however his JOSÉ inhibitor has some placed on hold by CT surgery preoperatively. He is scheduled to undergo coronary artery bypass grafting surgery tomorrow. 06/12 Patient seen and examined. Patient underwent bypass yesterday and has been doing well. Off of any pressors. Still has chest tubes in place. Admits to mild discomfort around the incision however no chest pain or pressure. No s hortness of breath. 06/13 Patient seen and examined. Patient admits he was able to walk the halls however feels like he may have overdone it. Denies any chest pain or pressure. Denies any lightheadedness. Has been eating someone and is off of any vasopressors. Blood pressures minimally higher and has been tolerating metoprolol well. 06/14 Patient seen and examined. Patient still having some mild discomfort around the incision however fairly well controlled. Denies any shortness breath. Does have trace lower extremity edema. Receive Lasix yesterday with good urine output. He was started on losartan 12.5 mg daily today. 06/15 Patient seen and examined. Patient states overall he is doing fairly well. Denies any chest pain or pressure. Denies any shortness breath. He did have an episode yesterday where he had some chills and had a temperature of 100.9. Workup showed he is positive for [place] with. Denies any cough. PHYSICAL EXAMINATION Vital signs reviewed. CONSTITUTIONAL: No apparent distress. HEENT: Head is normocephalic. Pupils are equal, round. Sclerae anicteric. Mucous membranes of the mouth are moist. No JVD. No carotid bruit. CHEST EXAMINATION: Lungs are clear to auscultation. No chest wall tenderness is noted on palpation or with deep breathing. HEART EXAMINATION: Regular rate and rhythm. S1, S2 heard. No murmurs, gallops or rub. ABDOMEN: Soft, nontender. Positive bowel sounds. EXTREMITIES: 2+ peripheral pulses, no lower extremity edema and no calf ten derness. NEUROLOGIC EXAMINATION: Patient is awake, alert and oriented x3. Assessment CAD s/p CABG 06/11 Coronary artery disease s/p prior PCI to OM3 in 12/2021 Hypertension Dyslipidemia Ischemic cardiomyopathy EF 3035 percent Chronic tobacco use Daily alcohol use Chest pain, shortness of breath Chronic systolic heart failure COVID 19 Plan: Continue aspirin, Plavix, metoprolol. Attempt to optimize heart failure regimen as able Contiue losartan. Monitor volume status and diurese as needed Continue with supportive care Objective - Vital Signs Vital signs: Vital Signs Temp 98.1 F 06/15/22 04:00 Pulse 85 06/15/22 08:00 Resp 23 06/15/22 08:00 BP 118/58 06/15/22 08:00 Pulse Ox 99 06/15/22 08:00 FiO2 21 06/13/22 07:59 Intake & Output 06/14/22 06/15/22 06/15/22 18:59 06:59 18:59 Intake Total 600 240 Output Total 400 600 Balance 200 -360 Weight 79.2 kg 79.3 kg Intake: Oral 600 240 Output: Urine 400 600 Other: Voiding Method Urinal Urinal # Voids 0 1 ABP, PAP, CO, CI - Last Documented Arterial Blood Pressure 105/41 Pulmonary Artery Pressure 23/7 Cardiac Output 6.2 Cardiac Index 3.4 - Labs CBC & Chem 7: 06/15/22 06:40 06/15/22 06:40 Labs: Abnormal Lab Results - Last 24 Hours (Table) 06/14/22 06/14/22 06/14/22 Range/Units 16:34 16:59 17:39 RBC (4.30-5.90) m/uL Hgb (13.0-17.5) gm/dL Hct (39.0-53.0) % Sodium (137-145) mmol/L Carbon Dioxide (22-30) mmol/L Glucose (74-99) mg/dL POC Glucose (mg/dL) 68 L 138 H (70-110) mg/dL Calcium (8.4-10.2) mg/dL Coronavirus (PCR) Detected A (Not Detectd) 06/14/22 06/15/22 06/15/22 Range/Units 20:27 06:23 06:40 RBC 2.70 L (4.30-5.90) m/uL Hgb 8.5 L (13.0-17.5) gm/dL Hct 25.2 L (39.0-53.0) % Sodium (137-145) mmol/L Carbon Dioxide (22-30) mmol/L Glucose (74-99) mg/dL POC Glucose (mg/dL) 140 H 134 H (70-110) mg/dL Calcium (8.4-10.2) mg/dL Coronavirus (PCR) (Not Detectd) 06/15/22 Range/Units 06:40 RBC (4.30-5.90) m/uL Hgb (13.0-17.5) gm/dL Hct (39.0-53.0) % Sodium 133 L (137-145) mmol/L Carbon Dioxide 20 L (22-30) mmol/L Glucose 106 H (74-99) mg/dL POC Glucose (mg/dL) (70-110) mg/dL Calcium 7.6 L (8.4-10.2) mg/dL Coronavirus (PCR) (Not Detectd) Microbiology - Last 24 Hours (Table) 06/14/22 17:58 Urine Culture - Preliminary Urine,Voided
[2022-06-15 11:33] LABS: Glucose,Whole Blood 108 mg/dL (70-110)
[2022-06-15] MEDS: LOSARTAN 25 MG TAB PO SCH (11:39)
--- NOTE | 2022-06-15 11:39 | P.PN ---
Subjective Progress Note Date: 06/15/22 Patient is a 51-year-old male with PMH of CAD post stent of the OM in December 2021, systolic CHF with EF 35-40%, hypertension, dyslipidemia that presents the ED or worsening shortness of breath and scapular pain. Patient reports shortness of breath that is progressively getting worse since his stenting in December. Currently he is unable to walk 200 feet without stopping to catch his breath. He denies any orthopnea or lower extremity swelling. He reports scapular pain that has been ongoing over the past week that is worse with exertion, similar to what he had before he underwent stenting in December. Patient also reports that he fell twice. The first time was 2 weeks ago and he hit his head, did not seek medical attention. He fell yesterday, this time he did not hit his head. He is unsure whether he had a syncopal episode or not. He denies any headache, nausea or vomiting, fever or chills, diaphoresis, chest pain, palpitations, changes in urination or bowel habits. No changes in appetite or weight. He denies any dizziness, numbness/weakness/tingling of the extremities. In the ED, his vital signs are stable. CBC showed leukocytosis of 12.2. Coagulation panel was negative. D-dimer was 12.95. CMP showed sodium 129, bicarb of 14, glucose of 110, alkaline phosphatase of 131. Troponin was 0.028, 0.034, 0.035 with EKG showing sinus rhythm and T-wave abnormalities. BNP was 1430. Chest x-ray was negative. CTA chest negative for PE. Patient is admitted for chest pain, rule out acute coronary syndrome with cardiology consultation. Troponins were slowly trending up with EKG showing T-wave abnormalities. Patient was placed on a heparin drip. Cardiac cath showed 50-55% left main, 20-30% LAD, 90% OM3 stenosis. Cardiothoracic surgery consulted for CABG. Plans were arranged for CABG on 06/11/2022. Patient was seen and examined. POD 4 after CABG. CABG x 3 L. internal mammary to diagonal, saphenous to obtuse marginal, saphenous to posterior descending. Chest and mediastinal tubes discontinued, Right internal jugular cordis discontinued, Luz catheter discontinued on 06/13. Epicardial pacemaker discontinued 06/14. Patient reported fever and chills overnight. He reports a dry cough. General: No acute distress Derm: warm, dry Head: atraumatic, normocephalic Eyes: no lid lag, anicteric sclera Mouth: no lip lesion, mucus membranes moist Cardiovascular: S1S2 reg, no murmur, surgical scar without erythema or discharge Lungs: Clear to auscultation bilaterally. No accessory muscle use. Ext: no gross muscle atrophy, no edema, no contractures Neuro: no focal deficits Psych: alert and oriented x 3 #COVID 19 #Acute blood loss anemia #Elevated troponin with history of CAD post stent in December 2021 #Systolic CHF with EF of 30-35% #Possible syncopal episode #Elevated D-dimer #PAD #Hyponatremia Chronic conditions: Hypertension, dyslipidemia, smoker COVID 19+. Not on supplemental oxygen. Albuterol inhaler PRN. Continue to monitor. Hemoglobin 8.5. Expected result of surgery. Improving. Transfuse if Hg < 7. Daily CBC. Troponins are slowly trending up with EKG showing T-wave abnormalities. Continue ASA, Lipitor, Metoprolol and Plavix. Telemetry montoring. Cardiac cath shows 50- 55% left main, 20-30% LAD, 90% OM3 stenosis. s/p CABG x 3 L. internal mammary to diagonal, saphenous to obtuse marginal, saphenous to posterior descending on 06/11. Patient presents with exertional shortness of breath. Chest x-ray was negative. He has no lower extremity swelling. Echocardiogram shows EF 30% with global hypokinesis. Continue Metoprolol, Losartan. Echocardiogram planned for today to determine benefits of AICD. Continue Telemetry monitoring. Patient be placed on fall precautions. Patient with elevated d-dimer, CT chest is ruled out PE. Venous duplex negative for DVT. Moderate PAD on arterial duplex. Patient needs Vascular surgery outpatient. Patient was sodium of 133. Possibly related to dehydration. Case discussed with Renan [employer], recommends observation for one more day. Patient is medically stable. Downgrade from ICU. Anticipate DC in 1-2 days. Objective - Vital Signs Vital signs: Vital Signs Temp 98.1 F 06/15/22 04:00 Pulse 85 06/15/22 08:00 Resp 23 06/15/22 08:00 BP 118/58 06/15/22 08:00 Pulse Ox 99 06/15/22 09:00 FiO2 21 06/13/22 07:59 Intake & Output 06/14/22 06/15/22 06/15/22 18:59 06:59 18:59 Intake Total 600 240 Output Total 400 600 Balance 200 -360 Weight 79.2 kg 79.3 kg Intake: Oral 600 240 Output: Urine 400 600 Other: Voiding Method Urinal Urinal Toilet # Voids 0 1 ABP, PAP, CO, CI - Last Documented Arterial Blood Pressure 105/41 Pulmonary Artery Pressure 23/7 Cardiac Output 6.2 Cardiac Index 3.4 - Labs CBC & Chem 7: 06/15/22 06:40 06/15/22 06:40 Labs: Abnormal Lab Results - Last 24 Hours (Table) 06/14/22 06/14/22 06/14/22 Range/Units 16:34 16:59 17:39 RBC (4.30-5.90) m/uL Hgb (13.0-17.5) gm/dL Hct (39.0-53.0) % Sodium (137-145) mmol/L Carbon Dioxide (22-30) mmol/L Glucose (74-99) mg/dL POC Glucose (mg/dL) 68 L 138 H (70-110) mg/dL Calcium (8.4-10.2) mg/dL Coronavirus (PCR) Detected A (Not Detectd) 06/14/22 06/15/22 06/15/22 Range/Units 20:27 06:23 06:40 RBC 2.70 L (4.30-5.90) m/uL Hgb 8.5 L (13.0-17.5) gm/dL Hct 25.2 L (39.0-53.0) % Sodium (137-145) mmol/L Carbon Dioxide (22-30) mmol/L Glucose (74-99) mg/dL POC Glucose (mg/dL) 140 H 134 H (70-110) mg/dL Calcium (8.4-10.2) mg/dL Coronavirus (PCR) (Not Detectd) 06/15/22 Range/Units 06:40 RBC (4.30-5.90) m/uL Hgb (13.0-17.5) gm/dL Hct (39.0-53.0) % Sodium 133 L (137-145) mmol/L Carbon Dioxide 20 L (22-30) mmol/L Glucose 106 H (74-99) mg/dL POC Glucose (mg/dL) (70-110) mg/dL Calcium 7.6 L (8.4-10.2) mg/dL Coronavirus (PCR) (Not Detectd) Microbiology - Last 24 Hours (Table) 06/15/22 05:39 Sputum Culture - Preliminary Sputum 06/14/22 17:58 Urine Culture - Preliminary Urine,Voided
[2022-06-15] MEDS ORDERED: LOPERAMIDE 2 MG CAP PO STA (12:38)
[2022-06-15] MEDS ORDERED: LOPERAMIDE 2 MG CAP PO PRN (12:38)
--- NOTE | 2022-06-15 13:35 | P.PN ---
Subjective Progress Note Date: 06/15/22 Principal diagnosis: Status post CABG 3 postoperative day #4 Patient is now status post CABG 3 with left internal mammary artery to the diagonal coronary artery, a reverse greater saphenous vein graft to the obtuse marginal coronary artery and a reverse greater saphenous vein graft to the posterior descending coronary artery. Endoscopic vein harvest of the right lower extremity. Ligation of the left atrial appendage using a 35 mm Atriclip and an intraoperative transesophageal echocardiogram performed by anesthesia. Patient was on mechanical ventilation last night, he arrived rather related to the ICU, I manage his ventilator settings overnight, and shortly after I was made aware of the patient, reviewed his postoperative chest x-ray at home, I was updated on his blood gases, his ventilator settings were adjusted, and shortly after the patient was extubated uneventfully. Patient was extubated at 8:54 PM last evening. Presently on 2 L nasal cannula, O2 sats is 95%. He is hemodynamically stable, not requiring any inotropes or any pressors. Continues to have mediastinal and left pleural chest tube, on low continuous wall suction, no air leak noted. Chest x-ray showed minimal bibasilar atelectasis. His cardiac index today is 3.4. PA pressures 23/3 and his cardiac output is 6.2. Labs are basically unremarkable, hemoglobin is 8.9 otherwise labs are un remarkable. Reevaluated today on 06/13/22, postoperative day #2coronary artery bypass grafting x 3 vessels, left internal mammary artery to the diagonal artery, reverse saphenous vein graft to the obtuse marginal artery, reverse postoperative endoscopic harvesting right greater saphenous vein, ligation of the left atrial appendage using a 35 mm clip, epi-aortic ultrasound, intraoperative transesophageal echocardiogram. Patient is doing well, remains marginal with his incentive spirometry. Pulling only 750 ML, patient has been assisted to ambulate in the hallway. Continues to have multiple lines and catheters, some of them will be removed today. Overall clinically the patient is doing better than expected. Chest x-ray showed minimal basilar atelectasis. Expected. WBC count is 6.2 hemoglobin is 8.8, electrolytes are normal renal profile is normal. Creatinine is 1.24 Reevaluated today on 06/14/22,postoperative day #3coronary artery bypass grafting x 3 vessels, left internal mammary artery to the diagonal artery, reverse saphenous vein graft to the obtuse marginal artery, reverse postoperative endoscopic harvesting right greater saphenous vein, ligation of the left atrial appendage using a 35 mm clip, epi-aortic ultrasound, intraoperative transesophageal echocardiogram patient continues to do well. On room air,,Not in any distress. His incentive this artery is getting a bit better, patient is pulling anywhere between 750 up to 900 ml He is able to ambulate in the hallway with assistance. And the plan is to transfer the patient today from ICU to cardiac stepdown. His chest tubes and IJ cordis have been removed. Overall the patient is doing better than expected. Chest x-ray showed minimal atelectasis, CBC is relatively normal hemoglobin 9.6 electrolytes are normal renal profile is normal Reevaluated today on 06/15/22, patient had a temp of 101 yesterday, and patient tested positive for coronary 19 infection. Fortunately the patient has been vaccinated and boosted 4. Clinically the patient is not complaining of any major symptoms to suggest acute COVID-19 pneumonia he does have infection, but no shortness of breath, he has a bit of a cough. Patient is not in any distress, and his chest x-ray is reassuring. Hence the patient will continue on the COVID-19 cocktail, no need for Medrol, no need for Remdesivir, and considering the patient is vaccinated, very unlikely that his course will get any worse. His WBC count today is 4.4 hemoglobin is 8.5 electrodes are normal renal profile is normal Objective - Vital Signs Vital signs: Vital Signs Temp 98.1 F 06/15/22 04:00 Pulse 85 06/15/22 08:00 Resp 23 06/15/22 08:00 BP 118/58 06/15/22 08:00 Pulse Ox 99 06/15/22 09:00 FiO2 21 06/13/22 07:59 Intake & Output 06/14/22 06/15/22 06/15/22 18:59 06:59 18:59 Intake Total 600 240 Output Total 400 600 100 Balance 200 -360 -100 Weight 79.2 kg 79.3 kg Intake: Oral 600 240 Output: Urine 400 600 100 Other: Voiding Method Urinal Urinal Toilet # Voids 0 1 # Bowel Movements 1 ABP, PAP, CO, CI - Last Documented Arterial Blood Pressure 105/41 Pulmonary Artery Pressure 23/7 Cardiac Output 6.2 Cardiac Index 3.4 - Exam Physical Exam: Revealed 51-year-old white male in no distress, on room air. Head: Atraumatic, normocephalic. HEENT:[Neck is supple.] [No neck masses.] [No thyromegaly.] [No JVD.] Chest: [Clear throughout, no crackles, no rhonchi, no wheezes.] Cardiac Exam: [Normal S1 and S2, no S3 gallop, no murmur.] Abdomen: [Soft, nontender, no megaly, no rebound, no guarding, normal bowel sounds.] Extremities: [No clubbing, no edema, no cyanosis.] Neurological Exam: [No focal neurologic deficit.] Alert oriented 3. Psychiatric: Normal mood affect and normal mental status examination. Skin: No rashes. - Labs CBC & Chem 7: 06/15/22 06:40 06/15/22 06:40 Labs: Abnormal Lab Results - Last 24 Hours (Table) 06/14/22 06/14/22 06/14/22 Range/Units 16:34 16:59 17:39 RBC (4.30-5.90) m/uL Hgb (13.0-17.5) gm/dL Hct (39.0-53.0) % Sodium (137-145) mmol/L Carbon Dioxide (22-30) mmol/L Glucose (74-99) mg/dL POC Glucose (mg/dL) 68 L 138 H (70-110) mg/dL Calcium (8.4-10.2) mg/dL Coronavirus (PCR) Detected A (Not Detectd) 06/14/22 06/15/22 06/15/22 Range/Units 20:27 06:23 06:40 RBC 2.70 L (4.30-5.90) m/uL Hgb 8.5 L (13.0-17.5) gm/dL Hct 25.2 L (39.0-53.0) % Sodium (137-145) mmol/L Carbon Dioxide (22-30) mmol/L Glucose (74-99) mg/dL POC Glucose (mg/dL) 140 H 134 H (70-110) mg/dL Calcium (8.4-10.2) mg/dL Coronavirus (PCR) (Not Detectd) 06/15/22 Range/Units 06:40 RBC (4.30-5.90) m/uL Hgb (13.0-17.5) gm/dL Hct (39.0-53.0) % Sodium 133 L (137-145) mmol/L Carbon Dioxide 20 L (22-30) mmol/L Glucose 106 H (74-99) mg/dL POC Glucose (mg/dL) (70-110) mg/dL Calcium 7.6 L (8.4-10.2) mg/dL Coronavirus (PCR) (Not Detectd) Microbiology - Last 24 Hours (Table) 06/15/22 05:39 Sputum Culture - Preliminary Sputum 06/14/22 17:58 Urine Culture - Preliminary Urine,Voided Assessment and Plan Assessment: Impression: Status post CABG, postoperative day # 4 Severe cardiomyopathy and LV dysfunction with ejection fraction of 30-35% Dyslipidemia History of syncope Tobacco dependence syndrome Severe COPD FEV1 of 45% Postoperative atelectasis, improving based on chest x-ray today. Acute COVID-19 infection, but no pneumonia, and no significant symptoms. Recommendation: Continue COVID-19 cocktail, no need for Decadron, and no need for Remdesivir. No need for paxlovid, patient is fully vaccinated and posted. Continue supportive care measures Continue aspirin statins and Plavix and beta blockers Continue incentive spirometry Continue to ambulate GI and DVT prophylaxis Continue CIWA protocol Will follow. Time with Patient: Less than 30
[2022-06-15] MEDS ORDERED: POTASSIUM CHLORIDE ER 20 MEQ TAB.ER PO SCH (15:00)
[2022-06-15 16:50] LABS: Glucose,Whole Blood 106 mg/dL (70-110)
[2022-06-15 20:24] LABS: Glucose,Whole Blood 145 mg/dL (70-110)
[2022-06-15] MEDS: ACETAMINOPHEN TAB 500 MG TAB PO PRN (21:03)
[2022-06-16] MEDS: BENZOCAINE/MENTHOL LOZENG 1 EACH LOZENGE MUCOUS MEM PRN ×3 (02:11→09:41)
[2022-06-16 06:02] LABS: Glucose,Whole Blood 103 mg/dL (70-110)
[2022-06-16] MEDS: INSULIN ASPART (NovoLOG) 100 UNIT/ML VIAL SQ SCH ×4 (06:22→21:48)
[2022-06-16] MEDS: KETOROLAC 15 MG/ML 1 ML VIAL IVP SCH ×3 (06:31→18:13)
[2022-06-16] MEDS: PANTOPRAZOLE 40 MG TABLET PO SCH (06:31)
--- NOTE | 2022-06-16 07:13 | XR ---
EXAMINATION TYPE: XR chest 1V portable DATE OF EXAM: 06/16/2022 HISTORY: Shortness of breath. COMPARISON: 06/15/2022 TECHNIQUE: Single view of the chest is submitted. FINDINGS: Sternotomy wires as well as plates and screws and mediastinal clips noted. Left atrial appendage clip is also noted. Improving basilar atelectasis. Continued cardiomegaly without failure. No evidence fo r pneumothorax. The heart is stable. Hilar and mediastinal structures are within normal limits. Degenerative changes are seen of the dorsal spine. IMPRESSION: 1. Improving basilar atelectasis and tiny effusions.
[2022-06-16] MEDS: ALBUTEROL HFA INHALER INHALATION SCH ×4 (09:01→19:29)
--- NOTE | 2022-06-16 09:02 | P.PN ---
Subjective Progress Note Date: 06/16/22 Principal diagnosis: Coronary artery disease with PCI in December 2021, cardiomyopathy, hypertension, hyperlipidemia, syncopal episode 2, current tobacco dependence, severe COPD, current daily EtOH use, PAD POD #5 coronary artery bypass grafting x 3 vessels, left internal mammary artery to the diagonal artery, reverse saphenous vein graft to the obtuse marginal artery, reverse postoperative endoscopic harvesting right greater saphenous vein, ligation of the left atrial appendage using a 35 mm clip, epi-aortic ultrasound, intraoperative transesophageal echocardiogram. Postoperative acute blood loss anemia, expected given hemodilution and cardiopulmonary bypass Acute covid infection The patient was seen and examined sitting up in a recliner on the cardiac stepdown unit in no acute distress. States his pain is mostly controlled but hurts mostly with coughing, denies shortness of breath. Remains afebrile with no more episodes of chills. Remains on room air with oxygen saturation in the high 90s, able to pull 1000 mL on his incentive spirometry. Patient has been a mbulatory without difficulty, has showered daily. Patient is not anxious to go home with Covid as he does not want to infect his roommates. Plan was for discharge today but patient says his roommates/ride home are out of town until tomorrow so will discharge tomorrow. No further episodes of diarrhea. No other new concerns. Objective - Vital Signs Vital signs: Vital Signs Temp 98.1 F 06/16/22 04:00 Pulse 70 06/16/22 04:00 Resp 16 06/16/22 04:00 BP 109/67 06/16/22 04:00 Pulse Ox 97 06/16/22 04:00 FiO2 21 06/13/22 07:59 Intake & Output 06/15/22 06/16/22 06/16/22 18:59 06:59 18:59 Intake Total 360 240 Output Total 100 Balance 260 240 Intake: Oral 360 240 Output: Urine 100 Other: Voiding Method Urinal Urinal # Voids 1 # Bowel Movements 1 ABP, PAP, CO, CI - Last Documented Arterial Blood Pressure 105/41 Pulmonary Artery Pressure 23/7 Cardiac Output 6.2 Cardiac Index 3.4 - Exam CONSTITUTIONAL: Appears comfortable, cooperative, no acute distress RESPIRATORY: Lungs sounds diminished bilaterally. Respirations even, nonlabored. Currently on room air with oxygen saturation 97%. Able to achieve 1000 mL on incentive spirometry. Strong cough. CARDIOVASCULAR: S1, S2 present. Regular rate and rhythm, sinus rhythm on telemetry. Sternum stable. Palpable peripheral pulses bilaterally. No edema present. No calf pain or tenderness noted. Heart hugger in place with patient demonstrating appropriate use. Antiembolism stockings, SCDs present. GASTROINTESTINAL: Abdomen soft, nontender, nondistended. Active bowel sounds present 4 quadrants. Tolerating diet. Positive bowel movement GENITOURINARY: Patient continues to void INTEGUMENTARY: Skin is warm and dry with evidence of good perfusion. Anterior chest incision well approximated. Right lower extremity EVH site well approximated without redness or drainage. NEUROLOGIC: Cranial nerves II through XII intact MUSKULOSKELETAL: Able to move all extremities, strength equal bilaterally, gait normal PSYCHIATRIC: Alert and oriented to person place and time, appropriate affect, intact judgment and insight - Allied health notes Allied health notes reviewed: nursing - Labs CBC & Chem 7: 06/15/22 06:40 06/15/22 06:40 Labs: Abnormal Lab Results - Last 24 Hours (Table) 06/15/22 Range/Units 20:22 POC Glucose (mg/dL) 145 H (70-110) mg/dL Microbiology - Last 24 Hours (Table) 06/15/22 05:39 Gram Stain - Preliminary Sputum Sputum Culture - Preliminary 06/14/22 17:08 Blood Culture - Preliminary Blood No Growth after 24 hours - Imaging and Cardiology Chest x-ray: report reviewed, image reviewed Assessment and Plan Assessment: 1. Coronary artery disease with PCI in December 2021, current heart cath reporting LM 50-55%, IVUS 5.3 mm2, OM3 90%, AM 70%, status post three-vessel CABG 2. Cardiomyopathy, EF 30-35%, repeat echo demonstrates EF 40-45% 3. Hypertension 4. Hyperlipidemia, treated, cholesterol 167, LDL 103 5. PAD, MICHELLE on the right 0.55, MICHELLE on the left 0.47 6. Syncopal episode 2 7. Current tobacco dependence 8. Current daily EtOH use, 6 pack beer daily, no signs of withdrawal 9. Severe COPD, preoperative FEV1 45% of predicted, 1.64 L 10. Postoperative acute blood loss anemia 11. Acute covid infection Plan: 1. Continue to maximize medical therapy with aspirin, statin, Plavix, beta james, losartan 2. Encourage incentive spirometry use 10 times every hour while awake. Bronchodilators per pulmonology. Mucinex added for cough 3. Increase activity, ambulate as tolerated. PT/OT/cardiac rehab following 4. Smoking cessation counseling and education continually reinforced with the patient 5. Reduction/cessation of EtOH use discussed with the patient. Continue thiamine/folic acid 6. Will monitor daily labs and x-rays. Electrolyte replacement per protocol. No lasix today 7. Pain control with current medication regimen 8. Insulin management per primary care service. Patient is not diabetic, hemoglobin A1c 6% 9. Repeat echocardiogram completed, EF improved to 40-45%, no need for LifeVest 10. Discharge planning in progress. Anticipate discharge to home with home care tomorrow 11. More recommendations to follow
[2022-06-16 09:22] LABS: HCT 25.6 % (39.0-53.0); HGB 8.3 gm/dL (13.0-17.5); MCH 30.2 pg (25.0-35.0); MCHC 32.5 g/dL (31.0-37.0); MCV 93.1 fL (80.0-100.0); Mean Platelet Volume 8.2; Platelet Count 231 k/uL (150-450); RBC 2.75 m/uL (4.30-5.90); RDW 13.4 % (11.5-15.5); WBC 5.4 k/uL (3.8-10.6)
[2022-06-16] MEDS: ASPIRIN 325 MG TAB PO SCH (09:35)
[2022-06-16] MEDS: HEPARIN SODIUM,PORCINE/PF 5,000 UNIT/0.5 ML SYRINGE SQ SCH ×2 (09:35→15:37)
[2022-06-16] MEDS: METOPROLOL TARTRATE 50 MG TAB PO SCH ×2 (09:35→21:58)
[2022-06-16] MEDS: THIAMINE 100 MG TAB PO SCH (09:36)
[2022-06-16] MEDS: guaiFENesin-DM 600/30MG 1 EACH TAB.ER.12H PO SCH ×2 (09:36→21:58)
[2022-06-16] MEDS: FOLIC ACID 1 MG TAB PO SCH (09:36)
[2022-06-16] MEDS: ATORVASTATIN 40 MG TAB PO SCH (09:36)
[2022-06-16] MEDS: MULTIVITAMINS, THERA 1 EACH TAB PO SCH (09:36)
[2022-06-16] MEDS: CLOPIDOGREL 75 MG TAB PO SCH (09:36)
[2022-06-16 09:49] LABS: African American GFR (CKD) >90 (>60 ml/min/1.73 sqM); Anion Gap 8 mmol/L; Blood Urea Nitrogen 16 mg/dL (9-20); Calcium 7.8 mg/dL (8.4-10.2); Carbon Dioxide 22 mmol/L (22-30); Chloride 104 mmol/L (98-107); Glucose 119 mg/dL (74-99); Non-African American GFR(CKD) 78 (>60 ml/min/1.73 sqM); Sodium 134 mmol/L (137-145)
[2022-06-16 12:08] LABS: Glucose,Whole Blood 110 mg/dL (70-110)
--- NOTE | 2022-06-16 12:45 | P.PN ---
Subjective Progress Note Date: 06/16/22 Patient is a 51-year-old male with PMH of CAD post stent of the OM in December 2021, systolic CHF with EF 35-40%, hypertension, dyslipidemia that presents the ED or worsening shortness of breath and scapular pain. Patient reports shortness of breath that is progressively getting worse since his stenting in December. Currently he is unable to walk 200 feet without stopping to catch his breath. He denies any orthopnea or lower extremity swelling. He reports scapular pain that has been ongoing over the past week that is worse with exertion, similar to what he had before he underwent stenting in December. Patient also reports that he fell twice. The first time was 2 weeks ago and he hit his head, did not seek medical attention. He fell yesterday, this time he did not hit his head. He is unsure whether he had a syncopal episode or not. He denies any headache, nausea or vomiting, fever or chills, diaphoresis, chest pain, palpitations, changes in urination or bowel habits. No changes in appetite or weight. He denies any dizziness, numbness/weakness/tingling of the extremities. In the ED, his vital signs are stable. CBC showed leukocytosis of 12.2. Coagulation panel was negative. D-dimer was 12.95. CMP showed sodium 129, bicarb of 14, glucose of 110, alkaline phosphatase of 131. Troponin was 0.028, 0.034, 0.035 with EKG showing sinus rhythm and T-wave abnormalities. BNP was 1430. Chest x-ray was negative. CTA chest negative for PE. Patient is admitted for chest pain, rule out acute coronary syndrome with cardiology consultation. Troponins were slowly trending up with EKG showing T-wave abnormalities. Patient was placed on a heparin drip. Cardiac cath showed 50-55% left main, 20-30% LAD, 90% OM3 stenosis. Cardiothoracic surgery consulted for CABG. Plans were arranged for CABG on 06/11/2022. Patient was seen and examined. POD 5 after CABG. CABG x 3 L. internal mammary to diagonal, saphenous to obtuse marginal, saphenous to posterior descending. Chest and mediastinal tubes discontinued, Right internal jugular cordis discontinued, Luz catheter discontinued on 06/13. Epicardial pacemaker discontinued 06/14. He reports no symptoms besides dry cough. General: No acute distress Derm: warm, dry Head: atraumatic, normocephalic Eyes: no lid lag, anicteric sclera Mouth: no lip lesion, mucus membranes moist Cardiovascular: S1S2 reg, no murmur, surgical scar without erythema or discharge Lungs: Clear to auscultation bilaterally. No accessory muscle use. Ext: no gross muscle atrophy, no edema, no contractures Neuro: no focal deficits Psych: alert and oriented x 3 #COVID 19 #Acute blood loss anemia #Elevated troponin with history of CAD post stent in December 2021 #Systolic CHF with EF of 30-35% #Possible syncopal episode #Elevated D-dimer #PAD #Hyponatremia Chronic conditions: Hypertension, dyslipidemia, smoker COVID 19+. Not on supplemental oxygen. Albuterol inhaler PRN. Continue to monitor. Hemoglobin 8.5. Expected result of surgery. Improving. Transfuse if Hg < 7. Daily CBC. Troponins are slowly trending up with EKG showing T-wave abnormalities. Continue ASA, Lipitor, Metoprolol and Plavix. Telemetry montoring. Cardiac cath shows 50- 55% left main, 20-30% LAD, 90% OM3 stenosis. s/p CABG x 3 L. internal mammary to diagonal, saphenous to obtuse marginal, saphenous to posterior descending on 06/11. Patient presents with exertional shortness of breath. Chest x-ray was negative. He has no lower extremity swelling. Echocardiogram shows EF 30% with global hypokinesis. Continue Metoprolol, Losartan. Echocardiogram planned for today to determine benefits of AICD. Continue Telemetry monitoring. Patient be placed on fall precautions. Patient with elevated d-dimer, CT chest is ruled out PE. Venous duplex negative for DVT. Moderate PAD on arterial duplex. Patient needs Vascular surgery outpatient. Patient was sodium of 133. Possibly related to dehydration. Case discussed with Renan OPERATIONS ADMINISTRATOR, recommends observation for one more day. Patient is medically stable. Downgrade from ICU. Anticipate DC tomorrow.. Objective - Vital Signs Vital signs: Vital Signs Temp 97.7 F 06/16/22 08:20 Pulse 76 06/16/22 08:20 Resp 16 06/16/22 08:20 BP 109/67 06/16/22 08:20 Pulse Ox 97 06/16/22 09:01 FiO2 21 06/16/22 09:01 Intake & Output 06/15/22 06/16/22 06/16/22 18:59 06:59 18:59 Intake Total 360 240 180 Output Total 100 Balance 260 240 180 Intake: Oral 360 240 180 Output: Urine 100 Other: Voiding Method Urinal Urinal Urinal # Voids 1 # Bowel Movements 1 0 ABP, PAP, CO, CI - Last Documented Arterial Blood Pressure 105/41 Pulmonary Artery Pressure 23/7 Cardiac Output 6.2 Cardiac Index 3.4 - Labs CBC & Chem 7: 06/16/22 09:01 06/16/22 09:01 Labs: Abnormal Lab Results - Last 24 Hours (Table) 06/15/22 06/16/22 06/16/22 Range/Units 20:22 09:01 09:01 RBC 2.75 L (4.30-5.90) m/uL Hgb 8.3 L (13.0-17.5) gm/dL Hct 25.6 L (39.0-53.0) % Sodium 134 L (137-145) mmol/L Glucose 119 H (74-99) mg/dL POC Glucose (mg/dL) 145 H (70-110) mg/dL Calcium 7.8 L (8.4-10.2) mg/dL Microbiology - Last 24 Hours (Table) 06/14/22 17:58 Urine Culture - Final Urine,Voided 06/15/22 05:39 Gram Stain - Preliminary Sputum Sputum Culture - Preliminary 06/14/22 17:08 Blood Culture - Preliminary Blood No Growth after 24 hours
--- NOTE | 2022-06-16 12:56 | P.PN ---
Subjective Progress Note Date: 06/16/22 Patient is now status post CABG 3 with left internal mammary artery to the diagonal coronary artery, a reverse greater saphenous vein graft to the obtuse marginal coronary artery and a reverse greater saphenous vein graft to the posterior descending coronary artery. Endoscopic vein harvest of the right lower extremity. Ligation of the left atrial appendage using a 35 mm Atriclip and an intraoperative transesophageal echocardiogram performed by anesthesia. Patient was on mechanical ventilation last night, he arrived rather related to the ICU, I manage his ventilator settings overnight, and shortly after I was made aware of the patient, reviewed his postoperative chest x-ray at home, I was updated on his blood gases, his ventilator settings were adjusted, and shortly after the patient was extubated uneventfully. Patient was extubated at 8:54 PM last evening. Presently on 2 L nasal cannula, O2 sats is 95%. He is hemodynamically stable, not requiring any inotropes or any pressors. Continues to have mediastinal and left pleural chest tube, on low continuous wall suction, no air leak noted. Chest x-ray showed minimal bibasilar atelectasis. His cardiac index today is 3.4. PA pressures 23/3 and his cardiac output is 6.2. Labs are basically unremarkable, hemoglobin is 8.9 otherwise labs are unremarkable. Reevaluated today on 06/13/22, postoperative day #2coronary artery bypass gra fting x 3 vessels, left internal mammary artery to the diagonal artery, reverse saphenous vein graft to the obtuse marginal artery, reverse postoperative endoscopic harvesting right greater saphenous vein, ligation of the left atrial appendage using a 35 mm clip, epi-aortic ultrasound, intraoperative transesophageal echocardiogram. Patient is doing well, remains marginal with his incentive spirometry. Pulling only 750 ML, patient has been assisted to ambulate in the hallway. Continues to have multiple lines and catheters, some of them will be removed today. Overall clinically the patient is doing better than expected. Chest x-ray showed minimal basilar atelectasis. Expected. WBC count is 6.2 hemoglobin is 8.8, electrolytes are normal renal profile is normal. Creatinine is 1.24 Reevaluated today on 06/14/22,postoperative day #3coronary artery bypass grafting x 3 vessels, left internal mammary artery to the diagonal artery, reverse saphenous vein graft to the obtuse marginal artery, reverse postoperative endoscopic harvesting right greater saphenous vein, ligation of the left atrial appendage using a 35 mm clip, epi-aortic ultrasound, intraoperative transesophageal echocardiogram patient continues to do well. On room air,,Not in any distress. His incentive this artery is getting a bit better, patient is pulling anywhere between 750 up to 900 ml He is able to ambulate in the hallway with assistance. And the plan is to transfer the patient today from ICU to cardiac stepdown. His chest tubes and IJ cordis have been removed. Overall the patient is doing better than expected. Chest x-ray showed minimal atelectasis, CBC is relatively normal hemoglobin 9.6 electrolytes are normal renal profile is normal Reevaluated today on 06/15/22, patient had a temp of 101 yesterday, and patient tested positive for coronary 19 infection. Fortunately the patient has been va ccinated and boosted 4. Clinically the patient is not complaining of any major symptoms to suggest acute COVID-19 pneumonia he does have infection, but no shortness of breath, he has a bit of a cough. Patient is not in any distress, and his chest x-ray is reassuring. Hence the patient will continue on the COVID-19 cocktail, no need for Medrol, no need for Remdesivir, and considering the patient is vaccinated, very unlikely that his course will get any worse. His WBC count today is 4.4 hemoglobin is 8.5 electrodes are normal renal profile is normal The patient is seen today 06/16/2022 in follow-up on the selective care unit. Currently sitting up in a chair at the bedside. Awake and alert in no acute distress.He is maintaining good O2 saturations in the upper 90s on room air. He is currently afebrile. Hemodynamically stable. Blood culture revealed no growth. Urine culture revealed no growth. Sputum culture is pending. He was found to be COVID-19 positive. White count 5.4. Hemoglobin 8.3. Sodium 134. Potassium 4.0. BUN 16. Creatinine 1.08. Chest x-ray shows improving bibasilar atelectasis and tiny effusions. He continues to work well with the incentive spirometer. Heparin for DVT prophylaxis. Objective - Vital Signs Vital signs: Vital Signs Temp 97.7 F 06/16/22 08:20 Pulse 76 06/16/22 08:20 Resp 16 06/16/22 08:20 BP 109/67 06/16/22 08:20 Pulse Ox 97 06/16/22 09:01 FiO2 21 06/16/22 09:01 Intake & Output 06/15/22 06/16/22 06/16/22 18:59 06:59 18:59 Intake Total 360 240 180 Output Total 100 Balance 260 240 180 Intake: Oral 360 240 180 Output: Urine 100 Other: Voiding Method Urinal Urinal Urinal # Voids 1 # Bowel Movements 1 0 ABP, PAP, CO, CI - Last Documented Arterial Blood Pressure 105/41 Pulmonary Artery Pressure 23/7 Cardiac Output 6.2 Cardiac Index 3.4 - Exam GENERAL EXAM: Alert, active, very pleasant 51-year-old male, on room air,comfor table in no apparent distress. HEAD: Normocephalic. EYES: Normal reaction of pupils, equal size. NOSE: Clear with pink turbinates. THROAT: No erythema or exudates. NECK: No masses, no JVD. CHEST: Sernal dressing dry and intact. Heart Hugger in place. LUNGS: Equal air entry with faint crackles in the posterior bases. CVS: S1 and S2 normal with no audible murmur, regular rhythm. ABDOMEN: No hepatosplenomegaly, normal bowel sounds, no guarding or rigidity. SPINE: No scoliosis or deformity SKIN: No rashes CENTRAL NERVOUS SYSTEM: No focal deficits, tone is normal in all 4 extremities. EXTREMITIES: There is no peripheral edema. No clubbing, no cyanosis. Peripheral pulses are intact. - Labs CBC & Chem 7: 06/16/22 09:01 06/16/22 09:01 Labs: Abnormal Lab Results - Last 24 Hours (Table) 06/15/22 06/16/22 06/16/22 Range/Units 20:22 09:01 09:01 RBC 2.75 L (4.30-5.90) m/uL Hgb 8.3 L (13.0-17.5) gm/dL Hct 25.6 L (39.0-53.0) % Sodium 134 L (137-145) mmol/L Glucose 119 H (74-99) mg/dL POC Glucose (mg/dL) 145 H (70-110) mg/dL Calcium 7.8 L (8.4-10.2) mg/dL Microbiology - Last 24 Hours (Table) 06/14/22 17:58 Urine Culture - Final Urine,Voided 06/15/22 05:39 Gram Stain - Preliminary Sputum Sputum Culture - Preliminary 06/14/22 17:08 Blood Culture - Preliminary Blood No Growth after 24 hours Assessment and Plan Assessment: Status post CABG, postoperative day # 5 Severe cardiomyopathy and LV dysfunction with ejection fraction of 30-35% Dyslipidemia History of syncope Tobacco dependence syndrome Severe COPD FEV1 of 45% Postoperative atelectasis, improving based on chest x-ray Acute COVID-19 infection, but no pneumonia, and no significant symptoms Plan: The patient was seen and evaluated Chest x-ray, labs and medications reviewed Improving and on room air Increase his activity as tolerated We will continue to follow I have personally seen and examined the patient, performed the documentation and the assessment and plan as written. Number of minutes spent on the visit: 10.
[2022-06-16] MEDS: LOSARTAN 25 MG TAB PO SCH (13:02)
--- NOTE | 2022-06-16 13:22 | P.PN ---
Subjective HISTORY OF PRESENTING ILLNESS Progress Note Date: 06/10/22 This is a 51 year old male with a past medical history of hypertension, nicotine dependence, daily alcohol use, coronary artery disease with NSTEMI in 12/2021 S/p PCI proximal OM3, ischemic cardiomyopathy, dyslipidemia. He follows with Dr. Mock. We're consulted for chest pain. Patient presented to the hospital on 06/02/2022 with symptoms of shortness of breath and chest pain. Smooth delta continued to have chest discomfort and recommend cardiac catheterization. Echocardiogram revealed EF 3035 percent. Patient underwent cardiac catheterization with Dr. Mock on 06/04/2022 which revealed coronary artery disease with 50-55% left main stenosis with minimal luminal area 5.3mm2, mild 20-30% LAD stenosis, mild luminal irregularities of a dominant circumflex, OM3 90% stenosis, normal left sided filling pressures. CT surgery was consulted for CABG evaluation. Limited echocardiogram revealed EF of 55%, no obvious regional wall motion abnormalities, trace MR, mild left ear with a peak gradient of 19 mmHg and a mean gradient of 9 mmHg and mild aortic regurgitation. 06/09/2022 Patient was seen and examined sitting up at the side of the bed. He just returned from a walk around the unit. He denies any shortness of breath but does seem to be a bit winded to me. He is scheduled to undergo coronary artery bypass grafting surgery on June 11. Blood pressure has been elevated. He is currently on aspirin 81 mg daily, atorvastatin 80 mg daily at bedtime, carvedilol 6.25 mg by mouth twice a day, a 640 mg daily, Aldactone 25 mg daily and lisinopril 10 mg by mouth daily. He is maintaining sinus mechanism with heart rate in the 60s to 70s with occasional PVCs. He denies any chest discomfort, palpitations, dizziness or lightheadedness. 06/10/2022 Patient was seen and examined sitting up side of the bed. He is overall feeling well. He denies any shortness of breath or chest discomfort. His ambulating without difficulties. Blood pressure is better controlled however his JOSÉ inhibitor has some placed on hold by CT surgery preoperatively. He is scheduled to undergo coronary artery bypass grafting surgery tomorrow. 06/12 Patient seen and examined. Patient underwent bypass yesterday and has been doing well. Off of any pressors. Still has chest tubes in place. Admits to mild discomfort around the incision however no chest pain or pressure. No s hortness of breath. 06/13 Patient seen and examined. Patient admits he was able to walk the halls however feels like he may have overdone it. Denies any chest pain or pressure. Denies any lightheadedness. Has been eating someone and is off of any vasopressors. Blood pressures minimally higher and has been tolerating metoprolol well. 06/14 Patient seen and examined. Patient still having some mild discomfort around the incision however fairly well controlled. Denies any shortness breath. Does have trace lower extremity edema. Receive Lasix yesterday with good urine output. He was started on losartan 12.5 mg daily today. 06/15 Patient seen and examined. Patient states overall he is doing fairly well. Denies any chest pain or pressure. Denies any shortness breath. He did have an episode yesterday where he had some chills and had a temperature of 100.9. Workup showed he is positive for Bee with. Denies any cough. 06/16 Patient with mild nonproductive cough. Denies any actual shortness breath. Denies any chest pain or pressure. Tolerating diet. No significant lower extremity edema. Chest x-ray with small pleural effusions. PHYSICAL EXAMINATION Vital signs reviewed. CONSTITUTIONAL: No apparent distress. HEENT: Head is normocephalic. Pupils are equal, round. Sclerae anicteric. Mucous membranes of the mouth are moist. No JVD. No carotid bruit. CHEST EXAMINATION: Lungs are clear to auscultation. No chest wall tenderness is noted on palpation or with deep breathing. HEART EXAMINATION: Regular rate and rhythm. S1, S2 heard. No murmurs, gallops or rub. ABDOMEN: Soft, nontender. Positive bowel sounds. EXTREMITIES: 2+ peripheral pulses, no lower extremity edema and no calf tenderness. NEUROLOGIC EXAMINATION: Patient is awake, alert and oriented x3. Assessment CAD s/p CABG 06/11 Coronary artery disease s/p prior PCI to OM3 in 12/2021 Hypertension Dyslipidemia Ischemic cardiomyopathy EF 3035 percent Chronic tobacco use Daily alcohol use Chest pain, shortness of breath Chronic systolic heart failure COVID 19 Plan: Continue aspirin, Plavix, metoprolol. Continue losartan. Monitor volume status and diurese as needed Continue with supportive care Objective - Vital Signs Vital signs: Vital Signs Temp 97.7 F 06/16/22 08:20 Pulse 76 06/16/22 08:20 Resp 16 06/16/22 08:20 BP 109/67 06/16/22 08:20 Pulse Ox 97 06/16/22 09:01 FiO2 21 06/16/22 09:01 Intake & Output 06/15/22 06/16/22 06/16/22 18:59 06:59 18:59 Intake Total 360 240 180 Output Total 100 Balance 260 240 180 Intake: Oral 360 240 180 Output: Urine 100 Other: Voiding Method Urinal Urinal Urinal # Voids 1 # Bowel Movements 1 0 ABP, PAP, CO, CI - Last Documented Arterial Blood Pressure 105/41 Pulmonary Artery Pressure 23/7 Cardiac Output 6.2 Cardiac Index 3.4 - Labs CBC & Chem 7: 06/16/22 09:01 06/16/22 09:01 Labs: Abnormal Lab Results - Last 24 Hours (Table) 06/15/22 06/16/22 06/16/22 Range/Units 20:22 09:01 09:01 RBC 2.75 L (4.30-5.90) m/uL Hgb 8.3 L (13.0-17.5) gm/dL Hct 25.6 L (39.0-53.0) % Sodium 134 L (137-145) mmol/L Glucose 119 H (74-99) mg/dL POC Glucose (mg/dL) 145 H (70-110) mg/dL Calcium 7.8 L (8.4-10.2) mg/dL Microbiology - Last 24 Hours (Table) 06/14/22 17:58 Urine Culture - Final Urine,Voided 06/15/22 05:39 Gram Stain - Preliminary Sputum Sputum Culture - Preliminary 06/14/22 17:08 Blood Culture - Preliminary Blood No Growth after 24 hours
[2022-06-16 16:55] LABS: Glucose,Whole Blood 117 mg/dL (70-110)
[2022-06-16 20:54] LABS: Glucose,Whole Blood 122 mg/dL (70-110)
[2022-06-16] MEDS: ACETAMINOPHEN TAB 500 MG TAB PO PRN (21:58)
[2022-06-17] MEDS: KETOROLAC 15 MG/ML 1 ML VIAL IVP SCH ×2 (00:21→06:38)
[2022-06-17] MEDS: HEPARIN SODIUM,PORCINE/PF 5,000 UNIT/0.5 ML SYRINGE SQ SCH ×2 (00:21→08:10)
[2022-06-17 05:59] LABS: Glucose,Whole Blood 103 mg/dL (70-110)
[2022-06-17] MEDS: INSULIN ASPART (NovoLOG) 100 UNIT/ML VIAL SQ SCH ×2 (06:37→12:59)
[2022-06-17] MEDS: PANTOPRAZOLE 40 MG TABLET PO SCH (06:38)
--- NOTE | 2022-06-17 07:43 | XR ---
EXAMINATION TYPE: XR chest 1V portable DATE OF EXAM: 06/17/2022 HISTORY: Status post CABG COMPARISON: 06/16/2022 TECHNIQUE: Single view of the chest is submitted. FINDINGS: All indwelling tubes and catheters have been removed. No evidence for pneumothorax. Left atrial clip remains in place. Sternotomy wires and sternal plates are in place. There is no evidence for focal infiltrate. Suspect small left basilar pleural effusion or atelectasis . The heart is stable. Hilar and mediastinal structures are within normal limits. Degenerative changes are seen of the dorsal spine. IMPRESSION: 1. Postoperative changes of CABG as noted above. Mild increased density left lower lobe may reflect atelectasis or small effusion.
[2022-06-17] MEDS: ALBUTEROL HFA INHALER INHALATION SCH ×3 (07:48→15:20)
--- NOTE | 2022-06-17 08:08 | P.PN ---
Subjective Progress Note Date: 06/17/22 Principal diagnosis: Coronary artery disease with PCI in December 2021, cardiomyopathy, hypertension, hyperlipidemia, syncopal episode 2, current tobacco dependence, severe COPD, current daily EtOH use, PAD POD #6 coronary artery bypass grafting x 3 vessels, left internal mammary artery to the diagonal artery, reverse saphenous vein graft to the obtuse marginal artery, reverse postoperative endoscopic harvesting right greater saphenous vein, ligation of the left atrial appendage using a 35 mm clip, epi-aortic ultrasound, intraoperative transesophageal echocardiogram. Postoperative acute blood loss anemia, expected given hemodilution and cardiopulmonary bypass Acute covid infection The patient was seen and examined sitting up in a recliner on the cardiac stepdown unit in no acute distress. States his pain is mostly controlled but hurts mostly with coughing, denies shortness of breath. Remains afebrile with no more episodes of chills. Remains on room air with oxygen saturation in the high 90s, able to pull 1000 mL on his incentive spirometry. Patient has been a mbulatory without difficulty, has showered daily. Patient is not anxious to go home with Covid as he does not want to infect his roommates but does understand that there is no further reason for hospitalization. Plan is for discharge today. No other new concerns. Objective - Vital Signs Vital signs: Vital Signs Temp 98.1 F 06/17/22 04:50 Pulse 61 06/17/22 04:50 Resp 18 06/17/22 04:50 BP 100/64 06/17/22 04:50 Pulse Ox 98 06/17/22 04:50 FiO2 21 06/16/22 09:01 Intake & Output 06/16/22 06/17/22 06/17/22 18:59 06:59 18:59 Intake Total 540 Output Total 900 1000 Balance -360 -1000 Intake: Oral 540 Output: Urine 900 1000 Other: Voiding Method Urinal Urinal # Voids 2 # Bowel Movements 0 ABP, PAP, CO, CI - Last Documented Arterial Blood Pressure 105/41 Pulmonary Artery Pressure 23/7 Cardiac Output 6.2 Cardiac Index 3.4 - Exam CONSTITUTIONAL: Appears comfortable, cooperative, no acute distress RESPIRATORY: Lungs sounds diminished bilaterally. Respirations even, no nlabored. Currently on room air with oxygen saturation 98%. Able to achieve 1000 mL on incentive spirometry. Strong cough. CARDIOVASCULAR: S1, S2 present. Regular rate and rhythm, sinus rhythm on telemetry. Sternum stable. Palpable peripheral pulses bilaterally. No edema present. No calf pain or tenderness noted. Heart hugger in place with patient demonstrating appropriate use. Antiembolism stockings, SCDs present. GASTROINTESTINAL: Abdomen soft, nontender, nondistended. Active bowel sounds present 4 quadrants. Tolerating diet. Positive bowel movement GENITOURINARY: Patient continues to void, output 1900 mL in last 24 hours INTEGUMENTARY: Skin is warm and dry with evidence of good perfusion. Anterior chest incision well approximated. Right lower extremity EVH site well approximated without redness or drainage. NEUROLOGIC: Cranial nerves II through XII intact MUSKULOSKELETAL: Able to move all extremities, strength equal bilaterally, gait normal PSYCHIATRIC: Alert and oriented to person place and time, appropriate affect, intact judgment and insight - Allied health notes Allied health notes reviewed: nursing - Labs CBC & Chem 7: 06/16/22 09:01 06/16/22 09:01 Labs: Abnormal Lab Results - Last 24 Hours (Table) 06/16/22 06/16/22 06/16/22 Range/Units 09:01 09:01 16:54 RBC 2.75 L (4.30-5.90) m/uL Hgb 8.3 L (13.0-17.5) gm/dL Hct 25.6 L (39.0-53.0) % Sodium 134 L (137-145) mmol/L Glucose 119 H (74-99) mg/dL POC Glucose (mg/dL) 117 H (70-110) mg/dL Calcium 7.8 L (8.4-10.2) mg/dL 06/16/22 Range/Units 20:52 RBC (4.30-5.90) m/uL Hgb (13.0-17.5) gm/dL Hct (39.0-53.0) % Sodium (137-145) mmol/L Glucose (74-99) mg/dL POC Glucose (mg/dL) 122 H (70-110) mg/dL Calcium (8.4-10.2) mg/dL Microbiology - Last 24 Hours (Table) 06/14/22 17:08 Blood Culture - Preliminary Blood No Growth after 48 hours 06/14/22 17:58 Urine Culture - Final Urine,Voided 06/15/22 05:39 Gram Stain - Preliminary Sputum Sputum Culture - Preliminary - Imaging and Cardiology Chest x-ray: report reviewed, image reviewed Assessment and Plan Assessment: 1. Coronary artery disease with PCI in December 2021, current heart cath reporting LM 50-55%, IVUS 5.3 mm2, OM3 90%, AM 70%, status post three-vessel CABG 2. Cardiomyopathy, EF 30-35%, repeat echo demonstrates EF 40-45% 3. Hypertension 4. Hyperlipidemia, treated, cholesterol 167, LDL 103 5. PAD, MICHELLE on the right 0.55, MICHELLE on the left 0.47 6. Syncopal episode 2 7. Current tobacco dependence 8. Current daily EtOH use, 6 pack beer daily, no signs of withdrawal 9. Severe COPD, preoperative FEV1 45% of predicted, 1.64 L 10. Postoperative acute blood loss anemia 11. Acute covid infection Plan: 1. Continue to maximize medical therapy with aspirin, statin, Plavix, beta james, losartan 2. Encourage incentive spirometry use 10 times every hour while awake. Bronchodilators per pulmonology 3. Increase activity, ambulate as tolerated. PT/OT/cardiac rehab following 4. Smoking cessation counseling and education continually reinforced with the patient 5. Reduction/cessation of EtOH use discussed with the patient. Continue thiamine/folic acid 6. Pain control with current medication regimen 7. Discharge planning in progress. Anticipate discharge to home with home care today
[2022-06-17] MEDS: guaiFENesin-DM 600/30MG 1 EACH TAB.ER.12H PO SCH (08:10)
[2022-06-17] MEDS: METOPROLOL TARTRATE 50 MG TAB PO SCH (08:10)
[2022-06-17] MEDS: ASPIRIN 325 MG TAB PO SCH (08:10)
[2022-06-17] MEDS: MULTIVITAMINS, THERA 1 EACH TAB PO SCH (08:10)
[2022-06-17] MEDS: FOLIC ACID 1 MG TAB PO SCH (08:11)
[2022-06-17] MEDS: THIAMINE 100 MG TAB PO SCH (08:11)
[2022-06-17] MEDS: ATORVASTATIN 40 MG TAB PO SCH (08:11)
[2022-06-17] MEDS: CLOPIDOGREL 75 MG TAB PO SCH (08:11)
--- NOTE | 2022-06-17 08:59 | P.DS ---
Providers Date of admission: 06/04/22 14:31 Expected date of discharge: 06/17/22 Attending physician: Romero Hastings Consults: 06/02/22 07:46 Consult Physician Stat Consulting Provider: Saurabh Zacarias Consult Reason/Comments: Chest pain Do you want consulting provider notified?: Yes 06/04/22 13:58 Consult Physician Routine Consulting Provider: Timothy Low Consult Reason/Comments: re: CABG eval Do you want consulting provider notified?: Yes 06/05/22 07:40 Consult Physician Routine Consulting Provider: Arjun Collier Consult Reason/Comments: preop cabg Do you want consulting provider notified?: Yes 06/10/22 07:30 Consult to Anesthesia Routine Consulting Provider: Anesthesia,Services Consult Reason/Comments: Cardiac Surgery Pre-Op 06/11/22 15:06 Consult Physician Routine Consulting Provider: Delta Slade Consult Reason/Comments: medical management Do you want consulting provider notified?: Already Contacted 06/11/22 16:03 Consult Physician Routine Consulting Provider: Delta Slade Consult Reason/Comments: Medical management Do you want consulting provider notified?: Yes Primary care physician: Stated None Hospital Course: FINAL DIAGNOSIS: 1. Coronary artery disease with previous PCI in December 2021 2. Cardiomyopathy, EF 30-35% preoperative, repeat echo postoperative demonstrates EF 40-45% 3. Hypertension 4. Hyperlipidemia, treated, cholesterol 167, LDL 103 5. PAD, MICHELLE on the right 0.55, MICHELLE on the left 0.47 6. Syncopal episode 2 7. Current tobacco dependence 8. Current daily EtOH use, sixpack beer daily, no signs of withdrawal 9. Severe COPD, preoperative FEV1 45% of predicted 10. Postoperative acute blood loss anemia, expected 11. Acute Covid infection, patient is vaccinated and boosted PRINCIPAL PROCEDURE: 1. Coronary artery bypass grafting 3 vessels, left internal mammary artery to the diagonal artery, reverse saphenous vein graft to the obtuse marginal artery, reverse saphenous vein graft to the posterior descending artery 2. Endoscopic harvesting of the right greater saphenous vein 3. Ligation of the left atrial appendage using a 35 mm AtriClip 4. Epi-aortic ultrasound 5. Intraoperative transesophageal echocardiogram 6. Closure of the sternum with combination [place] cables and titanium plates HISTORY OF PRESENT ILLNESS: This is a 51-year-old gentleman who does not follow on an outpatient basis with a primary care physician. He had been admitted in December 2021 with complaints of chest pain with workup including heart catheterization where a drug-eluting stent was placed to the obtuse marginal branch of the circumflex coronary artery. He was placed on dual antiplatelet therapy and discharged to home with recommendations to quit smoking and drinking. He continued to recover home, however in the last couple of weeks he had been increasingly tired with mild pain between his shoulder blades with activity and increased shortness of breath. In addition he endorsed to syncopal episodes which prompted him to report to [facility] emergency room for evaluation and treatment. Again due to his history he underwent heart catheterization demonstrating 50-55% left main stenosis with minimal luminal area 5.3 mm, mild 20-30% LAD stenosis, mild luminal irregularities of the dominant circumflex coronary artery, OM3 stenosis 90% with acute marginal branch of the right coronary artery with 70% stenosis. In addition echocardiogram revealed decreased left ventricular systolic function with EF 30-35%. Consultation was placed to Dr. Hastings from cardiothoracic surgery. He was recommended to undergo coronary artery bypass surgery. The usual perioperative course was discussed in detail with the patient, all risks and benefits were explained, all questions were answered. The patient was initially reluctant to undergo surgery as he was concerned about his financials, however he did eventually consented to surgery. The patient was kept inpatient due to the n ature of his disease process and the needed to take him off his antiplatelet therapy preoperatively. HOSPITAL COURSE: The patient was brought to the preoperative area 06/11/22, prepared in the usual fashion, and subsequently taken to the operating room where Dr. Hastings performed three-vessel CABG. Upon completion of surgery the patient was transferred to the cardiovascular intensive care unit where he was recovered and monitored hemodynamically. He was extubated, all lines, tubes, and drips were discontinued when appropriate, and he was transferred to [facility] cardiac stepdown unit for further monitoring and rehabilitation. His oxygen was titrated down, he continued to work with physical and occupational therapy, he was tolerating oral diet, his pain was mostly controlled. He did have a brief episode with fever 100.9 axillary and chills, Covid test was performed and was positive, he continued to recover without any further events. He was ready to be discharged to home with [facility] care on postoperative day #6. He received written and verbal instruction regarding his medications, activity restrictions, signs and symptoms requiring physician notification, and follow-up appointments. Patient Condition at Discharge: Stable Plan - Discharge Summary New Discharge Prescriptions: New guaiFENesin-DM 600/30MG [Mucinex Dm] 2 each PO Q12HR #30 tab Clopidogrel [Plavix] 75 mg PO DAILY #30 tab Sennosides-Docusate Sodium [Senokot-S] 2 each PO HS PRN tab PRN Reason: Constipation Acetaminophen Tab [Tylenol] 1,000 mg PO Q4HR PRN tab PRN Reason: Fever and/ or MILD Pain Albuterol Inhaler [Ventolin Hfa Inhaler] 2 puff INHALATION RT-QID #3 each Losartan [Cozaar] 12.5 mg PO DAILY@1200 #30 tab Atorvastatin [Lipitor] 40 mg PO DAILY #30 tab Metoprolol Tartrate [Lopressor] 50 mg PO BID #60 tab Pantoprazole [Protonix] 40 mg PO AC-BRKFST #30 tab Continue Aspirin 81 mg PO DAILY #90 tab Discontinued Ticagrelor [Brilinta] 90 mg PO BID #180 tab Spironolactone [Aldactone] 25 mg PO DAILY carvediloL [Coreg] 3.125 mg PO BID-W/MEALS #180 tab lisinopriL [Zestril] 10 mg PO DAILY #90 tab Nitroglycerin Sl Tabs [Nitrostat] 0.4 mg SL Q5M PRN PRN Reason: Chest Pain Discharge Medication List Aspirin 81 mg PO DAILY #90 tab 12/22/21 [Rx] Acetaminophen Tab [Tylenol] 1,000 mg PO Q4HR PRN tab 06/17/22 [Rx] Albuterol Inhaler [Ventolin Hfa Inhaler] 2 puff INHALATION RT-QID #3 each 06/05 10/24 [Rx] Atorvastatin [Lipitor] 40 mg PO DAILY #30 tab 06/17/22 [Rx] Clopidogrel [Plavix] 75 mg PO DAILY #30 tab 06/17/22 [Rx] Losartan [Cozaar] 12.5 mg PO DAILY@1200 #30 tab 06/17/22 [Rx] Metoprolol Tartrate [Lopressor] 50 mg PO BID #60 tab 06/17/22 [Rx] Pantoprazole [Protonix] 40 mg PO AC-BRKFST #30 tab 06/17/22 [Rx] Sennosides-Docusate Sodium [Senokot-S] 2 each PO HS PRN tab 06/17/22 [Rx] guaiFENesin-DM 600/30MG [Mucinex Dm] 2 each PO Q12HR #30 tab 06/17/22 [Rx] Follow up Appointment(s)/Referral(s): Allison Urrutia, NPC [Nurse Practitioner] - 1 Week (Please call to make appointment between 06/18-06/22. Office number is , work cell number is ) [facility]hab [facility],Cardiac [NON-STAFF] - 4 Weeks (You will receive a phone call in approximately 4-6 weeks for evaluation for cardiac rehab) Saúl Mock DO [STAFF PHYSICIAN] - 07/04/22 12:00 pm [facility], [NON-STAFF] - 1-2 Days (To be seen day after discharge, then 2-3 times per week until cardiac rehab) None,Stated [Primary Care Provider] - 1-2 days Romero Hastings MD [STAFF PHYSICIAN] - 07/17/22 9:45 am Arjun Collier MD [STAFF PHYSICIAN] - 07/10/22 9:30 am Ambulatory/Diagnostic Orders: Complete Blood Count w/diff [LAB.AMB] Time Frame: 3 Days, Location: None Selected Comprehensive Metabolic Panel [LAB.AMB] Time Frame: 3 Days, Location: None Selected Activity/Diet/Wound Care/Special Instructions: DISCHARGE INSTRUCTIONS: 1. No driving for 4 weeks, or until physician gives their ok. 2. The patient should sleep in their own bed, no medical bed needed. 3. Stairs are not an issue. If the bedroom is upstairs, it is advised that the patient go up at night and down in the morning for the first week. Go slowly, using handrail and take 1 step at a time. 4. MARIAN hose are to be worn for 30 days post surgery or until physician discontinues. 5. Heart hugger is to be worn 100% of the time until physician discontinu es.(except when showering) 6. No lifting, pushing, or pulling more than 10 pounds for 12 weeks. The physician will advise of any restriction changes. 7. The patient is expected to continue the prescribed walking program. 8. Continue pain control per as needed orders. 9. Continue with incentive spirometry and splinting/heart hugger until otherwise directed by the physician. 10. Must shower daily using liquid antibacterial soap 11. Routine sternal incision care. No powders, lotions, ointments on incisions. No dressings are necessary on incisions unless they are draining. Dermabond tape is to remain on sternal incision until surgeon follow-up. 12. Please call surgeon/RUBBER THREAD SPOOLER for temp greater than 101 F or purulent drainage from incisions. 13. You should weigh yourself daily, record and bring log with you to follow up appointments. 14. All prescriptions given by surgeon for 30 days. Refills need to be filled through asphalt raker/primary care physician. 15. A Red armband has been placed on the patient. It should be worn for 30 days post discharge from surgery and will be removed by the cardiac surgeons. If an ER visit is necessary, please make sure the number on the Red armband is called before going to ER. 16. You have been referred to and are expected to begin Cardiac Rehab in approximately 4-6 weeks. HOME HEALTH SERVICES TO PROVIDE: RN SKILLED HOME CARE SERVICES FOR POST-OP SURGICAL PATIENTS WITH THE FOLLOWING: Coronary Artery Bypass Surgery (CABG), Mitral Valve Replacement/Repair ( MVR), Aortic Valve Replacement/Repair (AVR) RN TO CONTINUE EDUCATION FROM ``ROAD TO A HEALTH HEART PATIENT EDUCATION MANUAL (GIVEN TO PATIENT IN THE HOSPITAL) MEDICATION RECONCILIATION WITH EDUCATION NEEDED ON FIRST HOME VISIT EMPHASIZE IMPORTANCE OF WEARING BREAST SUPPORT/HEART HUGGER ENCOURAGE USE OF INCENTIVE SPIROMETER 10 X EVERY HOUR WHILE AWAKE ENCOURAGE UTILIZATION OF LOWER EXTREMITY COMPRESSION STOCKINGS/MARIAN HOSE and ELEVATE LEGS ABOVE LEVEL OF HEART WHILE AT REST. ENCOURAGE AMBULATION 3-5x/day INCREASING TOLERATES, WHILE AVOIDING EXTREMES IN TEMPERATURE FREQUENCY: RN TO OPEN THE PATIENT WITHIN 24 HOURS OF DISCHARGE FROM THE HOSPITAL WITH TELEHEALTH INSTALLED AT [facility], RN TO VISIT 2-3 X A WEEK FOR 4 WEEKS ESTABLISHED BY PATIENT NEEDS. LABORATORY: CBC, CMP TO BE DRAWN ON THE THIRD DAY HOME, (RAN STAT) FAX RESULTS TO [phone]. TELEHEALTH PARAMETERS: WEIGHT: NOTIFY MD OF WEIGHT GAIN OF 2 LBS IN 24 HOURS OR 5 LBS IN ONE WEEK HR: NOTIFY MD OF HR <55 BPM OR HR>100 BPM BP: NOTIFY MD IF BP <90/55 OR BP>140/100 O2 SAT: NOTIFY MD IF PO2<93% ON ROOM AIR SEND TELEHEALTH REPORT TO SHREDDER TENDER AND CARDIOVASCULAR SURGEON THE FIRST WEEK OF CARE AND THEN BI-WEEKLY. PLEASE ADDITIONALLY COMMUNICATE ANY ABNORMALS AND NEW FINDINGS TO THE SURGEONS OFFICE. Discharge Disposition: HOME WITH HOME HEALTH SERVICES
[2022-06-17 09:07] LABS: MCH 30.6 pg (25.0-35.0); MCHC 33.4 g/dL (31.0-37.0); MCV 91.6 fL (80.0-100.0); Platelet Count 241 k/uL (150-450); RBC 2.63 m/uL (4.30-5.90); RDW 13.4 % (11.5-15.5); WBC 5.7 k/uL (3.8-10.6)
[2022-06-17 09:26] LABS: African American GFR (CKD) >90 (>60 ml/min/1.73 sqM); Anion Gap 8 mmol/L; Blood Urea Nitrogen 15 mg/dL (9-20); Calcium 7.9 mg/dL (8.4-10.2); Carbon Dioxide 20 mmol/L (22-30); Chloride 106 mmol/L (98-107); Glucose 131 mg/dL (74-99); Non-African American GFR(CKD) >90 (>60 ml/min/1.73 sqM); Potassium 4.3 mmol/L (3.5-5.1); Sodium 134 mmol/L (137-145)
--- NOTE | 2022-06-17 09:39 | P.PN ---
Subjective Progress Note Date: 06/17/22 Patient is a 51-year-old male with PMH of CAD post stent of the OM in December 2021, systolic CHF with EF 35-40%, hypertension, dyslipidemia that presents the ED or worsening shortness of breath and scapular pain. Patient reports shortness of breath that is progressively getting worse since his stenting in December. Currently he is unable to walk 200 feet without stopping to catch his breath. He denies any orthopnea or lower extremity swelling. He reports scapular pain that has been ongoing over the past week that is worse with exertion, similar to what he had before he underwent stenting in December. Patient also reports that he fell twice. The first time was 2 weeks ago and he hit his head, did not seek medical attention. He fell yesterday, this time he did not hit his head. He is unsure whether he had a syncopal episode or not. He denies any headache, nausea or vomiting, fever or chills, diaphoresis, chest pain, palpitations, changes in urination or bowel habits. No changes in appetite or weight. He denies any dizziness, numbness/weakness/tingling of the extremities. In the ED, his vital signs are stable. CBC showed leukocytosis of 12.2. Coagulation panel was negative. D-dimer was 12.95. CMP showed sodium 129, bicarb of 14, glucose of 110, alkaline phosphatase of 131. Troponin was 0.028, 0.034, 0.035 with EKG showing sinus rhythm and T-wave abnormalities. BNP was 1430. Chest x-ray was negative. CTA chest negative for PE. Patient is admitted for chest pain, rule out acute coronary syndrome with cardiology consultation. Troponins were slowly trending up with EKG showing T-wave abnormalities. Patient was placed on a heparin drip. Cardiac cath showed 50-55% left main, 20-30% LAD, 90% OM3 stenosis. Cardiothoracic surgery consulted for CABG. Plans were arranged for CABG on 06/11/2022. Patient was seen and examined. POD 6 after CABG. CABG x 3 L. internal mammary to diagonal, saphenous to obtuse marginal, saphenous to posterior descending. Chest and mediastinal tubes discontinued, Right internal jugular cordis discontinued, Luz catheter discontinued on 06/13. Epicardial pacemaker discontinued 06/14. He reports no symptoms besides dry cough. Comfortable going home today. General: No acute distress Derm: warm, dry Head: atraumatic, normocephalic Eyes: no lid lag, anicteric sclera Mouth: no lip lesion, mucus membranes moist Cardiovascular: S1S2 reg, no murmur, surgical scar without erythema or discharge Lungs: Clear to auscultation bilaterally. No accessory muscle use. Ext: no gross muscle atrophy, no edema, no contractures Neuro: no focal deficits Psych: alert and oriented x 3 #COVID 19 #Acute blood loss anemia #Elevated troponin with history of CAD post stent in December 2021 #Systolic CHF with EF of 30-35% #Possible syncopal episode #Elevated D-dimer #PAD #Hyponatremia Chronic conditions: Hypertension, dyslipidemia, smoker COVID 19+. Not on supplemental oxygen. Albuterol inhaler PRN. Continue to monitor. Hemoglobin 8.5. Expected result of surgery. Improving. Transfuse if Hg < 7. Daily CBC. Troponins are slowly trending up with EKG showing T-wave abnormalities. Continue ASA, Lipitor, Metoprolol and Plavix. Telemetry montoring. Cardiac cath shows 50- 55% left main, 20-30% LAD, 90% OM3 stenosis. s/p CABG x 3 L. internal mammary to diagonal, saphenous to obtuse marginal, saphenous to posterior descending on 06/11. Patient presents with exertional shortness of breath. Chest x-ray was negative. He has no lower extremity swelling. Echocardiogram shows EF 30% with global hypokinesis. Continue Metoprolol, Losartan. Repeat Echo 06/14 shows EF 40-45%. No need for LifeVest as per CT surgery recommendations. Continue Telemetry monitoring. Patient be placed on fall precautions. Patient with elevated d-dimer, CT chest is ruled out PE. Venous duplex negative for DVT. Moderate PAD on arterial duplex. Patient needs Vascular surgery outpatient. Patient was sodium of 133. Possibly related to dehydration. Patient is medically stable. Plans for discharge home today. Objective - Vital Signs Vital signs: Vital Signs Temp 97 F L 06/17/22 08:14 Pulse 67 06/17/22 08:14 Resp 16 06/17/22 08:14 BP 115/65 06/17/22 08:14 Pulse Ox 95 06/17/22 08:14 FiO2 21 06/16/22 09:01 Intake & Output 11/07/2606/17/22 06/17/22 18:59 06:59 18:59 Intake Total 540 Output Total 900 1000 Balance -360 -1000 Intake: Oral 540 Output: Urine 900 1000 Other: Voiding Method Urinal Urinal # Voids 2 # Bowel Movements 0 ABP, PAP, CO, CI - Last Documented Arterial Blood Pressure 105/41 Pulmonary Artery Pressure 23/7 Cardiac Output 6.2 Cardiac Index 3.4 - Labs CBC & Chem 7: 06/17/22 08:25 06/17/22 08:25 Labs: Abnormal Lab Results - Last 24 Hours (Table) 06/16/22 06/16/22 06/16/22 Range/Units 09:01 16:54 20:52 RBC (4.30-5.90) m/uL Hgb (13.0-17.5) gm/dL Hct (39.0-53.0) % Sodium 134 L (137-145) mmol/L Carbon Dioxide (22-30) mmol/L Glucose 119 H (74-99) mg/dL POC Glucose (mg/dL) 117 H 122 H (70-110) mg/dL Calcium 7.8 L (8.4-10.2) mg/dL 06/17/22 06/17/22 Range/Units 08:25 08:25 RBC 2.63 L (4.30-5.90) m/uL Hgb 8.0 L (13.0-17.5) gm/dL Hct 24.0 L (39.0-53.0) % Sodium 134 L (137-145) mmol/L Carbon Dioxide 20 L (22-30) mmol/L Glucose 131 H (74-99) mg/dL POC Glucose (mg/dL) (70-110) mg/dL Calcium 7.9 L (8.4-10.2) mg/dL Microbiology - Last 24 Hours (Table) 06/14/22 17:08 Blood Culture - Preliminary Blood No Growth after 48 hours 06/14/22 17:58 Urine Culture - Final Urine,Voided 06/15/22 05:39 Gram Stain - Preliminary Sputum Sputum Culture - Preliminary
[2022-06-17 11:54] LABS: Glucose,Whole Blood 107 mg/dL (70-110)
[2022-06-17] MEDS: ACETAMINOPHEN TAB 500 MG TAB PO PRN (12:01)
--- NOTE | 2022-06-17 12:21 | P.PN ---
Subjective Progress Note Date: 06/17/22 Principal diagnosis: Status post CABG 3 postoperative day #5 Patient is now status post CABG 3 with left internal mammary artery to the diagonal coronary artery, a reverse greater saphenous vein graft to the obtuse marginal coronary artery and a reverse greater saphenous vein graft to the posterior descending coronary artery. Endoscopic vein harvest of the right lower extremity. Ligation of the left atrial appendage using a 35 mm Atriclip and an intraoperative transesophageal echocardiogram performed by anesthesia. Patient was on mechanical ventilation last night, he arrived rather related to the ICU, I manage his ventilator settings overnight, and shortly after I was made aware of the patient, reviewed his postoperative chest x-ray at home, I was updated on his blood gases, his ventilator settings were adjusted, and shortly after the patient was extubated uneventfully. Patient was extubated at 8:54 PM last evening. Presently on 2 L nasal cannula, O2 sats is 95%. He is hemodynamically stable, not requiring any inotropes or any pressors. Continues to have mediastinal and left pleural chest tube, on low continuous wall suction, no air leak noted. Chest x-ray showed minimal bibasilar atelectasis. His cardiac index today is 3.4. PA pressures 23/3 and his cardiac output is 6.2. Labs are basically unremarkable, hemoglobin is 8.9 otherwise labs are un remarkable. Reevaluated today on 06/13/22, postoperative day #2coronary artery bypass grafting x 3 vessels, left internal mammary artery to the diagonal artery, reverse saphenous vein graft to the obtuse marginal artery, reverse postoperative endoscopic harvesting right greater saphenous vein, ligation of the left atrial appendage using a 35 mm clip, epi-aortic ultrasound, intraoperative transesophageal echocardiogram. Patient is doing well, remains marginal with his incentive spirometry. Pulling only 750 ML, patient has been assisted to ambulate in the hallway. Continues to have multiple lines and catheters, some of them will be removed today. Overall clinically the patient is doing better than expected. Chest x-ray showed minimal basilar atelectasis. Expected. WBC count is 6.2 hemoglobin is 8.8, electrolytes are normal renal profile is normal. Creatinine is 1.24 Reevaluated today on 06/14/22,postoperative day #3coronary artery bypass grafting x 3 vessels, left internal mammary artery to the diagonal artery, reverse saphenous vein graft to the obtuse marginal artery, reverse postoperative endoscopic harvesting right greater saphenous vein, ligation of the left atrial appendage using a 35 mm clip, epi-aortic ultrasound, intraoperative transesophageal echocardiogram patient continues to do well. On room air,,Not in any distress. His incentive this artery is getting a bit better, patient is pulling anywhere between 750 up to 900 ml He is able to ambulate in the hallway with assistance. And the plan is to transfer the patient today from ICU to cardiac stepdown. His chest tubes and IJ cordis have been removed. Overall the patient is doing better than expected. Chest x-ray showed minimal atelectasis, CBC is relatively normal hemoglobin 9.6 electrolytes are normal renal profile is normal Reevaluated today on 06/15/22, patient had a temp of 101 yesterday, and patient tested positive for coronary 19 infection. Fortunately the patient has been vaccinated and boosted 4. Clinically the patient is not complaining of any major symptoms to suggest acute COVID-19 pneumonia he does have infection, but no shortness of breath, he has a bit of a cough. Patient is not in any distress, and his chest x-ray is reassuring. Hence the patient will continue on the COVID-19 cocktail, no need for Medrol, no need for Remdesivir, and considering the patient is vaccinated, very unlikely that his course will get any worse. His WBC count today is 4.4 hemoglobin is 8.5 electrodes are normal renal profile is normal Reevaluated today on 06/16/22, patient is doing great, he is being considered for discharge today. Chest x-ray is reassuring. Clinically the patient is doing well, and I will clear the patient for discharge planning. WBC count is 5.7 hemoglobin is 8 and left lites are normal renal profile is normal Objective - Vital Signs Vital signs: Vital Signs Temp 97 F L 06/17/22 08:14 Pulse 67 06/17/22 08:14 Resp 16 06/17/22 08:14 BP 115/65 06/17/22 08:14 Pulse Ox 95 06/17/22 08:14 FiO2 21 06/16/22 09:01 Intake & Output 06/16/22 06/17/22 06/17/22 18:59 06:59 18:59 Intake Total 540 118 Output Total 900 1000 Balance -360 -1000 118 Intake: Oral 540 118 Output: Urine 900 1000 Other: Voiding Method Urinal Urinal Urinal # Voids 2 # Bowel Movements 0 ABP, PAP, CO, CI - Last Documented Arterial Blood Pressure 105/41 Pulmonary Artery Pressure 23/7 Cardiac Output 6.2 Cardiac Index 3.4 - Exam Physical Exam: Revealed 51-year-old white male in no distress, on room air. Head: Atraumatic, normocephalic. HEENT:[Neck is supple.] [No neck masses.] [No thyromegaly.] [No JVD.] Chest: [Clear throughout, no crackles, no rhonchi, no wheezes.] Cardiac Exam: [Normal S1 and S2, no S3 gallop, no murmur.] Abdomen: [Soft, nontender, no megaly, no rebound, no guarding, normal bowel sounds.] Extremities: [No clubbing, no edema, no cyanosis.] Neurological Exam: [No focal neurologic deficit.] Alert oriented 3. Psychiatric: Normal mood affect and normal mental status examination. Skin: No rashes. - Labs CBC & Chem 7: 06/17/22 08:25 06/17/22 08:25 Labs: Abnormal Lab Results - Last 24 Hours (Table) 06/16/22 06/16/22 06/17/22 Range/Units 16:54 20:52 08:25 RBC 2.63 L (4.30-5.90) m/uL Hgb 8.0 L (13.0-17.5) gm/dL Hct 24.0 L (39.0-53.0) % Sodium (137-145) mmol/L Carbon Dioxide (22-30) mmol/L Glucose (74-99) mg/dL POC Glucose (mg/dL) 117 H 122 H (70-110) mg/dL Calcium (8.4-10.2) mg/dL 06/17/22 Range/Units 08:25 RBC (4.30-5.90) m/uL Hgb (13.0-17.5) gm/dL Hct (39.0-53.0) % Sodium 134 L (137-145) mmol/L Carbon Dioxide 20 L (22-30) mmol/L Glucose 131 H (74-99) mg/dL POC Glucose (mg/dL) (70-110) mg/dL Calcium 7.9 L (8.4-10.2) mg/dL Microbiology - Last 24 Hours (Table) 06/15/22 05:39 Gram Stain - Final Sputum Sputum Culture - Final 06/14/22 17:08 Blood Culture - Preliminary Blood No Growth after 48 hours 06/14/22 17:58 Urine Culture - Final Urine,Voided Assessment and Plan Assessment: Impression: Status post CABG, postoperative day #5 Severe cardiomyopathy and LV dysfunction with ejection fraction of 30-35% Dyslipidemia History of syncope Tobacco dependence syndrome Severe COPD FEV1 of 45% Postoperative atelectasis, improving based on chest x-ray today. Acute COVID-19 infection, but no pneumonia, and no significant symptoms. Recommendation: Agree with discharge planning Follow-up on outpatient basis. Continue cardiac medications. Continue COVID-19 cocktail. Outpatient follow-up is recommended Time with Patient: Less than 30
[2022-06-17] MEDS: LOSARTAN 25 MG TAB PO SCH (12:50)
[2022-06-17 13:01] VITALS: BP 112/64; PULSE 70; RESP 18; TEMP 98.1
--- NOTE | 2022-06-17 15:29 | P.PN ---
Subjective HISTORY OF PRESENTING ILLNESS Progress Note Date: 06/10/22 This is a 51 year old male with a past medical history of hypertension, nicotine dependence, daily alcohol use, coronary artery disease with NSTEMI in 12/2021 S/p PCI proximal OM3, ischemic cardiomyopathy, dyslipidemia. He follows with Dr. Mock. We're consulted for chest pain. Patient presented to the hospital on 06/02/2022 with symptoms of shortness of breath and chest pain. Smooth delta continued to have chest discomfort and recommend cardiac catheterization. Echocardiogram revealed EF 3035 percent. Patient underwent cardiac catheterization with Dr. Mock on 06/04/2022 which revealed coronary artery disease with 50-55% left main stenosis with minimal luminal area 5.3mm2, mild 20-30% LAD stenosis, mild luminal irregularities of a dominant circumflex, OM3 90% stenosis, normal left sided filling pressures. CT surgery was consulted for CABG evaluation. Limited echocardiogram revealed EF of 55%, no obvious regional wall motion abnormalities, trace MR, mild left ear with a peak gradient of 19 mmHg and a mean gradient of 9 mmHg and mild aortic regurgitation. 06/09/2022 Patient was seen and examined sitting up at the side of the bed. He just returned from a walk around the unit. He denies any shortness of breath but does seem to be a bit winded to me. He is scheduled to undergo coronary artery bypass grafting surgery on June 11. Blood pressure has been elevated. He is currently on aspirin 81 mg daily, atorvastatin 80 mg daily at bedtime, carvedilol 6.25 mg by mouth twice a day, a 640 mg daily, Aldactone 25 mg daily and lisinopril 10 mg by mouth daily. He is maintaining sinus mechanism with heart rate in the 60s to 70s with occasional PVCs. He denies any chest discomfort, palpitations, dizziness or lightheadedness. 06/10/2022 Patient was seen and examined sitting up side of the bed. He is overall feeling well. He denies any shortness of breath or chest discomfort. His ambulating without difficulties. Blood pressure is better controlled however his JOSÉ inhibitor has some placed on hold by CT surgery preoperatively. He is scheduled to undergo coronary artery bypass grafting surgery tomorrow. 06/12 Patient seen and examined. Patient underwent bypass yesterday and has been doing well. Off of any pressors. Still has chest tubes in place. Admits to mild discomfort around the incision however no chest pain or pressure. No s hortness of breath. 06/13 Patient seen and examined. Patient admits he was able to walk the halls however feels like he may have overdone it. Denies any chest pain or pressure. Denies any lightheadedness. Has been eating someone and is off of any vasopressors. Blood pressures minimally higher and has been tolerating metoprolol well. 06/14 Patient seen and examined. Patient still having some mild discomfort around the incision however fairly well controlled. Denies any shortness breath. Does have trace lower extremity edema. Receive Lasix yesterday with good urine output. He was started on losartan 12.5 mg daily today. 06/15 Patient seen and examined. Patient states overall he is doing fairly well. Denies any chest pain or pressure. Denies any shortness breath. He did have an episode yesterday where he had some chills and had a temperature of 100.9. Workup showed he is positive for [place] with. Denies any cough. 06/16 Patient with mild nonproductive cough. Denies any actual shortness breath. Denies any chest pain or pressure. Tolerating diet. No significant lower extremity edema. Chest x-ray with small pleural effusions. 06/17 Patient seen and examined. Patient denies any chest pain or pressure. States he was able to walk around his room without difficulty. Still has some fatigue and mild shortness breath. BUN 15, creatinine 0.9. PHYSICAL EXAMINATION Vital signs reviewed. CONSTITUTIONAL: No apparent distress. HEENT: Head is normocephalic. Pupils are equal, round. Sclerae anicteric. Mucous membranes of the mouth are moist. No JVD. No carotid bruit. CHEST EXAMINATION: Lungs are clear to auscultation. No chest wall tenderness is noted on palpation or with deep breathing. HEART EXAMINATION: Regular rate and rhythm. S1, S2 heard. No murmurs, gallops or rub. ABDOMEN: Soft, nontender. Positive bowel sounds. EXTREMITIES: 2+ peripheral pulses, no lower extremity edema and no calf tenderness. NEUROLOGIC EXAMINATION: Patient is awake, alert and oriented x3. Assessment CAD s/p CABG 06/11 Coronary artery disease s/p prior PCI to OM3 in 12/2021 Hypertension Dyslipidemia Ischemic cardiomyopathy EF 3035 percent Chronic tobacco use Daily alcohol use Chest pain, shortness of breath Chronic systolic heart failure COVID 19 Plan: Continue aspirin, Plavix, metoprolol. Continue losartan. appears stable for discharge home from a cardiology standpoint. Objective - Vital Signs Vital signs: Vital Signs Temp 98.1 F 06/17/22 13:00 Pulse 70 06/17/22 13:00 Resp 18 06/17/22 13:00 BP 112/64 06/17/22 13:00 Pulse Ox 97 06/17/22 13:00 FiO2 21 06/16/22 09:01 Intake & Output 06/16/22 06/17/22 06/17/22 18:59 06:59 18:59 Intake Total 540 358 Output Total 900 1000 Balance -360 -1000 358 Intake: Oral 540 358 Output: Urine 900 1000 Other: Voiding Method Urinal Urinal Urinal # Voids 2 3 # Bowel Movements 0 ABP, PAP, CO, CI - Last Documented Arterial Blood Pressure 105/41 Pulmonary Artery Pressure 23/7 Cardiac Output 6.2 Cardiac Index 3.4 - Labs CBC & Chem 7: 06/17/22 08:25 06/17/22 08:25 Labs: Abnormal Lab Results - Last 24 Hours (Table) 06/16/22 06/16/22 06/17/22 Range/Units 16:54 20:52 08:25 RBC 2.63 L (4.30-5.90) m/uL Hgb 8.0 L (13.0-17.5) gm/dL Hct 24.0 L (39.0-53.0) % Sodium (137-145) mmol/L Carbon Dioxide (22-30) mmol/L Glucose (74-99) mg/dL POC Glucose (mg/dL) 117 H 122 H (70-110) mg/dL Calcium (8.4-10.2) mg/dL 06/17/22 Range/Units 08:25 RBC (4.30-5.90) m/uL Hgb (13.0-17.5) gm/dL Hct (39.0-53.0) % Sodium 134 L (137-145) mmol/L Carbon Dioxide 20 L (22-30) mmol/L Glucose 131 H (74-99) mg/dL POC Glucose (mg/dL) (70-110) mg/dL Calcium 7.9 L (8.4-10.2) mg/dL Microbiology - Last 24 Hours (Table) 06/15/22 05:39 Gram Stain - Final Sputum Sputum Culture - Final 06/14/22 17:08 Blood Culture - Preliminary Blood No Growth after 48 hours
== END 2022-06-17 16:12 | disposition home health service (06) | DRG 233 ==
LOC: EC 00:07 → 6NMEDSUR 03:35 → OBSVTOIN 06-04 14:31 → 2SICU 06-11 06:57 → 3SCARD 06-15 15:10
PROVIDERS: ADMIT Surgery; ATTEND Surgery
PROC: 0211093 Bypass Coronary Artery, Two Arteries from Coronary Artery with Autologous Venous Tissue, Open Approach (ICD-10-PCS; 2022-06-04)
PROC: 06BP4ZZ Excision of Right Saphenous Vein, Percutaneous Endoscopic Approach (ICD-10-PCS; 2022-06-04)
PROC: 02L70CK Occlusion of Left Atrial Appendage with Extraluminal Device, Open Approach (ICD-10-PCS; 2022-06-04)
PROC: 5A1221Z Performance of Cardiac Output, Continuous (ICD-10-PCS; 2022-06-04)
PROC: B2111ZZ Fluoroscopy of Multiple Coronary Arteries using Low Osmolar Contrast (ICD-10-PCS; 2022-06-04)
PROC: B240ZZ3 Ultrasonography of Single Coronary Artery, Intravascular (ICD-10-PCS; 2022-06-04)
PROC: 3E033GC Introduction of Other Therapeutic Substance into Peripheral Vein, Percutaneous Approach (ICD-10-PCS; 2022-06-04)
PROC: 02100Z9 Bypass Coronary Artery, One Artery from Left Internal Mammary, Open Approach (ICD-10-PCS; principal; 2022-06-04 10:30)
PROC: 4A023N7 Measurement of Cardiac Sampling and Pressure, Left Heart, Percutaneous Approach (ICD-10-PCS; 2022-06-04 10:30)
PROC: HZ2ZZZZ Detoxification Services for Substance Abuse Treatment (ICD-10-PCS; 2022-06-05)
DX: I25.119 Atherosclerotic heart disease of native coronary artery with unspecified angina pectoris (principal); U07.1 COVID-19; E87.20 Acidosis, unspecified; E87.1 Hypo-osmolality and hyponatremia; I24.9 Acute ischemic heart disease, unspecified; I50.22 Chronic systolic (congestive) heart failure; D62 Acute posthemorrhagic anemia; I73.9 Peripheral vascular disease, unspecified; I11.0 Hypertensive heart disease with heart failure; J44.9 Chronic obstructive pulmonary disease, unspecified; I08.3 Combined rheumatic disorders of mitral, aortic and tricuspid valves; E78.5 Hyperlipidemia, unspecified; F17.210 Nicotine dependence, cigarettes, uncomplicated; F10.90 Alcohol use, unspecified, uncomplicated; I25.5 Ischemic cardiomyopathy; I49.3 Ventricular premature depolarization; R77.8 Other specified abnormalities of plasma proteins; R79.89 Other specified abnormal findings of blood chemistry; E86.0 Dehydration; W19.XXXA Unspecified fall, initial encounter; Z79.82 Long term (current) use of aspirin; Z79.899 Other long term (current) drug therapy; Z79.02 Long term (current) use of antithrombotics/antiplatelets; I25.2 Old myocardial infarction; Z95.5 Presence of coronary angioplasty implant and graft; Z91.018 Allergy to other foods; Z91.81 History of falling
CPT/HCPCS: 36415; 71045; 71046; 71275; 80048; 80053; 80061; 80074; 81003; 82330; 82805; 83036; 83735; 83880; 84100; 84443; 84484; 85025; 85027; 85379; 85520; 85610; 85730; 86850; 86891; 86900; 86901; 86920; 87040; 87070; 87086; 87205; 87635; 92978; 93005; 93308; 93458; 93923; 93930; 93970; 94002; 94150; 94640; 94760; 96360; 96361; 99285

== ENCOUNTER → 2022-06-20 | Outpatient (CLI) | payer OTHER ==
[2022-06-20 14:57] LABS: ALT 47 U/L (4-49); AST 33 U/L (17-59); African American GFR (CKD) 73 (>60 ml/min/1.73 sqM); Albumin 3.3 g/dL (3.5-5.0); Albumin/Globulin Ratio 1.3; Alkaline Phosphatase 210 U/L (38-126); Anion Gap 7 mmol/L; Blood Urea Nitrogen 16 mg/dL (9-20); Calcium 8.3 mg/dL (8.4-10.2); Carbon Dioxide 23 mmol/L (22-30); Chloride 112 mmol/L (98-107); Globulin 2.6 g/dL; Glucose 107 mg/dL (74-99); Non-African American GFR(CKD) 63 (>60 ml/min/1.73 sqM); Potassium 4.5 mmol/L (3.5-5.1); Sodium 142 mmol/L (137-145); Total Bilirubin 0.3 mg/dL (0.2-1.3); Total Protein 5.9 g/dL (6.3-8.2)
[2022-06-20 14:58] LABS: Basophils # (A) 0.1 k/uL (0-0.2); Basophils % (A) 1 %; Eosinophils # (A) 0.2 k/uL (0-0.7); Eosinophils % (A) 1 %; HCT 23.5 % (39.0-53.0); HGB 7.5 gm/dL (13.0-17.5); Lymphocytes % (A) 16 %; MCHC 32.1 g/dL (31.0-37.0); MCV 93.5 fL (80.0-100.0); Mean Platelet Volume 7.8; Monocytes # (A) 0.7 k/uL (0-1.0); Monocytes % (A) 5 %; Neutrophils # (A) 9.4 k/uL (1.3-7.7); Neutrophils % (A) 75 %; RBC 2.51 m/uL (4.30-5.90); RDW 13.7 % (11.5-15.5); WBC 12.5 k/uL (3.8-10.6)
[2022-06-20 14:59] LABS: Platelet Count 551 k/uL (150-450)
== END | disposition home or self-care (01) ==
LOC: LABWHC1 14:14
PROVIDERS: ATTEND Nurse Practitioner Acute Care
DX: Z48.812 Encounter for surgical aftercare following surgery on the circulatory system (principal)
CPT/HCPCS: 36415; 80053; 85025

== ENCOUNTER → 2022-07-02 | Outpatient (CLI) | payer OTHER ==
--- NOTE | 2022-07-02 15:39 | XR ---
EXAMINATION TYPE: XR chest 2V DATE OF EXAM: 07/02/2022 COMPARISON: Chest x-ray June 17, 2022 HISTORY: Cough. TECHNIQUE: Frontal and lateral views of the chest are obtained. FINDINGS: Overlying sternal wires and mediastinal clips along with left atrial appendage clip are all redemonstrated. Persistent cardiomegaly with now moderate size left pleural effusion. There is now s mall to tiny right pleural effusion. Multilevel spurring in the spine. IMPRESSION: Cardiomegaly with now moderate size left pleural effusion and small to moderate-sized ri ght pleural effusion. Effusions increased in size from prior chest x-ray.
[2022-07-02 18:04] LABS: HCT 22.8 % (39.6-50.0); MCH 28.9 pg (27.0-32.0); MCHC 30.7 g/dL (32.0-37.0); MCV 94.2 fL (80.0-97.0); Mean Platelet Volume 8.8 fL (9.5-12.2); NRBC Per 100 WBC 0 /100 WBCS (0.0-0.0); Platelet Count 568 X 10*3/uL (140-440); RBC 2.42 X 10*6/uL (4.40-5.60); RDW 14.7 % (11.5-14.5); WBC 10.44 X 10*3/uL (4.50-10.00)
[2022-07-02 20:05] LABS: African American GFR (CKD) 113.4 (60.0-200.0); Albumin 3.5 g/dL (3.8-4.9); Albumin/Globulin Ratio 0.95 (1.60-3.17); Anion Gap 11.7 mmol/L (10.00-18.00); BUN/Creat Ratio 13.67 Ratio (12.00-20.00); Blood Urea Nitrogen 12.3 mg/dL (9.0-27.0); Calcium 9.3 mg/dL (8.7-10.3); Carbon Dioxide 23.3 mmol/L (20.0-27.5); Globulin 3.7 g/dL (1.6-3.3); Non-African American GFR(CKD) 97.9 (60.0-200.0); Total Bilirubin 0.2 mg/dL (0.30-1.20); Total Protein 7.2 g/dL (6.2-8.2)
== END | disposition home or self-care (01) ==
LOC: RADXRMAIN 11:52
PROVIDERS: ATTEND Surgery
DX: J90 Pleural effusion, not elsewhere classified (principal); I51.7 Cardiomegaly; R05.1 Acute cough
CPT/HCPCS: 71046; 80053; 85027

== ENCOUNTER 2022-08-16 11:18 | Observation (INO) | payer OTHER ==
--- NOTE | 2022-08-16 12:54 | ED ---
SOB HPI - General Chief Complaint: Shortness of Breath Stated Complaint: bilat leg pain Time Seen by Provider: 08/16/22 11:48 Source: patient, RN notes reviewed Mode of arrival: ambulatory Limitations: no limitations - History of Present Illness Initial Comments: 51-year-old male presents emergency Department chief complaint of leg swelling, shortness of breath. Patient states that he had triple bypass surgery by Dr. Hastings. Patient states that he knows last 3 weeks states had increasing leg swelling increasing shortness of breath. Patient saw his take out waiter Dr. Mock today's sent him to the emergency department. Patient has not discontinue any of his medication. He was seen at [facility] states she was placed on some other medication and was discharged. Patient denies any headache or dizziness person cough or cold symptoms. - Related Data Previous Rx's Medication Instructions Recorded Aspirin 81 mg PO DAILY #90 tab 12/22/21 Acetaminophen Tab [Tylenol] 1,000 mg PO Q4HR PRN tab 06/17/22 Albuterol Inhaler [Ventolin Hfa 2 puff INHALATION RT-QID #3 each 06/17/22 Inhaler] Atorvastatin [Lipitor] 40 mg PO DAILY #30 tab 06/17/22 Clopidogrel [Plavix] 75 mg PO DAILY #30 tab 06/17/22 Losartan [Cozaar] 12.5 mg PO DAILY@1200 #30 tab 06/17/22 Metoprolol Tartrate [Lopressor] 50 mg PO BID #60 tab 06/17/22 Pantoprazole [Protonix] 40 mg PO AC-BRKFST #30 tab 06/17/22 Sennosides-Docusate Sodium 2 each PO HS PRN tab 06/17/22 [Senokot-S] guaiFENesin-DM 600/30MG [Mucinex 2 each PO Q12HR #30 tab 06/17/22 Dm] Furosemide [Lasix] 40 mg PO DAILY #7 tablet 06/20/22 Potassium Chloride 10 meq PO DAILY #7 tab 06/20/22 Furosemide [Lasix] 40 mg PO DAILY #7 tablet 07/03/22 Potassium Chloride ER [K-Dur 10] 10 meq PO DAILY #7 tab 07/03/22 Allergies Allergy/AdvReac Type Severity Reaction Status Date / Time coconut Allergy Itching Verified 06/11/22 06:27 Review of Systems ROS Statement: Those systems with pertinent positive or pertinent negative responses have been documented in the HPI. ROS Other: All systems not noted in ROS Statement are negative. Past Medical History Past Medical History: Coronary Artery Disease (CAD), Heart Failure, Hyperlipidemia, Hypertension, Syncope History of Any Multi-Drug Resistant Organisms: None Reported Past Surgical History: Heart Catheterization With Stent, Orthopedic Surgery Additional Past Surgical History / Comment(s): hip surgery x2, triple bypass 06/2022 Past Anesthesia/Blood Transfusion Reactions: No Reported Reaction Date of Last Stent Placement:: 12/21/2021 Past Psychological History: No Psychological Hx Reported Smoking Status: Former smoker Past Alcohol Use History: Daily Past Drug Use History: None Reported - Past Family History Father Additional Family Medical History / Comment(s): Father is . He was a [place] vet, exsposed to agent orange. Mother Family Medical History: Cancer Additional Family Medical History / Comment(s): Mother of bladder cancer. General Exam Limitations: no limitations General appearance: alert, in no apparent distress Head exam: Present: atraumatic, normocephalic, normal inspection Eye exam: Present: normal appearance, PERRL, EOMI. Absent: scleral icterus, conjunctival injection, periorbital swelling ENT exam: Present: normal exam, normal oropharynx, mucous membranes moist Neck exam: Present: normal inspection, full ROM. Absent: tenderness, meningismus, lymphadenopathy Respiratory exam: Present: rales. Absent: respiratory distress, wheezes, rhonchi, stridor, decreased breath sounds Cardiovascular Exam: Present: regular rate, normal rhythm, normal heart sounds. Absent: systolic murmur, diastolic murmur, rubs, gallop, clicks GI/Abdominal exam: Present: soft, normal bowel sounds. Absent: distended, tenderness, guarding, rebound, rigid Extremities exam: Present: pedal edema Course Vital Signs 08/16/22 08/16/22 08/16/22 11:28 11:56 12:05 Temperature 98.3 F Pulse Rate 81 Pulse Rate [ 78 Labor Economics Teacher ] Respiratory 20 18 Rate Blood Pressure 153/70 O2 Sat by Pulse 99 Oximetry 08/16/22 08/16/22 12:22 14:00 Temperature Pulse Rate 76 76 Pulse Rate [ Labor Economics Teacher ] Respiratory 18 18 Rate Blood Pressure 138/79 138/74 O2 Sat by Pulse 98 100 Oximetry Medical Decision Making - Medical Decision Making Was pt. sent in by a medical professional or institution (, JOSE, EXTRUDER OPERATOR HORIZONTAL, urgent care, hospital, or longterm...) When possible be specific @ -[No] Did you speak to anyone other than the patient for history (EMS, parent, family, police, friend...)? What history was obtained from this source @ -[No] Did you review nursing and triage notes (agree or disagree)? Why? @ -[I reviewed and agree with nursing and triage notes] Were old charts reviewed (outside hosp., previous admission, EMS record, old EKG, old radiological studies, urgent care reports/EKG's, longterm records)? Report findings @ -[No old charts were reviewed] Differential Diagnosis (chest pain, altered mental status, abdominal pain women, abdominal pain men, vaginal bleeding, weakness, fever, dyspnea, syncope, headache, dizziness, GI bleed, back pain, seizure, CVA, palpatations, mental health)? @ -Differential Dyspnea: Coronary syndrome, arrhythmia, tamponade, asthma, COPD, pulmonary embolism, pneumonia, pneumothorax, pulmonary effusion, anaphylaxis, diabetic ketoacidosis, flailed chest, pulmonary contusion, diaphragmatic rupture, anemia, neuromusc ular, this is not meant to be an all-inclusive list. EKG interpreted by me (3pts min.). @ -[EKG sinus rhythm rate of 78 SC 147/113 QT/QTC 406/439] X-rays interpreted by me (1pt min.). @ -Chest x-ray shows resolution of prior pleural effusion, cardiomegaly noted CT interpreted by me (1pt min.). @ -[None done] U/S interpreted by me (1pt. min.). @ -[None done] What testing was considered but not performed or refused? (CT, X-rays, U/S, labs)? Why? @ -[None] What meds were considered but not given or refused? Why? @ -[None] Did you discuss the management of the patient with other professionals (professionals i.e. JOSE Serrano, EXTRUDER OPERATOR HORIZONTAL, lab, RT, psych nurse, social services analyst, intellectual property lawyer, teacher, examining officer, porter sample case)? Give summary @ Hospitalists sheet for admission and further treatment Was smoking cessation discussed for >3mins.? @ -[No] Was critical care preformed (if so, how long)? @ -[No] Were there social determinants of health that impacted care today? How? (Homelessness, low income, unemployed, alcoholism, drug addiction, cortes sportation, low edu. Level, literacy, decrease access to med. care, skilled nursing, rehab)? @ -[No] Was there de-escalation of care discussed even if they declined (Discuss DNR or withdrawal of care, Hospice)? DNR status @ -[No] What co-morbidities impacted this encounter? (DM, HTN, Smoking, COPD, CAD, Cancer, CVA, ARF, Chemo, Hep., AIDS, mental health diagnosis, sleep apnea, morbid obesity)? @ -CABG, HTN Was patient admitted / discharged? Hospital course, mention meds given and route, prescriptions, significant lab abnormalities, going to OR and other pertinent info. @ Admitted Undiagnosed new problem with uncertain prognosis? @ -[No] Drug Therapy requiring intensive monitoring for toxicity (Heparin, Nitro, Ins ulin, Cardizem)? @ -[No] Were any procedures done? @ -[No] Diagnosis/symptom? @ -[default] Acute, or Chronic, or Acute on Chronic? @ -[default] Uncomplicated (without systemic symptoms) or Complicated (systemic symptoms)? @ -[default] Side effects of treatment? @ -[No] Exacerbation, Progression, or Severe Exacerbation? @ -[No] Poses a threat to life or bodily function? How? (Chest pain, USA, GA, pneumonia, PE, COPD, DKA, ARF, appy, cholecystitis, CVA, Diverticulitis, Homicidal, Suicidal, threat to staff... and all critical care pts) @ -[No] - Lab Data Result diagrams: 08/16/22 12:13 08/16/22 12:13 Lab Results 08/16/22 08/16/22 08/16/22 Range/Units 12:13 12: 12: WBC 11.0 H (3.8-10.6) k/uL RBC 3.81 L (4.30-5.90) m/uL Hgb 10.2 L (13.0-17.5) gm/dL Hct 32.4 L (39.0-53.0) % MCV 85.1 D (80.0-100.0) fL MCH 26.8 (25.0-35.0) pg MCHC 31.5 (31.0-37.0) g/dL RDW 16.6 H (11.5-15.5) % Plt Count 382 (150-450) k/uL MPV 6.6 Neutrophils % 62 % Lymphocytes % 26 % Monocytes % 6 % Eosinophils % 2 % Basophils % 1 % Neutrophils # 6.8 (1.3-7.7) k/uL Lymphocytes # 2.8 (1.0-4.8) k/uL Monocytes # 0.7 (0-1.0) k/uL Eosinophils # 0.2 (0-0.7) k/uL Basophils # 0.1 (0-0.2) k/uL Hypochromasia Slight Anisocytosis Slight PT 10.2 (9.0-12.0) sec INR 1.0 (<1.2) APTT 28.8 (22.0-30.0) sec Sodium 139 (137-145) mmol/L Potassium 4.0 (3.5-5.1) mmol/L Chloride 102 (98-107) mmol/L Carbon Dioxide 27 (22-30) mmol/L Anion Gap 10 mmol/L BUN 15 (9-20) mg/dL Creatinine 0.85 (0.66-1.25) mg/dL Est GFR (CKD-EPI)AfAm >90 (>60 ml/min/1.73 sqM) Est GFR (CKD-EPI)NonAf >90 (>60 ml/min/1.73 sqM) Glucose 82 (74-99) mg/dL Plasma Lactic Acid Dilip (0.7-2.0) mmol/L Calcium 9.1 (8.4-10.2) mg/dL Magnesium 1.9 (1.6-2.3) mg/dL Total Bilirubin 0.5 (0.2-1.3) mg/dL AST 28 (17-59) U/L ALT 34 (4-49) U/L Alkaline Phosphatase 159 H (38-126) U/L Troponin I (0.000-0.034) ng/mL Total Protein 8.2 (6.3-8.2) g/dL Albumin 4.6 (3.5-5.0) g/dL 08/16/22 08/16/22 Range/Units 12:13 12:13 WBC (3.8-10.6) k/uL RBC (4.30-5.90) m/uL Hgb (13.0-17.5) gm/dL Hct (39.0-53.0) % MCV (80.0-100.0) fL MCH (25.0-35.0) pg MCHC (31.0-37.0) g/dL RDW (11.5-15.5) % Plt Count (150-450) k/uL MPV Neutrophils % % Lymphocytes % % Monocytes % % Eosinophils % % Basophils % % Neutrophils # (1.3-7.7) k/uL Lymphocytes # (1.0-4.8) k/uL Monocytes # (0-1.0) k/uL Eosinophils # (0-0.7) k/uL Basophils # (0-0.2) k/uL Hypochromasia Anisocytosis PT (9.0-12.0) sec INR (<1.2) APTT (22.0-30.0) sec Sodium (137-145) mmol/L Potassium (3.5-5.1) mmol/L Chloride (98-107) mmol/L Carbon Dioxide (22-30) mmol/L Anion Gap mmol/L BUN (9-20) mg/dL Creatinine (0.66-1.25) mg/dL Est GFR (CKD-EPI)AfAm (>60 ml/min/1.73 sqM) Est GFR (CKD-EPI)NonAf (>60 ml/min/1.73 sqM) Glucose (74-99) mg/dL Plasma Lactic Acid Dilip 1.2 (0.7-2.0) mmol/L Calcium (8.4-10.2) mg/dL Magnesium (1.6-2.3) mg/dL Total Bilirubin (0.2-1.3) mg/dL AST (17-59) U/L ALT (4-49) U/L Alkaline Phosphatase (38-126) U/L Troponin I 0.015 (0.000-0.034) ng/mL Total Protein (6.3-8.2) g/dL Albumin (3.5-5.0) g/dL Disposition Clinical Impression: Congestive heart failure Disposition: ADMITTED IP TO THIS HOSP Referrals: None,Stated [Primary Care Provider] - 1-2 days Time of Disposition: 14:13
[2022-08-16 12:59] LABS: Anisocytosis Slight; Basophils # (A) 0.1 k/uL (0-0.2); Basophils % (A) 1 %; Eosinophils # (A) 0.2 k/uL (0-0.7); Eosinophils % (A) 2 %; HCT 32.4 % (39.0-53.0); HGB 10.2 gm/dL (13.0-17.5); Hypochromasia Slight; Lymphocytes # (A) 2.8 k/uL (1.0-4.8); Lymphocytes % (A) 26 %; MCH 26.8 pg (25.0-35.0); MCHC 31.5 g/dL (31.0-37.0); Mean Platelet Volume 6.6; Monocytes # (A) 0.7 k/uL (0-1.0); Monocytes % (A) 6 %; Neutrophils # (A) 6.8 k/uL (1.3-7.7); Neutrophils % (A) 62 %; Platelet Count 382 k/uL (150-450); RBC 3.81 m/uL (4.30-5.90); RDW 16.6 % (11.5-15.5)
[2022-08-16 13:02] LABS: MCV 85.1 fL (80.0-100.0)
[2022-08-16 13:06] LABS: ALT 34 U/L (4-49); AST 28 U/L (17-59); African American GFR (CKD) >90 (>60 ml/min/1.73 sqM); Albumin 4.6 g/dL (3.5-5.0); Alkaline Phosphatase 159 U/L (38-126); Anion Gap 10 mmol/L; Blood Urea Nitrogen 15 mg/dL (9-20); Calcium 9.1 mg/dL (8.4-10.2); Carbon Dioxide 27 mmol/L (22-30); Chloride 102 mmol/L (98-107); Glucose 82 mg/dL (74-99); Magnesium 1.9 mg/dL (1.6-2.3); Non-African American GFR(CKD) >90 (>60 ml/min/1.73 sqM); Sodium 139 mmol/L (137-145); Total Bilirubin 0.5 mg/dL (0.2-1.3); Total Protein 8.2 g/dL (6.3-8.2)
[2022-08-16 13:09] LABS: Partial Thromboplastin Time 28.8 sec (22.0-30.0); Prothrombin Time 10.2 sec (9.0-12.0)
--- NOTE | 2022-08-16 13:23 | XR ---
EXAMINATION TYPE: XR chest 2V DATE OF EXAM: 08/16/2022 COMPARISON: 07/02/2022 HISTORY: 51 year-old male shortness of breath, difficulty breathing TECHNIQUE: PA and lateral views FINDINGS: Heart borderline enlarged. Median sternotomy wires as well as plate and screw sternotomy fixation dem onstrated. Mild hyperinflation. Mild strandy atelectasis left base. Previous left pleural effusion h as resolved. No consolidation or pleural effusion. IMPRESSION: Borderline cardiomegaly and COPD. Previous left effusion seen on 07/02/2022 has resolved. No acute pr ocess seen.
[2022-08-16] MEDS ORDERED: HYDROmorphone 0.5 MG/0.5 ML SYRINGE IVP STA (14:03)
[2022-08-16] MEDS ORDERED: FUROSEMIDE 10 MG/ML 4 ML VIAL IV STA (14:07)
[2022-08-16] MEDS ORDERED: ACETAMINOPHEN TAB 325 MG TAB PO PRN (16:45)
[2022-08-16] MEDS ORDERED: IPRATROPIUM-ALBUTEROL 3 ML NEB INHALATION PRN (16:50)
--- NOTE | 2022-08-16 19:03 | US ---
EXAMINATION TYPE: US venous doppler duplex LE BI DATE OF EXAM: 08/16/2022 6:31 PM COMPARISON: 06/02/22 CLINICAL HISTORY: leg swelling. Leg swelling SIDE PERFORMED: Bilateral TECHNIQUE: The lower extremity deep venous system is examined utilizing real time linear array sonog ethan with graded compression, doppler sonography and color-flow sonography. VESSELS IMAGED: Common Femoral Vein Deep Femoral Vein Greater Saphenous Vein * Femoral Vein Popliteal Vein Small Saphenous Vein * Proximal Calf Veins (* superficial vessels) Right Leg: Negative for DVT Left Leg: Negative for DVT Grayscale, color doppler, spectral doppler imaging performed of the deep veins of the lower extremiti es. There is normal flow, compressibility, vascular waveforms. IMPRESSION: No evidence of deep vein thrombosis of the bilateral lower extremities.
[2022-08-16] MEDS ORDERED: ALBUTEROL HFA INHALER INHALATION SCH (20:00)
[2022-08-16] MEDS: FUROSEMIDE 10 MG/ML 4 ML VIAL IV SCH (20:29)
[2022-08-16] MEDS: METOPROLOL TARTRATE 50 MG TAB PO SCH (20:30)
[2022-08-16] MEDS: cilostazoL 100 MG TAB PO SCH (20:30)
[2022-08-16] MEDS: HYDROcodone/APAP 5-325MG 1 EACH TAB PO PRN (20:30)
--- NOTE | 2022-08-16 20:37 | P.HPIM ---
History of Present Illness This is a pleasant 51 years old male with past medical history of coronary artery disease, chronic heart failure, hypertension, hyperlipidemia, syncope Was following up with his money manager Dr. Mock and he was referred directly to the hospital for fluid overload, is complaining of from pain and swelling in both legs. Also patient is complaining of from chest pain when he exercises for more than 2 weeks, however patient declines chest pain now in the emergency room. Patient also has difficulty taking deep breaths for 2-3 weeks with no significant coughing up phlegm. No specific GI or urinary symptoms. No diarrhea or dysuria. No headache weakness or dizziness. Patient is nonsmoker, no alcohol or illicit tracts. Patient also complaining of from numbness on the soles of both feet Vitals looks stable, patient is afebrile Patient has mild leukocytosis at 11 K, patient has fluctuating mild leukocytosis before. Hemoglobin 10.2, which is above baseline of 7-8. There is some BMP and liver enzymes were unremarkable troponin -0.015 0.017. ProBNP 843 EKG showing normal sinus rhythm at [address]-T changes Review of Systems Review of systems CONSTITUTIONAL: No fever, no malaise, no fatigue. HEENT: No recent visual problems or hearing problems. Denied any sore throat. CARDIOVASCULAR: No orthopnea, PND, no palpitations, no syncope. PULMONARY: No shortness of breath, no cough, no hemoptysis. GASTROINTESTINAL: No diarrhea, no nausea, no vomiting, no abdominal pain. Normoactive bowel sounds. NEUROLOGICAL: No headaches, no weakness, no numbness. HEMATOLOGICAL: Denies any bleeding or petechiae. GENITOURINARY: Denies any burning micturition, frequency, or urgency. MUSCULOSKELETAL/RHEUMATOLOGICAL: Denies any joint pain, swelling, or any muscle pain. ENDOCRINE: Denies any polyuria or polydipsia. Past Medical History Past Medical History: Coronary Artery Disease (CAD), Heart Failure, Hyperlipidemia, Hypertension, Syncope History of Any Multi-Drug Resistant Organisms: None Reported Past Surgical History: Heart Catheterization With Stent, Orthopedic Surgery Additional Past Surgical History / Comment(s): hip surgery x2, triple bypass 06/2022 Past Anesthesia/Blood Transfusion Reactions: No Reported Reaction Date of Last Stent Placement:: 12/21/2021 Past Psychological History: No Psychological Hx Reported Additional Psychological History / Comment(s): Pt resides with [address]. Smoking Status: Former smoker Past Alcohol Use History: Daily Additional Past Alcohol Use History / Comment(s): Drinks 6 pk of beer daily, denies alcohol use at present Past Drug Use History: None Reported - Past Family History Father Additional Family Medical History / Comment(s): Father is . He was a [place] vet, exsposed to agent orange. Mother Family Medical History: Cancer Additional Family Medical History / Comment(s): Mother of bladder cancer. Medications and Allergies Home Medications Medication Instructions Recorded Confirmed Type Aspirin 81 mg PO DAILY #90 tab 12/22/21 08/16/22 Rx Albuterol Inhaler [Ventolin Hfa 2 puff INHALATION RT-QID #3 each 06/17/22 08/16/22 Rx Inhaler] Clopidogrel [Plavix] 75 mg PO DAILY #30 tab 06/17/22 08/16/22 Rx Metoprolol Tartrate [Lopressor] 50 mg PO BID #60 tab 06/17/22 08/16/22 Rx Pantoprazole [Protonix] 40 mg PO AC-BRKFST #30 tab 06/17/22 08/16/22 Rx Atorvastatin [Lipitor] 40 mg PO HS 08/16/22 08/16/22 History Furosemide [Lasix] 40 mg PO BID@0600,1400 08/16/22 08/16/22 History Losartan [Cozaar] 50 mg PO DAILY 08/16/22 08/16/22 History cilostazoL [Pletal] 100 mg PO BID 08/16/22 08/16/22 History Allergies Allergy/AdvReac Type Severity Reaction Status Date / Time coconut Allergy Itching Verified 08/16/22 14:24 Physical Exam Vitals: Vital Signs Temp Pulse Pulse Pulse Resp BP BP 08/16/22 17:29 1 L 08/16/22 17:02 97.9 F 99 18 131/74 08/16/22 16:00 97.4 F L 80 18 130/61 08/16/22 15:00 75 18 138/76 08/16/22 14:00 76 18 138/74 08/16/22 12:22 76 18 138/79 08/16/22 12:05 18 08/16/22 11:56 78 08/16/22 11:28 98.3 F 81 20 153/70 Pulse Ox 08/16/22 17:29 08/16/22 17:02 93 L 08/16/22 16:00 96 08/16/22 15:00 95 08/16/22 14:00 100 08/16/22 12:22 98 08/16/22 12:05 08/16/22 11:56 08/16/22 11:28 99 Intake and Output 08/16/22 08/16/22 08/16/22 06:59 14:59 22:59 Intake Total 120 Balance 120 Intake: Oral 120 Other: # Voids 0 # Bowel Movements 0 Weight 75.296 kg 72.3 kg GENERAL: The patient is alert and oriented x3, not in any acute distress. Well developed, well nourished. HEENT: Pupils are round and equally reacting to light. EOMI. No scleral icterus. No conjunctival pallor. Normocephalic, atraumatic. No pharyngeal erythema. No thyromegaly. CARDIOVASCULAR: S1 and S2 present. No murmurs, rubs, or gallops. PULMONARY: Chest is clear to auscultation, no wheezing or crackles. ABDOMEN: Soft, nontender, nondistended, normoactive bowel sounds. No palpable organomegaly. MUSCULOSKELETAL: No joint swelling or deformity. -EXTREMITIES: No cyanosis, clubbing, or pedal edema. Both legs are swollen and mildly pink in color NEUROLOGICAL: Gross neurological examination did not reveal any focal deficits. SKIN: No rashes. no petechiae. Results CBC & Chem 7: 08/16/22 12:13 08/16/22 12:13 Labs: Abnormal Lab Results - Last 24 Hours (Table) 08/16/22 08/16/22 Range/Units 12:13 12:13 WBC 11.0 H (3.8-10.6) k/uL RBC 3.81 L (4.30-5.90) m/uL Hgb 10.2 L (13.0-17.5) gm/dL Hct 32.4 L (39.0-53.0) % RDW 16.6 H (11.5-15.5) % Alkaline Phosphatase 159 H (38-126) U/L Thrombosis Risk Factor Assmnt - Choose All That Apply Any of the Below Risk Factors Present?: Yes Each Factor Represents 1 point: Abnormal pulmonary function (COPD), Heart failure (<1month), Obesity (BMI >25), Swollen legs (current) Other Risk Factors: No Other congenital or acquired thrombophilia - If yes, enter type in comment: No Thrombosis Risk Factor Assessment Total Risk Factor Score: 4 Thrombosis Risk Factor Assessment Level: Moderate Risk Assessment and Plan Assessment: Acute systolic CHF exacerbation, ejection fraction 50-55% Bilateral leg swelling secondary to above Peripheral neuropathy Chest pain, mild, rule out cardiac causes Severe COPD with FEV1 of 45% Hyperlipidemia Plan: Continue with IV Lasix Monitor creatinine and appointment and output Cardiology consult We will treat both leg swellings with IV diuretic and reassess tomorrow, we'll hold for antibiotics with close monitoring, this patient has symmetrical symptoms. Continue with a bronchodilator check hemoglobin A1c and vitamin B12 Labs and medication were reviewed.. Continue same treatment. Continue with symptomatic treatment. Resume home medication. Monitor lytes and vitals. DVT and GI prophylaxis. Further recommendations as per clinical course of the chris ent DVT prophylaxis: Subcutaneous heparin GI Prophylaxis: Pepcid PT/OT: Pending Prognosis is guarded
[2022-08-16] MEDS ORDERED: PROMETHAZINE 25 MG TAB PO PRN (20:50)
[2022-08-16] MEDS ORDERED: FAMOTIDINE 20 MG/2 ML VIAL IV SCH (21:00)
[2022-08-16] MEDS ORDERED: ATORVASTATIN 40 MG TAB PO SCH (21:00)
[2022-08-16] MEDS: HEPARIN SODIUM,PORCINE/PF 5,000 UNIT/0.5 ML SYRINGE SQ SCH (21:46)
[2022-08-17] MEDS: HYDROcodone/APAP 5-325MG 1 EACH TAB PO PRN (05:59)
[2022-08-17] MEDS ORDERED: PANTOPRAZOLE 40 MG TABLET PO SCH (07:30)
[2022-08-17] MEDS ORDERED: ASPIRIN 81 MG PO SCH (09:00)
[2022-08-17] MEDS ORDERED: CLOPIDOGREL 75 MG TAB PO SCH (09:00)
[2022-08-17] MEDS ORDERED: LOSARTAN 50 MG TAB PO SCH (09:00)
[2022-08-17] MEDS: HEPARIN SODIUM,PORCINE/PF 5,000 UNIT/0.5 ML SYRINGE SQ SCH (09:44)
[2022-08-17] MEDS: FUROSEMIDE 10 MG/ML 4 ML VIAL IV SCH (09:44)
[2022-08-17] MEDS: cilostazoL 100 MG TAB PO SCH (09:44)
[2022-08-17] MEDS: METOPROLOL TARTRATE 50 MG TAB PO SCH (09:44)
[2022-08-17] MEDS: GABAPENTIN 300 MG CAP PO SCH ×2 (09:44→15:58)
[2022-08-17 10:09] LABS: Basophils # (A) 0.14 X 10*3/uL (0.00-0.10); Basophils % (A) 1.2 %; Eosinophils # (A) 0.43 X 10*3/uL (0.04-0.35); Eosinophils % (A) 3.8 %; HCT 32.1 % (39.6-50.0); HGB 9.7 g/dL (13.0-17.0); Immature Grans, Automated 0.3 %; Lymphocytes # (A) 2.81 X 10*3/uL (0.90-5.00); MCH 25.9 pg (27.0-32.0); MCHC 30.2 g/dL (32.0-37.0); MCV 85.6 fL (80.0-97.0); Mean Platelet Volume 8.9 fL (9.5-12.2); Monocytes # (A) 0.86 X 10*3/uL (0.20-1.00); Monocytes % (A) 7.7 %; NRBC Per 100 WBC 0 /100 WBCS (0.0-0.0); Neutrophils # (A) 6.97 X 10*3/uL (1.80-7.70); Platelet Count 437 X 10*3/uL (140-440); RBC 3.75 X 10*6/uL (4.40-5.60); RDW 16.8 % (11.5-14.5); WBC 11.24 X 10*3/uL (4.50-10.00)
--- NOTE | 2022-08-17 10:53 | CT ---
EXAMINATION TYPE: CT angio abd aorta w/Runoff DATE OF EXAM: 08/17/2022 COMPARISON: None HISTORY: 51-year-old male claudication, leg pain, rule out peripheral arterial disease, Painful bilat eral feet, leg edema TECHNIQUE: Contiguous axial scanning of the abdomen and pelvis performed without and with IV Contrast , patient injected with 125 mL of Isovue 370. Subsequent postcontrast bilateral lower extremity runof f. Coronal/sagittal MIP reconstructions performed. 3-D reconstructions generated on a dedicated [employer] workstation. CT DLP: 2383 mGycm Automated exposure control for dose reduction was used. FINDINGS: Median sternotomy changes partially visualized. Heart upper limits of normal in size. Mild emphysemat ous change. There may be a trace left pleural effusion. Arterial phase imaging of the liver, gallbladder, right adrenal gland, kidneys, and pancreas show no gross abnormal body. Calcified granuloma spleen. Mild thickening left adrenal gland without discrete nodularity. No dilated small bowel, free fluid, free air. No mesenteric or retroperitoneal lymphadenopathy. Normal appendix. Scattered mild stool. Highly redundant sigmoid colon. No pericolic inflammatory change. Mild to moderate circumferential bladder wall thickening. Correlate for chronic bladder wall hypertro phy or cystitis. No abnormal fluid collection in the pelvis or pelvic lymphadenopathy. Bones: Mild degenerative change of the hips. No osseous destructive process. Vasculature: Lower descending thoracic aorta ectatic and 2.9 cm. Moderate atherosclerotic calcifications and plaque throughout the infrarenal abdominal aorta and jl c arteries. There is mild fusiform dilatation infrarenal abdominal aorta to 2.3 cm but no aneurysm. The celiac axis and SMA are patent. Bilateral renal arteries are patent. The remaining moderate to severe focal stenosis of the origin of the JEFF. Right: Moderate to severe focal stenosis at the proximal right common iliac artery. Severe stenosis proximal right external iliac artery. Scattered mild to moderate atherosclerotic changes throughout the right lower extremity. The right co mmon femoral artery is patent. PFA is patent. Moderate atherosclerotic narrowing distal SFA at the adductor hiatus followed by severe focal stenosi s at the distal thigh. Popliteal artery is patent. Moderate narrowing at the origin of the anterior tibial artery. Severe atherosclerotic narrowing tibial peroneal trunk. Both posterior tibial and peroneal arteries are diminutive. Peroneal artery is seen to below the ankle. Anterior tibial artery seen to the mid foot. Posterior tibial artery seen to the hindfoot. Left: Moderate to severe focal stenosis proximal left common iliac artery. Severe stenosis or subtotal occlusion origin of the left internal iliac artery. Moderate segmental stenoses left external iliac artery. Scattered moderate atherosclerotic changes throughout the left lower extremity. [id number] atherosclerotic change TREATER. The PFA is larger than the SFA in caliber. There is a 4.5 cm length of occlusion of the SFA at the distal third thigh level. Reconstitution of the popliteal artery which is patent. Moderate atherosclerotic narrowing origin of the anterior tibial artery. Moderate narrowing of the tibial peroneal trunk. Peroneal artery is no longer seen above the ankle. Anterior tibial artery becomes diminutive at the distal third leg level and is faintly seen into the foot. Runoff via the posterior tibial artery. IMPRESSION: 1. MODERATE ATHEROSCLEROTIC CHANGES THROUGHOUT. MODERATE TO SEVERE FOCAL STENOSIS ORIGIN OF THE JEFF. RIGHT: 2. MODERATE TO SEVERE FOCAL STENOSIS PROXIMAL RIGHT COMMON ILIAC ARTERY. SEVERE STENOSIS PROXIMAL RIG HT EXTERNAL ILIAC ARTERY. 3. SEVERE FOCAL STENOSIS SFA AT THE DISTAL THIGH LEVEL. 4. SEVERE STENOSIS TIBIOPERONEAL TRUNK. MODERATE NARROWING AT THE ORIGIN OF THE ANTERIOR TIBIAL ARTER Y. THE TRIFURCATION VESSELS ARE DIMINUTIVE. LEFT: 5. MODERATE TO SEVERE FOCAL STENOSIS PROXIMAL LEFT COMMON ILIAC ARTERY. MODERATE SEGMENTAL STENOSES L EFT EXTERNAL ILIAC ARTERY. 6. SEVERE STENOSIS VERSUS SUBTOTAL OCCLUSION ORIGIN OF THE LEFT INTERNAL ILIAC ARTERY. 7. THE PFA IS LARGER THAN THE SFA. THE SFA DEMONSTRATES A 4.5 CM LONG OCCLUSION DISTALLY WITH RECONST ITUTION OF THE POPLITEAL ARTERY. 8. MODERATE ATHEROSCLEROTIC NARROWING ORIGIN OF THE ANTERIOR TIBIAL ARTERY AND TIBIOPERONEAL TRUNK. 9. PERONEAL ARTERY NO LONGER SEEN ABOVE THE ANKLE. ANTERIOR TIBIAL ARTERY BECOMES DIMINUTIVE AT THE D ISTAL THIRD LEG AND IS FAINTLY SEEN INTO THE FOOT. SATISFACTORY RUNOFF VIA THE POSTERIOR TIBIAL ARTER Y. INCIDENTAL: 10. MILD TO MODERATE CIRCUMFERENTIAL BLADDER WALL THICKENING COULD REPRESENT CHRONIC BLADDER WALL HYP ERTROPHY OR CYSTITIS. CLINICALLY CORRELATE. 11. POSSIBLE TRACE LEFT EFFUSION.
[2022-08-17 11:14] LABS: African American GFR (CKD) 77.7 (60.0-200.0); BUN/Creat Ratio 15.28 Ratio (12.00-20.00); Blood Urea Nitrogen 18.8 mg/dL (9.0-27.0); Calcium 9.5 mg/dL (8.7-10.3); Carbon Dioxide 25.1 mmol/L (20.0-27.5); Non-African American GFR(CKD) 67.1 (60.0-200.0); Potassium 3.9 mmol/L (3.5-5.5)
[2022-08-17] MEDS ORDERED: DOCUSATE 100 MG CAP PO SCH (11:42)
--- NOTE | 2022-08-17 12:39 | P.CRDCN ---
History of Present Illness Consult date: 08/17/22 Consult reason: chest pain History of present illness: History of present illness: This is a 51 year old male with a past medical history of hypertension, hyperlipidemia, nicotine dependence, daily alcohol use, coronary artery disease with NSTEMI in 12/2021 S/p PCI proximal OM3, 3 vessel CABG 06/11/2022, ischemic cardiomyopathy, dyslipidemia. He follows with Dr. oMck. We have been consulted for chest pain. Echocardiogram 06/2022 revealed EF 3035 percent. Patient underwent cardiac catheterization with Dr. Mock on 06/04/2022 which revealed coronary artery disease with 50-55% left main stenosis with minimal luminal area 5.3mm2, mild 20-30% LAD stenosis, mild luminal irregularities of a dominant circumflex, OM3 90% stenosis, normal left sided filling pressures. Limited echocardiogram revealed EF of 55%, no obvious regional wall motion abnormalities, trace MR, mild left ear with a peak gradient of 19 mmHg and a mean gradient of 9 mmHg and mild aortic regurgitation. Patient presented to the hospital with complaints of lower extremity swelling and shortness of breath. Edema has been increasing for the past 3 weeks along with shortness of breath worsening over the past 3 weeks. Patient was seen by Dr. Mock in the office was sent to the emergency center for evaluation and treatment. EKG sinus rhythm with no acute ST changes CT angiogram of the aorta abdominal revealed moderate atherosclerotic changes throughout. Moderate to severe focal stenosis at the origin of the JEFF. Right moderate to severe focal stenosis of the proximal right common iliac artery. Severe stenosis proximal right external iliac artery. Severe focal stenosis at the SFA at the distal thigh level. Severe stenosis of the tibial perineal trunk. Moderate narrowing at the origin of the anterior tibial artery. The tri-furcation vessels are diminutive. Left shows moderate to severe focal stenosis in the proximal left common iliac artery. Moderate segmental stenosis left external iliac artery. Severe stenosis versus subtotal occlusion of the left internal iliac artery. PSA is larger than the SFA. A survey demonstrates a 4.5 cm long occlusion distally with reconstitution of the popliteal artery. Moderate atherosclerotic narrowing of the anterior tibial artery and tibioperoneal trunk. Perineal artery no longer seen above the ankle. Anterior tibial artery becomes diminutive at the distal third leg and is stately seen i nto the foot. Satisfactory runoff via the posterior tibial artery. Possible trace left effusion. Ultrasound of the bilateral lower extremities negative for DVT WBC 11.2, hemoglobin 9.7, platelet count 437. Potassium 3.9, BUN 18 creatinine 1.2. Vitamin B12 519. Pro-calcitonin 0.05. Pro-BMP 843. Home cardiac medications: Aspirin 81 mg daily, Lipitor 40 mg at bedtime, Pletal 100 mg twice daily, Plavix 75 mg daily, Lasix 40 mg twice daily, losartan 50 mg daily, Lopressor 50 mg twice daily Review Of Systems: At the time of my evaluation: Constitutional: No fever, no chills. No weakness, fatigue or lethargy. EENT: No headache. No dizziness. Lungs: No shortness of breath, cough, no sputum production. No wheezing. Cardiovascular: No chest pain, no lower extremity edemasignificantly improved. No palpitations. No paroxysmal nocturnal dyspnea. No orthopnea. No lightheadedness or dizziness. No syncopal episodes. Abdominal: No abdominal pain. No nausea, vomiting. No diarrhea. No constipation. No bloody or tarry stools. Genitourinary: No dysuria.. No urinary retention. Musculoskeletal: No myalgias. No muscle weakness, no frequent falls. No back pain. No neck pain. Integumentary: No wounds. No rash. No unusual bruising. Neurologic: No aphasia. No facial droop. No change in mentation. No head injury. No headache. Psychiatric: No depression. No anxiety. Endocrine: No abnormal blood sugars. Physical examination: Gen: This is a 51-year-old male. He is resting in bed and appears to be comfortable. Patient is noted to ambulate in his room without difficulty. No shortness of breath with ambulation in his room. VS: reviewed HEENT: Head is atraumatic, normocephalic. Pupils equal, round. Sclerae is anicteric. NECK: Supple. No JVD. No lymphadenopathy. No thyromegaly. LUNGS: Clear to auscultation. No wheezes or rhonchi. No intercostal retrac tions. HEART: Regular rate and rhythm. No murmur. ABDOMEN: Soft. Bowel sounds are present. No masses. No tenderness. EXTREMITIES: No pedal edema. No calf tenderness. NEUROLOGICAL: Patient is awake, alert and oriented x3. Cranial nerves 2 through 12 are grossly intact. Assessment: Atypical chest pain, acute coronary syndrome ruled out Acute exacerbation of systolic heart failure Coronary artery disease and prior vascularization of the LCx/OM, status post three-vessel CABG Cardiomyopathy with last EF of 35% Hypertension Hyperlipidemia Plan: Rule out acute coronary syndrome. Patient has been treated with IV Lasix 40 mg every 12 hours which can be transitioned to oral No changes to patient's home cardiac medications Patient is cleared from cardiology for discharge with plan to follow-up with Dr. Mock in the office Thank you kindly for this consultation. Nurse practitioner note has been reviewed, I agree with documented findings and plan of care. Patient was seen and examined. Past Medical History Past Medical History: Coronary Artery Disease (CAD), Heart Failure, Hyperlipidemia, Hypertension, Syncope History of Any Multi-Drug Resistant Organisms: None Reported Past Surgical History: Heart Catheterization With Stent, Orthopedic Surgery Additional Past Surgical History / Comment(s): hip surgery x2, triple bypass 06/2022 Past Anesthesia/Blood Transfusion Reactions: No Reported Reaction Date of Last Stent Placement:: 12/21/2021 Past Psychological History: No Psychological Hx Reported Additional Psychological History / Comment(s): Pt resides with one lady roommate. He drives. Smoking Status: Former smoker Past Alcohol Use History: Daily Additional Past Alcohol Use History / Comment(s): Drinks 6 pk of beer daily, denies alcohol use at present Past Drug Use History: None Reported - Past Family History Father Additional Family Medical History / Comment(s): Father is . He was a [place] vet, exsposed to agent orange. Mother Family Medical History: Cancer Additional Family Medical History / Comment(s): Mother of bladder cancer. Medications and Allergies Home Medications Medication Instructions Recorded Confirmed Type Aspirin 81 mg PO DAILY #90 tab 12/22/21 08/16/22 Rx Albuterol Inhaler [Ventolin Hfa 2 puff INHALATION RT-QID #3 each 06/17/22 08/16/22 Rx Inhaler] Metoprolol Tartrate [Lopressor] 50 mg PO BID #60 tab 06/17/22 08/16/22 Rx Pantoprazole [Protonix] 40 mg PO AC-BRKFST #30 tab 06/17/22 08/16/22 Rx Atorvastatin [Lipitor] 40 mg PO HS 08/16/22 08/16/22 History Furosemide [Lasix] 40 mg PO BID@0600,1400 01/12/23 01/12/23 History Losartan [Cozaar] 50 mg PO DAILY 08/16/22 08/16/22 History cilostazoL [Pletal] 100 mg PO BID 08/16/22 08/16/22 History Clopidogrel [Plavix] 75 mg PO DAILY 30 Days #30 tab 08/17/22 Rx Docusate [Colace] 100 mg PO BID 10 Days #20 cap 08/17/22 Rx Gabapentin [Neurontin] 300 mg PO TID 14 Days #42 cap 08/17/22 Rx Allergies Allergy/AdvReac Type Severity Reaction Status Date / Time coconut Allergy Itching Verified 08/16/22 14:24 Physical Exam Vitals: Vital Signs Temp Pulse Pulse Pulse Resp BP BP 08/17/22 07:29 08/17/22 01:58 98.1 F 91 16 08/16/22 19:59 98.0 F 94 16 120/74 08/16/22 17:29 1 L 08/16/22 17:02 97.9 F 99 18 131/74 08/16/22 16:00 97.4 F L 80 18 130/61 08/16/22 15:00 75 18 138/76 08/16/22 14:00 76 18 138/74 08/16/22 12:22 76 18 138/79 08/16/22 12:05 18 08/16/22 11:56 78 08/16/22 11:28 98.3 F 81 20 153/70 BP Pulse Ox 08/17/22 07:29 94 L 08/17/22 01:58 136/61 96 08/16/22 19:59 100 08/16/22 17:29 08/16/22 17:02 93 L 08/16/22 16:00 96 08/16/22 15:00 95 08/16/22 14:00 100 08/16/22 12:22 98 08/16/22 12:05 08/16/22 11:56 08/16/22 11:28 99 Intake and Output 08/16/22 08/17/22 08/17/22 22:59 06:59 14:59 Intake Total 120 0 Balance 120 0 Intake: Oral 120 0 Other: Voiding Method Toilet # Voids 1 2 # Bowel Movements 0 Weight 72.3 kg 70.5 kg Results 08/17/22 05:05 08/17/22 05:05 Cardiac Enzymes 08/16/22 08/16/22 08/16/22 Range/Units 12:13 12:13 15:35 AST 28 (17-59) U/L Troponin I 0.015 0.017 (0.000-0.034) ng/mL 08/16/22 Range/Units 19:29 AST (17-59) U/L Troponin I 0.013 (0.000-0.034) ng/mL Coagulation 08/16/22 Range/Units 12:13 PT 10.2 (9.0-12.0) sec APTT 28.8 (22.0-30.0) sec CBC 08/16/22 Range/Units 12:13 WBC 11.0 H (3.8-10.6) k/uL RBC 3.81 L (4.30-5.90) m/uL Hgb 10.2 L (13.0-17.5) gm/dL Hct 32.4 L (39.0-53.0) % Plt Count 382 (150-450) k/uL Comprehensive Metabolic Panel 08/16/22 Range/Units 12:13 Sodium 139 (137-145) mmol/L Potassium 4.0 (3.5-5.1) mmol/L Chloride 102 (98-107) mmol/L Carbon Dioxide 27 (22-30) mmol/L BUN 15 (9-20) mg/dL Creatinine 0.85 (0.66-1.25) mg/dL Glucose 82 (74-99) mg/dL Calcium 9.1 (8.4-10.2) mg/dL AST 28 (17-59) U/L ALT 34 (4-49) U/L Alkaline Phosphatase 159 H (38-126) U/L Total Protein 8.2 (6.3-8.2) g/dL Albumin 4.6 (3.5-5.0) g/dL Current Medications Generic Name Dose Route Start Last Admin Trade Name Freq PRN Reason Stop Dose Admin Acetaminophen 325 mg 08/16/22 16:45 Acetaminophen Tab 325 Mg Tab PO Q6HR PRN Fever and/ or Pain Hydrocodone Bitart/Acetaminophen 1 each 08/16/22 20:04 08/17/22 05:59 Hydrocodone/Apap 5-325mg 1 Each Tab PO 1 each Q6HR PRN Administration Pain Albuterol/Ipratropium 3 ml 08/16/22 16:50 Ipratropium-Albuterol 3 Ml Neb INHALATION RT-QID PRN Shortness Of Breath Or Wheezing Aspirin 81 mg 08/17/22 09:00 Aspirin 81 Mg PO DAILY [facility] Atorvastatin Calcium 40 mg 08/16/22 21:00 08/16/22 20:30 Atorvastatin 40 Mg Tab PO 40 mg HS DAYSI Administration Cilostazol 100 mg 08/16/22 21:00 08/16/22 20:30 Cilostazol 100 Mg Tab PO 100 mg BID DAYSI Administration Clopidogrel Bisulfate 75 mg 08/17/22 09:00 Clopidogrel 75 Mg Tab PO DAILY [facility] Furosemide 40 mg 08/16/22 21:00 08/16/22 20:29 Furosemide 10 Mg/Ml 4 Ml Vial IV 40 mg Q12HR DAYSI Administration Heparin Sodium (Porcine) 5,000 unit 08/16/22 21:00 08/16/22 21:46 Heparin Sodium,Porcine/Pf 5,000 Unit/0.5 Ml Syringe SQ Not Given Q12HR [facility] Losartan Potassium 50 mg 08/17/22 09:00 Losartan 50 Mg Tab PO DAILY [facility] Metoprolol Tartrate 50 mg 08/16/22 21:00 08/16/22 20:30 Metoprolol Tartrate 50 Mg Tab PO 50 mg BID [facility] Administration Pantoprazole Sodium 40 mg 08/17/22 07:30 08/17/22 06:00 Pantoprazole 40 Mg Tablet PO 40 mg AC-BRKFST [facility] Administration Promethazine HCl 12.5 mg 08/16/22 20:50 Promethazine 25 Mg Tab PO Q6HR PRN Nausea And Vomiting Intake and Output 08/16/22 08/17/22 08/17/22 22:59 06:59 14:59 Intake Total 120 0 Balance 120 0 Intake: Oral 120 0 Other: Voiding Method Toilet # Voids 1 2 # Bowel Movements 0 Weight 72.3 kg 70.5 kg 08/16/22 12:13 08/16/22 12:13
[2022-08-17 13:46] VITALS: BMI 23.6
[2022-08-17 14:53] VITALS: BP 126/69; PULSE 76; RESP 17; TEMP 98.3
--- NOTE | 2022-08-22 11:56 | P.DS ---
Providers Date of admission: 08/16/22 14:28 Attending physician: Bill Matias MD Consults: 08/16/22 14:08 Consult Physician Routine Consulting Provider: Saúl Mock Consult Reason/Comments: CHF Do you want consulting provider notified?: Yes Primary care physician: Stated None Hospital Course: Diagnoses: Acute systolic CHF exacerbation, ejection fraction 50-55% Bilateral leg swelling secondary to above Peripheral neuropathy Chest pain, mild, rule out cardiac causes Severe COPD with FEV1 of 45% Hyperlipidemia Hospital course: This is a pleasant 51 years old male with past medical history of coronary artery disease, chronic heart failure, hypertension, hyperlipidemia, syncope Was following up with his claims specialist Dr. Mock and he was referred directly to the hospital for fluid overload, is complaining of from pain and swelling in both legs. Also patient is complaining of from chest pain when he exercises for more than 2 weeks, however patient declines chest pain now curretnly.pt has been evaluatated by claims specialist jhon and he was treated for short course of iv lasix and pt showed interval improvement, pt clinical condition was improved significantly and pt was eager to be discharged, he denies any chest pain or dyspnea upon discharge ,no other new complaint. vitals and labs look stable. Patient denies any other new symptoms. pt was cleared by claims specialist by discharge Problems and management plan were discussed with the patient and he verbalized understanding and acceptance Patient was found stable and can be discharged home in guarded prognosis however he needs follow-up as an outpatient. Patient was instructed to follow up with PCP within one week and patient agrees pt was instructed to follow up by claims specialist dr. mock in one wee and pt agrees to call and make appointment Physical exam Gen: patient is a AAOx3, no distress CVS: S1-S2, RRR, no murmur Lungs: B/L CTA, no wheezing Abdomen: soft, no distention, no tenderness, positive bowel sounds Extremity: no leg edema or induration Time spent more than 35 minutes Plan - Discharge Summary Discharge Rx Participant: Yes New Discharge Prescriptions: Continue Aspirin 81 mg PO DAILY #90 tab Atorvastatin [Lipitor] 40 mg PO HS Losartan [Cozaar] 50 mg PO DAILY Metoprolol Tartrate [Lopressor] 50 mg PO BID #60 tab Pantoprazole [Protonix] 40 mg PO AC-BRKFST #30 tab cilostazoL [Pletal] 100 mg PO BID Furosemide [Lasix] 40 mg PO BID@0600,1400 Discontinued Clopidogrel [Plavix] 75 mg PO DAILY #30 tab Albuterol Inhaler [Ventolin Hfa Inhaler] 2 puff INHALATION RT-QID #3 each No Action Clopidogrel [Plavix] 75 mg PO DAILY #90 tab Docusate [Colace] 100 mg PO BID PRN PRN Reason: Constipation HYDROcodone/APAP 5-325MG [[place] 5-325] 1 tab PO Q6HR PRN 3 Days #12 tab PRN Reason: Pain Gabapentin [Neurontin] 300 mg PO TID #12 cap Albuterol Inhaler [Ventolin Hfa Inhaler] 2 puff INHALATION RT-QID PRN 30 Days #8 gm PRN Reason: Shortness Of Breath Or Wheezing Discharge Medication List Aspirin 81 mg PO DAILY #90 tab 12/22/21 [Rx] Metoprolol Tartrate [Lopressor] 50 mg PO BID #60 tab 06/17/22 [Rx] Pantoprazole [Protonix] 40 mg PO AC-BRKFST #30 tab 06/17/22 [Rx] Atorvastatin [Lipitor] 40 mg PO HS 08/16/22 [History] Furosemide [Lasix] 40 mg PO BID@0600,1400 08/16/22 [History] Losartan [Cozaar] 50 mg PO DAILY 08/16/22 [History] cilostazoL [Pletal] 100 mg PO BID 08/16/22 [History] Docusate [Colace] 100 mg PO BID PRN 08/19/22 [History] Albuterol Inhaler [Ventolin Hfa Inhaler] 2 puff INHALATION RT-QID PRN 30 Days #8 gm 08/21/22 [Rx] Clopidogrel [Plavix] 75 mg PO DAILY #90 tab 08/21/22 [Rx] Gabapentin [Neurontin] 300 mg PO TID #12 cap 08/21/22 [Rx] HYDROcodone/APAP 5-325MG [[place] 5-325] 1 tab PO Q6HR PRN 3 Days #12 tab 08/21/22 [Rx] Follow up Appointment(s)/Referral(s): Saúl Mock DO [STAFF PHYSICIAN] - 1 Week Shree Cano MD [Medical Doctor] - 2 Weeks (peripheral neuropathy) None,Stated [Primary Care Provider] - 1-2 days Haile Blake MD [STAFF PHYSICIAN] - 1 Week (urologist for bladder wall thickening) Activity/Diet/Wound Care/Special Instructions: Heart healthy diet - activity is restricted till you see your doctor [facility] Bernardo Dodson MD [address] Pino, MSN, VENEER STAPLER-C [address] Nick Harding, MS 217 [facility], [place] [address] [facility] Primary Care Physicians James Okeefe MD Specialty:Family Medicine [address] [place] [address] Consuelo Parra NP Specialty:Family Medicine [address] [place] [address] Scarlett Schmitt NP Specialty:Family Medicine Nurse Practitioner [address] [place] [address] Nory Ortiz [facility] Specialty:Family Medicine [address] [place] [address] Jaya Barrera MD Specialty: Internal Medicine [address] [facility], [address] [place] [address] Bryan Arellano DO Specialty:Adult Engine Buildup Mechanic [address] [address] Simba Chambers MD Specialty: Internal Medicine [address] [place] [address] Elizabeth Weems Specialty:Family Medicine [address] [place] [address] Bhanu Bui MD Specialty:Family Medicine [address] [place] [address] Wayne Hurtado MD Specialty: Internal Medicine [address] [place] [address] Delfina Zarate MD Specialty:Family Medicine [address] [place] [address] Tarun Lima DO Specialty:Family Medicine 1943 [facility], [address] [place] [address] Arun Polanco MD, [facility] Specialty: Family Medicine [address], [address] [place] [address] Eugene Luna MD Specialty:Family Medicine [address] [facility], [address] [place] [address] Eugene Shah DO Specialty: Family Medicine [address] [place] [address] Natanael Jerez MD Specialty:Family Medicine [address]50 [place] [address] Nerissa Stafford MD Specialty: Internal Medicine [address] [place] [address] Lizette Hoffmann DO Specialty:Family Medicine [address] [place] [address] Frida Jones [facility] Specialty: Internal Medicine 2601 [place] [address] Rita Villeda MD Specialty: Internal Medicine, Pediatrics [address] [place] [address] Florian De Dios MD Specialty:Family Medicine [address] [address] Alhaji Culp MD [facility] Specialty: Internal Medicine 2425 [facility], [facility] 1 [place] [address] Bhanu Bae DO Specialty: Family Medicine [address] [place] [address] Sheldon Cisneros MD Specialty:Family Medicine 1979 [facility], [place] [address] Santhosh Kemp MD Specialty: Internal Medicine [address] [facility], [address] [place] [address] Rosalinda Saez [facility]- Specialty:Nurse Practitioner [address] [place] [address] Allyson Gupta NP Specialty:Family Medicine Nurse Practitioner [address] [place] [address] Lola Humphreys PA-C Specialty:Family Medicine [address] [facility] [place] [address] Jose Roberto Chang DO Specialty:Family Medicine [address] [place] [address] Natanael Toledo MD Specialty: Internal Medicine [address] [place] [address] Katja Cox [facility] Provider Specialty: Family Medicine [address] [place] [address] Nelda Rivas MD Specialty: Internal Medicine [address] [place] [address] David Robbins [facility] Provider Specialty: Family Medicine 12[address] [place] [address] Maria T Pelayo NP Specialty: Family Medicine Nurse Practitioner [address] [place] [address] Jennifer Thompson MD Specialty: Family Medicine [address] [place] [address] Maye Khan MD Specialty:Family Medicine 5[address] [place] [address] Katja Sevilla MD [facility] Provider Specialty:Family Medicine [address] [place] [address] Ermelinda Knox [facility]- Specialty: Internal Medicine Nurse Practitioner [address] [place] [address] Jakob Milian DO Specialty: Family Medicine [address] [place] [address] Peña Sam DO Specialty:Family Medicine [address] [place] [address] Nory Frias DO Specialty: Family Medicine [address] [place] [address] Natanael Bush MD Specialty:Family Medicine [address] [facility], [address] [place] [address] Robert Cochran MD Specialty:Family Medicine [address] [place] [address] Ammon Dean MD Specialty:Family Medicine [address]50 [place] [address] Ana Plaza DO Specialty: Family Medicine [address] [facility] [address] Fernando Lopez MD Specialty:Family Medicine [address] [place] [address] Morena Sarabia DO Specialty:Family Medicine 2425 [facility] [place] [address] Artemio Lopez MD Specialty:Family Medicine Sub-Specialty:Gerontology, Sports Medicine [address] [place] [address] Iva Ramos NP Specialty:Family Medicine 2425 [facility] [place] [address] Dickson Anderson MD Specialty: Family Medicine [address], [place] [address] Rochelle Anderson DO Specialty:Family Medicine Sub-Specialty:Vasectomies, Laser [address], [place] [address] Emma Palacios DO Specialty: Family Medicine [address] [place] [address] Ermelinda Gonzalez MEAT MARKET MANAGER-C Specialty: Family Medicine [facility] [address] [place] [address] Wayne Alvarado DO Specialty:Family Medicine Sub-Specialty:Pediatrics, Sports Medicine, Women's Medicine, Cryotherapy, Simple Surgeries, Synvisc Injections [address] [place] [address] Vitaly Darby DO Specialty:Family Medicine Sub-Specialty:Geriatrics [address] [place] [address] Onel Tapia VENEER STAPLER Specialty:Family Medicine [address] [place] [address] Ermelinda Gibbs PA-C [address] [place] [address] Alexi Fabian DO Specialty: Family Medicine [address] [place] [address] Randell Kurtz MD Specialty:Family Medicine Sub-Specialty:Wound Care, Family Care 1943 [facility], [address] [place] [address] Nicole Liz MD Specialty:Family Medicine [address] [place] [address] Cynthia Velazquez MD Specialty:Family Medicine 3436 [place] [address] [facility] [address] [facility], [address] [place] [address] Bryan Caro DO [facility] Provider Specialty: Internal Medicine 5979 [place] [address] Abby Weiss Specialty:Family Medicine [address] [place] [address] 34[address] [place] [address] Discharge Disposition: HOME SELF-CARE
== END 2022-08-17 17:55 | disposition home or self-care (01) ==
LOC: EC 11:18 → 6NMEDSUR 14:28
PROVIDERS: ADMIT Internal Medicine; ATTEND Internal Medicine
DX: I11.0 Hypertensive heart disease with heart failure (principal); I50.23 Acute on chronic systolic (congestive) heart failure; I70.203 Unspecified atherosclerosis of native arteries of extremities, bilateral legs; I70.8 Atherosclerosis of other arteries; I25.10 Atherosclerotic heart disease of native coronary artery without angina pectoris; J44.9 Chronic obstructive pulmonary disease, unspecified; E78.5 Hyperlipidemia, unspecified; I25.5 Ischemic cardiomyopathy; G62.9 Polyneuropathy, unspecified; D72.829 Elevated white blood cell count, unspecified; I25.2 Old myocardial infarction; I35.1 Nonrheumatic aortic (valve) insufficiency; Z79.82 Long term (current) use of aspirin; Z79.02 Long term (current) use of antithrombotics/antiplatelets; Z79.899 Other long term (current) drug therapy; Z91.018 Allergy to other foods; Z95.1 Presence of aortocoronary bypass graft; Z95.5 Presence of coronary angioplasty implant and graft; Z87.891 Personal history of nicotine dependence; Z98.890 Other specified postprocedural states; Z80.52 Family history of malignant neoplasm of bladder
CPT/HCPCS: 96376 ×2; 96372; 96374; 96375; 99285; 36415; 94760; 93005; 97162; 83880; 80053; 80048; 82607; 83605; 83735; 84484; 85025 ×2; 85610; 85730; 83036; 84145; 71046; 93970; 75635; G0378 ×2; J1940 ×2; J1170; Q9967; J1644

== ENCOUNTER 2022-08-19 02:38 | Observation (INO) | payer OTHER ==
--- NOTE | 2022-08-19 02:46 | ED ---
Chest Pain HPI - General Stated Complaint: Chest Pain & Feet Pain Time Seen by Provider: 08/19/22 02:39 Source: RN notes reviewed, old records reviewed Mode of arrival: EMS Limitations: no limitations - History of Present Illness Initial Comments: This is a 51-year-old male to the emergency department for evaluation. Patient presents today for evaluation regards to chest pain chest pain and leg pain. Recent hospital admission for the same. Patient has no other new complaints. Patient does have recent hospital admission for same symptoms have progressively worsened since discharge MD Complaint: chest pain, other (Leg pain) -: days(s) Onset: during rest, during exertion (worse) Pain Location: substernal, left chest Pain Radiation: other (BL LE) Consistency: constant Improves With: nothing Worsens With: exertion Anginal Symptoms: dyspnea Other Symptoms: leg swelling - Related Data Home Medications Medication Instructions Recorded Confirmed Atorvastatin [Lipitor] 40 mg PO HS 08/16/22 08/16/22 Furosemide [Lasix] 40 mg PO BID@0600,1400 08/16/22 08/16/22 Losartan [Cozaar] 50 mg PO DAILY 08/16/22 08/16/22 cilostazoL [Pletal] 100 mg PO BID 08/16/22 08/16/22 Previous Rx's Medication Instructions Recorded Aspirin 81 mg PO DAILY #90 tab 12/22/21 Metoprolol Tartrate [Lopressor] 50 mg PO BID #60 tab 06/17/22 Pantoprazole [Protonix] 40 mg PO AC-BRKFST #30 tab 06/17/22 Albuterol Inhaler [Ventolin Hfa 2 puff INHALATION RT-QID PRN #8 gm 08/17/22 Inhaler] Clopidogrel [Plavix] 75 mg PO DAILY 30 Days #30 tab 08/17/22 Docusate [Colace] 100 mg PO BID 10 Days #20 cap 08/17/22 Gabapentin [Neurontin] 300 mg PO TID 14 Days #42 cap 08/17/22 Allergies Allergy/AdvReac Type Severity Reaction Status Date / Time coconut Allergy Itching Verified 08/19/22 03:11 Review of Systems ROS Statement: Those systems with pertinent positive or pertinent negative responses have been documented in the HPI. ROS Other: All systems not noted in ROS Statement are negative. EKG Findings - EKG Comments: EKG Findings:: EKG interpreted by me sinus 88 IA 135 QRS 117 QTc 459 Past Medical History Past Medical History: Coronary Artery Disease (CAD), Heart Failure, Hyperlipidemia, Hypertension, Syncope History of Any Multi-Drug Resistant Organisms: None Reported Past Surgical History: Heart Catheterization With Stent, Orthopedic Surgery Additional Past Surgical History / Comment(s): hip surgery x2, triple bypass 06/2022 Past Anesthesia/Blood Transfusion Reactions: No Reported Reaction Date of Last Stent Placement:: 12/21/2021 Past Psychological History: No Psychological Hx Reported Additional Psychological History / Comment(s): Pt resides with one lady roommat [facility] [employer]. Smoking Status: Former smoker Past Alcohol Use History: Daily Additional Past Alcohol Use History / Comment(s): Drinks 6 pk of beer daily, denies alcohol use at present Past Drug Use History: None Reported - Past Family History Father Additional Family Medical History / Comment(s): Father is . He was a [place] vet, exsposed to agent orange. Mother Family Medical History: Cancer Additional Family Medical History / Comment(s): Mother of bladder cancer. General Exam General appearance: alert, in no apparent distress Head exam: Present: atraumatic, normocephalic, normal inspection Eye exam: Present: normal appearance, PERRL, EOMI. Absent: scleral icterus, conjunctival injection, periorbital swelling ENT exam: Present: normal exam, mucous membranes moist Neck exam: Present: normal inspection. Absent: tenderness, meningismus, lymphadenopathy Respiratory exam: Present: normal lung sounds bilaterally. Absent: respiratory distress, wheezes, rales, rhonchi, stridor Cardiovascular Exam: Present: regular rate, normal rhythm, normal heart sounds. Absent: systolic murmur, diastolic murmur, rubs, gallop, clicks GI/Abdominal exam: Present: soft, normal bowel sounds. Absent: distended, tenderness, guarding, rebound, rigid Extremities exam: Present: normal inspection, full ROM, normal capillary refill. Absent: tenderness, pedal edema, joint swelling, calf tenderness Back exam: Present: normal inspection Neurological exam: Present: alert, oriented X3, CN II-XII intact Psychiatric exam: Present: normal affect, normal mood Skin exam: Present: warm, dry, intact, normal color. Absent: rash Course Vital Signs 08/19/22 08/19/22 03:08 04:48 Temperature 97.4 F L Pulse Rate 88 86 Respiratory 18 18 Rate Blood Pressure 130/72 135/45 O2 Sat by Pulse 98 95 Oximetry - Reevaluation(s) Reevaluation #1: 08/19/22 03:03 Medical record is reviewed Reevaluation #2: 08/19/22 04:57 Patient's symptoms not improved here in the ER severe leg pain still Reevaluation #3: 08/19/22 04:57 Patient informed of results and questions answered Reevaluation #4: 08/19/22 04:57 Differential Chest Pain: Stable Angina, Unstable Angina, STEMI, NSTEMI Aortic Dissection, Pneumothorax, Musculoskeletal, Esophageal Spasm GERD, Cholecystitis, Pancreatitis, Zoster, this is not meant to be an all-inclusive list. Reevaluation #5: 08/19/22 04:57 Was pt. sent in by a medical professional or institution? @ -no Did you speak to anyone other than the patient for history? @ -no Did you review nursing and triage notes? @ -agree Were old charts reviewed? @ -yes prior hospital admission Differential Diagnosis? @ -prior EKG interpreted by me (3pts min.)? @ -yes X-rays interpreted by me (1pt min.)? @ -yes CT interpreted by me (1pt min.)? @ -[none] U/S interpreted by me (1pt. min.)? @ -[none] What testing was considered but not performed? (CT, X-rays, U/S, labs)? Why? @ no What meds were considered but not given? Why? @ -[none] Did you discuss the management of the patient with other professionals? @ -no Did you reconcile home meds? @ -[none] Was smoking cessation discussed for >3mins.? @ -[none] Was critical care preformed (if so, how long)? @ -[none] Were there social determinants of health that impacted care today? How? (Homelessness, low income, unemployed, alcoholism, drug addiction, transportation, low edu. Level, literacy, decrease access to med. care, assisted, rehab)? @ -no Was there de-escalation of care discussed even if they declined? (Discuss DNR or withdrawal of care, Hospice)? @ -no What co-morbidities impacted this encounter? (DM, HTN, Smoking, COPD, CAD, Cancer, CVA, Hep., AIDS, mental health diagnosis, sleep apnea, morbid obesity)? @ -no Was patient admitted / discharged? @ -obs Undiagnosed new problem with uncertain prognosis? @ -[none] Drug Therapy requiring intensive monitoring for toxicity (Heparin, Nitro, Insulin, Cardizem)? @ -[none] Were any procedures done? @ -[none] Diagnosis/symptom? @ -[default] Acute, or Chronic, or Acute on Chronic? @ -[default] Uncomplicated (without systemic symptoms) or Complicated (systemic symptoms)? @ -[default] Side effects of treatment? @ -[none] Exacerbation, Progression, or Severe Exacerbation] @ -[no] Poses a threat to life or bodily function? @ -[no] Chest Pain MDM - MDM 51 male to the emergency department for evaluation known history of atherosclerosis and CAD coronary artery disease past her disease coming in for severe leg pain bilaterally with exertion, severe chest pain especially with exertion. Patient has no new complaints. Recent hospital admission last week Critical Care Time Critical Care Time: Yes Total Critical Care Time: 31 Disposition Clinical Impression: NSTEMI (non-ST elevated myocardial infarction), Chest pain, Exertional dyspnea, Claudication, Bilateral foot pain Disposition: ADMITTED IP TO THIS HOSP Condition: Fair Is patient prescribed a controlled substance at d/c from ED?: No Referrals: None,Stated [Primary Care Provider] - 1-2 days Time of Disposition: 05:00
[2022-08-19] MEDS ORDERED: SODIUM CHLORIDE 0.9% 1,000 ML IV STA (03:15)
[2022-08-19] MEDS ORDERED: MORPHINE SULFATE 4 MG/ML SYRINGE IV STA (03:15)
[2022-08-19 03:28] LABS: Anisocytosis Slight; Basophils # (A) 0.1 k/uL (0-0.2); Basophils % (A) 1 %; Eosinophils # (A) 0.5 k/uL (0-0.7); Eosinophils % (A) 4 %; HCT 30.8 % (39.0-53.0); HGB 9.8 gm/dL (13.0-17.5); Lymphocytes # (A) 2.8 k/uL (1.0-4.8); Lymphocytes % (A) 24 %; MCH 26.2 pg (25.0-35.0); MCHC 31.7 g/dL (31.0-37.0); MCV 82.4 fL (80.0-100.0); Mean Platelet Volume 6.4; Monocytes # (A) 0.7 k/uL (0-1.0); Monocytes % (A) 6 %; Neutrophils # (A) 7.7 k/uL (1.3-7.7); Neutrophils % (A) 64 %; Platelet Count 414 k/uL (150-450); RBC 3.74 m/uL (4.30-5.90); RDW 16.1 % (11.5-15.5); WBC 12.1 k/uL (3.8-10.6)
[2022-08-19 03:38] LABS: INR 0.9 (<1.2); Partial Thromboplastin Time 28.5 sec (22.0-30.0); Prothrombin Time 9.9 sec (9.0-12.0)
[2022-08-19 03:45] LABS: Albumin 4.2 g/dL (3.5-5.0); Calcium 9.3 mg/dL (8.4-10.2); Magnesium 2.1 mg/dL (1.6-2.3); Phosphorus 4.5 mg/dL (2.5-4.5); Potassium 3.6 mmol/L (3.5-5.1); Total Bilirubin 0.3 mg/dL (0.2-1.3); Total Protein 7.6 g/dL (6.3-8.2)
--- NOTE | 2022-08-19 04:04 | XR ---
EXAMINATION TYPE: XR chest 2V DATE OF EXAM: 08/19/2022 COMPARISON: 08/16/2022 HISTORY: Weakness TECHNIQUE: 2 views FINDINGS: There is no heart failure nor confluent pneumonic infiltrate. Costophrenic angles are clear . The bony thorax is intact. There are sternal wires IMPRESSION: No active cardiopulmonary disease. No change.
[2022-08-19] MEDS ORDERED: NALOXONE 0.4 MG/ML 1 ML VIAL IV PRN (04:55)
[2022-08-19] MEDS ORDERED: ONDANSETRON 4 MG/2 ML VIAL IVP PRN (04:55)
[2022-08-19] MEDS ORDERED: HYDROmorphone 1 MG/ML 1 ML SYRINGE IVP STA (04:55)
[2022-08-19] MEDS ORDERED: SODIUM CHLORIDE 0.9% 1,000 ML IV SCH (05:00)
--- NOTE | 2022-08-19 11:31 | CONS ---
CONSULTATION CHIEF COMPLAINT: Bilateral leg discomfort. HISTORY OF PRESENT ILLNESS: Bernardo is a 51-year-old gentleman with history of coronary artery disease, status post prior bypass surgery, hypertension, dyslipidemia, and peripheral arterial disease, who was discharged home on Saturday, comes back to hospital complaining of bilateral lower extremity pain in the early hours of this morning. He also complains of sharp chest discomfort. There is mild intensity pericardial without definite radiation to neck, arm, or back. There is no associated diaphoresis. The patient also complains of bilateral lower extremity pain that is primarily involving below both his knees. The patient's bypass surgery was done in June of last year by Dr. Hastings. An EKG on this admission reveals sinus rhythm with evidence of prior inferior wall myocardial infarction and nonspecific ST-T wave changes. The EKG changes are chronic. On his last admission, myocardial infarction was ruled out and on this admission, both his troponins that we have so far are negative and his predominant symptom really is with the leg discomfort. He underwent a CT angiography at last admission that showed extensive bilateral peripheral arterial disease including [id number] left common iliac artery stenosis, severe stenosis involving left internal iliac artery stenosis and occlusion of the superficial femoral artery. The patient's leg discomfort could be related to this. 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 I am going to talk to him tomorrow about doing an aortogram with runoff and consider revascularization. The patient does not have any changes of critical limb ischemia at this time. PAST MEDICAL HISTORY: Significant for coronary artery disease, status post CABG, peripheral arterial disease, hypertension, dyslipidemia. CURRENT MEDICATIONS: Include, 1. Pletal 100 b.i.d. 2. Lopressor 50 b.i.d. 3. Cozaar 50 daily. 4. Neurontin. 5. Lasix 40 b.i.d. 6. Colace. 7. Plavix. 8. Aspirin. 9. Lipitor. 10.Albuterol. ALLERGIES: There are no known drug allergies. FAMILY HISTORY: Negative for premature coronary artery disease. SOCIAL HISTORY: Significant for smoking. There is no history of EtOH abuse or drug abuse. REVIEW OF SYSTEMS: A review of systems has been performed, pertinents are as documented. PHYSICAL EXAMINATION: GENERAL: Comfortable at rest. VITAL SIGNS: Stable. NECK: There is no jugular venous distention. Carotid upstroke is normal. There is no bruit. CHEST: Reveals good air entry bilaterally. HEART: Reveals first and second heart sounds. No gallop. No murmur. ABDOMEN: Soft. EXTREMITIES: Did not reveal any edema. Posterior tibials and dorsalis pedis are diminished on both sides. The patient had an echocardiogram in June 2010 that revealed an ejection fraction of 40% to 45%. ASSESSMENT: 1. Atypical chest pain, myocardial infarction ruled out. 2. Known coronary artery disease, status post bypass surgery. 3. Severe peripheral arterial disease with bilateral leg discomfort with activity and also discomfort at rest. PLAN: I reviewed the CT angiogram data. I am going to ask Dr. Mock to look at it tomorrow and consider evaluation for catheter-based revascularization. MMODL / IJN: [id number] /
--- NOTE | 2022-08-19 14:43 | P.HPIM ---
History of Present Illness Patient [id number] male came in with complaints of chest pain and the left leg pain. Patient presented with similar symptoms patient was extensively evaluated during his previous hospitalization patient had a cardiac catheterization 2 months ago which showed some occlusive disease with his cardiac catheterization. Patient also had significant iliac disease contributing to his leg pain. Patient was evaluated by vascular surgery cardiology during his last hospitalization patient does have extensive bilateral bilateral peripheral vascular disease. Patient had AAF of around 30-35% baseline creatinine within normal limits patient was and creatinine went up to 1.31, patient does take Lasix at home presently not in heart failure exacerbation. Patient is presently on IV fluids, adding down the IV fluids to 75 mL per hour. REVIEW OF SYSTEMS: Pressure-like chest pain and leg pain as mentioned above rest of the review of systems is negative PHYSICAL EXAMINATION: GENERAL: The patient is alert and oriented x3, not in any acute distress. Well developed, well nourished. HEENT: Pupils are round and equally reacting to light. EOMI. No scleral icterus. No conjunctival pallor. Normocephalic, atraumatic. No pharyngeal erythema. No thyromegaly. CARDIOVASCULAR: S1 and S2 present. No murmurs, rubs, or gallops. PULMONARY: Chest is clear to auscultation, no wheezing or crackles. ABDOMEN: Soft, nontender, nondistended, normoactive bowel sounds. No palpable organomegaly. MUSCULOSKELETAL: No joint swelling or deformity. EXTREMITIES: No cyanosis, clubbing, or pedal edema. NEUROLOGICAL: Gross neurological examination did not reveal any focal deficits. SKIN: No rashes. Assessment and plan -Chest pain: Rule out acute coronary syndromes but patient has significant atherosclerotic occlusive disease because of which cardiology is recommending monitoring and evaluation by interventional cardiology. Patient does have known coronary artery disease history status post bypass surgery -Leg pain secondary to severe peripheral arterial disease follow-up with vascular surgery as an outpatient -Congestive heart failure chronic systolic dysfunction without any acute exacerbation patient is infected but hypovolemic -Acute renal failure secondary to overdiuresis diuretics are being held and patient was started on gentle hydration -Leukocytosis reactive in nature -Hyperlipidemia DVT prophylaxis: Past Medical History Past Medical History: Coronary Artery Disease (CAD), Heart Failure, Hyperlipidemia, Hypertension, Syncope History of Any Multi-Drug Resistant Organisms: None Reported Past Surgical History: Heart Catheterization With Stent, Orthopedic Surgery Additional Past Surgical History / Comment(s): hip surgery x2, triple bypass 06/2022 Past Anesthesia/Blood Transfusion Reactions: No Reported Reaction Date of Last Stent Placement:: 12/21/2021 Past Psychological History: No Psychological Hx Reported Additional Psychological History / Comment(s): Pt resides with one lady roommate. He drives. Smoking Status: Former smoker Past Alcohol Use History: Daily Additional Past Alcohol Use History / Comment(s): Drinks 6 pk of beer daily, denies alcohol use at present Past Drug Use History: None Reported - Past Family History Father Additional Family Medical History / Comment(s): Father is . He was a [place] vet, exsposed to agent orange. Mother Family Medical History: Cancer Additional Family Medical History / Comment(s): Mother of bladder cancer. Medications and Allergies Home Medications Medication Instructions Recorded Confirmed Type Aspirin 81 mg PO DAILY #90 tab 12/22/21 08/19/22 Rx Metoprolol Tartrate [Lopressor] 50 mg PO BID #60 tab 06/17/22 08/19/22 Rx Pantoprazole [Protonix] 40 mg PO AC-BRKFST #30 tab 06/17/22 08/19/22 Rx Atorvastatin [Lipitor] 40 mg PO HS 08/16/22 08/19/22 History Furosemide [Lasix] 40 mg PO BID@0600,1400 08/16/22 08/19/22 History Losartan [Cozaar] 50 mg PO DAILY 08/16/22 08/19/22 History cilostazoL [Pletal] 100 mg PO BID 08/16/22 08/19/22 History Albuterol Inhaler [Ventolin Hfa 2 puff INHALATION RT-QID PRN #8 gm 08/17/22 08/19/22 Rx Inhaler] Clopidogrel [Plavix] 75 mg PO DAILY 30 Days #30 tab 08/17/22 08/19/22 Rx Gabapentin [Neurontin] 300 mg PO TID 14 Days #42 cap 08/17/22 08/19/22 Rx Docusate [Colace] 100 mg PO BID PRN 08/19/22 08/19/22 History Allergies Allergy/AdvReac Type Severity Reaction Status Date / Time coconut Allergy Itching Verified 08/19/22 11:41 Physical Exam Vitals: Vital Signs Temp Pulse Pulse Resp BP BP Pulse Ox 08/19/22 14:28 98 F 87 18 123/59 98 08/19/22 08:02 97.6 F 75 18 128/59 08/19/22 07:00 98 F 62 18 135/65 91 L 08/19/22 05:00 80 20 132/68 99 08/19/22 04:48 86 18 135/45 95 08/19/22 04:46 80 16 130/71 97 08/19/22 03:08 97.4 F L 88 18 130/72 98 Intake and Output 08/18/22 08/19/22 08/19/22 22:59 06:59 14:59 Intake Total 480 Balance 480 Intake: Oral 480 Other: # Voids 0 Weight 74.389 kg 74.389 kg Results CBC & Chem 7: 08/19/22 03:14 08/19/22 03:14 Labs: Abnormal Lab Results - Last 24 Hours (Table) 08/19/22 08/19/22 Range/Units 03:14 03:14 WBC 12.1 H (3.8-10.6) k/uL RBC 3.74 L (4.30-5.90) m/uL Hgb 9.8 L (13.0-17.5) gm/dL Hct 30.8 L (39.0-53.0) % RDW 16.1 H (11.5-15.5) % BUN 27 H (9-20) mg/dL Creatinine 1.31 H (0.66-1.25) mg/dL Glucose 117 H (74-99) mg/dL Alkaline Phosphatase 168 H (38-126) U/L Thrombosis Risk Factor Assmnt - Choose All That Apply Each Factor Represents 1 point: Age 41-60 years Other Risk Factors: No Other congenital or acquired thrombophilia - If yes, enter type in comment: No Thrombosis Risk Factor Assessment Total Risk Factor Score: 1 Thrombosis Risk Factor Assessment Level: Low Risk
[2022-08-19] MEDS: SODIUM CHLORIDE 0.9% 1,000 ML IV SCH (16:05)
[2022-08-19] MEDS: MORPHINE SULFATE 4 MG/ML SYRINGE IV PRN ×2 (16:05→20:59)
[2022-08-19] MEDS ORDERED: DOCUSATE 100 MG CAP PO PRN (18:22)
[2022-08-19] MEDS ORDERED: ALBUTEROL NEBULIZED 2.5 MG/3 ML INHALATION PRN (18:22)
[2022-08-19] MEDS: GABAPENTIN 300 MG CAP PO SCH (21:01)
[2022-08-19] MEDS: METOPROLOL TARTRATE 50 MG TAB PO SCH (21:01)
[2022-08-19] MEDS: cilostazoL 100 MG TAB PO SCH (21:01)
[2022-08-19] MEDS: ATORVASTATIN 40 MG TAB PO SCH (21:01)
[2022-08-20] MEDS: SODIUM CHLORIDE 0.9% 1,000 ML IV SCH ×2 (03:01→20:11)
[2022-08-20] MEDS: MORPHINE SULFATE 4 MG/ML SYRINGE IV PRN ×3 (03:06→19:52)
[2022-08-20] MEDS: PANTOPRAZOLE 40 MG TABLET PO SCH (05:56)
[2022-08-20 08:51] LABS: African American GFR (CKD) 113.4 (60.0-200.0); Anion Gap 9.4 mmol/L (10.00-18.00); Blood Urea Nitrogen 15.3 mg/dL (9.0-27.0); Calcium 9.1 mg/dL (8.7-10.3); Carbon Dioxide 25.6 mmol/L (20.0-27.5); Non-African American GFR(CKD) 97.9 (60.0-200.0); Potassium 4.3 mmol/L (3.5-5.5)
[2022-08-20] MEDS: ASPIRIN 81 MG PO SCH (09:05)
[2022-08-20] MEDS: CLOPIDOGREL 75 MG TAB PO SCH (09:05)
[2022-08-20] MEDS: cilostazoL 100 MG TAB PO SCH ×2 (09:05→19:53)
[2022-08-20] MEDS: GABAPENTIN 300 MG CAP PO SCH ×3 (09:05→19:53)
[2022-08-20] MEDS: METOPROLOL TARTRATE 50 MG TAB PO SCH ×2 (09:05→19:53)
[2022-08-20 09:34] LABS: Chol/HDL Ratio 4.07 Ratio; LDL Cholesterol,Calculated 73.5 mg/dL (0.0-131.0)
[2022-08-20] MEDS ORDERED: fentaNYL (PF) 50 MCG/ML 2 ML AMP ONE (10:44)
[2022-08-20] MEDS ORDERED: IV FLUID CONTINUATION 1,000 ML IV ONE (10:50)
[2022-08-20] MEDS ORDERED: VERAPAMIL 2.5 MG/ML 2 ML AMP ONE (10:59)
[2022-08-20] MEDS ORDERED: LIDOCAINE 1% INJ 10MG/ML (30 ML VIAL-PF) SQ ONE (11:10)
[2022-08-20] MEDS: fentaNYL (PF) 50 MCG/ML 2 ML AMP IV ONE ×2 (11:10→11:39)
[2022-08-20] MEDS: MIDAZOLAM 2 MG/2 ML VIAL IV ONE ×2 (11:10→11:38)
[2022-08-20] MEDS ORDERED: HEPARIN SODIUM 1,000 UN/ML (10ML VL) ONE (11:25)
[2022-08-20] MEDS: HEPARIN SODIUM 1,000 UN/ML (10ML VL) IV ONE ×3 (11:27→11:53)
[2022-08-20] MEDS ORDERED: IOPAMIDOL-250 100ML BTL INTRAARTER ONE ×3 (12:20→12:40)
[2022-08-20] MEDS ORDERED: NALOXONE 0.4 MG/ML 1 ML VIAL IVP PRN (12:52)
--- NOTE | 2022-08-20 12:52 | P.PCN ---
Description of Procedure: PROCEDURES PERFORMED: Abdominal angiography with bilateral runoff, GIS ANALYST and stent of bilateral common iliac with 8.0 x 29mm Omnilink stents INDICATION: PAD, critical limb ischemia with Jeremy class 4 rest pain CONSENT:I have discussed the risks, benefits and alternative therapies for the above-mentioned procedure and for both sedation/analgesia as well as necessary blood product administration, if indicated, as they pertain to this patient. The patient has indicated understanding and acceptance of the risks and procedures discussed. PROCEDURE: After the risks, benefits and alternatives of the above mentioned procedure explained in detail with the patient, informed consent was obtained. Patient was taken to the catheterization lab and prepped and draped in usual fashion. 1% lidocaine was used to anesthetize the left common femoral area. A 5-Nepali sheath was placed in the left common femoral artery using modified Seldinger technique. A 5-Nepali pigtail catheter was inserted to the abdominal aorta and DSA imaging was obtained. Patient tolerated the diagnostic portion well. A pullback was performed across the left common iliac with main pressure gradient of approximately 35 mmHg at the mid common iliac and no significant gradient of the proximal left common iliac artery. Next, the decision was made to perform intervention of bilateral common iliac arteries. IV heparin was given. A 0.035 stiff glide wire was used to cross the lesion. Balloon angioplasty was performed of the left common iliac with a 8.0 x 20 mm balloon. Next a 8.0 x 29 mm Omnlink stent was placed in the mid common iliac area. Pullback was again performed with no significant pressure gradient. Final angiograms were performed. Pre intervention there was 85% stenosis with uninhibited flow. Post intervention there was <10% stenosis and uninhibited flow. Next a 6-Nepali sheath was placed in the right common femoral artery using modified Seldinger technique and ultrasound guidance. Right Common femoral artery pressure was noted to be 60s over 40s with pressure gradient of approximately 45 mmHg. Balloon angioplasty was performed of the right common iliac artery with a 7.0 x 20 mm balloon. Next, a 8.0 x 29 mm Omnilink stent was placed in the mid right common iliac artery. Pullback was performed with no significant gradient across the stent and mild 5-10 mm pressure gradient across the right external iliac lesion. Therefore this was decided be treated medically. Pre-intervention there is 85% right common iliac stenosis and uninhibited flow and post intervention there is less than 10% stenosis with uninhibited flow. Bilateral femoral angiograms showed somewhat smaller vessels and therefore sheaths left in place for manual pull. The patient tolerated the procedure well. Patient was transported back to the post catheterization holding area in stable condition. Conscious Sedation: Patient was monitored under the direct supervision of vision of myself for conscious sedation using Versed and fentanyl for a total duration of 82 minutes HEMODYNAMICS: Aorta: 115/87 Abdominal aorta: The abdominal aorta has mild calcifcation. Renal arteries were not imaged. There is no significant dissection or aneurysm. There is no significant stenosis. Right lower extremity: Right common iliac artery: There is a mid 85% right common iliac stenosis. Right external iliac artery: There is a proximal 70% external iliac stenosis. Right internal iliac artery: There is 100% right internal iliac stenosis Right common femoral artery: There is no significant stenosis. Right profunda: There is no significant stenosis. Right SFA: There is a distal SFA focal 80% stenosis. Right popliteal artery: There is no significant stenosis. Right tibioperoneal trunk: There is 95% right tibioperoneal trunk stenosis extending into the posterior tibial and peroneal arteries. Right anterior tibial artery: There is no significant stenosis. Right posterior tibial artery: There is a proximal 95% stenosis. Right peroneal artery: There is a proximal 95% stenosis. Left lower extremity: Left common iliac artery: There is proximal left common iliac 60-70% stenosis however no significant gradient at this level. There is a more focal 85% left mid common iliac stenosis. Left external iliac artery: There is no significant stenosis. Left internal iliac artery: There is 95% internal iliac stenosis. Left common femoral artery: There is no significant stenosis. Left profunda: There is no significant stenosis. Left SFA: There is a distal left SFA 100% stenosis. Left popliteal artery: There is no significant stenosis. Left tibioperoneal trunk: There is no significant stenosis. Left anterior tibial artery: There is no significant stenosis. Left porterior tibial artery: There is no significant stenosis. Left peroneal artery: There is no significant stenosis. FINAL IMPRESSION: 1. Peripheral arterial disease as described above including right 85% common iliac stenosis, 70% right external iliac, 80% right distal SFA, 95% right tibioperoneal trunk stenosis. On the left 60-70% proximal left common iliac stenosis, 85% mid common iliac stenosis, 100% left SFA stenosis. 2. Status post GIS ANALYST and stent of bilateral common iliac with 8.0 x 29mm Omnilink stents PLAN: 1. Aggressive risk factor modification per most recent ACC/AHA guidelines. 2. No significant gradient of the proximal left common iliac artery stenosis and very mild 5 mm pressure gradient across the right external iliac stenosis and therefore would treat these medically. If patient continues to have claudication symptoms recommend GIS ANALYST/stenting of the bilateral SFA. 3. Continue aspirin and Plavix for 3 months minimum.
--- NOTE | 2022-08-20 13:04 | IR ---
EXAMINATION TYPE: IR stent intravas non coronary DATE OF EXAM: 08/20/2022 COMPARISON: NONE HISTORY: Fluoroscopy time. Fluoroscopy was provided to the referring clinician.
[2022-08-20] MEDS: ATORVASTATIN 40 MG TAB PO SCH (19:53)
[2022-08-21] MEDS ORDERED: traMADol 50 MG TAB PO PRN (02:50)
--- NOTE | 2022-08-21 02:59 | P.PN ---
Subjective Progress Note Date: 08/20/22 Patient [id number] male came in with complaints of chest pain and the left leg pain. Patient presented with similar symptoms patient was extensively evaluated during his previous hospitalization patient had a cardiac catheterization 2 months ago which showed some occlusive disease with his cardiac catheterization. Patient also had significant iliac disease contributing to his leg pain. Patient was evaluated by vascular surgery cardiology during his last hospitalization patient does have extensive bilateral bilateral peripheral vascular disease. Patient had AAF of around 30-35% baseline creatinine within normal limits patient was and creatinine went up to 1.31, patient does take Lasix at home presently not in heart failure exacerbation. Patient is presently on IV fluids, adding down the IV fluids to 75 mL per hour. 08/20/2022 Patient was seen in follow-up today with cardiology on consult. Patient is currently nothing by mouth as patient will be undergoing abdominal angiography with bilateral runoff along with BARREL RIFLER BROACH and stenting of bilateral common iliacs. Patient with significant PAD. Patient is currently maintained on aspirin and Plavix and will continue. Patient continues to have some lower extremity pain and awaiting cardiac clearance. Will follow up with cardiology about discharge planning. Patient is currently afebrile denies chest pain or shortness of breath. Will resume diet after procedure. Review of systems: Constitutional: No reports of fatigue, fever, or chills Cardiovascular: No reports of chest pain or palpitations Respiratory: No reports of shortness of breath or cough GI: No reports of nausea, vomiting, or diarrhea : No reports of dysuria or retention Neurovascular: No reports of weakness, reports lower extremity pain All medications have been reviewed PHYSICAL EXAMINATION: GENERAL: The patient is alert and oriented x3, not in any acute distress. Well developed, well nourished. HEENT: Pupils are round and equally reacting to light. EOMI. No scleral icterus. No conjunctival pallor. Normocephalic, atraumatic. No pharyngeal erythema. No thyromegaly. CARDIOVASCULAR: S1 and S2 present. No murmurs, rubs, or gallops. PULMONARY: Chest is clear to auscultation, no wheezing or crackles. ABDOMEN: Soft, nontender, nondistended, normoactive bowel sounds. No palpable organomegaly. MUSCULOSKELETAL: No joint swelling or deformity. EXTREMITIES: No cyanosis, clubbing, or pedal edema. NEUROLOGICAL: Gross neurological examination did not reveal any focal deficits. SKIN: No rashes. Assessment: -Chest pain: Ruled out acute coronary syndromes but patient has significant atherosclerotic occlusive disease because of which cardiology is recommending monitoring and evaluation by interventional cardiology. Patient does have known coronary artery disease history status post bypass surgery -Leg pain secondary to severe peripheral arterial disease follow-up with vascular surgery as an outpatient -Congestive heart failure chronic systolic dysfunction without any acute exacerbation -Acute renal failure secondary to over-diuresis, continue holding diuretics -Leukocytosis reactive in nature -Hyperlipidemia -DVT prophylaxis -Full code Plan: Patient underwent abdominal angiogram with runoff and stenting and was noted to have right 85% common iliac stenosis 70% right external iliac, 80% right distal SFA, 95% right tibioperoneal trunk stenosis. On the left is 60-70% proximal left common iliac stenosis an 85% mid common iliac stenosis, 100% left SFA stenosis and underwent stenting with cardiology recommending continuing aspirin and Plavix for a minimum of 3 months with aggressive risk factor modifications. Will follow-up with cardiology about discharge planning Continue with pain management Encourage increased activity as tolerated Follow-up the patient in the a.m. with possible discharge in 24-48 hours The impression and plan of care has been dictated by Abby Steinberg, Nurse Practitioner as directed. Dr. Tamera MD I have performed a history and examination and MDM of this patient, discussed the same with the dictator, and agree with the dictator's assessment and plan as written ,documented as a scribe. Based on total visit time, I have performed more than 50% of the visit. Objective - Vital Signs Vital signs: Vital Signs Temp 98.3 F 08/20/22 07:00 Pulse 82 08/20/22 07:00 Resp 17 08/20/22 07:00 BP 155/69 08/20/22 07:00 Pulse Ox 95 08/20/22 07:00 FiO2 Intake & Output 08/19/22 08/20/22 08/20/22 18:59 06:59 18:59 Intake Total 720 Balance 720 Weight 74.389 kg Intake: Oral 720 Other: Voiding Method Toilet # Voids 1 3 - Labs CBC & Chem 7: 08/19/22 03:14 08/20/22 05:04 Labs: Abnormal Lab Results - Last 24 Hours (Table) 08/20/22 08/20/22 Range/Units 05:04 05:04 Anion Gap 9.40 L (10.00-18.00) mmol/L HDL Cholesterol 31.70 L (40.00-60.00) mg/dL
[2022-08-21] MEDS: MORPHINE SULFATE 4 MG/ML SYRINGE IV PRN ×2 (03:03→10:00)
[2022-08-21] MEDS: PANTOPRAZOLE 40 MG TABLET PO SCH (06:22)
[2022-08-21 06:51] LABS: African American GFR (CKD) >90 (>60 ml/min/1.73 sqM); Non-African American GFR(CKD) >90 (>60 ml/min/1.73 sqM)
[2022-08-21] MEDS: ASPIRIN 81 MG PO SCH (08:32)
[2022-08-21] MEDS: CLOPIDOGREL 75 MG TAB PO SCH (08:32)
[2022-08-21] MEDS: METOPROLOL TARTRATE 50 MG TAB PO SCH (08:32)
[2022-08-21] MEDS: cilostazoL 100 MG TAB PO SCH (08:32)
[2022-08-21] MEDS: GABAPENTIN 300 MG CAP PO SCH (08:33)
[2022-08-21] MEDS ORDERED: LOSARTAN 50 MG TAB PO SCH (09:00)
--- NOTE | 2022-08-21 09:43 | P.PN ---
Subjective Progress Note Date: 08/21/22 HISTORY OF PRESENT ILLNESS: Patient is status post angiogram with FITTING ROOM ASSOCIATE and stenting of the bilateral common iliac with Dr. Mock. Patient examined this might the bedside. Patient denies chest pain or pressure. He denies short of breath. Patient states the pain in his feet remains the same however the pain in his calf has improved. Patient's blood pressure elevated this morning with a systolic in the 160s. However the patient has not been receiving his home dose of Cozaar secondary to acute kidney injury on admission. PHYSICAL EXAM: VITAL SIGNS: Reviewed. GENERAL: Well-developed in no acute distress. NECK: Supple. No JVD or thyromegaly LUNGS: Respirations even and unlabored. Lungs essentially clear to auscultation bilaterally. HEART: Regular rate and rhythm. S1 and S2 heard. EXTREMITIES: Normal range of motion. No clubbing or cyanosis. Peripheral pulses intact. No lower extremity edema ASSESSMENT: Peripheral arterial disease, status post FITTING ROOM ASSOCIATE and stenting of the bilateral common iliac PLAN: Continue current cardiac medications Resume home dose of Cozaar and Lasix Possible FITTING ROOM ASSOCIATE/stenting of the bilateral SFA to be completed in the future if patient continues to have claudication symptoms Stable for discharge home this afternoon from a cardiac standpoint Nurse practitioner note has been reviewed by physician. Signing provider agrees with the documented findings, assessment, and plan of care. Objective - Vital Signs Vital signs: Vital Signs Temp 98.2 F 08/21/22 03:03 Pulse 78 08/21/22 06:50 Resp 18 08/21/22 06:50 BP 163/67 08/21/22 06:50 Pulse Ox 98 08/21/22 06:50 FiO2 Intake & Output 08/20/22 08/21/22 08/21/22 18:59 06:59 18:59 Intake Total 422 500 Output Total 500 300 Balance -78 200 Intake: IV 200 Oral 222 500 Output: Urine 500 300 Other: Voiding Method Urinal # Voids 2 - Labs CBC & Chem 7: 08/19/22 03:14 08/21/22 06:18
[2022-08-21] MEDS ORDERED: FUROSEMIDE 40 MG TAB PO SCH (14:00)
[2022-08-21 14:04] VITALS: BP 145/77; PULSE 82; RESP 16; TEMP 98.3
--- NOTE | 2022-08-22 16:29 | P.DS ---
Providers Date of admission: 08/19/22 04:55 Expected date of discharge: 08/21/22 Attending physician: Alessio Celaya Consults: 08/19/22 04:55 Consult Physician Routine Consulting Provider: Saúl Mock Consult Reason/Comments: known Do you want consulting provider notified?: Yes Primary care physician: Stated None Hospital Course: Final diagnosis -Chest pain: Ruled out acute coronary syndromes but patient has significant atherosclerotic occlusive disease. Patient does have known coronary artery disease history status post bypass surgery -Leg pain secondary to severe peripheral arterial disease follow-up with vascular surgery as an outpatient -Status post angiogram with runoff and stenting to bilateral common iliacs and found to have significant stenosis recommending further intervention outpatient -Congestive heart failure chronic systolic dysfunction without any acute exacerbation -Acute renal failure secondary to over-diuresis, continue holding diuretics -Leukocytosis reactive in nature -Hyperlipidemia -DVT prophylaxis -Full code Discharge disposition Patient is being discharged in a stable condition with guarded prognosis to home. Patient will follow-up with Dr. Mock in the outpatient setting as scheduled. Patient is to continue with aspirin and Plavix and close outpatient follow-up . Patient currently has no primary care provider and lives in the [facility] and resources were provided. Total time taken is greater than 35 minutes. Hospital course This is a 51-year-old male who was recently admitted with increasing leg pain an d difficulty ambulating along with some chest pain. Patient was evaluated by cardiac underwent cardiac catheterization previously and also found to have significant iliac disease with bilateral peripheral vascular disease and underwent angiography with bilateral runoff with SHUTTLE ROUTE VEHICLE OPERATOR and stenting to bilateral common iliacs. Recommending maximizing medical management and will follow-up in the outpatient setting if patient is required to undergo further intervention regards to his peripheral arterial disease. Patient may also need outpatient follow-up with vascular surgery. Patient will continue on gabapentin along with some [place] for pain and instructed to follow-up and establish with a primary care provider as soon as possible. Currently no reports of chest pain, shortness of breath, or palpitations. Patient is afebrile. No reports of nausea or vomiting and patient is tolerating diet. Patient will be discharged home today. Physical exam: Gen: This is a 51-year-old male who is awake, alert and oriented 3, well- developed, well-nourished HEENT: Head is atraumatic, normocephalic. Pupils equal, round. Sclerae is anicteric. NECK: Supple. No JVD. No lymphadenopathy. No thyromegaly. LUNGS: Clear to auscultation. No wheezes or rhonchi. No intercostal retractions. HEART: Regular rate and rhythm. No murmur. ABDOMEN: Soft. Bowel sounds are present. No masses. No tenderness. EXTREMITIES: No pedal edema. No calf tenderness. NEUROLOGICAL: Patient is awake, alert and oriented x3. Cranial nerves 2 through 12 are grossly intact. Please refer to medication reconciliation sheet for a list of medications. The impression and plan of care has been dictated by Abby Steinberg, Nurse Practitioner as directed. MD Magdy I have performed a history and examination and MDM of this patient, discussed the same with the dictator, and agree with the dictator's assessment and plan as written ,documented as a scribe. Based on total visit time, I have performed more than 50% of the visit. Patient Condition at Discharge: Fair Plan - Discharge Summary Discharge Rx Participant: No New Discharge Prescriptions: New Clopidogrel [Plavix] 75 mg PO DAILY #90 tab HYDROcodone/APAP 5-325MG [[place] 5-325] 1 tab PO Q6HR PRN 3 Days #12 tab PRN Reason: Pain Continue Aspirin 81 mg PO DAILY #90 tab Atorvastatin [Lipitor] 40 mg PO HS Losartan [Cozaar] 50 mg PO DAILY Metoprolol Tartrate [Lopressor] 50 mg PO BID #60 tab Pantoprazole [Protonix] 40 mg PO AC-BRKFST #30 tab cilostazoL [Pletal] 100 mg PO BID Furosemide [Lasix] 40 mg PO BID@0600,1400 Docusate [Colace] 100 mg PO BID PRN PRN Reason: Constipation Gabapentin [Neurontin] 300 mg PO TID #12 cap Albuterol Inhaler [Ventolin Hfa Inhaler] 2 puff INHALATION RT-QID PRN 30 Days #8 gm PRN Reason: Shortness Of Breath Or Wheezing Discontinued Clopidogrel [Plavix] 75 mg PO DAILY 30 Days #30 tab Discharge Medication List Aspirin 81 mg PO DAILY #90 tab 12/22/21 [Rx] Metoprolol Tartrate [Lopressor] 50 mg PO BID #60 tab 06/17/22 [Rx] Pantoprazole [Protonix] 40 mg PO AC-BRKFST #30 tab 06/17/22 [Rx] Atorvastatin [Lipitor] 40 mg PO HS 08/16/22 [History] Furosemide [Lasix] 40 mg PO BID@0600,1400 08/16/22 [History] Losartan [Cozaar] 50 mg PO DAILY 08/16/22 [History] cilostazoL [Pletal] 100 mg PO BID 08/16/22 [History] Docusate [Colace] 100 mg PO BID PRN 08/19/22 [History] Albuterol Inhaler [Ventolin Hfa Inhaler] 2 puff INHALATION RT-QID PRN 30 Days #8 gm 08/21/22 [Rx] Clopidogrel [Plavix] 75 mg PO DAILY #90 tab 08/21/22 [Rx] Gabapentin [Neurontin] 300 mg PO TID #12 cap 08/21/22 [Rx] HYDROcodone/APAP 5-325MG [[place] 5-325] 1 tab PO Q6HR PRN 3 Days #12 tab 08/21/22 [Rx] Follow up Appointment(s)/Referral(s): Saúl Mock DO [STAFF PHYSICIAN] - 08/31/22 2:45 pm None,Stated [Primary Care Provider] - 1-2 days Patient Instructions/Handouts: Peripheral Vascular Disease (DC) Activity/Diet/Wound Care/Special Instructions: Activity is limited until follow-up Follow-up primary care provider on discharge Follow-up cardiology outpatient as discussed continue heart healthy diet Discharge Disposition: HOME SELF-CARE
== END 2022-08-21 14:10 | disposition home or self-care (01) ==
LOC: EC 02:38 → 6NMEDSUR 04:55
PROVIDERS: ADMIT Hospitalist; ATTEND Hospitalist
DX: R07.9 Chest pain, unspecified (principal); I70.223 Atherosclerosis of native arteries of extremities with rest pain, bilateral legs; I25.10 Atherosclerotic heart disease of native coronary artery without angina pectoris; E78.5 Hyperlipidemia, unspecified; I11.0 Hypertensive heart disease with heart failure; I50.22 Chronic systolic (congestive) heart failure; D72.829 Elevated white blood cell count, unspecified; N17.9 Acute kidney failure, unspecified; T50.2X5A Adverse effect of carbonic-anhydrase inhibitors, benzothiadiazides and other diuretics, initial encounter; Z95.5 Presence of coronary angioplasty implant and graft; Z87.891 Personal history of nicotine dependence; Z79.899 Other long term (current) drug therapy; Z79.02 Long term (current) use of antithrombotics/antiplatelets; Z79.82 Long term (current) use of aspirin
CPT/HCPCS: 96376 ×3; 96374; 96375; 99285; 36415; 93005; 37221; 75625; 75716; 83880; 80061; 80053; 80048; 82565; 83735; 84100; 84484; 85025; 85610; 85730; 71046; G0378 ×3; C1769 ×5; C1894 ×2; C1876; C1887; C1725; J2250; J2270 ×3; J2001; J3010; J1644; J1170; Q9966

== ENCOUNTER 2022-08-28 10:55 | Day surgery (SDC) | payer OTHER ==
[~2022-08-28 10:55] MED LIST: ALPRAZolam 0.25 MG TAB PO PRN; ASPIRIN 325 MG TAB PO PRN; SODIUM CHLORIDE 0.9% 1,000 ML in EMPTY BAG 1 BAG IV ONE
[2022-08-28] MEDS ORDERED: SODIUM CHLORIDE 0.9% 1,000 ML IV ONE (11:19)
[2022-08-28 11:25] LABS: Anisocytosis Slight; Basophils # (A) 0.1 k/uL (0-0.2); Basophils % (A) 1 %; Eosinophils # (A) 0.2 k/uL (0-0.7); Eosinophils % (A) 2 %; HCT 32.8 % (39.0-53.0); HGB 10.3 gm/dL (13.0-17.5); Lymphocytes # (A) 3.1 k/uL (1.0-4.8); Lymphocytes % (A) 25 %; MCH 26.3 pg (25.0-35.0); MCHC 31.3 g/dL (31.0-37.0); Monocytes # (A) 0.7 k/uL (0-1.0); Monocytes % (A) 6 %; Neutrophils # (A) 7.8 k/uL (1.3-7.7); Neutrophils % (A) 64 %; Platelet Count 572 k/uL (150-450); RDW 16.7 % (11.5-15.5); WBC 12.3 k/uL (3.8-10.6)
[2022-08-28] MEDS ORDERED: ASPIRIN 81 MG ONE (11:42)
[2022-08-28] MEDS ORDERED: HEPARIN SODIUM 1,000 UN/ML (10ML VL) ONE (11:52)
[2022-08-28] MEDS ORDERED: fentaNYL (PF) 50 MCG/ML 2 ML AMP ONE ×2 (11:53→12:50)
[2022-08-28] MEDS: MIDAZOLAM 2 MG/2 ML VIAL IVP ONE ×2 (12:07→12:37)
[2022-08-28] MEDS: fentaNYL (PF) 50 MCG/1 ML VIAL IVP ONE ×5 (12:07→13:36)
[2022-08-28] MEDS ORDERED: LIDOCAINE 1% INJ 10MG/ML (30 ML VIAL-PF) SQ ONE (12:09)
[2022-08-28] MEDS: HEPARIN SODIUM 1,000 UN/ML (10ML VL) IV ONE ×3 (12:30→13:01)
[2022-08-28] MEDS ORDERED: MIDAZOLAM 2 MG/2 ML VIAL IVP ONE (12:52)
[2022-08-28] MEDS ORDERED: IOPAMIDOL-250 100ML BTL INTRAARTER ONE ×2 (12:56→13:36)
[2022-08-28 14:09] VITALS: RESP 15
[2022-08-28] MEDS ORDERED: DOCUSATE 100 MG CAP PO PRN (14:18)
[2022-08-28] MEDS ORDERED: ALBUTEROL NEBULIZED 2.5 MG/3 ML INHALATION PRN (14:18)
[2022-08-28] MEDS ORDERED: NALOXONE 0.4 MG/ML 1 ML VIAL IVP PRN (14:19)
[2022-08-28] MEDS ORDERED: SODIUM CHLORIDE 0.9% 1,000 ML in EMPTY BAG 1 BAG IV SCH (14:30)
--- NOTE | 2022-08-28 15:08 | IR ---
EXAMINATION TYPE: IR shrimp trawler captain femoral popliteal DATE OF EXAM: 08/28/2022 CLINICAL HISTORY: Right foot pain. TECHNIQUE: Fluoroscopy. COMPARISON: None. FINDINGS: Fluoroscopic guidance was provided during pelvic angiogram with lower extremity runoff pro cedure with subsequent angioplasty performed by Dr. Mock. A total of 21.9 minutes of fluoroscopi c time was utilized during the procedure and 593 spot images was acquired. Please refer to procedure note for further details. IMPRESSION: As Above.
[2022-08-28] MEDS: HYDROcodone/APAP 5-325MG 1 EACH TAB PO PRN ×2 (16:31→20:38)
[2022-08-28] MEDS: GABAPENTIN 300 MG CAP PO SCH ×2 (16:31→20:40)
[2022-08-28] MEDS: cilostazoL 100 MG TAB PO SCH (20:40)
[2022-08-28] MEDS: METOPROLOL TARTRATE 50 MG TAB PO SCH (20:40)
[2022-08-28] MEDS ORDERED: ATORVASTATIN 40 MG TAB PO SCH (21:00)
[2022-08-29] MEDS: HYDROcodone/APAP 5-325MG 1 EACH TAB PO PRN (03:37)
[2022-08-29 03:52] VITALS: TEMP 98
[2022-08-29] MEDS ORDERED: FUROSEMIDE 40 MG TAB PO SCH (06:00)
[2022-08-29] MEDS ORDERED: PANTOPRAZOLE 40 MG TABLET PO SCH (07:30)
[2022-08-29 08:12] VITALS: BP 137/65
[2022-08-29] MEDS: GABAPENTIN 300 MG CAP PO SCH (08:13)
[2022-08-29] MEDS: METOPROLOL TARTRATE 50 MG TAB PO SCH (08:13)
[2022-08-29] MEDS: cilostazoL 100 MG TAB PO SCH (08:14)
[2022-08-29 08:24] VITALS: PULSE 101
--- NOTE | 2022-08-29 08:38 | P.DS ---
Providers Attending physician: Saúl Mock DO Primary care physician: Starr Washington MD Hospital Course: Patient is a pleasant 51-year-old male with history of CAD, ischemic cardiomyopathy, CAD who presents with critical limb ischemia with rest pain. He previously had stenting of his bilateral common iliacs with improvement in his left lower extremity rest pain however has been having worsening right lower extremity rest pain and therefore further peripheral intervention was r ecommended. He will underwent right lower extremity angiogram and drug-coated balloon angioplasty of his right external iliac, right SFA as well as balloon angioplasty of the right PT and right TP trunk. His rest pain has improved only mild pain currently and left femoral site without any hematoma. He appears stable for discharge home with possible intervention of the left lower extremity if continues to have pain. Plan - Discharge Summary New Discharge Prescriptions: New Rivaroxaban [Xarelto] 2.5 mg PO BID #180 tab Discontinued cilostazoL [Pletal] 100 mg PO BID No Action Aspirin 81 mg PO DAILY #90 tab Atorvastatin [Lipitor] 40 mg PO HS Losartan [Cozaar] 50 mg PO DAILY Clopidogrel [Plavix] 75 mg PO DAILY #90 tab Metoprolol Tartrate [Lopressor] 50 mg PO BID #60 tab Pantoprazole [Protonix] 40 mg PO AC-BRKFST #30 tab Furosemide [Lasix] 40 mg PO BID@0600,1400 Docusate [Colace] 100 mg PO BID PRN PRN Reason: Constipation HYDROcodone/APAP 5-325MG [[place] 5-325] 1 tab PO Q6HR PRN 3 Days #12 tab PRN Reason: Pain Gabapentin [Neurontin] 300 mg PO TID #12 cap Albuterol Inhaler [Ventolin Hfa Inhaler] 2 puff INHALATION RT-QID PRN 30 Days #8 gm PRN Reason: Shortness Of Breath Or Wheezing Discharge Medication List Aspirin 81 mg PO DAILY #90 tab 12/22/21 [Rx] Metoprolol Tartrate [Lopressor] 50 mg PO BID #60 tab 06/17/22 [Rx] Pantoprazole [Protonix] 40 mg PO AC-BRKFST #30 tab 06/17/22 [Rx] Atorvastatin [Lipitor] 40 mg PO HS 08/16/22 [History] Furosemide [Lasix] 40 mg PO BID@0600,1400 08/16/22 [History] Losartan [Cozaar] 50 mg PO DAILY 08/16/22 [History] Docusate [Colace] 100 mg PO BID PRN 08/19/22 [History] Albuterol Inhaler [Ventolin Hfa Inhaler] 2 puff INHALATION RT-QID PRN 30 Days #8 gm 08/21/22 [Rx] Clopidogrel [Plavix] 75 mg PO DAILY #90 tab 08/21/22 [Rx] Gabapentin [Neurontin] 300 mg PO TID #12 cap 08/21/22 [Rx] HYDROcodone/APAP 5-325MG [[place] 5-325] 1 tab PO Q6HR PRN 3 Days #12 tab 08/21/22 [Rx] Rivaroxaban [Xarelto] 2.5 mg PO BID #180 tab 08/29/22 [Rx] Follow up Appointment(s)/Referral(s): Saúl Mock DO [STAFF PHYSICIAN] - 09/06/22 3:00 pm
[2022-08-29 08:41] LABS: Anisocytosis Slight; Basophils # (A) 0.1 k/uL (0-0.2); Basophils % (A) 1 %; Eosinophils # (A) 0.2 k/uL (0-0.7); Eosinophils % (A) 2 %; HCT 29.5 % (39.0-53.0); HGB 9.2 gm/dL (13.0-17.5); Hypochromasia Slight; Lymphocytes # (A) 2.2 k/uL (1.0-4.8); Lymphocytes % (A) 24 %; MCH 26.3 pg (25.0-35.0); MCHC 31.1 g/dL (31.0-37.0); MCV 84.3 fL (80.0-100.0); Mean Platelet Volume 6.4; Monocytes # (A) 0.4 k/uL (0-1.0); Monocytes % (A) 4 %; Neutrophils # (A) 6.3 k/uL (1.3-7.7); Neutrophils % (A) 68 %; Platelet Count 501 k/uL (150-450); RDW 16.2 % (11.5-15.5); WBC 9.4 k/uL (3.8-10.6)
--- NOTE | 2022-08-29 08:53 | P.PCN ---
Date of Procedure: 08/28/22 Description of Procedure: PROCEDURES PERFORMED: Right lower extremity angiogram, drug-coated balloon angioplasty right external iliac artery with a 7.0 x 40 mm balloon, right distal SFA drug-coated balloon angioplasty with a 6.0 x 40 mm balloon, balloon angioplasty right TP trunk and right posterior tibial artery with a 3.0 balloon INDICATION: PAD with rest pain, claudication [place] last 4 symptoms CONSENT:I have discussed the risks, benefits and alternative therapies for the above-mentioned procedure and for both sedation/analgesia as well as necessary blood product administration, if indicated, as they pertain to this patient. The patient has indicated understanding and acceptance of the risks and procedures discussed. PROCEDURE: After the risks, benefits and alternatives of the above mentioned procedure explained in detail with the patient, informed consent was obtained. Patient was taken to the catheterization lab and prepped and draped in usual fashion. 1% lidocaine was used to anesthetize the left femoral area. A 6- [place] sheath was placed in the left femoral artery using modified Seldinger technique. A Rim catheter and a 0.035 stiff glide was used to , over to the right external iliac artery. Previously the external iliac was felt not to be obstructive however with placement of a 6-[place] sheath the artery was occlusive with no significant blood pressure noted from sheath. Therefore the decision was made to perform balloon angioplasty of the right external iliac artery. Heparin was given. A 7.0 x 40 mm drug-coated balloon was deployed for 3 minutes at the right external iliac artery. Pre-intervention there was 70% stenosis in uninhibited flow and pulse intervention there is <10% stenosis with uninhibited flow. Patient did have more pain when he iliac artery was obstructed. Balloon angioplasty was performed of the right SFA with a 5.0 x 40mm balloon. Next a 6.0 x 40 mm drug-coated balloon was deployed for 3 minutes at the distal right SFA.. Preintervention there was 80% stenosis and uninhibited flow and pulse intervention there was less than 10% stenosis in uninhibited flow. Given rest pain the decision was made to perform angioplasty of the TP trunk. A 0.014 BMW wire was advanced into the distal posterior tibial artery. Balloon angioplasty was performed with a 3.0 mm balloon however the entire posterior tibial was noted to be diseased and given contrast threshold and timing, further intervention was deferred of the PT. Asked balloon angioplasty was performed of the TP trunk with a 3.0 x 30 mm balloon. The wire was removed and final angiograms were performed. Preintervention there was 90% TP trunk stenosis with decreased antegrade flow and post intervention there was less than 30% stenosis and uninhibited flow. A left femoral angiogram was performed and anatomoy was not suitable for closure. A 6Fr Angioseal was placed with hemostasis achieved. The patient tolerated the procedure well. Patient was transported back to the post catheterization holding area in stable condition. Conscious Sedation: Patient was monitored under the direct supervision of vision of myself for conscious sedation using Versed and fentanyl for a total duration of 78 minutes HEMODYNAMICS: Aorta: 1: Right lower extremity: Right common iliac artery: There is a proximal 50% stenosis. There is a mid common iliac stents with small dissection more proximally which is not flow limiting. Right external iliac artery: There is a 70% mid external iliac artery stenosis. Right internal iliac artery: There is 99% right internal artery stenosis. Right common femoral artery: There is no significant stenosis. Right profunda: There is no significant stenosis. Right SFA: There is a distal 80% right SFA stenosis. Right popliteal artery: There is no significant stenosis. Right tibioperoneal trunk: There is a 80% stenosis. Right anterior tibial artery: There is no significant stenosis. Right posterior tibial artery: There is a 100% posterior tibial artery stenosis. Right peroneal artery: There is no significant stenosis. FINAL IMPRESSION: 1. Peripheral arterial disease as described above. 2. Status post drug-coated balloon angioplasty right external iliac artery with a 7.0 x 40 mm balloon, right distal SFA drug-coated balloon angioplasty with a 6.0 x 40 mm balloon, balloon angioplasty right TP trunk and right posterior tibial artery with a 3.0 balloon PLAN: 1. Aggressive risk factor modification per most recent ACC/AHA guidelines. 2. Continue doing tablets with aspirin and Plavix for 3 months. 3. Consider Xarelto 2.5mg bid
[2022-08-29] MEDS ORDERED: ASPIRIN 81 MG PO SCH (09:00)
[2022-08-29] MEDS ORDERED: CLOPIDOGREL 75 MG TAB PO SCH (09:00)
[2022-08-29] MEDS ORDERED: LOSARTAN 50 MG TAB PO SCH (09:00)
[2022-08-29 09:12] LABS: African American GFR (CKD) >90 (>60 ml/min/1.73 sqM); Anion Gap 9 mmol/L; Blood Urea Nitrogen 15 mg/dL (9-20); Calcium 9.1 mg/dL (8.4-10.2); Carbon Dioxide 28 mmol/L (22-30); Chloride 100 mmol/L (98-107); Glucose 175 mg/dL (74-99); Non-African American GFR(CKD) 81 (>60 ml/min/1.73 sqM); Potassium 3.9 mmol/L (3.5-5.1); Sodium 137 mmol/L (137-145)
== END 2022-08-29 12:57 | disposition home or self-care (01) ==
LOC: CATHCVL 10:55 → 3SCARD 13:33 → CATHCVL 08-29 12:57
PROVIDERS: ATTEND Internal Medicine
DX: I73.9 Peripheral vascular disease, unspecified (principal); I10 Essential (primary) hypertension; E78.5 Hyperlipidemia, unspecified; Z79.82 Long term (current) use of aspirin; Z79.899 Other long term (current) drug therapy
CPT/HCPCS: 85025; 37228; 37224; J2250; J2001; J1644; Q9966; J3010; 37232; 75710; 80048

== ENCOUNTER 2023-05-15 13:02 | Emergency (ER) | payer OTHER ==
--- NOTE | 2023-05-15 14:15 | ED ---
General Adult HPI - General Stated complaint: Abd Bloating/Burising - History of Present Illness Initial comments: Quick Note: The patient is a 52-year-old gentleman with a history of coronary artery disease who is on multiple anticoagulation medications presents for abdominal distention, abdominal discomfort and bruising to the abdomen. Patient was supposed to have an aortogram with runoff today however the physician did not like the way his abdomen looked and did not complete the study. - Related Data Home Medications Medication Instructions Recorded Confirmed Atorvastatin [Lipitor] 40 mg PO HS 08/16/22 05/28/23 Furosemide [Lasix] 40 mg PO BID@0600,1400 08/16/22 05/28/23 Gabapentin 600 mg PO BID 09/08/22 05/28/23 Gabapentin [Neurontin] 300 mg PO DAILY@1200 09/08/22 05/28/23 traZODone HCL [Desyrel] 50 mg PO HS 05/09/23 05/28/23 DULoxetine HCL [Cymbalta] 30 mg PO DAILY 05/28/23 05/28/23 Losartan Potassium [Cozaar] 100 mg PO DAILY 05/28/23 05/28/23 Previous Rx's Medication Instructions Recorded Pantoprazole [Protonix] 40 mg PO AC-BRKFST #30 tab 06/17/22 Clopidogrel [Plavix] 75 mg PO DAILY #90 tab 08/21/22 Rivaroxaban [Xarelto] 2.5 mg PO BID #180 tab 08/29/22 Metoprolol Tartrate [Lopressor] 75 mg PO BID #180 tab 09/11/22 Spironolactone [Aldactone] 25 mg PO DAILY #30 tab 09/11/22 Albuterol Inhaler [Ventolin Hfa 2 puff INHALATION RT-QID PRN 30 05/30/23 Inhaler] Days #8 gm Amoxic-Pot Clav 875-125Mg 1 each PO Q12HR #5 tab 05/30/23 [Augmentin 875-125] Fluticasone Nasal [place] [Flonase 2 spray EA NOSTRIL DAILY 14 Days 05/30/23 Nasal [place]] #1 dispenser Loratadine [Claritin] 10 mg PO DAILY #30 tab 05/30/23 Allergies Allergy/AdvReac Type Severity Reaction Status Date / Time coconut Allergy Itching Verified 10/24/23 07:07 Review of Systems ROS Statement: Those systems with pertinent positive or pertinent negative responses have been documented in the HPI. ROS Other: All systems not noted in ROS Statement are negative. Past Medical History Past Medical History: Coronary Artery Disease (CAD), Heart Failure, Deep Vein Thrombosis (DVT), Hyperlipidemia, Hypertension, Myocardial Infarction ([place]), Syncope, Vascular Disorder Additional Past Medical History / Comment(s): shortness of breath ,tires easily, Last Myocardial Infarction Date:: unk History of Any Multi-Drug Resistant Organisms: None Reported Past Surgical History: Coronary Bypass/CABG, Heart Catheterization With Stent, Orthopedic Surgery Additional Past Surgical History / Comment(s): hip surgery x2, triple bypass 2021, cardiac stent (PCI) 12/2021, bilateral commom iliac stents (PVI) 2021, R Femoral angioplasty (PVI) 08/2022 Past Anesthesia/Blood Transfusion Reactions: No Reported Reaction Date of Last Stent Placement:: 12/21/2021 Smoking Status: Former smoker - Past Family History Father Additional Family Medical History / Comment(s): Father is . He was a [place] vet, exsposed to agent orange. Mother Family Medical History: Cancer Additional Family Medical History / Comment(s): Mother of bladder cancer. General Exam - General Exam Comments Initial Comments: Visual Physical Exam Vital signs reviewed General: Well-appearing, nontoxic, no acute distress. Head: Normocephalic, atraumatic Eyes: PERRLA, EOMI ENT: Airway patent Chest: Nonlabored breathing Abdomen: Abdominal distention, ecchymosis left abdomen Skin: No visual rash, normal skin tone Neuro: Alert and oriented 3 Musculoskeletal: No gross abnormalities Course Vital Signs 05/15/23 14:12 Temperature 99 F Pulse Rate 67 Respiratory 18 Rate Blood Pressure 148/66 O2 Sat by Pulse 98 Oximetry Medical Decision Making - Medical Decision Making Quick Note portion was completed by myself ANNIE Giron.This is equivalent to sign signature patient left ama from the waiting room without full evaluation. - Lab Data Result diagrams: 05/15/23 14:29 05/15/23 14:29 Lab Results 05/15/23 05/15/23 05/15/23 Range/Units 14:29 14:29 14:29 WBC 12.3 H (3.8-10.6) k/uL RBC 4.28 L (4.30-5.90) m/uL Hgb 13.3 (13.0-17.5) gm/dL Hct 39.3 (39.0-53.0) % MCV 91.8 (80.0-100.0) fL MCH 31.0 (25.0-35.0) pg MCHC 33.8 (31.0-37.0) g/dL RDW 13.6 (11.5-15.5) % Plt Count 313 (150-450) k/uL MPV 7.0 Neutrophils % 60 % Lymphocytes % 30 % Monocytes % 5 % Eosinophils % 1 % Basophils % 1 % Neutrophils # 7.4 (1.3-7.7) k/uL Lymphocytes # 3.7 (1.0-4.8) k/uL Monocytes # 0.7 (0-1.0) k/uL Eosinophils # 0.1 (0-0.7) k/uL Basophils # 0.1 (0-0.2) k/uL PT 9.7 (9.0-12.0) sec INR 0.9 (<1.2) APTT 27.6 (22.0-30.0) sec Sodium (137-145) mmol/L Potassium (3.5-5.1) mmol/L Chloride (98-107) mmol/L Carbon Dioxide (22-30) mmol/L Anion Gap mmol/L BUN (9-20) mg/dL Creatinine (0.66-1.25) mg/dL Est GFR (CKD-EPI)AfAm (>60 ml/min/1.73 sqM) Est GFR (CKD-EPI)NonAf (>60 ml/min/1.73 sqM) Glucose (74-99) mg/dL Calcium (8.4-10.2) mg/dL Total Bilirubin (0.2-1.3) mg/dL AST (17-59) U/L ALT (4-49) U/L Alkaline Phosphatase (38-126) U/L Total Protein (6.3-8.2) g/dL Albumin (3.5-5.0) g/dL Urine Color Light Yellow Urine Appearance Clear (Clear) Urine pH 6.0 (5.0-8.0) Ur Specific [place] 1.010 (1.001-1.035) Urine Protein Negative (Negative) Urine Glucose (UA) Negative (Negative) Urine Ketones Negative (Negative) Urine Blood Negative (Negative) Urine Nitrite Negative (Negative) Urine Bilirubin Negative (Negative) Urine Urobilinogen <2.0 (<2.0) mg/dL Ur Leukocyte Esterase Negative (Negative) 05/15/23 Range/Units 14:29 WBC (3.8-10.6) k/uL RBC (4.30-5.90) m/uL Hgb (13.0-17.5) gm/dL Hct (39.0-53.0) % MCV (80.0-100.0) fL MCH (25.0-35.0) pg MCHC (31.0-37.0) g/dL RDW (11.5-15.5) % Plt Count (150-450) k/uL MPV Neutrophils % % Lymphocytes % % Monocytes % % Eosinophils % % Basophils % % Neutrophils # (1.3-7.7) k/uL Lymphocytes # (1.0-4.8) k/uL Monocytes # (0-1.0) k/uL Eosinophils # (0-0.7) k/uL Basophils # (0-0.2) k/uL PT (9.0-12.0) sec INR (<1.2) APTT (22.0-30.0) sec Sodium 136 L (137-145) mmol/L Potassium 4.6 (3.5-5.1) mmol/L Chloride 103 (98-107) mmol/L Carbon Dioxide 24 (22-30) mmol/L Anion Gap 9 mmol/L BUN 18 (9-20) mg/dL Creatinine 0.79 (0.66-1.25) mg/dL Est GFR (CKD-EPI)AfAm >90 (>60 ml/min/1.73 sqM) Est GFR (CKD-EPI)NonAf >90 (>60 ml/min/1.73 sqM) Glucose 96 (74-99) mg/dL Calcium 9.3 (8.4-10.2) mg/dL Total Bilirubin 0.5 (0.2-1.3) mg/dL AST 38 (17-59) U/L ALT 38 (4-49) U/L Alkaline Phosphatase 172 H (38-126) U/L Total Protein 7.8 (6.3-8.2) g/dL Albumin 4.5 (3.5-5.0) g/dL Urine Color Urine Appearance (Clear) Urine pH (5.0-8.0) Ur Specific [place] (1.001-1.035) Urine Protein (Negative) Urine Glucose (UA) (Negative) Urine Ketones (Negative) Urine Blood (Negative) Urine Nitrite (Negative) Urine Bilirubin (Negative) Urine Urobilinogen (<2.0) mg/dL Ur Leukocyte Esterase (Negative) Disposition Clinical Impression: Abdominal pain Disposition: LEFT AGAINST MEDICAL ADVICE Referrals: Jose Fuentes, NPC [Family Provider] - 1-2 days
[2023-05-15 14:19] VITALS: BP 148/66; PULSE 67; RESP 18; TEMP 99
[2023-05-15 14:56] LABS: ALT 38 U/L (4-49); AST 38 U/L (17-59); African American GFR (CKD) >90 (>60 ml/min/1.73 sqM); Albumin 4.5 g/dL (3.5-5.0); Alkaline Phosphatase 172 U/L (38-126); Anion Gap 9 mmol/L; Basophils # (A) 0.1 k/uL (0-0.2); Basophils % (A) 1 %; Blood Urea Nitrogen 18 mg/dL (9-20); Calcium 9.3 mg/dL (8.4-10.2); Carbon Dioxide 24 mmol/L (22-30); Chloride 103 mmol/L (98-107); Eosinophils # (A) 0.1 k/uL (0-0.7); Eosinophils % (A) 1 %; Glucose 96 mg/dL (74-99); HCT 39.3 % (39.0-53.0); HGB 13.3 gm/dL (13.0-17.5); Lymphocytes # (A) 3.7 k/uL (1.0-4.8); Lymphocytes % (A) 30 %; MCHC 33.8 g/dL (31.0-37.0); MCV 91.8 fL (80.0-100.0); Monocytes # (A) 0.7 k/uL (0-1.0); Monocytes % (A) 5 %; Neutrophils # (A) 7.4 k/uL (1.3-7.7); Neutrophils % (A) 60 %; Non-African American GFR(CKD) >90 (>60 ml/min/1.73 sqM); Platelet Count 313 k/uL (150-450); Potassium 4.6 mmol/L (3.5-5.1); RBC 4.28 m/uL (4.30-5.90); RDW 13.6 % (11.5-15.5); Sodium 136 mmol/L (137-145); Total Bilirubin 0.5 mg/dL (0.2-1.3); Total Protein 7.8 g/dL (6.3-8.2); WBC 12.3 k/uL (3.8-10.6)
[2023-05-15 15:05] LABS: INR 0.9 (<1.2); Partial Thromboplastin Time 27.6 sec (22.0-30.0); Prothrombin Time 9.7 sec (9.0-12.0)
[2023-05-15 16:02] LABS: Appearance,Urine Clear (Clear); Bilirubin,Urine Negative (Negative); Blood,Urine Negative (Negative); Color,Urine Light Yellow; Glucose,Urine (UA) Negative (Negative); Ketones,Urine Negative (Negative); Leukocyte Esterase,Urine Negative (Negative); Nitrite,Urine Negative (Negative); Protein,Urine Negative (Negative); Urobilinogen,Urine <2.0 mg/dL (<2.0)
== END 2023-05-15 16:45 | disposition left against medical advice (07) ==
LOC: EC 13:02
DX: S30.1XXA Contusion of abdominal wall, initial encounter (principal); I25.10 Atherosclerotic heart disease of native coronary artery without angina pectoris; I11.0 Hypertensive heart disease with heart failure; I50.9 Heart failure, unspecified; I25.2 Old myocardial infarction; Z87.891 Personal history of nicotine dependence; E78.5 Hyperlipidemia, unspecified; Z79.899 Other long term (current) drug therapy; Z91.018 Allergy to other foods; X58.XXXA Exposure to other specified factors, initial encounter; Z53.29 Procedure and treatment not carried out because of patient's decision for other reasons
CPT/HCPCS: 36415; 80053; 81003; 85025; 85610; 85730; 99283

== ENCOUNTER → 2023-05-15 | Outpatient (CLI) | payer OTHER ==
[2023-05-15 12:14] LABS: HCT 41.6 % (39.0-53.0); HGB 13.7 gm/dL (13.0-17.5); MCH 30.7 pg (25.0-35.0); MCHC 32.9 g/dL (31.0-37.0); MCV 93.5 fL (80.0-100.0); Mean Platelet Volume 6.7; Platelet Count 318 k/uL (150-450); RBC 4.45 m/uL (4.30-5.90); RDW 13.3 % (11.5-15.5); WBC 10.4 k/uL (3.8-10.6)
[2023-05-15 12:28] LABS: African American GFR (CKD) >90 (>60 ml/min/1.73 sqM); Anion Gap 11 mmol/L; Blood Urea Nitrogen 18 mg/dL (9-20); Carbon Dioxide 26 mmol/L (22-30); Chloride 100 mmol/L (98-107); Non-African American GFR(CKD) >90 (>60 ml/min/1.73 sqM); Potassium 4.7 mmol/L (3.5-5.1); Sodium 137 mmol/L (137-145)
== END | disposition home or self-care (01) ==
LOC: LABPAT 10:51
PROVIDERS: ATTEND Internal Medicine
DX: Z01.812 Encounter for preprocedural laboratory examination (principal); I73.9 Peripheral vascular disease, unspecified
CPT/HCPCS: 80051; 82565; 84520; 85027

== ENCOUNTER 2023-05-28 02:54 | Observation (INO) | payer OTHER ==
--- NOTE | 2023-05-28 03:14 | ED ---
General Adult HPI - General Chief complaint: Shortness of Breath Stated complaint: SOB Time Seen by Provider: 05/28/23 02:56 Source: patient, EMS Mode of arrival: EMS Limitations: no limitations - History of Present Illness Initial comments: Dictation was produced using [employer] dictation software. please excuse any grammatical, word or spelling errors. Chief Complaint: 52-year-old alcoholic intoxicated male transferred from outside ER for concerns of heart failure History of Present Illness: 52-year-old male who presents to the emergency department he allegedly has a history of heart failure. Sees Dr. Mock. Patient states that he sees Dr. Mock for peripheral vascular disease. Patient allegedly reports history of heart failure. He had echocardiogram from June 2022 showing mildly. Left ventricular systolic function. He ended up at [facility] emergency department after he had fallen. Friend called EMS ruben cole was brought to the ER. Dr. Houston evaluated the patient ordered a CT brain, CT abdomen and pelvis and extensive blood work. Patient did not initially present with dyspnea however was transferred here for concerns of heart failure after patient complained of shortness of breath and orthopnea for several weeks. She also did have a bout of chest pressure earlier today. He does have history of coronary artery disease. Patient had reported mildly elevated BNP. He had normal x-ray normal respiratory vitals. Alcohol level is 210. Dr. Houston was concerned that patient suffering from heart failure and reported that he wanted to transfer the patient for cardiac evaluation. The ROS documented in this emergency department record has been reviewed and confirmed by me. Those systems with pertinent positive or negative responses have been documented in the HPI. All other systems are other negative and/or noncontributory. - Related Data Home Medications Medication Instructions Recorded Confirmed Atorvastatin [Lipitor] 40 mg PO HS 08/16/22 05/15/23 Furosemide [Lasix] 40 mg PO BID@0600,1400 08/16/22 05/15/23 Losartan [Cozaar] 50 mg PO DAILY 08/16/22 05/15/23 Gabapentin 600 mg PO BID 09/08/22 05/15/23 Gabapentin [Neurontin] 300 mg PO 1200 09/08/22 05/15/23 traZODone HCL [Desyrel] 50 mg PO HS 05/09/23 05/15/23 Aspirin [Adult Low Dose Aspirin EC] 324 mg PO ONCE PRN 05/15/23 05/15/23 Previous Rx's Medication Instructions Recorded Aspirin 81 mg PO DAILY #90 tab 12/22/21 Pantoprazole [Protonix] 40 mg PO AC-BRKFST #30 tab 06/17/22 Albuterol Inhaler [Ventolin Hfa 2 puff INHALATION RT-QID PRN 30 08/21/22 Inhaler] Days #8 gm Clopidogrel [Plavix] 75 mg PO DAILY #90 tab 08/21/22 Rivaroxaban [Xarelto] 2.5 mg PO BID #180 tab 08/29/22 DULoxetine HCL [Cymbalta] 30 mg PO BID #60 cap 09/11/22 Metoprolol Tartrate [Lopressor] 75 mg PO BID #180 tab 09/11/22 Spironolactone [Aldactone] 25 mg PO DAILY #30 tab 09/11/22 Allergies Allergy/AdvReac Type Severity Reaction Status Date / Time coconut Allergy Itching Verified 05/28/23 03:00 Review of Systems ROS Statement: Those systems with pertinent positive or pertinent negative responses have been documented in the HPI. ROS Other: All systems not noted in ROS Statement are negative. Past Medical History Past Medical History: Coronary Artery Disease (CAD), Heart Failure, Deep Vein Thrombosis (DVT), Hyperlipidemia, Hypertension, Myocardial Infarction ([place]), Syncope, Vascular Disorder Additional Past Medical History / Comment(s): shortness of breath ,tires easily, Last Myocardial Infarction Date:: unk History of Any Multi-Drug Resistant Organisms: None Reported Past Surgical History: Coronary Bypass/CABG, Heart Catheterization With Stent, Orthopedic Surgery Additional Past Surgical History / Comment(s): hip surgery x2, triple bypass 06/2022, cardiac stent (PCI) 12/2021, bilateral commom iliac stents (PVI) 2021, R Femoral angioplasty (PVI) 08/2022 Past Anesthesia/Blood Transfusion Reactions: No Reported Reaction Date of Last Stent Placement:: 12/21/2021 Past Psychological History: No Psychological Hx Reported Smoking Status: Former smoker - Past Family History Father Additional Family Medical History / Comment(s): Father is . He was a [place] vet, exsposed to agent orange. Mother Family Medical History: Cancer Additional Family Medical History / Comment(s): Mother of bladder cancer. General Exam - General Exam Comments Initial Comments: PHYSICAL EXAM: General Impression: Alert and oriented x3, not in acute distress HEENT: Normocephalic atraumatic, extra-ocular movements intact, pupils equal and reactive to light bilaterally, mucous membranes moist. Cardiovascular: Heart regular rate and rhythm Chest: Able to complete full sentences, no retractions, no tachypnea Abdomen: abdomen soft, non-tender, non-distended, no organomegaly Musculoskeletal: Pulses present and equal in all extremities, no peripheral edema Motor: no focal deficits noted Neurological: CN II-XII grossly intact, no focal motor or sensory deficits noted Skin: Intact with no visualized rashes Psych: Normal affect and mood Limitations: no limitations Course Vital Signs 05/28/23 05/28/23 02:55 03:03 Temperature 97.7 F Pulse Rate 79 Respiratory 20 18 Rate Blood Pressure 149/77 O2 Sat by Pulse 98 Oximetry EKG Findings - EKG Comments: EKG Findings:: My EKG interpretation: Ventricular rate. 80, HI interval 171, QRS 111, QTC 452. No HI prolongation, no QTC prolongation, no ST or T-wave changes noted. EKG compared to 09/09/2022 showing no changes. Overall, this EKG is unremarkable Medical Decision Making - Medical Decision Making Was pt. sent in by a medical professional or institution (JOSE Serrano, VOCAL TEACHER, urgent care, hospital, or snf...) When possible be specific @ -Outside emergency department Did you speak to anyone other than the patient for history (EMS, parent, family, police, friend...)? What history was obtained from this source @ -Transferred physician, Dr. Houston Did you review nursing and triage notes (agree or disagree)? Why? @ -I reviewed and agree with nursing and triage notes Were old charts reviewed (outside hosp., previous admission, EMS record, old EKG, old radiological studies, urgent care reports/EKG's, snf records)? Report findings @ -Most recent echocardiogram as discussed above Differential Diagnosis (chest pain, altered mental status, abdominal pain women, abdominal pain men, vaginal bleeding, musculoskeletal, weakness, fever, dyspnea, syncope, headache, dizziness, GI bleed, back pain, seizure, CVA, palpatations, mental health)? @ -Differential Chest Pain: Stable Angina, Unstable Angina, STEMI, NSTEMI Aortic Dissection, Pneumothorax, Musculoskeletal, Esophageal Spasm GERD, Cholecystitis, Pancreatitis, Zoster, this is not meant to be an all-inclusive list. EKG interpreted by me (3pts min.). @ -As above X-rays interpreted by me (1pt min.). @ -None done CT interpreted by me (1pt min.). @ -None done U/S interpreted by me (1pt. min.). @ -None done What testing was considered but not performed or refused? (CT, X-rays, U/S, labs)? Why? @ -None What meds were considered but not given or refused? Why? @ -None Did you discuss the management of the patient with other professionals (professionals i.e. , PA, VOCAL TEACHER, lab, RT, psych nurse, hospice social worker, shaker tender, teacher, contracts officer, bilingual patient support caseworker)? Give summary @ -Case discussed with hospitalist for admission Was smoking cessation discussed for >3mins.? @ -No Was critical care preformed (if so, how long)? @ -No Were there social determinants of health that impacted care today? How? (Homelessness, low income, unemployed, alcoholism, drug addiction, transportation, low edu. Level, literacy, decrease access to med. care, intermediate, rehab)? @ -No Was there de-escalation of care discussed even if they declined (Discuss DNR or withdrawal of care, Hospice)? DNR status @ -No What co-morbidities impacted this encounter? (DM, HTN, Smoking, COPD, CAD, Cancer, CVA, ARF, Chemo, Hep., AIDS, mental health diagnosis, sleep apnea, morbid obesity)? @ -None Was patient admitted / discharged? Hospital course, mention meds given and route, prescriptions, significant lab abnormalities, going to OR and other pertinent info. @ -52-year-old male sent here from outside emergency department for concerns of heart failure. Vital signs are stable. Patient is well-appearing no acute distress. Unlikely a patient suffering from heart failure exacerbation given that he has normal lung sounds and has normal heart failure workup. U did however mentioned having some chest pain that radiate down the arms. His have a history of coronary artery disease and acute coronary syndrome. Patient be admitted observation for cardiac monitoring and cardiology consultation. Undiagnosed new problem with uncertain prognosis? @ -No Drug Therapy requiring intensive monitoring for toxicity (Heparin, Nitro, Insulin, Cardizem)? @ -No Were any procedures done? @ -No Diagnosis/symptom? Acute, or Chronic, or Acute on Chronic? Uncomplicated (without systemic symptoms) or Complicated (systemic symptoms)? @ -chest pain Side effects of treatment? @ -No Exacerbation, Progression, or Severe Exacerbation? @ -No Poses a threat to life or bodily function? How? (Chest pain, [place], [place], pneumonia, PE, COPD, DKA, ARF, appy, cholecystitis, CVA, Diverticulitis, Homicidal, Suicidal, threat to staff... and all critical care pts) @ -yes Disposition Clinical Impression: Chest pain Disposition: ADMITTED IP TO THIS HOSP Condition: Fair Referrals: Starr Washington MD [Primary Care Provider] - 1-2 days Decision Time: 03:17
[2023-05-28] MEDS ORDERED: ASPIRIN 81 MG PO STA (03:15)
[2023-05-28] MEDS ORDERED: NITROGLYCERIN SL TABS 0.4 MG TAB SUBLINGUAL PRN (03:17)
[2023-05-28] MEDS ORDERED: ATORVASTATIN 80 MG TAB PO STA (04:10)
--- NOTE | 2023-05-28 04:11 | P.HPIM ---
History of Present Illness H&P Date: 05/28/23 Patient is a 52-year-old male with a PMH of CAD status post multiple MIs and CABG, PAD w/ hx of acute limb ischemia (on Xarelto), alcohol abuse, systolic CHF (Ef 30-35%), hypertension, hyperlipidemia, who was transferred from [facility] where he had presented with complaints of shortness of breath and chest discomfort. Patient reports that ever since undergoing his CABG surgery in June 2022, he has been experiencing intermittent shortness of breath and chest discomfort was acutely worsened earlier tonight. Reports chronic orthopnea which is also recently worsened. He reports the chest discomfort is substernal, occurring intermittently every few hours and lasting for a few minut es, 8 out of 10 on maximal intensity, radiating down into the left arm, nonpleuritic, without associated alleviating or exacerbating features, with associated lightheadedness. He also reports ongoing alcohol use. Denied experiencing lower extremity swelling or pain. Denies fever, chills, cough, nausea, vomiting, abdominal pain, diarrhea. The patient underwent an extensive evaluation at [facility] which was all reviewed. An EKG revealed sinus rhythm at 73 bpm with T-wave flattening in leads [address] abdomen without contrast revealed no acute abnormalities. CT brain was also unremarkable. Laboratory evaluation was remarkable for alcohol level 210, WBC count 12.3, hemoglobin 12.9, platelets 320, BUN 23, creatinine 1, alk phos 169, sodium 137, potassium 3.7, d-dimer 0.87, magnesium 2.4, proBNP 892, troponin 0.022. ED documentation reviewed and case discussed with ED provider. Review of systems: Pertinent positives and negatives as discussed in HPI, a complete review of systems was performed and all other systems are negative. Physical examination: Vital signs reviewed General: non toxic, no distress, appears at stated age, normal weight Derm: no unusual rashes/lesions, warm Head: atraumatic, normocephalic, symmetric Eyes: EOMI, no lid lag, anicteric sclera, pupils equal round reactive to light ENT: Nose and ears atraumatic Neck: No cervical lymphadenopathy, trachea midline, supple Mouth: no lip lesion, mucus membranes moist Cardiovascular: S1S2 reg, no murmur, positive dorsalis pedis pulse bilateral, no edema Lungs: CTA bilateral, no rhonchi, no rales, no accessory muscle use Abdominal: soft, nontender to palpation, no guarding Ext: muscle strength 5 out of 5 in all 4 extremities grossly, no gross muscle atrophy, no contractures, Neuro: CN II-XI grossly intact, no gross focal neuro deficits Psych: Alert, oriented, appropriate affect Assessment: Chest pain, rule out ACS Alcohol abuse Chronic conditions: PAD w/ hx of acute limb ischemia, Congestive heart failure, hyperlipidemia, hypertension Imaging: The patient underwent an extensive evaluation at [facility] which was all reviewed. An EKG revealed sinus rhythm at 73 bpm with T-wave flattening in leads [address] abdomen without contrast revealed no acute abnormalities. CT brain was also unremarkable. Data Review: Laboratory evaluation was remarkable for alcohol level 210, WBC count 12.3, hemoglobin 12.9, platelets 320, BUN 23, creatinine 1, alk phos 169, sodium 137, potassium 3.7, d-dimer 0.87, magnesium 2.4, proBNP 892, troponin 0.022. Plan: Cardiology consulted Cardiac monitoring Trend troponin C/w ASA and Statin Adivsed on importance of cessation from alcohol use WA protocol Resume home medications once reconciled DVT prophylaxis: Xarelto The patient is admitted with an anticipated less than 2 midnight stay for evaluation of chest pain CODE STATUS: Full Code Discussed with: Patient Anticipated discharge place: Home Past Medical History Past Medical History: Coronary Artery Disease (CAD), Heart Failure, Deep Vein Thrombosis (DVT), Hyperlipidemia, Hypertension, Myocardial Infarction ([place]), Syncope, Vascular Disorder Additional Past Medical History / Comment(s): shortness of breath ,tires easily, Last Myocardial Infarction Date:: unk History of Any Multi-Drug Resistant Organisms: None Reported Past Surgical History: Coronary Bypass/CABG, Heart Catheterization With Stent, Orthopedic Surgery Additional Past Surgical History / Comment(s): hip surgery x2, triple bypass 06/2022, cardiac stent (PCI) 12/2021, bilateral commom iliac stents (PVI) 2021, R Femoral angioplasty (PVI) 08/2022 Past Anesthesia/Blood Transfusion Reactions: No Reported Reaction Date of Last Stent Placement:: 12/21/2021 Past Psychological History: No Psychological Hx Reported Smoking Status: Former smoker - Past Family History Father Additional Family Medical History / Comment(s): Father is . He was a [place] vet, exsposed to agent orange. Mother Family Medical History: Cancer Additional Family Medical History / Comment(s): Mother of bladder cancer. Medications and Allergies Home Medications Medication Instructions Recorded Confirmed Type Aspirin 81 mg PO DAILY #90 tab 12/22/21 05/15/23 Rx Pantoprazole [Protonix] 40 mg PO AC-BRKFST #30 tab 06/17/22 05/15/23 Rx Atorvastatin [Lipitor] 40 mg PO HS 08/16/22 05/15/23 History Furosemide [Lasix] 40 mg PO BID@0600,1400 08/16/22 05/15/23 History Losartan [Cozaar] 50 mg PO DAILY 08/16/22 05/15/23 History Albuterol Inhaler [Ventolin Hfa 2 puff INHALATION RT-QID PRN 30 08/21/22 05/15/23 Rx Inhaler] Days #8 gm Clopidogrel [Plavix] 75 mg PO DAILY #90 tab 08/21/22 05/15/23 Rx Rivaroxaban [Xarelto] 2.5 mg PO BID #180 tab 08/29/22 05/15/23 Rx Gabapentin 600 mg PO BID 09/08/22 05/15/23 History Gabapentin [Neurontin] 300 mg PO 1200 09/08/22 05/15/23 History DULoxetine HCL [Cymbalta] 30 mg PO BID #60 cap 09/11/22 05/15/23 Rx Metoprolol Tartrate [Lopressor] 75 mg PO BID #180 tab 09/11/22 05/15/23 Rx Spironolactone [Aldactone] 25 mg PO DAILY #30 tab 09/11/22 05/15/23 Rx traZODone HCL [Desyrel] 50 mg PO HS 05/09/23 05/15/23 History Aspirin [Adult Low Dose Aspirin EC] 324 mg PO ONCE PRN 05/15/23 05/15/23 History Allergies Allergy/AdvReac Type Severity Reaction Status Date / Time coconut Allergy Itching Verified 05/28/23 03:00 Physical Exam Vitals: Vital Signs Temp Pulse Resp BP Pulse Ox 05/28/23 03:03 18 05/28/23 02:55 97.7 F 79 20 149/77 98 Intake and Output 05/27/23 05/27/23 05/28/23 14:59 22:59 06:59 Other: Weight 74.843 kg
[2023-05-28] MEDS: RIVAROXABAN 2.5 MG TABLET PO SCH ×2 (08:32→20:24)
[2023-05-28] MEDS: CLOPIDOGREL 75 MG TAB PO SCH (10:19)
[2023-05-28] MEDS: SPIRONOLACTONE 25 MG TAB PO SCH (10:20)
[2023-05-28] MEDS: METOPROLOL TARTRATE 25 MG TAB PO SCH ×2 (10:20→20:25)
[2023-05-28] MEDS: LOSARTAN 50 MG TAB PO SCH (10:20)
--- NOTE | 2023-05-28 10:23 | XR ---
EXAMINATION TYPE: XR chest 2V DATE OF EXAM: 05/28/2023 10:10 AM CLINICAL INDICATION:Male, 52 years old with history of SOB; PHH COMPARISON: Chest radiographs from TECHNIQUE: XR chest 2V Frontal and lateral views of the chest. FINDINGS: Lungs/Pleura: There is no evidence of pleural effusion, focal consolidation, or pneumothorax. Pulmonary vascularity: Unremarkable. Heart/mediastinum: Cardiomediastinal silhouette is prominent in size. Left atrial appendage occlusion device is present. Musculoskeletal: No acute osseous pathology. Midline sternotomy wires and surgical clips project over the mediastinum. IMPRESSION: No acute cardiopulmonary disease/process.
[2023-05-28] MEDS: LORATADINE 10 MG TAB PO SCH (10:50)
[2023-05-28] MEDS: AMOXIC-POT CLAV 875-125MG 1 EACH TAB PO SCH ×2 (10:50→20:25)
[2023-05-28 11:12] LABS: Basophils # (A) 0.1 k/uL (0-0.2); Basophils % (A) 1 %; Eosinophils # (A) 0.1 k/uL (0-0.7); Eosinophils % (A) 1 %; HCT 40.8 % (39.0-53.0); HGB 13.5 gm/dL (13.0-17.5); Lymphocytes # (A) 3.3 k/uL (1.0-4.8); Lymphocytes % (A) 24 %; MCH 30.8 pg (25.0-35.0); MCV 93.1 fL (80.0-100.0); Mean Platelet Volume 6.9; Monocytes # (A) 0.8 k/uL (0-1.0); Monocytes % (A) 6 %; Neutrophils # (A) 9.1 k/uL (1.3-7.7); Neutrophils % (A) 67 %; Platelet Count 372 k/uL (150-450); RBC 4.38 m/uL (4.30-5.90); RDW 13.4 % (11.5-15.5); WBC 13.6 k/uL (3.8-10.6)
[2023-05-28] MEDS: FLUTICASONE 50MCG/SPRAY NASAL 16GM EA NOSTRIL SCH (11:19)
[2023-05-28 11:26] LABS: African American GFR (CKD) >90 (>60 ml/min/1.73 sqM); Anion Gap 14 mmol/L; Blood Urea Nitrogen 27 mg/dL (9-20); Calcium 9.5 mg/dL (8.4-10.2); Carbon Dioxide 24 mmol/L (22-30); Chloride 100 mmol/L (98-107); Glucose 105 mg/dL (74-99); Non-African American GFR(CKD) >90 (>60 ml/min/1.73 sqM); Potassium 4.2 mmol/L (3.5-5.1); Sodium 138 mmol/L (137-145)
--- NOTE | 2023-05-28 12:55 | P.CRDCN ---
History of Present Illness History of present illness: HISTORY OF PRESENT ILLNESS: This is a 52-year-old male with a past medical history significant for hypertension, hyperlipidemia, nicotine dependence, alcohol use, coronary artery disease with previous CABG and stenting, ischemic cardiomyopathy, and peripheral vascular disease with previous intervention. Patient follows in the office with Dr. Mock. We have been asked to see the patient in consultation for chest pain. Patient examined at the bedside in the emergency room. Patient was transferred from [facility] for further evaluation. Patient initially presented to [place] secondary to a fall. Patient reports he has been having more weakness in his legs and has had multiple falls at home. He states he is having a hard time getting his balance when he is walking. He also reports having pain in his bilateral feet. He reports having shortness of breath for the past month. At the time of examination, he denies any chest pain or pressure. The patient reports he is still currently drinking and had 3-4 beers yesterday. He denies any tobacco use. * EKG reveals sinus mechanism with nonspecific ST-T wave changes. No signs of acute ischemia * Chest xray negative for acute process * Laboratory data: WBC 13.6. Hemoglobin 13.5. Platelet count 372. Sodium 138. Potassium 4.2. BUN 27. Creatinine 0.96. Troponin negative 3. * Current home cardiac medications include aspirin 81 mg daily, Lipitor 40 mg at night, Plavix 75 mg daily, Lasix 40 g twice a day, losartan 100 mg daily, metoprolol tartrate 75 mg twice a day, Xarelto 2.5 mg twice a day, and Aldactone 25 mg daily * Most recent echocardiogram obtained in June 2022 revealing ejection fraction 40-45% with mild aortic regurgitation REVIEW OF SYSTEMS: At the time of my exam: CONSTITUTIONAL: Denies fever or chills. HEENT: Denies blurred vision, vision changes, or eye pain. Denies hemoptysis CARDIOVASCULAR: Denies chest pain. Denies orthopnea. Denies PND. Denies palpitations RESPIRATORY: Denies shortness of breath. GASTROINTESTINAL: Denies abdominal pain. Denies nausea or vomiting. HEMATOLOGIC: Denies bleeding disorders. GENITOURINARY: Denies any blood in urine. SKIN: Denies pruitis. Denies rash. PHYSICAL EXAM: VITAL SIGNS: Reviewed. GENERAL: Well-developed in no acute distress. HEENT: Head is normocephalic. Pupils are equal, round. Sclerae anicteric. Mucous membranes of the mouth are moist. Neck supple. No JVD or thyromegaly LUNGS: Respirations even and unlabored. Lungs essentially clear to auscultation bilaterally. HEART: Regular rate and rhythm. S1 and S2 heard. ABDOMEN: Soft. Nondistended. Nontender. EXTREMITIES: Normal range of motion. No clubbing or cyanosis. Peripheral pulses intact. No lower extremity edema NEUROLOGIC: Awake and alert. Oriented x 3. ASSESSMENT: Generalized weakness Chest pain, troponins negative 3, acute coronary syndrome ruled out Status post mechanical fall Shortness of breath with component of URI Bilateral lower extremity pain secondary to peripheral arterial disease Peripheral vascular disease with previous bilateral iliac stenting as well as right SFA and residual left popliteal disease Coronary artery disease with previous PCI of OM 3 as well as left main disease, status post CABG June 2022 Cardiomyopathy with ejection fraction 40-45%, previously 35%, felt to be out of proportion to his CAD and possibly alcohol induced Hypertension Hyperlipidemia Nicotine dependence Alcohol abuse, patient reports he continues to drink Acute alcohol intoxication, alcohol level 210 at [facility] PLAN: An acute coronary event has been ruled out Resume home cardiac medications Obtain 2-D echo to assess cardiac structure and function Will discuss case with Dr. Mock regarding possible lower extremity int ervention during this admission Abstinence from alcohol recommended Further recommendations pending patient course Nurse practitioner note has been reviewed by physician. Signing provider agrees with the documented findings, assessment, and plan of care. Past Medical History Past Medical History: Coronary Artery Disease (CAD), Heart Failure, Deep Vein Thrombosis (DVT), Hyperlipidemia, Hypertension, Myocardial Infarction ([place]), Syn cope, Vascular Disorder Additional Past Medical History / Comment(s): shortness of breath ,tires easily, Last Myocardial Infarction Date:: unk History of Any Multi-Drug Resistant Organisms: None Reported Past Surgical History: Coronary Bypass/CABG, Heart Catheterization With Stent, Orthopedic Surgery Additional Past Surgical History / Comment(s): hip surgery x2, triple bypass 06/2022, cardiac stent (PCI) 12/2021, bilateral commom iliac stents (PVI) 2021, R Femoral angioplasty (PVI) 08/2022 Past Anesthesia/Blood Transfusion Reactions: No Reported Reaction Date of Last Stent Placement:: 12/21/2021 Past Psychological History: No Psychological Hx Reported Smoking Status: Former smoker - Past Family History Father Additional Family Medical History / Comment(s): Father is . He was a [place] vet, exsposed to agent orange. Mother Family Medical History: Cancer Additional Family Medical History / Comment(s): Mother of bladder cancer. Medications and Allergies Home Medications Medication Instructions Recorded Confirmed Type Aspirin 81 mg PO DAILY #90 tab 12/22/21 05/28/23 Rx Pantoprazole [Protonix] 40 mg PO AC-BRKFST #30 tab 06/17/22 05/28/23 Rx Atorvastatin [Lipitor] 40 mg PO HS 08/16/22 05/28/23 History Furosemide [Lasix] 40 mg PO BID@0600,1400 08/16/22 05/28/23 History Albuterol Inhaler [Ventolin Hfa 2 puff INHALATION RT-QID PRN 30 08/21/22 05/28/23 Rx Inhaler] Days #8 gm Clopidogrel [Plavix] 75 mg PO DAILY #90 tab 08/21/22 05/28/23 Rx Rivaroxaban [Xarelto] 2.5 mg PO BID #180 tab 08/29/22 05/28/23 Rx Gabapentin 600 mg PO BID 09/08/22 05/28/23 History Gabapentin [Neurontin] 300 mg PO DAILY@1200 09/08/22 05/28/23 History Metoprolol Tartrate [Lopressor] 75 mg PO BID #180 tab 09/11/22 05/28/23 Rx Spironolactone [Aldactone] 25 mg PO DAILY #30 tab 09/11/22 05/28/23 Rx traZODone HCL [Desyrel] 50 mg PO HS 05/09/23 05/28/23 History DULoxetine HCL [Cymbalta] 30 mg PO DAILY 05/28/23 05/28/23 History Losartan Potassium [Cozaar] 100 mg PO DAILY 05/28/23 05/28/23 History Allergies Allergy/AdvReac Type Severity Reaction Status Date / Time coconut Allergy Itching Verified 05/28/23 07:07 Physical Exam Vitals: Vital Signs Temp Pulse Resp BP Pulse Ox 05/28/23 06:00 73 18 125/66 98 05/28/23 04:59 73 18 143/70 98 05/28/23 03:03 18 05/28/23 02:55 97.7 F 79 20 149/77 98 Intake and Output 05/27/23 05/28/23 05/28/23 22:59 06:59 14:59 Other: Weight 74.843 kg Results 05/28/23 10:42 05/28/23 10:37 Cardiac Enzymes 05/28/23 Range/Units 03:38 Troponin I 0.016 (0.000-0.034) ng/mL Current Medications Generic Name Dose Route Start Last Admin Trade Name Freq PRN Reason Stop Dose Admin Aspirin 325 mg 05/29/23 09:00 Aspirin 325 Mg Tab PO DAILY [facility] Atorvastatin Calcium 80 mg 05/28/23 21:00 Atorvastatin 80 Mg Tab PO HS [facility] Nitroglycerin 0.4 mg 05/28/23 03:17 Nitroglycerin Sl Tabs 0.4 Mg Tab SUBLINGUAL Q5M PRN Chest Pain Rivaroxaban 2.5 mg 05/28/23 09:00 Rivaroxaban 2.5 Mg Tablet PO BID [facility] Protocol Intake and Output 05/27/23 05/28/23 05/28/23 22:59 06:59 14:59 Other: Weight 74.843 kg
[2023-05-28] MEDS: FUROSEMIDE 40 MG TAB PO SCH (13:14)
[2023-05-28 15:59] LABS: Chol/HDL Ratio 4.15 Ratio; LDL Cholesterol,Calculated 113.2 mg/dL (0.0-131.0)
--- NOTE | 2023-05-28 18:48 | P.PN ---
Progress Note - Text Progress Note Date: 05/28/23 (delayed charting seen at 1030) Hospitalist Interval Note Patient seen and examined at bedside. He states that he had an upper respiratory tract infection for the last week and half. He is having persistent postnasal drip, sore throat, facial pain, and persistent coughing and some wheezing. Vital signs reviewed General: non toxic, no distress, appears at stated age Derm: warm, dry, lesion on left anterior calf with scabbing in place Head: atraumatic, normocephalic, symmetric Mouth:Areaof purulence and possible abscess left upper soft palate Eyes: EOMI, no lid lag, anicteric sclera Mouth: no lip lesion, mucus membranes moist Cardiovascular: S1S2 reg, no murmur, positive posterior tibial pulse bilateral, Lungs: CTA bilateral, no rhonchi, no rales , no accessory muscle use Ext: no gross muscle atrophy, no edema, no contractures Neuro: CN II-XI grossly intact, no focal neuro deficits Psych: Alert, oriented, appropriate affect Assessment/Plan: Additional diagnosis Upper respiratory tract infection, concern for dental abscess -Start Augmentin 875/125 mg twice daily -Stat CBC and basic metabolic profile -Start Flonase 2 sprays each nostril daily -Start Claritin 10 mg daily -Case discussed with cardiology nurse practitioner. Awaiting further recommendations from Dr. Nish ramírez regarding his lower extremity pain and mechanical fall. This is an update note for patient , for full note on 05/28/23 see H and P . There is no charge associated with this note.
[2023-05-28] MEDS ORDERED: ALBUTEROL NEBULIZED 2.5 MG/3 ML INHALATION PRN (18:51)
[2023-05-28] MEDS: ATORVASTATIN 40 MG TAB PO SCH (20:26)
[2023-05-28] MEDS: GABAPENTIN 300 MG CAP PO SCH (20:26)
[2023-05-28] MEDS: traZODone HCL 50 MG TAB PO SCH (20:26)
[2023-05-28] MEDS ORDERED: ATORVASTATIN 80 MG TAB PO SCH (21:00)
--- NOTE | 2023-05-28 22:10 | CA ---
Transthoracic Echo Report Name: Bernardo Dennis Age: 52 Gender: M : 1970 Exam Date: 05/28/2023 15:01 Exam Location: [place] [facility] Ht (in): 68 Wt (lb): 165 Ordering Physician: Yuli Velasquez Attending/Referring Phys: [id number], Ron Indexer Cristin Falcon [facility] Procedure CPT: Indications: LV function Cardiac Hx: Technical Quality: Contrast 1: Lumason Total Dose (mL): 5 Contrast 2: Total Dose (mL): MEASUREMENTS (Male / Female) Normal Values 2D ECHO LV Diastolic Diameter PLAX 5.2 cm 4.2 - 5.9 / 3.9 - 5.3 cm LV Systolic Diameter PLAX 4.6 cm IVS Diastolic Thickness 1.1 cm 0.6 - 1.0 / 0.6 - 0.9 cm LVPW Diastolic Thickness 1.1 cm 0.6 - 1.0 / 0.6 - 0.9 cm LV Relative Wall Thickness 0.4 LVOT Diameter 2.0 cm LV Diastolic Volume MOD BP 130.7 cm??? 67 - 155 / 56 - 104 cm??? LV Systolic Volume MOD BP 55.7 cm??? 22 - 58 / 19 - 49 cm??? LV Ejection Fraction MOD BP 57.4 % >= 55 % LV Cardiac Index MOD BP 2953.5 cm???/min???m??? LV Diastolic Volume MOD 4C 143.4 cm??? LV Systolic Volume MOD 4C 65.1 cm??? LV Ejection Fraction MOD 4C 54.6 % LV Cardiac Index MOD 4C 3083.9 cm???/min???m??? LV Diastolic Length 4C 9.2 cm LV Systolic Length 4C 7.5 cm LV Diastolic Volume MOD 2C 120.3 cm??? LV Systolic Volume MOD 2C 44.4 cm??? LV Ejection Fraction MOD 2C 63.1 % LV Cardiac Index MOD 2C 2991.7 cm???/min???m??? LV Diastolic Length 2C 9.2 cm LV Systolic Length 2C 8.2 cm Ascending Aorta Diameter 3.1 cm M-MODE Aortic Root Diameter MM 3.0 cm LA Systolic Diameter MM 4.3 cm LA Ao Ratio MM 1.4 AV Cusp Separation MM 2.0 cm DOPPLER AV Peak Velocity 217.1 cm/s AV Peak Gradient 18.9 mmHg AV Mean Velocity 143.9 cm/s AV Mean Gradient 9.4 mmHg AV Velocity Time Integral 36.2 cm AI Peak Velocity 378.2 cm/s AI Peak Gradient 57.2 mmHg AI Pressure Half Time 663.0 ms LVOT Peak Velocity 154.0 cm/s LVOT Peak Gradient 9.5 mmHg LVOT Velocity Time Integral 24.1 cm LVOT Stroke Volume 73.4 cm??? LVOT Stroke Volume Index 38.9 ml/m??? LVOT Cardiac Index 2888.9 cm???/min???m??? AV Area Cont Eq vti 2.0 cm??? AV Area Cont Eq pk 2.2 cm??? Mitral E Point Velocity 68.7 cm/s Mitral A Point Velocity 94.3 cm/s Mitral E to A Ratio 0.7 MV Deceleration Time 292.5 ms LV E' Lateral Velocity 9.2 cm/s Mitral E to LV E' Lateral Ratio 7.5 LV E' Septal Velocity 4.0 cm/s Mitral E to LV E' Septal Ratio 17.2 Right Atrial Pressure 3.0 mmHg FINDINGS Left Ventricle Mildly increased left ventricular wall thickness. Left ventricular cavity size normal. Left ventricular ejection fraction is estimated at 45-50%. Mildly reduced left ventricular systolic function. Inferolateral wall is hypokinetic. Mid-basal inferior wall is hypokinetic. Inferoseptum is hypokinetic. Right Ventricle Upper normal right ventricular size. Right Atrium Mild right atrial dilatation. Left Atrium Normal left atrial size. Mitral Valve Structurally normal mitral valve. Trace mitral regurgitation. Aortic Valve Trileaflet aortic valve. Thickening of the aortic valve cusps. Aortic valve sclerosis. Mild aortic regurgitation. Tricuspid Valve Structurally normal tricuspid valve. No tricuspid regurgitation. Pulmonic Valve Pulmonic valve not well visualized. Pericardium No pericardial effusion. Aorta Normal size aortic root. CONCLUSIONS Left ventricular ejection fraction is estimated at 45-50%. Mildly reduced left ventricular systolic function. Inferior and inferolateral wall hypokinesia with wall thickening suggestive of subacute or old ID No significant valvular dysfunction Previewed by: Dr Pantera Li (Electronically Signed) Final Date: 28 May 2023 22:08
[2023-05-29] MEDS: FUROSEMIDE 40 MG TAB PO SCH ×2 (06:26→16:57)
[2023-05-29] MEDS: PANTOPRAZOLE 40 MG TABLET PO SCH (06:26)
[2023-05-29] MEDS: RIVAROXABAN 2.5 MG TABLET PO SCH ×2 (08:03→22:05)
[2023-05-29] MEDS: AMOXIC-POT CLAV 875-125MG 1 EACH TAB PO SCH ×2 (08:49→20:27)
[2023-05-29] MEDS: LOSARTAN 50 MG TAB PO SCH (08:49)
[2023-05-29] MEDS: LORATADINE 10 MG TAB PO SCH (08:49)
[2023-05-29] MEDS: METOPROLOL TARTRATE 25 MG TAB PO SCH ×2 (08:49→20:28)
[2023-05-29] MEDS: DULoxetine HCL 30 MG CAPSULE.DR PO SCH (08:49)
[2023-05-29] MEDS: SPIRONOLACTONE 25 MG TAB PO SCH (08:49)
[2023-05-29] MEDS: GABAPENTIN 300 MG CAP PO SCH ×3 (08:49→20:28)
[2023-05-29] MEDS: CLOPIDOGREL 75 MG TAB PO SCH (08:50)
[2023-05-29] MEDS: ASPIRIN 81 MG PO SCH (08:58)
[2023-05-29] MEDS: FLUTICASONE 50MCG/SPRAY NASAL 16GM EA NOSTRIL SCH (08:58)
[2023-05-29] MEDS ORDERED: ASPIRIN 325 MG TAB PO SCH (09:00)
--- NOTE | 2023-05-29 10:15 | P.PN ---
Subjective HISTORY OF PRESENT ILLNESS: This is a 52-year-old male with a past medical history significant for hypertension, hyperlipidemia, nicotine dependence, alcohol use, coronary artery disease with previous CABG and stenting, ischemic cardiomyopathy, and peripheral vascular disease with previous intervention. Patient follows in the office with Dr. Mock. We have been asked to see the patient in consultation for chest pain. Patient examined at the bedside in the emergency room. Patient was transferred from [facility] for further evaluation. Patient initially presented to [place] secondary to a fall. Patient reports he has been having more weakness in his legs and has had multiple falls at home. He states he is having a hard time getting his balance when he is walking. He also reports having pain in his bilateral feet. He reports having shortness of breath for the past month. At the time of examination, he denies any chest pain or pressure. The patient reports he is still currently drinking and had 3-4 beers yesterday. He denies any tobacco use. * EKG reveals sinus mechanism with nonspecific ST-T wave changes. No signs of acute ischemia * Chest xray negative for acute process * Laboratory data: WBC 13.6. Hemoglobin 13.5. Platelet count 372. Sodium 138. Potassium 4.2. BUN 27. Creatinine 0.96. Troponin negative 3. * Current home cardiac medications include aspirin 81 mg daily, Lipitor 40 mg at night, Plavix 75 mg daily, Lasix 40 g twice a day, losartan 100 mg daily, metoprolol tartrate 75 mg twice a day, Xarelto 2.5 mg twice a day, and Aldactone 25 mg daily * Most recent echocardiogram obtained in June 2022 revealing ejection fraction 40-45% with mild aortic regurgitation 05/29/2023 Patient examined this morning at the bedside. Patient denies chest pain or pressure. He denies shortness of breath. Echocardiogram completed revealing ejection fraction 45-50%, inferior lateral wall hypokinesis, mid basilar inferior wall hypokinesis, inferior septal hypokinesis, trace mitral regurgitation and mild aortic regurgitation. PHYSICAL EXAM: VITAL SIGNS: Reviewed. GENERAL: Well-developed in no acute distress. HEENT: Head is normocephalic. Pupils are equal, round. Sclerae anicteric. Mucous membranes of the mouth are moist. Neck supple. No JVD or thyromegaly LUNGS: Respirations even and unlabored. Lungs essentially clear to auscultation bilaterally. HEART: Regular rate and rhythm. S1 and S2 heard. ABDOMEN: Soft. Nondistended. Nontender. EXTREMITIES: Normal range of motion. No clubbing or cyanosis. Peripheral pulses intact. No lower extremity edema NEUROLOGIC: Awake and alert. Oriented x 3. ASSESSMENT: Generalized weakness Chest pain, troponins negative 3, acute coronary syndrome ruled out Status post mechanical fall Shortness of breath with component of URI Bilateral lower extremity pain secondary to peripheral arterial disease Peripheral vascular disease with previous bilateral iliac stenting as well as right SFA and residual left popliteal disease Coronary artery disease with previous PCI of OM 3 as well as left main disease, status post CABG June 2022 Cardiomyopathy with ejection fraction 40-45%, previously 35%, felt to be out of proportion to his CAD and possibly alcohol induced Hypertension Hyperlipidemia Nicotine dependence Alcohol abuse, patient reports he continues to drink Acute alcohol intoxication, alcohol level 210 at [facility] PLAN: Continue current cardiac medications Abstinence from alcohol recommended Patient to undergo lower extremity angiogram with possible stenting today with Dr. Mock Further recommendations pending patient course Nurse practitioner note has been reviewed by physician. Signing provider agrees with the documented findings, assessment, and plan of care. Objective - Vital Signs Vital signs: Vital Signs Temp 98.1 F 05/29/23 07:00 Pulse 69 05/29/23 07:00 Resp 16 05/29/23 07:00 BP 163/67 05/29/23 07:00 Pulse Ox 98 05/29/23 07:00 FiO2 Intake & Output 05/28/23 05/29/23 05/29/23 18:59 06:59 18:59 Intake Total 240 Output Total 1000 Balance -760 Weight 74.843 kg Intake: Oral 240 Output: Urine 1000 Other: Voiding Method Toilet # Voids 2 - Labs CBC & Chem 7: 05/28/23 10:42 05/28/23 10:37 Labs: Abnormal Lab Results - Last 24 Hours (Table) 05/28/23 05/28/23 05/28/23 Range/Units 10:37 10:37 10:42 WBC 13.6 H (3.8-10.6) k/uL Neutrophils # 9.1 H (1.3-7.7) k/uL BUN 27 H (9-20) mg/dL Glucose 105 H (74-99) mg/dL Triglycerides 254.00 H (0.00-149.00) mg/dL Cholesterol 216.00 H (0.00-200.00) mg/dL VLDL Cholesterol, Calc 50.80 H (5.00-40.00) mg/dL
[2023-05-29] MEDS ORDERED: fentaNYL (PF) 50 MCG/ML 2 ML AMP ONE (13:55)
[2023-05-29] MEDS ORDERED: LIDOCAINE 1% INJ 10MG/ML (20 ML MDV) ONE (13:55)
[2023-05-29] MEDS ORDERED: fentaNYL (PF) 50 MCG/ML 2 ML AMP IVP ONE (14:18)
[2023-05-29] MEDS ORDERED: MIDAZOLAM 2 MG/2 ML VIAL IVP ONE ×2 (14:19)
[2023-05-29] MEDS ORDERED: LIDOCAINE 1% INJ 10MG/ML (20 ML MDV) SQ ONE (14:21)
[2023-05-29] MEDS ORDERED: IV FLUID CONTINUATION 1,000 ML IV ONE (14:31)
[2023-05-29] MEDS: HEPARIN SODIUM 1,000 UN/ML (10ML VL) IV ONE ×2 (14:39→15:13)
--- NOTE | 2023-05-29 14:55 | P.PN ---
Subjective Progress Note Date: 05/29/23 (Delayed charting seen at 0815) Patient is a 52-year-old male with CAD status post multiple MIs and CABG, PAD w/ hx of acute limb ischemia (on Xarelto), prior alcohol abuse, systolic CHF, hypertension, and hyperlipidemia, who was transferred from [facility] where he had presented with complaints of chest pain, fall, and difficultly with balance. The patient underwent an extensive evaluation at [facility] which was all reviewed. An EKG demonstrated no evidence of ischemia. CT abdomen without contrast revealed no acute abnormalities. CT brain was also unremarkable. Laboratory evaluation was remarkable for alcohol level 210, WBC count 12.3, hemoglobin 12.9, platelets 320, BUN 23, creatinine 1, alk phos 169, sodium 137, potassium 3.7, d-dimer 0.87, magnesium 2.4, proBNP 892, troponin 0.022. He was seen by cardiology who recommended echocardiogram and evaluation by his primary french comber for possible need for peripheral intervention. Echocardiogram was completed which showed an ejection fraction of 45-50% with hypokinetic inferior wall. Patient seen and examined at bedside. He reports that he has had improvement in his shortness of breath and sore throat and is feeling better today. He continues to have pain in his left lower extremity, he had pain in his right lower extremity prior. He can increase to have difficulty with balance. Vital signs reviewed General: nontoxic, no distress, appears at stated age Cardiovascular: S1S2 reg, no murmur, positive posterior tibial pulse bilateral, Lungs: CTA bilateral, no rhonchi, no rales , no accessory muscle use Abdominal: soft, nontender to palpation, no guarding, no appreciable organomegaly Ext: no gross muscle atrophy, no edema b/l lower extremities, no contractures Neuro: CN II-XI grossly intact, no focal neuro deficits Psych: Alert, oriented, appropriate affect Assessment/Plan: Chest pain with a hx CAD, acute coronary syndrome ruled out Status post mechanical fall, Generalized weakness Bilateral lower extremity pain suspect secondary to known peripheral arterial disease Cardiomyopathy with ejection fraction 40-45%, previously 35% Hypertension Hyperlipidemia -Plan is for lower extremity angiogram today. Discussed with cardiology. -troponins negative 3 - Lipitor 40 mg at night, aspirin 81 mg daily, Plavix 75 mg daily, Lasix 40 mg twice daily, Cozaar 100 mg daily, Lopressor 75 mg twice daily, Xarelto 2.5 mg daily, spironolactone 25 mg daily -Review of prior blood work shows vitamin B12 level of 519 in August 2022. This can be repeated on an outpatient basis. Upper respiratory tract infection, concern for dental abscess -Augmentin 875/125 mg twice daily D # 2 -Flonase 2 sprays each nostril daily -Claritin 10 mg daily Acute alcohol intoxication, resolved Imaging: Echocardiogram-hypokinetic inferior wall suggestive of prior AR, ejection fraction 45-50% Data Review: No additional labs from today DVT prophylaxis: Xarelto Anticipated discharge date: in 24-[address]: Home This dictation was prepared using [email or web address] voice recognition software. Though every attempt is made to correct errors during dictation some may still exist. Objective - Vital Signs Vital signs: Vital Signs Temp 98.1 F 05/29/23 07:00 Pulse 69 05/29/23 07:00 Resp 16 05/29/23 07:00 BP 163/67 05/29/23 07:00 Pulse Ox 98 05/29/23 07:00 FiO2 Intake & Output 05/28/23 05/29/23 05/29/23 18:59 06:59 18:59 Intake Total 240 240 Output Total 1000 Balance -760 240 Weight 74.843 kg Intake: Oral 240 240 Output: Urine 1000 Other: Voiding Method Toilet # Voids 2 - Labs CBC & Chem 7: 05/28/23 10:42 05/28/23 10:37 Labs: Abnormal Lab Results - Last 24 Hours (Table) 05/28/23 Range/Units 10:37 Triglycerides 254.00 H (0.00-149.00) mg/dL Cholesterol 216.00 H (0.00-200.00) mg/dL VLDL Cholesterol, Calc 50.80 H (5.00-40.00) mg/dL
--- NOTE | 2023-05-29 14:56 | P.DS ---
Providers Date of admission: 05/28/23 03:17 Expected date of discharge: 05/29/23 Attending physician: Nate Barker MD Consults: 05/28/23 03:17 Consult Physician Urgent Consulting Provider: Saúl Mock Consult Reason/Comments: chest pain Do you want consulting provider notified?: Yes Primary care physician: Starr Washington MD Hospital Course: Discharge Diagnosis: Hospital Course: Patient seen and examined at bedside. Vital signs reviewed and stable. General: nontoxic, no distress, appears at stated age Cardiovascular: S1S2 reg, no murmur, positive posterior tibial pulse bilateral, Lungs: CTA bilateral, no rhonchi, no rales , no accessory muscle use Abdominal: soft, nontender to palpation, no guarding, no appreciable organomegaly Ext: no gross muscle atrophy, no edema b/l lower extremities, no contractures Neuro: CN II-XI grossly intact, no focal neuro deficits Psych: Alert, oriented, appropriate affect A total of minutes of time were spent preparing this complex discharge summary. Patient was discharged on . This dictation was prepared using [employer] voice recognition software. Though every attempt is made to correct errors during dictation some may still exist. Patient Condition at Discharge: Fair Plan - Discharge Summary New Discharge Prescriptions: No Action Aspirin 81 mg PO DAILY #90 tab Atorvastatin [Lipitor] 40 mg PO HS Clopidogrel [Plavix] 75 mg PO DAILY #90 tab Rivaroxaban [Xarelto] 2.5 mg PO BID #180 tab Gabapentin 600 mg PO BID Metoprolol Tartrate [Lopressor] 75 mg PO BID #180 tab traZODone HCL [Desyrel] 50 mg PO HS DULoxetine HCL [Cymbalta] 30 mg PO DAILY Pantoprazole [Protonix] 40 mg PO AC-BRKFST #30 tab Furosemide [Lasix] 40 mg PO BID@0600,1400 Albuterol Inhaler [Ventolin Hfa Inhaler] 2 puff INHALATION RT-QID PRN 30 Days #8 gm PRN Reason: Shortness Of Breath Or Wheezing Gabapentin [Neurontin] 300 mg PO DAILY@1200 Spironolactone [Aldactone] 25 mg PO DAILY #30 tab Losartan Potassium [Cozaar] 100 mg PO DAILY Discharge Medication List Aspirin 81 mg PO DAILY #90 tab 12/22/21 [Rx] Pantoprazole [Protonix] 40 mg PO AC-BRKFST #30 tab 06/17/22 [Rx] Atorvastatin [Lipitor] 40 mg PO HS 08/16/22 [History] Furosemide [Lasix] 40 mg PO BID@0600,1400 08/16/22 [History] Albuterol Inhaler [Ventolin Hfa Inhaler] 2 puff INHALATION RT-QID PRN 30 Days #8 gm 08/21/22 [Rx] Clopidogrel [Plavix] 75 mg PO DAILY #90 tab 08/21/22 [Rx] Rivaroxaban [Xarelto] 2.5 mg PO BID #180 tab 08/29/22 [Rx] Gabapentin 600 mg PO BID 09/08/22 [History] Gabapentin [Neurontin] 300 mg PO DAILY@1200 09/08/22 [History] Metoprolol Tartrate [Lopressor] 75 mg PO BID #180 tab 09/11/22 [Rx] Spironolactone [Aldactone] 25 mg PO DAILY #30 tab 09/11/22 [Rx] traZODone HCL [Desyrel] 50 mg PO HS 05/09/23 [History] DULoxetine HCL [Cymbalta] 30 mg PO DAILY 05/28/23 [History] Losartan Potassium [Cozaar] 100 mg PO DAILY 05/28/23 [History] Follow up Appointment(s)/Referral(s): Starr Washington MD [Primary Care Provider] - 1-2 days
[2023-05-29] MEDS ORDERED: IOPAMIDOL-370 100ML BTL INJ ONE ×2 (15:02)
[2023-05-29] MEDS ORDERED: NALOXONE 0.4 MG/ML 1 ML VIAL IVP PRN (15:32)
[2023-05-29] MEDS ORDERED: SODIUM CHLORIDE 0.9% 1,000 ML in EMPTY BAG 1 BAG IV SCH (15:45)
--- NOTE | 2023-05-29 15:52 | P.PCN ---
Description of Procedure: PROCEDURES PERFORMED: Abdominal angiography with left lower extremity runoff, CUSTOMER PROGRAM SPECIALIST and DCB of distal left SFA with a 5.0 x 80mm IN.PACT balloon INDICATION: Critical limb ischemia HISTORY: Worsening left lower extremity pain at rest and numbness with prior abnormal angiogram showing left SFA disease, critical limb ischemia CONSENT:I have discussed the risks, benefits and alternative therapies for the above-mentioned procedure and for both sedation/analgesia as well as necessary blood product administration, if indicated, as they pertain to this patient. The patient has indicated understanding and acceptance of the risks and procedures discussed. PROCEDURE: After the risks, benefits and alternatives of the above mentioned p rocedure explained in detail with the patient, informed consent was obtained. Patient was taken to the catheterization lab and prepped and draped in usual fashion. 1% lidocaine was used to anesthetize the right femoral area. A 6- Surinamese sheath was placed in the right femoral artery using modified Seldinger technique. A 5-Surinamese pigtail catheter was inserted to the abdominal aorta and DSA imaging was obtained. Next using a rim catheter, dedicated left Toya extremity angiograms were performed. Patient tolerated the diagnostic portion well. Next, the decision was made to perform intervention of the left SFA. IV heparin was given. A 0.035 glide wire was used to cross the lesion. Balloon angioplasty was performed with a 4.0 x 60 mm balloon. Next a 5.0 x 80 mm drug coated balloon was deployed for 3 minutes. Final angiograms were performed. Pre intervention there was 100% stenosis with no antegrade flow. Post intervention there was 10% stenosis and uninhibited flow. There was some slower flow to the ankle however felt most likely related to dampening of the catheter from diffuse iliac disease with blood pressure reading on the catheter 50s over 30s. A right femoral angiogram was performed and anatomoy was not suitable for closure. The sheath was sutured in place to be pulled at a later time. The patient tolerated the procedure well. Patient was transported back to the post catheterization holding area in stable condition. Conscious Sedation: Patient was monitored under the direct supervision of vision of myself for conscious sedation using Versed and fentanyl for a total duration of 58 minutes HEMODYNAMICS: Aorta: 135/78 Abdominal aorta: The abdominal aorta has mild calcifcation. Renal arteries were not imaged. There is no significant dissection or aneurysm. There is no significant stenosis. Right lower extremity: Right common iliac artery: There is a patent proximal and distal right common iliac stent without significant stenosis.. Right external iliac artery: There is no significant stenosis. Right internal iliac artery: There is no significant stenosis. Right common femoral artery: There is mild to moderate diffuse disease Left lower extremity: Left common iliac artery: There is a patent proximal left common iliac stent and otherwise mild diffuse 20-30% stenosis. Left external iliac artery: There is no significant stenosis. Left internal iliac artery: There is no significant stenosis. Left common femoral artery: There is no significant stenosis. Left profunda: There is no significant stenosis. Left SFA: There is diffuse disease 20-30% stenosis with small caliber SFA approximately 5 mm. There is 100% distal left SFA stenosis with reconstitution at the proximal popliteal. Left popliteal artery: There is no significant stenosis. Left tibioperoneal trunk: There is no significant stenosis. Left anterior tibial artery: There is no significant stenosis. Left posterior tibial artery: There is no significant stenosis. Left peroneal artery: There is no significant stenosis. FINAL IMPRESSION: 1. Peripheral arterial disease as described above including patent bilateral common iliac stents, small caliber vessels and a left SFA 100% stenosis. 2. S/p CUSTOMER PROGRAM SPECIALIST and DCB of distal left SFA with a 5.0 x 80mm IN.PACT balloon 3. Decreased antegrade flow and pressure dampening related to sheath obstruction in iliacs appears related to small caliber iliacs PLAN: 1. Aggressive risk factor modification per most recent ACC/AHA guidelines. 2. Continue dual antiplatelets with aspirin and Plavix for 6 months
--- NOTE | 2023-05-29 17:42 | IR ---
EXAMINATION TYPE: IR captain of guards femoral popliteal DATE OF EXAM: 05/29/2023 COMPARISON: 09/10/2022 HISTORY: PAD, 12.8 min FT, 23.0 Gycm2 total DAP Fluoroscopy was provided to the referring clinician.
[2023-05-29] MEDS ORDERED: ATROPINE SULFATE 0.1 MG/ML 10ML SYRINGE ONE (17:49)
[2023-05-29] MEDS: ATORVASTATIN 40 MG TAB PO SCH (20:28)
[2023-05-29] MEDS: traZODone HCL 50 MG TAB PO SCH (20:28)
[2023-05-30] MEDS ORDERED: ACETAMINOPHEN TAB 325 MG TAB PO STA (04:16)
[2023-05-30] MEDS: PANTOPRAZOLE 40 MG TABLET PO SCH (06:32)
[2023-05-30] MEDS: FUROSEMIDE 40 MG TAB PO SCH ×2 (06:32→13:10)
[2023-05-30] MEDS: RIVAROXABAN 2.5 MG TABLET PO SCH (08:13)
[2023-05-30] MEDS: LORATADINE 10 MG TAB PO SCH (08:13)
[2023-05-30] MEDS: ASPIRIN 81 MG PO SCH (08:13)
[2023-05-30] MEDS: AMOXIC-POT CLAV 875-125MG 1 EACH TAB PO SCH (08:13)
[2023-05-30] MEDS: DULoxetine HCL 30 MG CAPSULE.DR PO SCH (08:13)
[2023-05-30] MEDS: METOPROLOL TARTRATE 25 MG TAB PO SCH (08:13)
[2023-05-30] MEDS: GABAPENTIN 300 MG CAP PO SCH ×2 (08:13→13:09)
[2023-05-30] MEDS: CLOPIDOGREL 75 MG TAB PO SCH (08:13)
[2023-05-30] MEDS: SPIRONOLACTONE 25 MG TAB PO SCH (08:13)
[2023-05-30] MEDS: LOSARTAN 50 MG TAB PO SCH (08:13)
[2023-05-30] MEDS: FLUTICASONE 50MCG/SPRAY NASAL 16GM EA NOSTRIL SCH (08:14)
[2023-05-30 10:09] VITALS: PULSE 69; RESP 20
[2023-05-30 12:12] VITALS: BP 144/79; TEMP 97.6
--- NOTE | 2023-05-30 15:28 | P.DS ---
Providers Date of admission: 05/28/23 03:17 Expected date of discharge: 05/30/23 Attending physician: Nate Barker MD Consults: 05/28/23 03:17 Consult Physician Urgent Consulting Provider: Saúl oMck Consult Reason/Comments: chest pain Do you want consulting provider notified?: Yes Primary care physician: Starr Washington MD Hospital Course: Discharge Diagnosis: Chest pain with a hx CAD, acute coronary syndrome ruled out Left LE critical limb ischemia, Hx of peripheral arterial disease Status post mechanical fall, Generalized weakness Cardiomyopathy with ejection fraction 40-45%, previously 35% Hypertension Hyperlipidemia Upper respiratory tract infection, concern for dental abscess Acute alcohol intoxication, resolved Hospital Course: Patient is a 52-year-old male with CAD status post multiple MIs and CABG, PAD w/ hx of acute limb ischemia (on Xarelto), prior alcohol abuse, systolic CHF, hypertension, and hyperlipidemia, who was transferred from [facility] where he had presented with complaints of chest pain, fall, and difficultly with balance. The patient underwent an extensive evaluation at [facility] which was all reviewed. An EKG demonstrated no evidence of ischemia. CT abdomen without contrast revealed no acute abnormalities. CT brain was also unremarkable. Laboratory evaluation was remarkable for alcohol level 210, WBC count 12.3, hemoglobin 12.9, platelets 320, BUN 23, creatinine 1, alk phos 169, sodium 137, potassium 3.7, d-dimer 0.87, magnesium 2.4, proBNP 892, troponin 0.022. He was seen by cardiology who recommended echocardiogram and evaluation by his primary breakfast cook for possible need for peripheral intervention. Echocardiogram was completed which showed an ejection fraction of 45-50% with hypokinetic inferior wall. Due to his continued leg pain at rest he went for a lower arterial angiogram where he underwent ballooning of the left distal SFA. Patient tolerated well. He was determined stable for discharge. Follow-up: He will complete an additional 3 days of Augmentin, will continue on Claritin and Flonase. The remainder of his medications are unchanged. He will follow-up with Dr. Washington in the next 1-2 days Patient seen and examined at bedside. Denies any chest pain, shortness breath, nausea, vomiting. His leg pain at rest is better but he still is having some numbness which is likely chronic due to neuropathy. Vital signs reviewed and stable. General: nontoxic, no distress, appears at stated age Cardiovascular: S1S2 reg, no murmur, positive posterior tibial pulse bilateral, Lungs: Decreased bs bilateral, no rhonchi, no rales , no accessory muscle use Abdominal: soft, nontender to palpation, no guarding, no appreciable organomegaly Ext: no gross muscle atrophy, 1+ edema b/l lower extremities, no contractures Neuro: CN II-XI grossly intact, no focal neuro deficits Psych: Alert, oriented, appropriate affect A total of 37 minutes of time were spent preparing this complex discharge summary. Patient was discharged on 05/30/23. This dictation was prepared using [employer] voice recognition software. Though every attempt is made to correct errors during dictation some may still exist. Patient Condition at Discharge: Fair Plan - Discharge Summary New Discharge Prescriptions: New RX: Amoxic-Pot Clav 875-125Mg [Augmentin 875-125] 1 each PO Q12HR #5 tab RX: Loratadine [Claritin] 10 mg PO DAILY #30 tab RX: Fluticasone Nasal Stanley [Flonase Nasal Stanley] 2 spray EA NOSTRIL DAILY 14 Days #1 dispenser Continue RX: Atorvastatin [Lipitor] 40 mg PO HS RX: Clopidogrel [Plavix] 75 mg PO DAILY #90 tab RX: Rivaroxaban [Xarelto] 2.5 mg PO BID #180 tab RX: Gabapentin 600 mg PO BID RX: Metoprolol Tartrate [Lopressor] 75 mg PO BID #180 tab RX: traZODone HCL [Desyrel] 50 mg PO HS RX: DULoxetine HCL [Cymbalta] 30 mg PO DAILY RX: Pantoprazole [Protonix] 40 mg PO AC-BRKFST #30 tab RX: Furosemide [Lasix] 40 mg PO BID@0600,1400 RX: Gabapentin [Neurontin] 300 mg PO DAILY@1200 RX: Spironolactone [Aldactone] 25 mg PO DAILY #30 tab RX: Losartan Potassium [Cozaar] 100 mg PO DAILY RX: Albuterol Inhaler [Ventolin Hfa Inhaler] 2 puff INHALATION RT-QID PRN 30 Days #8 gm PRN Reason: Shortness Of Breath Or Wheezing Discontinued RX: Aspirin 81 mg PO DAILY #90 tab Discharge Medication List RX: Pantoprazole [Protonix] 40 mg PO AC-BRKFST #30 tab 06/17/22 [Rx] RX: Atorvastatin [Lipitor] 40 mg PO HS 08/16/22 [History] RX: Furosemide [Lasix] 40 mg PO BID@0600,1400 08/16/22 [History] RX: Clopidogrel [Plavix] 75 mg PO DAILY #90 tab 08/21/22 [Rx] RX: Rivaroxaban [Xarelto] 2.5 mg PO BID #180 tab 08/29/22 [Rx] RX: Gabapentin 600 mg PO BID 09/08/22 [History] RX: Gabapentin [Neurontin] 300 mg PO DAILY@1200 09/08/22 [History] RX: Metoprolol Tartrate [Lopressor] 75 mg PO BID #180 tab 09/11/22 [Rx] RX: Spironolactone [Aldactone] 25 mg PO DAILY #30 tab 09/11/22 [Rx] RX: traZODone HCL [Desyrel] 50 mg PO HS 05/09/23 [History] RX: DULoxetine HCL [Cymbalta] 30 mg PO DAILY 05/28/23 [History] RX: Losartan Potassium [Cozaar] 100 mg PO DAILY 05/28/23 [History] RX: Albuterol Inhaler [Ventolin Hfa Inhaler] 2 puff INHALATION RT-QID PRN 30 Days #8 gm 05/30/23 [Rx] RX: Amoxic-Pot Clav 875-125Mg [Augmentin 875-125] 1 each PO Q12HR #5 tab 05/30/23 [Rx] RX: Fluticasone Nasal Stanley [Flonase Nasal Stanley] 2 spray EA NOSTRIL DAILY 14 Days #1 dispenser 05/30/23 [Rx] RX: Loratadine [Claritin] 10 mg PO DAILY #30 tab 05/30/23 [Rx] Follow up Appointment(s)/Referral(s): Saúl Mock DO [STAFF PHYSICIAN] - 1 Week Starr Washington MD [Primary Care Provider] - 1-2 days Patient Instructions/Handouts: Peripheral Vascular Angioplasty (DC) Activity/Diet/Wound Care/Special Instructions: Activity: As tolerated Diet: Heart healthy Special Instructions: Do not lift anything heavier than 5 pounds for 48 hours. Do not do vigorous activity for at least 48 hours. Discharge/Stand Alone Forms: [facility], [facility] Discharge Disposition: HOME SELF-CARE
--- NOTE | 2023-05-30 16:00 | P.PN ---
Subjective HISTORY OF PRESENT ILLNESS: This is a 52-year-old male with a past medical history significant for hypertension, hyperlipidemia, nicotine dependence, alcohol use, coronary artery disease with previous CABG and stenting, ischemic cardiomyopathy, and peripheral vascular disease with previous intervention. Patient follows in the office with Dr. Mock. We have been asked to see the patient in consultation for chest pain. Patient examined at the bedside in the emergency room. Patient was transferred from [facility] for further evaluation. Patient initially presented to [facility] secondary to a fall. Patient reports he has been having more weakness in his legs and has had multiple falls at home. He states he is having a hard time getting his balance when he is walking. He also reports having pain in his bilateral feet. He reports having shortness of breath for the past month. At the time of examination, he denies any chest pain or pressure. The patient reports he is still currently drinking and had 3-4 beers yesterday. He denies any tobacco use. * EKG reveals sinus mechanism with nonspecific ST-T wave changes. No signs of acute ischemia * Chest xray negative for acute process * Laboratory data: WBC 13.6. Hemoglobin 13.5. Platelet count 372. Sodium 138. Potassium 4.2. BUN 27. Creatinine 0.96. Troponin negative 3. * Current home cardiac medications include aspirin 81 mg daily, Lipitor 40 mg at night, Plavix 75 mg daily, Lasix 40 g twice a day, losartan 100 mg daily, metoprolol tartrate 75 mg twice a day, Xarelto 2.5 mg twice a day, and Aldactone 25 mg daily * Most recent echocardiogram obtained in June 2022 revealing ejection fraction 40-45% with mild aortic regurgitation 05/29/2023 Patient examined this morning at the bedside. Patient denies chest pain or pressure. He denies shortness of breath. Echocardiogram completed revealing ejection fraction 45-50%, inferior lateral wall hypokinesis, mid basilar inferior wall hypokinesis, inferior septal hypokinesis, trace mitral regurgitation and mild aortic regurgitation. 05/30 Patient seen and examined. Patient denies any chest pain or pressure. He was complaining of feeling somewhat fatigued however has been feeling somewhat better after antibiotics. He underwent angiogram of the left lower extremity yesterday shows 100% CT of the SFA underwent balloon angioplasty drug-coated balloon. He does admits improvement in his pain however still less have some numbness. We discussed that this continued numbness is likely related to back issues. PHYSICAL EXAM: VITAL SIGNS: Reviewed. GENERAL: Well-developed in no acute distress. HEENT: Head is normocephalic. Pupils are equal, round. Sclerae anicteric. Mucous membranes of the mouth are moist. Neck supple. No JVD or thyromegaly LUNGS: Respirations even and unlabored. Lungs essentially clear to auscultation bilaterally. HEART: Regular rate and rhythm. S1 and S2 heard. ABDOMEN: Soft. Nondistended. Nontender. EXTREMITIES: Normal range of motion. No clubbing or cyanosis. Peripheral pulses intact. No lower extremity edema NEUROLOGIC: Awake and alert. Oriented x 3. ASSESSMENT: Generalized weakness Chest pain, troponins negative 3, acute coronary syndrome ruled out Status post mechanical fall Shortness of breath with component of URI Bilateral lower extremity pain secondary to peripheral arterial disease, critical limb ischemia, pain at rest status post left DCB 05/29 Peripheral vascular disease with previous bilateral iliac stenting as well as right SFA and residual left popliteal disease Coronary artery disease with previous PCI of OM 3 as well as left main disease, status post CABG June 2022 Cardiomyopathy with ejection fraction 40-45%, previously 35%, felt to be out of proportion to his CAD and possibly alcohol induced Hypertension Hyperlipidemia Nicotine dependence Alcohol abuse, patient reports he continues to drink Acute alcohol intoxication, alcohol level 210 at [facility] PLAN: Chest pain and overall atypical. Appears stable for discharge home from a cardiac standpoint. He underwent left SFA stenting and pain at rest is somewhat better. Follow-up in office in 1-2 weeks. Residual numbness likely related to radiculopathy. Objective - Vital Signs Vital signs: Vital Signs Temp 97.6 F 05/30/23 12:03 Pulse 69 05/30/23 12:03 Resp 20 05/30/23 12:03 BP 144/79 05/30/23 12:03 Pulse Ox 95 05/30/23 08:10 FiO2 21 05/29/23 21:28 Intake & Output 05/29/23 05/30/23 05/30/23 18:59 06:59 18:59 Intake Total 660 240 236 Output Total 250 850 Balance 410 -610 236 Intake: IV 200 Intake, IV Titration 120 Amount Sodium Chloride 0.9% 1, 120 000 ml In Empty Bag 1 bag @ 60 mls/hr IV .[id number] [facility] Rx#:[id number] Oral 340 240 236 Output: Urine 250 850 Other: Voiding Method Toilet Toilet - Labs CBC & Chem 7: 05/28/23 10:42 05/28/23 10:37
== END 2023-05-30 17:47 | disposition home or self-care (01) ==
LOC: EC 02:54 → 6NMEDSUR 03:17 → 3SCARD 05-29 15:34
PROVIDERS: ADMIT Internal Medicine; ATTEND Internal Medicine
DX: E11.51 Type 2 diabetes mellitus with diabetic peripheral angiopathy without gangrene (principal); I70.229 Atherosclerosis of native arteries of extremities with rest pain, unspecified extremity; R53.1 Weakness; R07.89 Other chest pain; R06.02 Shortness of breath; F10.229 Alcohol dependence with intoxication, unspecified; Y90.7 Blood alcohol level of 200-239 mg/100 ml; I25.10 Atherosclerotic heart disease of native coronary artery without angina pectoris; I11.0 Hypertensive heart disease with heart failure; I50.22 Chronic systolic (congestive) heart failure; E78.5 Hyperlipidemia, unspecified; J06.9 Acute upper respiratory infection, unspecified; I25.5 Ischemic cardiomyopathy; I25.2 Old myocardial infarction; Z86.718 Personal history of other venous thrombosis and embolism; Z87.891 Personal history of nicotine dependence; Z95.5 Presence of coronary angioplasty implant and graft; Z95.820 Peripheral vascular angioplasty status with implants and grafts; Z79.899 Other long term (current) drug therapy; Z79.02 Long term (current) use of antithrombotics/antiplatelets; Z79.82 Long term (current) use of aspirin; Z79.01 Long term (current) use of anticoagulants
CPT/HCPCS: 99285; 94640; 93005; 80061; 80048; 84484; 85025; 71046; 37224; 75630; G0378 ×5; C8929; C1769 ×2; C1894 ×2; C1725; C2623; J2250; J2001; J3010; J1644; Q9950; Q9967; 93306